=== PATIENT | female | born 1990 | race Caucasian/White ===

== ENCOUNTER 2020-05-25 17:09 | Emergency (ER) | payer OTHER, SELFPAY ==
[2020-05-25 17:20] VITALS: BP 118/81; PULSE 96; RESP 18; TEMP 36.8; O2SAT 98
--- NOTE | 2020-05-25 17:22 | ED.GENADULT ---
HPI - General Adult General Chief complaint: Upper Respiratory Infection Stated complaint: Sore throat Time Seen by Provider: 05/25/20 17:23 Source: patient Mode of arrival: ambulatory Limitations: no limitations History of Present Illness HPI narrative: 29-year-old female patient presents to the [facility] with complaints of a sore throat for the past 2 days. Patient states that late last week her daughter had some vaccinations and over the weekend started running some low-grade fevers and lethargic and states that she was not getting any better so she took her and to be tested for strep and COVID today. Patient states that her daughter did come back positive for strep. Patient states that she herself has had strep multiple times and actually had her tonsils and adenoids taken out last year for multiple bouts of strep. Patient states that because she was having some similar symptoms she wanted to come and get tested for strep today. Denies any fevers, body aches or chills. Denies any chest pain, shortness of breath, abdominal pain, nausea, vomiting or diarrhea. Related Data Home Medications Medication Instructions Recorded Confirmed bupropion HCl 150 mg PO QAM 10/24/19 10/24/19 estradiol 1 patch TRANSDERMAL WEEKLY 10/24/19 10/24/19 Allergies Allergy/AdvReac Type Severity Reaction Status Date / Time No Known Allergies Allergy Verified 10/24/19 16:36 Review of Systems Review of Systems: Narrative: CONSTITUTIONAL: Denies fever, chills, or sweats. EYES: Denies visual changes, redness, or discharge. ENT: Denies rhinorrhea, congestion, positive sore throat, denies otalgia. CARDIOVASCULAR: Denies chest pain, palpitations, or edema. RESPIRATORY: Denies cough or dyspnea. GASTROINTESTINAL: Denies abdominal pain, nausea, vomiting, or diarrhea. GENITOURINARY: Denies dysuria or hematuria. SKIN: Denies rash or itching. MUSCULOSKELETAL: Denies back pain, joint pain, or myalgia. NEUROLOGIC: Denies headache, numbness, or weakness. PSYCHIATRIC: Denies anxiety or depression. PMFSH Comments At the time of my signature I agree with nursing past medical history, surgical, social, and family history. There is no relevant family history pertinent to the presenting complaint. Exam Narrative: Exam Narrative: GENERAL: Well-appearing, well-nourished, and in no acute distress. HEAD: Normocephalic, atraumatic. EYES: PERRLA and EOMI. ENT: Nares clear, no rhinorrhea or epistaxis. Mucous membranes moist. Posterior pharynx with slight erythema. There is no tonsils present. No exudates or lesions present. NECK: Supple. No lymphadenopathy CHEST: Clear to auscultation. No respiratory distress. HEART: Regular rate and rhythm. No murmur heard. Normal peripheral pulses. ABDOMEN: Soft, nontender, nondistended, normal active bowel sounds. EXTREMITIES: Normal range of motion. No edema. SKIN: Warm, dry, no rash. NEURO: No focal deficits. Alert and oriented x3. Course Reevaluation(s) Reevaluation #1: Reevaluated patient. Discussed with her that her strep test today is negative for strep. Discussed with her that we will send the swab off to the lab for culture and if it does come back positive at that time we will call and place her on antibiotics. Offered to send patient for COVID testing however patient states that she had a cover test done last week for work and it was negative. Patient not wanting to cover the test at this time. Date: 05/25/20 Time: 17:29 Vital Signs Vital signs: Vital Signs Temperature 36.8 C 05/25/20 17:20 Pulse Rate 96 05/25/20 17:20 Respiratory Rate 18 05/25/20 17:20 Blood Pressure 118/81 05/25/20 17:20 Pulse Oximetry 98 05/25/20 17:20 Temperature 36.8 C 05/25/20 17:20 Pulse Rate 96 05/25/20 17:20 Respiratory Rate 18 05/25/20 17:20 Blood Pressure 118/81 05/25/20 17:20 Pulse Oximetry 98 05/25/20 17:20 Vital signs reviewed. Medical Decision Making Differential Diagnosis Differential
== END 2020-05-25 17:35 | disposition home or self-care (01) ==
PROVIDERS: Emergency Provider Nurse Practitioner Family
DX: J02.9 Acute pharyngitis, unspecified (principal); F41.9 Anxiety disorder, unspecified; F32.9 Major depressive disorder, single episode, unspecified
CPT/HCPCS: 87081; 87880; 99213; G0463

== ENCOUNTER 2021-02-12 10:30 | Emergency (ER) | payer OTHER, SELFPAY ==
--- NOTE | 2021-02-12 10:34 | ED.URI ---
HPI - URI/Sore Throat General Chief Complaint: Upper Respiratory Infection Stated Complaint: fatigue headache sore throat Time Seen by Provider: 02/12/21 10:35 Source: patient and RN notes reviewed History of Present Illness HPI Narrative: Patient is a 30-year-old female who presents the urgent care with complaints of fatigue, sore throat, body aches and headache since yesterday. Patient states she has been taking DayQuil and NyQuil with mild improvement. Denies of any other upper respiratory symptoms such as cough, runny nose, ear pain, fever. No other acute complaints. No acute distress noted. Patient aware of the plan of care. Some parts of this dictation were generated by voice recognition software and may contain typographical and/or grammatical inaccuracies. Related Data Home Medications Medication Instructions Recorded Confirmed No Home Medications 02/12/21 02/12/21 Allergies Allergy/AdvReac Type Severity Reaction Status Date / Time No Known Allergies Allergy Verified 10/24/19 16:36 Review of Systems Review of Systems: Narrative: CONSTITUTIONAL: Reports a fever EYES: Denies visual changes, redness, or discharge. ENT: Reports of sore throat CARDIOVASCULAR: Denies chest pain, palpitations, or edema. RESPIRATORY: Denies cough or dyspnea. GASTROINTESTINAL: Denies abdominal pain, nausea, vomiting, or diarrhea. GENITOURINARY: Denies dysuria or hematuria. SKIN: Denies rash or itching. MUSCULOSKELETAL: Denies back pain, joint pain. Reports of body aches NEUROLOGIC: Reports of headache without numbness or weakness All other systems reviewed are negative, except as documented in HPI. PMFSH Social History Social History Gender identity (if verbalized by the patient): Female Comments At the time of my signature, I reviewed and agree with the nursing past medical, surgical, social, and family history. There is no relevant family history pertinent to the patient complaint. Exam Narrative: Exam Narrative: GENERAL: This is a well-nourished, well-developed patient, in no apparent distress. HEAD: normocephalic, atraumatic. EYES: PERRL. Sclera clear/white. Vision is grossly intact. EARS: External ears normal, auditory canals clear and without drainage, TMs normal without perforation. Hearing grossly intact. NOSE: External nose normal with no obvious nasal discharge, nares without redness, no rhinorrhea. THROAT: Mucous membranes moist, posterior pharynx clear. Mild postnasal drainage NECK: Neck supple, non-tender without lymphadenopathy CARDIOVASCULAR: Regular rate and rhythm without murmurs, gallops, or rubs. RESPIRATORY: Clear to auscultation. Breath sounds equal bilaterally. No wheezes, rales, or rhonchi. SKIN: warm, intact with no suspicious lesions or rash, good texture and turgor. NEURO: awake, alert, and oriented to person, place and time. There were no obvious focal neurologic abnormalities. EXTREMITIES: No clubbing, cyanosis, or edema. Course Vital Signs Vital signs: Vital Signs Temperature 98.9 F 02/12/21 10:38 Pulse Rate 87 02/12/21 10:38 Respiratory Rate 24 H 02/12/21 10:38 Blood Pressure 140/79 02/12/21 10:38 Pulse Oximetry 99 02/12/21 10:38 Temperature 98.9 F 02/12/21 10:38 Pulse Rate 87 02/12/21 10:38 Respiratory Rate 24 H 02/12/21 10:38 Blood Pressure 140/79 02/12/21 10:38 Pulse Oximetry 99 02/12/21 10:38 Reviewed MDM - URI/Sore Throat MDM Narrative Medical decision making narrative: Reviewed lab results with the patient. She is aware that flu and strep swab were both negative. Educated patient on culture for strep and we will call within 72 hours if culture is positive and antibiotics are necessary. Advised the patient to increase her water intake use a humidifier at night. Treat body aches/fevers as needed with Tylenol/ibuprofen. May use a [id number] antihistamine for postnasal drainage relief. I
[2021-02-12 10:38] VITALS: BP 140/79; PULSE 87; RESP 24; TEMP 37.2; O2SAT 99
== END 2021-02-12 11:11 | disposition home or self-care (01) ==
PROVIDERS: Emergency Provider Nurse Practitioner Family; PCP Nurse Practitioner Adult Health
DX: J02.9 Acute pharyngitis, unspecified (principal)
CPT/HCPCS: 87081; 87804; 87880; 99213; G0463

== ENCOUNTER 2021-09-10 15:29 | Emergency (ER) | payer OTHER, SELFPAY ==
[2021-09-10 15:40] VITALS: BP 128/95; PULSE 98; RESP 18; TEMP 36.8; O2SAT 99
--- NOTE | 2021-09-10 16:03 | ED.FEMALEGU ---
HPI - Female Genitourinary General Chief complaint: Urogenital-Female Stated complaint: poss uti sore throat Time Seen by Provider: 09/10/21 15:40 Source: patient and RN notes reviewed Mode of arrival: ambulatory Limitations: no limitations History of Present Illness HPI Narrative: 31 year old female who presents to [facility] care with complaints of urinary frequency and burning and cramping lower abdomen and right back pain for the past week patient has past history of interstitial cystitis and has monthly instillations in her bladder. Patient also states that she has had sore throat tenderness to sides of throat and neck with headaches. Patient reports that she has been taking some DayQuil for her symptoms. Patient denies any Tylenol and Ibuprofen. Patient reports that she has had COVID and Flu vaccine. MD elicited complaint: UTI and other (ST, headache, neck pain) Related Data Home Medications Medication Instructions Recorded Confirmed No Home Medications 02/12/21 09/10/21 Allergies Allergy/AdvReac Type Severity Reaction Status Date / Time No Known Allergies Allergy Verified 09/10/21 16:14 Review of Systems Review of Systems: CONSTITUTIONAL: Denies fever, chills, or sweats. EYES: Denies visual changes, redness, or discharge. ENT: Denies rhinorrhea, congestion, positive sore throat, or otalgia. CARDIOVASCULAR: Denies chest pain, palpitations, or edema. RESPIRATORY: Denies cough or dyspnea GASTROINTESTINAL Denies abdominal pain, nausea, vomiting, or diarrhea. GENITOURINARY: Positive for dysuria or urinary frequency, some supra pubic abdomen pain SKIN: Denies rash or itching. MUSCULOSKELETAL:right back pain, joint pain, or myalgia. NEUROLOGIC: Positive for headache, no numbness, or weakness. PSYCHIATRIC: Positive for anxiety or depression. All systems reviewed & are unremarkable except as noted in HPI and below PMFSH Past Medical History Medical History (Updated 09/12/21 @ 15:47 by Jaja Barfield NP) Anxiety and depression Chronic headaches Interstitial cystitis Surgical History Surgical History (Updated 09/10/21 @ 16:20 by Jaja Barfield NP) History of tonsillectomy Hx of cholecystectomy Family History Family History (Updated 09/10/21 @ 16:45 by Jaja Barfield NP) Other No significant family history Social History Social History (Updated 09/10/21 @ 16:42 by PRASHANTH Antonio Smoking status: Never smoker Alcohol intake: unknown Substance use: never Living arrangements: with family Gender identity (if verbalized by the patient): Female Comments At time of signature, agree with nursing past medical, surgical, social and family history. There is no relevant family history pertinent to the presenting complaint Exam Narrative: GENERAL: Well-appearing, well-nourished, and in no acute distress. HEAD: Normocephalic, atraumatic. EYES: PERRLA and EOMI. ENT: Nares clear, no rhinorrhea or epistaxis. Mucous membranes moist.TM's normal with good light reflex, throat with some redness no lesions or exudates no tonsils present NECK: Supple.no lymphadenopathy CHEST: Clear to auscultation. No respiratory distress.SAO2 99% on room air HEART: Regular rate and rhythm. No murmur heard. Normal peripheral pulses. ABDOMEN: Soft, tender supra pubic area, nondistended, normal active bowel sounds. EXTREMITIES: Normal range of motion. No edema. SKIN: Warm, dry, no rash. NEURO: No focal deficits. Alert and oriented x3. Course Vital Signs Vital signs: Vital Signs Temperature 36.8 C 09/10/21 15:40 Pulse Rate 98 09/10/21 15:40 Respiratory Rate 18 09/10/21 15:40 Blood Pressure 128/95 H 09/10/21 15:40 Pulse Oximetry 99 09/10/21 15:40 Temperature 36.8 C 09/10/21 15:40 Pulse Rate 98 09/10/21 15:40 Respiratory Rate 18 09/10/21 15:40 Blood Pressure 128/95 H 09/10/21 15:40 Pulse Oximetry 99 09/10/21 15:40 MDM - Female Genitourinary Differential Diagnosi
== END 2021-09-10 15:40 | disposition home or self-care (01) ==
PROVIDERS: Emergency Provider Registered Nurse; PCP Nurse Practitioner Adult Health
DX: N30.90 Cystitis, unspecified without hematuria (principal); J06.9 Acute upper respiratory infection, unspecified
CPT/HCPCS: 81003; 87081; 87086; 87088; 87880; 99213; G0463

== ENCOUNTER 2022-01-13 08:40 | Emergency (ER) | payer OTHER, SELFPAY ==
--- NOTE | 2022-01-13 08:42 | ED.URI ---
HPI - URI/Sore Throat General Chief Complaint: Upper Respiratory Infection Stated Complaint: cough sore throat Time Seen by Provider: 01/13/22 08:42 Source: patient and RN notes reviewed History of Present Illness HPI Narrative: Patient is a 31-year-old female who presents the urgent care with complaints of a harsh cough and mild sore throat. Patient states that she had surgery for endometriosis approximately 2 weeks ago and developed a cold shortly after. Patient states that the cough is worsened since Monday with intermittent shortness of breath. Patient has taken DayQuil, NyQuil and Delsym without much relief. Denies any ill contacts. Denies of any fever, nausea or vomiting. No other acute complaints. No acute distress noted. Patient read the plan of care. Some parts of this dictation were generated by voice recognition software and may contain typographical and/or grammatical inaccuracies. Related Data Allergies Allergy/AdvReac Type Severity Reaction Status Date / Time No Known Allergies Allergy Verified 01/13/22 08:59 Review of Systems Review of Systems: CONSTITUTIONAL: Denies fever, chills, or sweats. EYES: Denies visual changes, redness, or discharge. ENT: Denies rhinorrhea, congestion, otalgia. Reports of sore throat CARDIOVASCULAR: Denies chest pain, palpitations, or edema. RESPIRATORY: Reports of persistent harsh nonproductive cough with intermittent dyspnea GASTROINTESTINAL: Denies abdominal pain, nausea, vomiting, or diarrhea. GENITOURINARY: Denies dysuria or hematuria. SKIN: Denies rash or itching. MUSCULOSKELETAL: Denies back pain, joint pain, or myalgia. NEUROLOGIC: Denies headache, numbness, or weakness. All other systems reviewed are negative, except as documented in HPI. [facility] Past Medical History Medical History (Updated 01/13/22 @ 09:05 by RITA Correia) Anxiety and depression Chronic headaches Interstitial cystitis Surgical History Surgical History (Updated 09/10/21 @ 16:20 by Jaja Barfield NP) History of tonsillectomy Hx of cholecystectomy Family History Family History (Updated 09/10/21 @ 16:45 by Jaja Barfield NP) Other No significant family history Social History Social History (Updated 09/10/21 @ 16:42 by Jaja Barfield NP) Smoking status: Never smoker Alcohol intake: unknown Substance use: never Gender identity (if verbalized by the patient): Female Comments At the time of my signature, I reviewed and agree with the nursing past medical, surgical, social, and family history. There is no relevant family history pertinent to the patient complaint. Exam Narrative: GENERAL: This is a well-nourished, well-developed patient, in no apparent distress. HEAD: normocephalic, atraumatic. EYES: PERRL. Sclera clear/white. Vision is grossly intact. EARS: External ears normal, auditory canals clear and without drainage, TMs normal without perforation. Hearing grossly intact. NOSE: External nose normal with no obvious nasal discharge, nares without redness, no rhinorrhea. THROAT: Mucous membranes moist, posterior pharynx clear. Absent tonsils NECK: Neck supple CARDIOVASCULAR: Regular rate and rhythm without murmurs, gallops, or rubs. RESPIRATORY: Moderate harsh cough throughout exam increased with deep breathing. Clear to auscultation. Breath sounds equal bilaterally. No wheezes, rales, or rhonchi. SKIN: warm, intact with no suspicious lesions or rash, good texture and turgor. NEURO: awake, alert, and oriented to person, place and time. There were no obvious focal neurologic abnormalities. EXTREMITIES: No clubbing, cyanosis, or edema. Course Course Level of Care: Express Care Visit Vital Signs Vital signs: Vital Signs Temperature 97.5 F L 01/13/22 08:45 Pulse Rate 96 01/13/22 08:45 Respiratory Rate 16 01/13/22 08:45 Blood Pressure 108/71 01/13/22 08:45 Pulse Oximetry 98 01/13/22 08:45 Temperature 97.5 F L 01/13/22 08:45 Pu
[2022-01-13 08:45] VITALS: BP 108/71; PULSE 96; RESP 16; TEMP 36.4; O2SAT 98
== END 2022-01-13 09:10 | disposition home or self-care (01) ==
PROVIDERS: Emergency Provider Nurse Practitioner Family; PCP Nurse Practitioner Adult Health
DX: J42 Unspecified chronic bronchitis (principal)
CPT/HCPCS: 99213; G0463

== ENCOUNTER 2022-01-24 12:49 | Emergency (ER) | payer OTHER, SELFPAY ==
[2022-01-24 12:54] VITALS: BP 142/63; PULSE 97; RESP 14; TEMP 36.4; O2SAT 100
--- NOTE | 2022-01-24 12:58 | ED.URI ---
HPI - URI/Sore Throat General Chief Complaint: Upper Respiratory Infection Stated Complaint: Cough Time Seen by Provider: 01/24/22 12:58 Source: patient Mode of arrival: ambulatory Limitations: no limitations History of Present Illness HPI Narrative: Ms. Morataya is a 31-year-old female patient presenting to the clinic today with complaints of cough. She reports MD elicited complaint: cough and sore throat Related Data Home Medications Medication Instructions Recorded Confirmed bupropion HCl 150 mg PO QAM 01/24/22 01/24/22 metoprolol succinate 50 mg PO DAILY 01/24/22 01/24/22 norethindrone (contraceptive) 0.35 mg PO DAILY 01/24/22 01/24/22 sertraline 150 mg PO DAILY 01/24/22 01/24/22 Allergies Allergy/AdvReac Type Severity Reaction Status Date / Time No Known Allergies Allergy Verified 01/24/22 13:03 Review of Systems Review of Systems: Pertinent positives per HPI. Patient denies any fever, chills, rash, headache, visual changes, dizziness, shortness of breath, chest pain, palpitations, nausea, vomiting, diarrhea, constipation, abdominal pain, or any urinary issues. PMFSH Past Medical History Medical History Anxiety and depression Chronic headaches Interstitial cystitis Surgical History Surgical History History of tonsillectomy Hx of cholecystectomy Family History Family History Other No significant family history Social History Social History Smoking status: Never smoker Alcohol intake: unknown Substance use: never Gender identity (if verbalized by the patient): Female Comments At the time of my signature, I reviewed and agree with the nursing past medical, surgical, social, and family history. There is no relevant family history pertinent to the patient complaint. Exam Narrative: General: Well-developed, well nourished, in no apparent distress Head: Normocephalic, atraumatic Eyes: Pupils equally round and reactive to light bilaterally, EOM intact, sclera and conjunctive clear, no discharge, lids normal Ears: TMs intact and clear, ear canals clear, no drainage, grossly hearing normal. Nose: Nares patent, no discharge, no inflammation, no sinus tenderness. Mouth: Oral pharynx without lesions or masses, good dentition, MMM. Neck: Supple, trachea midline, no enlargement of anterior or posterior cervical nodes, no thyroid masses or goiter palpable. Cardio: Regular rate and rhythm, s1 and s2 normal, no murmur appreciated. Resp: Clear to auscultation bilaterally, no rhonchi, rales, wheezing or rubs Course Course Emergency Course: Portions of this record may have been created with voice recognition software. Level of Care: Express Care Visit Vital Signs Vital signs: Vital signs reviewed MDM - URI/Sore Throat MDM Narrative Medical decision making narrative: At the time of assessment patient is resting comfortably on the exam table. Differential Diagnosis Differential diagnosis: Likely sinusitis, viral infection, influenza and pharyngitis Discharge Plan Discharge Clinical Impression: Bronchitis Patient Disposition: Home, Self-Care Condition: Stable Instructions: Acute Bronchitis (ED) Additional Instructions: Continue current medications and we will add Mucinex Take prescription medications only as prescribed Increase fluids and stay well hydrated Tylenol/motrin for pain/fever Flonase and OTC antihistamines as directed Vicks vapor rub to open sinuses Sinus rinses for congestion Cepacol spray, cough drops, throat lozenges, warm tea with honey/lemon, gargle salt water to soothe throat BRAT diet for diarrhea Clear liquids x 24 hours then advance as tolerated for nausea/vomiting May return to the clinic if sym
== END 2022-01-24 13:12 | disposition home or self-care (01) ==
PROVIDERS: Emergency Provider Nurse Practitioner Family
DX: J40 Bronchitis, not specified as acute or chronic (principal); F41.9 Anxiety disorder, unspecified; F32.A Depression, unspecified
CPT/HCPCS: 99213; G0463

== ENCOUNTER 2022-08-27 10:22 | Emergency (ER) | payer OTHER, SELFPAY ==
--- NOTE | ~2022-08-27 | XR_ITS ---
EXAMINATION: XR toe 1st LT min 2V DATE: 08/27/2022 10:54 INDICATION: Pain at the left great toe post injury TECHNIQUE: Dorsal plantar, lateral and 2 oblique views of the left great toe were obtained. COMPARISON: None FINDINGS: Small nondisplaced avulsion fracture at the dorsal base of the first distal phalanx which involves a minimal portion of the articular surface. Alignment remains essentially anatomic with no significant fracture gap or incongruity at the articular surface. No other fractures identified. Joint spaces are normal. IMPRESSION: Nondisplaced very small intra-articular fracture at the dorsal base of the first distal phalanx. Reviewed, dictated and finalized at location A. [employer]YABLE CLERK IMPRESSION: Nondisplaced very small intra-articular fracture at the dorsal base of the firs t distal phalanx.
[2022-08-27 10:28] VITALS: BP 120/67; PULSE 74; RESP 20; TEMP 36.6; O2SAT 99
--- NOTE | 2022-08-27 11:02 | ED.LOWEXIN ---
HPI - Extremity Injury (Lower) General Chief Complaint: Extremity Injury, Lower Stated Complaint: Left Toe Injury Time Seen by Provider: 08/27/22 11:04 History of Present Illness HPI Narrative: injured left toe last night no deformity slight swelling no bruising hurts to walk on toe Related Data Home Medications Medication Instructions Recorded Confirmed bupropion HCl 150 mg 24 hr tablet, 150 mg PO QAM 01/24/22 01/24/22 extended release metoprolol succinate 50 mg 50 mg PO DAILY 01/24/22 01/24/22 tablet,extended release 24 hr norethindrone (contraceptive) 0.35 0.35 mg PO DAILY 01/24/22 01/24/22 mg tablet sertraline 150 mg capsule 150 mg PO DAILY 01/24/22 01/24/22 Allergies Allergy/AdvReac Type Severity Reaction Status Date / Time No Known Allergies Allergy Verified 08/27/22 11:04 Review of Systems Review of Systems: CONSTITUTIONAL: Denies fever, chills, or sweats. EYES: Denies visual changes, redness, or discharge. ENT: Denies rhinorrhea, congestion, sore throat, or otalgia. CARDIOVASCULAR: Denies chest pain, palpitations, or edema. RESPIRATORY: Denies cough or dyspnea. GASTROINTESTINAL: Denies abdominal pain, nausea, vomiting, or diarrhea. GENITOURINARY: Denies dysuria or hematuria. SKIN: Denies rash or itching. MUSCULOSKELETAL: Denies back pain, joint pain, or myalgia. NEUROLOGIC: Denies headache, numbness, or weakness. PSYCHIATRIC: Denies anxiety or depression. [facility] Past Medical History Medical History Anxiety and depression Chronic headaches Interstitial cystitis Surgical History Surgical History History of tonsillectomy Hx of cholecystectomy Family History Family History Other No significant family history Social History Social History Smoking status: Never smoker Alcohol intake: unknown Substance use: never Gender identity (if verbalized by the patient): Female Comments At time of signature, agree with nursing past medical, surgical, social and family history. There is no relevant family history pertinent to the presenting complaint Exam Narrative: GENERAL: Well-appearing, well-nourished, and in no acute distress. HEAD: Normocephalic, atraumatic. EYES: PERRLA and EOMI. ENT: Nares clear, no rhinorrhea or epistaxis. Mucous membranes moist. NECK: Supple. CHEST: Clear to auscultation. No respiratory distress. HEART: Regular rate and rhythm. No murmur heard. Normal peripheral pulses. ABDOMEN: Soft, nontender, nondistended, normal active bowel sounds. EXTREMITIES: Normal range of motion. No edema. SKIN: Warm, dry, no rash. NEURO: No focal deficits. Alert and oriented x3. [place]well Coma Scale Eye Opening: Spontaneous 4 Rosamaria Coma Scale Motor: Obeys Commands 6 Rosamaria Coma Scale Verbal: Oriented 5 Rosamaria Coma Scale Total 15 left foot s KIN INTACT. NORMAL DP PULSE, NORMAL CAP REFILL. NORMAL SENSATION. Course Course Level of Care: Express Care Visit Vital Signs Vital signs: Vital Signs Temperature 36.6 C 08/27/22 10:28 Pulse Rate 74 08/27/22 10:28 Respiratory Rate 20 08/27/22 10:28 Blood Pressure 120/67 08/27/22 10:28 Pulse Oximetry 99 08/27/22 10:28 Oxygen Delivery Room Air 08/27/22 10:28 Temperature 36.6 C 08/27/22 10:28 Pulse Rate 74 08/27/22 10:28 Respiratory Rate 20 08/27/22 10:28 Blood Pressure 120/67 08/27/22 10:28 Pulse Oximetry 99 08/27/22 10:28 Oxygen Delivery Room Air 08/27/22 10:28 MDM - Extremity Injury (Lower) Imaging Data My impression: Nondisplaced very small intra-articular fracture at the dorsal base of the 1st distal phalanx Discharge Plan Discharge Patient Disposition: Home, Self-Care Condition: Stable Instructions: Antibiotic Form, To
== END 2022-08-27 11:19 | disposition home or self-care (01) ==
PROVIDERS: Emergency Provider Nurse Practitioner Family; PCP Nurse Practitioner Family
DX: S92.425A Nondisplaced fracture of distal phalanx of left great toe, initial encounter for closed fracture (principal); X58.XXXA Exposure to other specified factors, initial encounter; F41.9 Anxiety disorder, unspecified; F32.A Depression, unspecified
CPT/HCPCS: 73660; 99213; G0463

== ENCOUNTER 2022-12-13 08:17 | Emergency (ER) | payer OTHER, SELFPAY ==
--- NOTE | 2022-12-13 08:22 | ED.GENADULT ---
HPI - General Adult General Chief complaint: Upper Respiratory Infection Stated complaint: congestion/fatigue Source: patient and RN notes reviewed History of Present Illness HPI narrative: 32-year-old female presents to urgent care with complaints of worsening congestion, left ear pain, facial pressure, and sore throat. Patient reports low-grade fever at home. Patient states this has been going on since Monday. Patient denies any vomiting, diarrhea, chest pain or shortness of breath. Patient has been taking [id number] cold and medication with minimal relief. Some parts of this dictation were generated by voice recognition software and may contain typographical and/or grammatical inaccuracies. Related Data Home Medications Medication Instructions Recorded Confirmed bupropion HCl 150 mg 24 hr tablet, 150 mg PO QAM 01/24/22 12/13/22 extended release metoprolol succinate 50 mg 50 mg PO DAILY 01/24/22 12/13/22 tablet,extended release 24 hr norethindrone (contraceptive) 0.35 0.35 mg PO DAILY 01/24/22 12/13/22 mg tablet sertraline 150 mg capsule 150 mg PO DAILY 01/24/22 12/13/22 Allergies Allergy/AdvReac Type Severity Reaction Status Date / Time No Known Allergies Allergy Verified 12/13/22 08:32 Review of Systems Review of Systems: CONSTITUTIONAL: Low-grade fever at home EYES: Denies visual changes, redness, or discharge. ENT: Reports left otalgia and sore throat and congestion CARDIOVASCULAR: Denies chest pain, palpitations, or edema. RESPIRATORY: Denies cough or dyspnea. GASTROINTESTINAL: Denies abdominal pain, nausea, vomiting, or diarrhea. GENITOURINARY: Denies dysuria or hematuria. SKIN: Denies rash or itching. MUSCULOSKELETAL: Denies back pain, joint pain, or myalgia. NEUROLOGIC: Denies headache, numbness, or weakness. [facility] Past Medical History Medical History Anxiety and depression Chronic headaches Interstitial cystitis Surgical History Surgical History History of tonsillectomy Hx of cholecystectomy Family History Family History Other No significant family history Social History Social History Smoking status: Never smoker Alcohol intake: unknown Substance use: never Living arrangements: with family Gender identity (if verbalized by the patient): Female Comments At the time of my signature, I reviewed and agree with the nursing past medical, surgical, social, and family history. There is no relevant family history pertinent to the patient complaint. Exam Narrative: GENERAL: This is a well-nourished, well-developed patient, appears lethargic. HEAD: normocephalic, atraumatic. EYES: Sclera clear/white. Vision is grossly intact. EARS: External ears normal, auditory canals clear and without drainage, TMs normal without perforation. Hearing grossly intact. NOSE: Congestion. Nares erythemic and edematous. THROAT: Mucous membranes moist, posterior pharynx erythremic. NECK: Neck supple, non-tender, mild lymphadenopathy, masses or thyromegaly. CARDIOVASCULAR: Regular rate and rhythm without murmurs, gallops, or rubs. RESPIRATORY: Clear to auscultation. Breath sounds equal bilaterally. No wheezes, rales, or rhonchi. GASTROINTESTINAL: Abdomen soft, non-tender, nondistended. Bowel sounds are active. No hepato-splenomegaly, or palpable masses. No guarding. SKIN: warm, intact with no suspicious lesions or rash, good texture and turgor. NEURO: awake, alert, and oriented to person, place and time. There were no obvious focal neurologic abnormalities. EXTREMITIES: No clubbing, cyanosis, or edema. No joint tenderness, effusion, or edema noted. BACK: Nontender without deformity or crepitance. No flank tenderness. Course Course Level of Care:
[2022-12-13 08:28] VITALS: BP 118/78; PULSE 98; RESP 20; TEMP 36.6; O2SAT 98
== END 2022-12-13 08:51 | disposition home or self-care (01) ==
PROVIDERS: Emergency Provider Nurse Practitioner Family; PCP Nurse Practitioner Family
DX: H66.90 Otitis media, unspecified, unspecified ear (principal); J01.90 Acute sinusitis, unspecified; F41.9 Anxiety disorder, unspecified; F32.A Depression, unspecified
CPT/HCPCS: 99213; G0463

== ENCOUNTER 2022-12-28 11:57 | Emergency (ER) | payer OTHER, SELFPAY ==
[2022-12-28 12:01] VITALS: BP 123/57; PULSE 99; RESP 16; TEMP 36.4; O2SAT 98
--- NOTE | 2022-12-28 12:09 | ED.URI ---
HPI - URI/Sore Throat General Stated Complaint: ear pain Time Seen by Provider: 12/28/22 12:09 Source: patient and RN notes reviewed History of Present Illness HPI Narrative: Patient is a 32-year-old female who presents to urgent care with complaints of left ear pain for the last 5 days. Patient states that she was on antibiotics for left ear infection approximately 2 weeks ago and was on Augmentin. States that the pain seems to have came back as soon as she stopped the antibiotic. Patient states she also has chronic TMJ that causes similar pain. Patient has been taking ibuprofen. No other acute complaints. No acute distress noted. Patient aware of the plan of care. Some parts of this dictation were generated by voice recognition software and may contain typographical and/or grammatical inaccuracies. Related Data Home Medications Medication Instructions Recorded Confirmed bupropion HCl 150 mg 24 hr tablet, 150 mg PO QAM 01/24/22 12/13/22 extended release metoprolol succinate 50 mg 50 mg PO DAILY 01/24/22 12/13/22 tablet,extended release 24 hr norethindrone (contraceptive) 0.35 0.35 mg PO DAILY 01/24/22 12/13/22 mg tablet sertraline 150 mg capsule 150 mg PO DAILY 01/24/22 12/13/22 duloxetine 30 mg capsule,delayed 30 mg PO BID 12/28/22 12/28/22 release Allergies Allergy/AdvReac Type Severity Reaction Status Date / Time No Known Allergies Allergy Verified 12/28/22 12:25 Review of Systems Review of Systems: CONSTITUTIONAL: Denies fever, chills, or sweats. EYES: Denies visual changes, redness, or discharge. ENT: Denies rhinorrhea, congestion, sore throat. Reports of left otalgia CARDIOVASCULAR: Denies chest pain, palpitations, or edema. RESPIRATORY: Denies cough or dyspnea. GASTROINTESTINAL: Denies abdominal pain, nausea, vomiting, or diarrhea. GENITOURINARY: Denies dysuria or hematuria. SKIN: Denies rash or itching. MUSCULOSKELETAL: Denies back pain, joint pain, or myalgia. NEUROLOGIC: Denies headache, numbness, or weakness. All other systems reviewed are negative, except as documented in HPI. [facility] Past Medical History Medical History Anxiety and depression Chronic headaches Interstitial cystitis Surgical History Surgical History History of tonsillectomy Hx of cholecystectomy Family History Family History Other No significant family history Social History Social History Smoking status: Never smoker Alcohol intake: unknown Substance use: never Living arrangements: with family Gender identity (if verbalized by the patient): Female Comments At the time of my signature, I reviewed and agree with the nursing past medical, surgical, social, and family history. There is no relevant family history pertinent to the patient complaint. Exam Narrative: GENERAL: This is a well-nourished, well-developed patient, in no apparent distress. HEAD: normocephalic, atraumatic. EYES: PERRL. Sclera clear/white. Vision is grossly intact. EARS: External ears normal, auditory canals clear and without drainage, mild bilateral eustachian tube dysfunction without otitis. TMs normal without perforation. Hearing grossly intact. NOSE: External nose normal with no obvious nasal discharge, nares without redness, no rhinorrhea. THROAT: Mucous membranes moist, posterior pharynx clear. NECK: Neck supple RESPIRATORY: Clear to auscultation. Breath sounds equal bilaterally. No wheezes, rales, or rhonchi. SKIN: warm, intact with no suspicious lesions or rash, good texture and turgor. NEURO: awake, alert, and oriented to person, place and time. There were no obvious focal neurologic abnormalities. EXTREMITIES: No clubbing, cyanosis, or edema. Course Course Level of Car
== END 2022-12-28 12:30 | disposition home or self-care (01) ==
PROVIDERS: Emergency Provider Nurse Practitioner Family; PCP Nurse Practitioner Family
DX: H92.02 Otalgia, left ear (principal); F41.9 Anxiety disorder, unspecified; F32.A Depression, unspecified
CPT/HCPCS: 99211; G0463

== ENCOUNTER 2023-02-06 16:32 | Emergency (ER) | payer OTHER, SELFPAY ==
[2023-02-06 16:35] VITALS: BP 128/67; PULSE 80; RESP 20; TEMP 37.2; O2SAT 99
--- NOTE | 2023-02-06 16:37 | ED.NAVMDI ---
HPI - Nausea/Vomiting/Diarrhea General Chief complaint: Nausea/Vomiting/Diarrhea Stated complaint: Vomiting Time Seen by Provider: 02/06/23 16:45 Source: patient and RN notes reviewed History of Present Illness HPI Narrative: Patient is a 32-year-old female who presents to urgent care with complaints of postnasal drainage, congestion, nausea and 1 episode of vomiting. Patient states that she feels like the episode of vomiting was mainly postnasal drainage and mucus. Patient states that happened at work and they are not requiring a work note in order for her to return. Patient also reports of some fatigue. States symptoms started a couple days ago and she has taking Tylenol. Denies any abdominal pain at this time. Denies any urinary symptoms or fever. No other acute complaints. No acute distress noted. Patient aware of the plan of care. Some parts of this dictation were generated by voice recognition software and may contain typographical and/or grammatical inaccuracies. Related Data Home Medications Medication Instructions Recorded Confirmed bupropion HCl 150 mg 24 hr tablet, 150 mg PO QAM 01/24/22 02/06/23 extended release metoprolol succinate 50 mg 50 mg PO DAILY 01/24/22 02/06/23 tablet,extended release 24 hr norethindrone (contraceptive) 0.35 0.35 mg PO DAILY 01/24/22 02/06/23 mg tablet sertraline 150 mg capsule 150 mg PO DAILY 01/24/22 02/06/23 duloxetine 30 mg capsule,delayed 30 mg PO BID 12/28/22 02/06/23 release Allergies Allergy/AdvReac Type Severity Reaction Status Date / Time No Known Allergies Allergy Verified 02/06/23 16:43 Review of Systems Review of Systems: CONSTITUTIONAL: Denies fever, chills, or sweats. EYES: Denies visual changes, redness, or discharge. ENT: Reports of congestion, postnasal drainage, rhinorrhea CARDIOVASCULAR: Denies chest pain, palpitations, or edema. RESPIRATORY: Denies cough or dyspnea. GASTROINTESTINAL: Reports of nausea and 1 episode vomiting GENITOURINARY: Denies dysuria or hematuria. SKIN: Denies rash or itching. MUSCULOSKELETAL: Denies back pain, joint pain, or myalgia. NEUROLOGIC: Denies headache, numbness, or weakness. All other systems reviewed are negative, except as documented in HPI. [facility] Past Medical History Medical History Anxiety and depression Chronic headaches Interstitial cystitis Surgical History Surgical History History of tonsillectomy Hx of cholecystectomy Family History Family History Other No significant family history Social History Social History Smoking status: Never smoker Alcohol intake: unknown Substance use: never Living arrangements: with family Gender identity (if verbalized by the patient): Female Comments At the time of my signature, I reviewed and agree with the nursing past medical, surgical, social, and family history. There is no relevant family history pertinent to the patient complaint. Exam Narrative: GENERAL: This is a well-nourished, well-developed patient, in no apparent distress. HEAD: normocephalic, atraumatic. EYES: PERRL. Sclera clear/white. Vision is grossly intact. EARS: External ears normal, auditory canals clear and without drainage, TMs normal without perforation. Hearing grossly intact. NOSE: External nose normal with no obvious nasal discharge, nares without redness, no rhinorrhea. THROAT: Mucous membranes moist, posterior pharynx clear. Mild postnasal drainage NECK: Neck supple, non-tender without lymphadenopathy CARDIOVASCULAR: Regular rate and rhythm RESPIRATORY: Clear to auscultation. Breath sounds equal bilaterally. No wheezes, rales, or rhonchi. GASTROINTESTINAL: Abdomen soft, non-tender, nondistended. Bowel sounds are a
[2023-02-06 16:49] VITALS: BP 128/67; PULSE 80; RESP 20; TEMP 37.2; O2SAT 99
== END 2023-02-06 17:04 | disposition home or self-care (01) ==
PROVIDERS: Emergency Provider Nurse Practitioner Family
DX: R11.2 Nausea with vomiting, unspecified (principal); F41.9 Anxiety disorder, unspecified; F32.A Depression, unspecified
CPT/HCPCS: 99211; G0463

== ENCOUNTER 2023-03-11 11:06 | Emergency (ER) | payer OTHER, SELFPAY ==
[2023-03-11 11:13] VITALS: BP 134/68; PULSE 113; RESP 18; TEMP 36.9; O2SAT 98
--- NOTE | 2023-03-11 11:17 | ED.URI ---
HPI - URI/Sore Throat General Chief Complaint: Upper Respiratory Infection Stated Complaint: sore throat Time Seen by Provider: 03/11/23 11:20 History of Present Illness HPI Narrative: 32-year-old female presented for complaint of sore throat for about 2 days. Endorses associated nausea.She states her daughter is currently being treated for strep. Patient denies cough, sob, wheezing, vomiting, diarrhea, fevers or chills. Not taking anything for symptoms. Post gastric sleeve about weeks ago. LMP 03/02/23. Related Data Home Medications Medication Instructions Recorded Confirmed bupropion HCl 150 mg 24 hr tablet, 150 mg PO QAM 01/24/22 03/11/23 extended release metoprolol succinate 50 mg 50 mg PO DAILY 01/24/22 03/11/23 tablet,extended release 24 hr norethindrone (contraceptive) 0.35 0.35 mg PO DAILY 01/24/22 03/11/23 mg tablet sertraline 150 mg capsule 150 mg PO DAILY 01/24/22 03/11/23 duloxetine 30 mg capsule,delayed 30 mg PO BID 12/28/22 03/11/23 release Allergies Allergy/AdvReac Type Severity Reaction Status Date / Time No Known Allergies Allergy Verified 02/06/23 16:43 Review of Systems Review of Systems: CONSTITUTIONAL: Denies body aches, fever, chills, or sweats. EYES: Denies visual changes, redness, or discharge. ENT: Reports sore throat Denies rhinorrhea, congestion, or otalgia. CARDIOVASCULAR: Denies chest pain, palpitations, or edema. RESPIRATORY: Denies dyspnea. GASTROINTESTINAL: Denies abdominal pain, vomiting, or diarrhea. SKIN: Denies rash, itching, or wounds. MUSCULOSKELETAL: Denies back pain, joint pain, or myalgia. NEUROLOGIC: Denies headache PMFSH Past Medical History Medical History (Updated 03/11/23 @ 11:30 by Carmita Aguirre APRN) Anxiety and depression Chronic headaches Interstitial cystitis Surgical History Surgical History (Updated 03/11/23 @ 11:26 by Carmita Aguirre APRN) H/O gastric sleeve History of tonsillectomy Hx of cholecystectomy Family History Family History Other No significant family history Social History Social History Smoking status: Never smoker Alcohol intake: unknown Substance use: never Living arrangements: with family Gender identity (if verbalized by the patient): Female Exam Narrative: GENERAL: mildly Ill-appearing, no acute distress. EYES: conjunctivae clear ENT: Mucous membranes moist. TMs pearly gonzalez with normal light reflex bilaterally; no tragal tenderness. Oropharynx erythematous without lesions. Tonsils absent. No drooling, no hoarseness, no trismus, uvula midline. No tripod positioning, hot potato voice, or soft palate swelling. NECK: Supple. No lymphadenopathy CHEST: Clear to auscultation HEART: Regular rate and rhythm. SKIN: Warm, dry, no rash. NEURO: Alert and oriented x3. Course Course Emergency Course: Patient is aware of diagnosis, understands and agrees to treatment plan. Anticipatory guidance given. Patient agrees to follow-up as directed and is aware of reasons to seek care at the emergency department. Portions of this record may have been created with voice recognition software Level of Care: Express Care Visit MDM - URI/Sore Throat MDM Narrative Medical decision making narrative: strep result reviewed with pt. Advise supportive treatments. Patient is appropriate for outpatient treatment and follow-up. Differential Diagnosis Differential diagnosis: Likely upper respiratory infection, viral infection and pharyngitis Discharge Plan Discharge Clinical Impression: Pharyngitis Qualifiers: Pharyngitis/tonsillitis etiology: unspecified etiology Qualified Code(s): J02.9 - Acute pharyngitis, unspecified Patient Disposition: Home, Self-Care Condition: Stable Instructions: Antibiotic Form, Pharyngitis (ED) Additional Instructions: Rapid strep swab w
== END 2023-03-11 11:31 | disposition home or self-care (01) ==
PROVIDERS: Emergency Provider Nurse Practitioner Family
DX: J02.9 Acute pharyngitis, unspecified (principal); F41.9 Anxiety disorder, unspecified; F32.A Depression, unspecified; Z98.84 Bariatric surgery status
CPT/HCPCS: 87081; 87880; 99213; G0463

== ENCOUNTER 2023-05-31 10:04 | Emergency (ER) | payer OTHER, SELFPAY ==
[2023-05-31 10:08] VITALS: BP 122/72; PULSE 80; RESP 16; TEMP 36.5; O2SAT 99
[2023-05-31 10:21] VITALS: BP 122/72; PULSE 80; RESP 16; TEMP 36.5; O2SAT 99
--- NOTE | 2023-05-31 10:27 | ED.BACK ---
HPI - Back Pain/Injury General Chief Complaint: Back Pain/Injury Stated Complaint: Back Pain Time Seen by Provider: 05/31/23 10:25 Source: patient, RN notes reviewed and old records reviewed Mode of arrival: ambulatory Limitations: no limitations History of Present Illness HPI Narrative: 32 year old female who presents to [facility] care with complaints of mid thoracic back discomfort that she describes as being spasms which has been occurring since Monday. Patient reports that she has had this same back pain in the past related to physical exertion from work. 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 Patient states that she has used heat, taken Ibuprofen and also has used tens unit for her discomfort without resolution. Patient denies any tingling or numbness to her extremities. MD elicited complaint: back pain Pertinent past history: prior back pain Onset (ago): day(s) (4) Pain scale (0-10): 4 Similar Symptoms Previously: Yes Quality: spasming Location: thoracic spine Associated symptoms: other (muscle spasms) Treatments prior to arrival: heat therapy, NSAIDS and other (TENS unit) Related Data Home Medications Medication Instructions Recorded Confirmed norethindrone (contraceptive) 0.35 0.35 mg PO DAILY 01/24/22 05/31/23 mg tablet bupropion HCl 150 mg 24 hr tablet, 150 mg PO DAILY 05/31/23 05/31/23 extended release sertraline 50 mg tablet 50 mg PO BID 05/31/23 05/31/23 Allergies Allergy/AdvReac Type Severity Reaction Status Date / Time No Known Allergies Allergy Verified 02/06/23 16:43 Review of Systems Review of Systems: CONSTITUTIONAL: Denies fever, chills, or sweats. CARDIOVASCULAR: Denies chest pain, palpitations, or edema. RESPIRATORY: Denies cough or dyspnea. GASTROINTESTINAL: Denies abdominal pain, nausea, vomiting, or diarrhea. GENITOURINARY: Denies dysuria or hematuria. SKIN: Denies rash or itching. MUSCULOSKELETAL: Reports thoracic back pain/ spasms NEUROLOGIC: Denies headache, numbness, or weakness. All systems reviewed & are unremarkable except as noted in HPI and below PMFSH Past Medical History Medical History (Updated 05/31/23 @ 10:38 by Jaja Barfeild NP) Anxiety and depression Chronic headaches Interstitial cystitis Surgical History Surgical History H/O gastric sleeve History of tonsillectomy Hx of cholecystectomy Family History Family History Other No significant family history Social History Social History Smoking status: Never smoker Alcohol intake: unknown Substance use: never Living arrangements: with family Gender identity (if verbalized by the patient): Female Comments At time of signature, agree with nursing past medical, surgical, social and family history. There is no relevant family history pertinent to the presenting complaint Exam Narrative: GENERAL: Well-appearing, well-nourished, and in no acute distress. HEAD: Normocephalic, atraumatic. EYES: PERRLA and EOMI. NECK: Supple. No lymphadenopathy. CHEST: Clear to auscultation. No respiratory distress. SAO2 99% on room air HEART: Regular rate and rhythm. Distal pulses palpable and equal, cap refill <3 seconds ABDOMEN: Soft, nontender, nondistended, normal active bowel sounds, no palpable or pulsatile masses. No CVA tenderness MUSCULOSKELETAL: Normal range of motion and strength in all extremities; 5/5 strength with hip flexion and extension, dorsiflexion and extension, knee flexion and extension, plantar flexion and extension. Normal sensation in dermatomal distributions with sensitivity to light touch and pain. Some midline back tenderness to palpation reports tightness and spasms. No paraspinal tenderness. Transfers from lying to sitting to standing. SKIN: Warm,
== END 2023-05-31 10:40 | disposition home or self-care (01) ==
PROVIDERS: Emergency Provider Registered Nurse
DX: M62.830 Muscle spasm of back (principal); M54.6 Pain in thoracic spine; F41.9 Anxiety disorder, unspecified; F32.A Depression, unspecified; Z98.84 Bariatric surgery status
CPT/HCPCS: 99213; G0463

== ENCOUNTER 2023-06-14 15:41 | Emergency (ER) | payer OTHER, SELFPAY ==
[2023-06-14 15:46] VITALS: BP 113/66; PULSE 92; RESP 20; TEMP 37; O2SAT 98
[2023-06-14 15:52] VITALS: BP 113/66; PULSE 92; RESP 20; TEMP 37; O2SAT 98
--- NOTE | 2023-06-14 15:54 | ED.FEMALEGU ---
HPI - Female Genitourinary General Chief complaint: Urogenital-Female Stated complaint: Poss uti Time Seen by Provider: 06/14/23 15:50 Source: patient Mode of arrival: ambulatory Limitations: no limitations History of Present Illness HPI Narrative: Areli is a 32-year-old female patient presenting to clinic today with complaints possible urinary tract infection x2 days. She reports that she did take some azo for her symptoms. History of interstitial cystitis. She denies any fever chills but does have some bladder pain and some back pain. Related Data Home Medications Medication Instructions Recorded Confirmed norethindrone (contraceptive) 0.35 0.35 mg PO DAILY 01/24/22 06/14/23 mg tablet bupropion HCl 150 mg 24 hr tablet, 150 mg PO DAILY 05/31/23 06/14/23 extended release sertraline 50 mg tablet 50 mg PO BID 05/31/23 06/14/23 Allergies Allergy/AdvReac Type Severity Reaction Status Date / Time No Known Allergies Allergy Verified 06/14/23 15:51 Review of Systems Review of Systems: Pertinent positives per HPI. Patient denies any fever, chills, rash, headache, visual changes, dizziness, cough, shortness of breath, chest pain, palpitations, nausea, vomiting, diarrhea, constipation, PMFSH Past Medical History Medical History Anxiety and depression Chronic headaches Interstitial cystitis Surgical History Surgical History H/O gastric sleeve History of tonsillectomy Hx of cholecystectomy Family History Family History Other No significant family history Social History Social History Smoking status: Never smoker Alcohol intake: unknown Substance use: never Living arrangements: with family Gender identity (if verbalized by the patient): Female Comments At the time of my signature, I reviewed and agree with the nursing past medical, surgical, social, and family history. There is no relevant family history pertinent to the patient complaint. Exam Narrative: General: Well-developed, well nourished, in no apparent distress. Head: Normocephalic, atraumatic. Cardio: Regular rate and rhythm, s1 and s2 normal, no murmur appreciated. Resp: Clear to auscultation bilaterally, no rhonchi, rales, wheezing or rubs. Abdomen: Soft, pliable, bowel sounds present in all quadrants, suprapubic area tender to palpation, no organomegly, bilateral CVAT tenderness. Course Course Emergency Course: Portions of this record may have been created with voice recognition software. Level of Care: Express Care Visit Vital Signs Vital signs: Vital Signs Temperature 37.0 C 06/14/23 15:46 Pulse Rate 92 06/14/23 15:46 Respiratory Rate 20 06/14/23 15:46 Blood Pressure 113/66 06/14/23 15:46 Pulse Oximetry 98 06/14/23 15:46 Oxygen Delivery Room Air 06/14/23 15:46 Temperature 37.0 C 06/14/23 15:52 Pulse Rate 92 06/14/23 15:52 Respiratory Rate 20 06/14/23 15:52 Blood Pressure 113/66 06/14/23 15:52 Pulse Oximetry 98 06/14/23 15:52 Oxygen Delivery Room Air 06/14/23 15:52 Vital signs reviewed MDM - Female Genitourinary MDM Narrative Medical decision making narrative: At the time of visit patient is resting comfortably on exam table. Urinalysis is skewed due to azo. Patient took azo yesterday. Will send patient in prescription for Macrobid and have her urine sent for culture. Supportive measures were discussed with the patient she voiced understanding discharge instructions and agrees to treatment plan. Differential Diagnosis Differential diagnosis: Likely urinary tract infection and cystitis Discharge Plan Discharge Clinical Impression: Urinary tract infection Qualifiers: Urinary tract infection type: acute cystitis H
== END 2023-06-14 16:05 | disposition home or self-care (01) ==
PROVIDERS: Emergency Provider Nurse Practitioner Family
DX: N30.00 Acute cystitis without hematuria (principal); F41.9 Anxiety disorder, unspecified; F32.A Depression, unspecified
CPT/HCPCS: 81003; 87086; 99213; G0463

== ENCOUNTER 2023-08-09 17:52 | Emergency (ER) | payer OTHER, SELFPAY ==
[2023-08-09 18:01] VITALS: BP 122/68; PULSE 84; RESP 18; TEMP 36.9; O2SAT 97
--- NOTE | 2023-08-09 18:31 | ED.URI ---
HPI - URI/Sore Throat General Chief Complaint: Upper Respiratory Infection Stated Complaint: Sore Throat/Cough/Headache Time Seen by Provider: 08/09/23 18:19 Source: patient and RN notes reviewed Mode of arrival: ambulatory Limitations: no limitations History of Present Illness HPI Narrative: Patient presents today with a 2 week history of congestion, postnasal drip, sore throat, headache, bilateral ear pain, cough. Denies shortness of breath. She has been taking Sudafed without relief and currently rates her pain 4/10. Denies any history of asthma. She is a nonsmoker. Related Data Home Medications Medication Instructions Recorded Confirmed norethindrone (contraceptive) 0.35 0.35 mg PO DAILY 01/24/22 06/14/23 mg tablet bupropion HCl 150 mg 24 hr tablet, 150 mg PO DAILY 05/31/23 06/14/23 extended release sertraline 50 mg tablet 50 mg PO BID 05/31/23 06/14/23 Allergies Allergy/AdvReac Type Severity Reaction Status Date / Time No Known Allergies Allergy Verified 08/09/23 18:23 Review of Systems Review of Systems: CONSTITUTIONAL: Denies body aches, fever, chills, or sweats. EYES: Denies visual changes, redness, or discharge. ENT: Denies rhinorrhea. + sore throat, congestion, postnasal drip, bilateral ear pain CARDIOVASCULAR: Denies chest pain, palpitations, or edema. RESPIRATORY: Denies dyspnea.+ cough GASTROINTESTINAL: Denies abdominal pain, nausea, vomiting, or diarrhea. GENITOURINARY: Denies dysuria or hematuria. SKIN: Denies rash, itching, or wounds. MUSCULOSKELETAL: Denies back pain, joint pain, or myalgia. NEUROLOGIC: Denies numbness, tingling, or weakness.+ headache PSYCH: Denies depression or anxiety. [facility] Past Medical History Medical History Anxiety and depression Chronic headaches Interstitial cystitis Surgical History Surgical History H/O gastric sleeve History of tonsillectomy Hx of cholecystectomy Family History Family History Other No significant family history Social History Social History Smoking status: Never smoker Alcohol intake: unknown Substance use: never Living arrangements: with family Gender identity (if verbalized by the patient): Female Comments At time of signature, I have reviewed and agree with nursing past medical, surgical, social and family history unless otherwise noted. Please see nursing chart for further information. There is no relevant family history pertinent to the presenting complaint Exam Narrative: GENERAL: Mildly ill-appearing, well-nourished, and in no acute distress. HEAD: Normocephalic, atraumatic. EYES: EOMI. No redness or drainage. Conjunctivae normal. ENT: Mucous membranes pink and moist. Nares congested. No rhinorrhea. TMs normal bilaterally. Throat normal. Uvula midline. NECK: Normal AROM. Supple. No lymphadenopathy. CHEST: No respiratory distress. Clear to auscultation. HEART: Regular rate and rhythm. No murmur appreciated. Normal peripheral pulses. EXTREMITIES: Normal range of motion. No edema. SKIN: Warm, dry, no rash. Capillary refill normal. Normal skin turgor. NEURO: No focal deficits. Alert and oriented x3. Gait steady. PSYCH: Normal affect. No signs of depression or anxiety. Course Course Level of Care: Express Care Visit Vital Signs Vital signs: Vital Signs Temperature 98.5 F 08/09/23 18:01 Pulse Rate 84 08/09/23 18:01 Respiratory Rate 18 08/09/23 18:01 Blood Pressure 122/68 08/09/23 18:01 Pulse Oximetry 97 08/09/23 18:01 Oxygen Delivery Room Air 08/09/23 18:01 Temperature 98.5 F 08/09/23 18:01 Pulse Rate 84 08/09/23 18:01 Respiratory Rate 18 08/09/23 18:01 Blood Pressure 122/68 08/09/23 18:01 Pulse Oximet
== END 2023-08-09 18:52 | disposition home or self-care (01) ==
PROVIDERS: Emergency Provider Nurse Practitioner
DX: J40 Bronchitis, not specified as acute or chronic (principal); J01.90 Acute sinusitis, unspecified; F41.9 Anxiety disorder, unspecified; F32.A Depression, unspecified; Z98.84 Bariatric surgery status
CPT/HCPCS: 99213; G0463

== ENCOUNTER 2023-08-23 15:45 | Outpatient (RCR) | payer OTHER, SELFPAY ==
--- NOTE | 2023-06-08 13:20 | OPREHPOC ---
Outpatient Therapy Plan of Care This is a Multidisciplinary Plan of Care that may contain components documented by all disciplines (PT, OT, and ST.) PT Problem 1 PT Problem #1 Knowledge Deficit PT Goal 1 Goal 1. Patient will perform independent HEP Target Visit 5 PT Goal 2 Goal 2. Patient will verbalize urge suppression strategies Target Visit 5 PT Problem 2 PT Problem #2 Pain PT Goal 1 Goal 1. Pt will report pain no higher than 1/10 with pelvic floor palpation Target Visit 5 PT Goal 2 Goal 2. Patient able to do normal work activities with pain no higher than 2/10 PT Problem 3 PT Problem #3 Impaired Strength PT Goal 1 Goal 1. Improve pelvic floor strength to 3/5 to decrease incontinence Target Visit 5 PT Goal 2 Goal 2. Improve pelvic floor endurance to 10 seconds to decrease incontinence Target Visit 5
--- NOTE | 2023-06-08 13:20 | PTOPEVAL1 ---
Assessment and note entered by Minerva Stratton DPT Evaluation Information Assessment Status Evaluation Subjective Information Pt reports she has been diagnosed with IC and endo . States she has been getting pelvic floor spasms. 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 Highest pain recently 6/ 10 and lowest 2/10. Pain with urination daily, especially recently. Urinates way more than 10 times a day and constant urge. Voids 0-2 times at night. Can hold urge 5 minutes. 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 BM maybe 1 time a week, discomfort and reports a lot of constipation issues. Pelvic pain with pap smear, tampon use, intercourse, etc. Unable to use tampons any more. Pain affects her ability to do her job at times, has had to switch jobs 3 times in 3 years due to missing work due to not feeling well. Unable to do yard work due to pain. Pt has been 2 times, 1 vaginal delivery without complications 2015. 2 laparoscopic surgeries for endo/scar tissue management. Bariatric surgery in February 2023. Patient goal: decrease incontinence and not have to wear a pad every day to prevent it. Minimize pain Reported Pain Level Pain Score 3: Self Report Assessment PT Clinical Summary The patient is presenting to skilled therapy with a history of pelvic pain and urinary incontinence as well as diagnoses of endometriosis and IC. She presents with pain with pelvic floor palpation, decreased pelvic floor strength and endurance, and decreased core strength which are contributing to her pain and incontinence and difficulty perform normal activities at home and work. She will highly benefit from therapy to address these impairments in order to safely reduce pain and dysfunction. Plan of Care Interventions Electrical Stimulation,Hot Pack/Cold Pack,Manual Therapy,Neuro Re-education,Patient/Caregiver Education,Therapeutic Activities,Therapeutic Exercise PT Services Indicated Yes Treatment Frequency and 1 visit a week for 4 visits Duration These treatments will address the objective and functional deficits as defined above. The patient will be advanced safely and appropriately in order for th
--- NOTE | 2023-07-12 16:18 | OPREHPOC ---
Outpatient Therapy Plan of Care This is a Multidisciplinary Plan of Care that may contain components documented by all disciplines (PT, OT, and ST.) PT Problem 1 PT Problem #1 Knowledge Deficit PT Goal 1 Goal 1. Patient will perform independent HEP Target Visit 5 Progress Met PT Goal 2 Goal 2. Patient will verbalize urge suppression strategies Target Visit 5 Progress Not Met PT Problem 2 PT Problem #2 Pain PT Goal 1 Goal 1. Pt will report pain no higher than 1/10 with pelvic floor palpation Target Visit 5 Progress Not Met PT Goal 2 Goal 2. Patient able to do normal work activities with pain no higher than 2/10 Target Visit 9 Progress Partially Met PT Problem 3 PT Problem #3 Impaired Strength PT Goal 1 Goal 1. Improve pelvic floor strength to 3/5 to decrease incontinence Target Visit 9 Progress Not Met PT Goal 2 Goal 2. Improve pelvic floor endurance to 10 seconds to decrease incontinence Target Visit 9 Progress Partially Met
--- NOTE | 2023-07-12 16:18 | PTOPPROG ---
Assessment and note entered by Minerva Srtatton DPT Evaluation Information Assessment Status Progress Subjective Information Highest pain 5/10 and lowest 2/10. Reports improvements with therapy in that her pain intensity and frequency has decreased and she is not incontinent as often. Thinks incontinence is occurring 1-2 times a week, still has pain daily. Assessment PT Clinical Summary The patient has made good progress so far in therapy and reports decreased frequency and intensity of pain, and decreased incontinence. She continues to have pain daily. She demonstrates improved core strength and pelvic floor endurance and will benefit from further therapy to address pain and incontinence to return to full function. Plan of Care Interventions Electrical Stimulation,Hot Pack/Cold Pack,Manual Therapy,Neuro Re-education,Patient/Caregiver Education,Therapeutic Activities,Therapeutic Exercise PT Services Indicated Yes Treatment Frequency and 1 time a week for 4 visits Duration These treatments will address the objective and functional deficits as defined above. The patient will be advanced safely and appropriately in order for the patient to progress towards his/her prior level of function. Additional exercises will be introduced and as well as a comprehensive home exercise program upon discharge, if needed, ?to ensure carryover of functional gains achieved in the clinic. This treatment plan has been reviewed and agreement upon by the patient.
--- NOTE | 2023-07-27 12:01 | PCPTNOTE ---
Patient called to cancel appointment on 07/27/23 and was unable to reschedule.
--- NOTE | 2023-08-03 08:47 | PCPTNOTE ---
Patient called to cancel appointment on 07/24/23 due to illness
--- NOTE | 2023-08-23 16:14 | OPREHPOC ---
Outpatient Therapy Plan of Care This is a Multidisciplinary Plan of Care that may contain components documented by all disciplines (PT, OT, and ST.) PT Problem 1 PT Problem #1 Knowledge Deficit PT Goal 1 Goal 1. Patient will perform independent HEP Target Visit 9 Progress Met PT Goal 2 Goal 2. Patient will verbalize urge suppression strategies Target Visit 9 Progress Not Met PT Problem 2 PT Problem #2 Pain PT Goal 1 Goal 1. Pt will report pain no higher than 1/10 with pelvic floor palpation Target Visit 9 Progress Partially Met PT Goal 2 Goal 2. Patient able to do normal work activities with pain no higher than 2/10 Target Visit 9 Progress Partially Met PT Problem 3 PT Problem #3 Impaired Strength PT Goal 1 Goal 1. Improve pelvic floor strength to 3/5 to decrease incontinence Target Visit 9 Progress Partially Met PT Goal 2 Goal 2. Improve pelvic floor endurance to 10 seconds to decrease incontinence Target Visit 9 Progress Partially Met
--- NOTE | 2023-08-23 16:14 | PTOPPROG ---
Assessment and note entered by Minerva Stratton DPT Evaluation Information Assessment Status Progress Subjective Information Pt is resuming therapy after needing to cancel appointments due to her and her daughter's illnesses. Had Botox for her pelvic floor muscles 2 weeks ago. Reports she had 1 instance of urinary incontinence in the last month. Feels that therapy is helping because she is not having incontinence as often and not wearing pads as often. Pain has decreased overall as well. Highest recent pain 10/10 and lowest 1/10. Assessment PT Clinical Summary The patient is resuming therapy after cancellations due to family illness and her pelvic floor Botox injections. She reports continued improvements with therapy overall in that her pain has decreased and her incontinence has significantly decreased. She demonstrates improved pelvic floor muscle tone and improved pelvic floor strength. She will benefit from further therapy to address strength and pain in order to reduce incontinence and improve function. Plan of Care Interventions Electrical Stimulation,Hot Pack/Cold Pack,Manual Therapy,Neuro Re-education,Patient/Caregiver Education,Therapeutic Activities,Therapeutic Exercise PT Services Indicated Yes Treatment Frequency and 1 time a week for 4 visits Duration These treatments will address the objective and functional deficits as defined above. The patient will be advanced safely and appropriately in order for the patient to progress towards his/her prior level of function. Additional exercises will be introduced and as well as a comprehensive home exercise program upon discharge, if needed, ?to ensure carryover of functional gains achieved in the clinic. This treatment plan has been reviewed and agreement upon by the patient.
--- NOTE | 2023-09-01 10:42 | PCPTNOTE ---
This treatment is being continued on visit number [id number]. Please see documentation on both accounts to view progress. Completed interventions, outcomes, and problems have been marked as Inactive to facilitate the copying of the Care plan routine for recurring accounts.
--- NOTE | 2024-03-15 11:50 | PCPTNOTE ---
Patient's case has been discharged.
== END 2023-09-01 07:35 | disposition home or self-care (01) ==
LOC: ANHPT 15:45
DX: R19.8 Other specified symptoms and signs involving the digestive system and abdomen (principal)
CPT/HCPCS: 97110; 97112; 97140; 97162; 97530

== ENCOUNTER 2023-12-05 15:15 | Outpatient (RCR) | payer OTHER, SELFPAY ==
--- NOTE | 2023-09-01 10:43 | PCPTNOTE ---
The treatment documented on this account is a continuation of the treatment documented on visit number [id number]. Please see documentation on both accounts to view progress. The Plan of Care has been transitioned and updated within the new V#. I have addressed and agree with the discipline specific Problems, Interventions, and Goals for the current certification period. Completed interventions, outcomes, and problems have been marked as Inactive to facilitate the copying of the Care plan routine for recurring accounts.
--- NOTE | 2023-09-12 13:34 | PCPTNOTE ---
Patient called to cancel appointment due to illness.
--- NOTE | 2023-09-27 16:14 | OPREHPOC ---
Outpatient Therapy Plan of Care This is a Multidisciplinary Plan of Care that may contain components documented by all disciplines (PT, OT, and ST.) PT Problem 1 PT Problem #1 Knowledge Deficit PT Goal 1 Goal 1. Patient will perform independent HEP Target Visit 9 Progress Met PT Goal 2 Goal 2. Patient will verbalize urge suppression strategies Target Visit 13 Progress Partially Met PT Problem 2 PT Problem #2 Pain PT Goal 1 Goal 1. Pt will report pain no higher than 1/10 with pelvic floor palpation Target Visit 3 Progress Partially Met PT Goal 2 Goal 2. Patient able to do normal work activities with pain no higher than 2/10 Target Visit 13 Progress Partially Met PT Problem 3 PT Problem #3 Impaired Strength PT Goal 1 Goal 1. Improve pelvic floor strength to 3/5 to decrease incontinence Target Visit 13 Progress Partially Met PT Goal 2 Goal 2. Improve pelvic floor endurance to 10 seconds to decrease incontinence Target Visit 9 Progress Met
--- NOTE | 2023-09-27 16:14 | PTOPPROG ---
Assessment and note entered by Minerva Stratton DPT Evaluation Information Assessment Status Progress Subjective Information Highest pain in last week 5/10 and lowest 2/10. Finished her antibiotic for a kidney infection over the weekend. Reports no incontinence recently and has not even needed to wear pads. Assessment PT Clinical Summary The patient has demonstrated improvements in her pelvic pain and reports highest pain 5/10 in the last week. Also reports she has had no incontinence in the last few weeks and has not been needing to wear pads. She demonstrates improved pelvic floor endurance. Due to her progress, plan to continue with therapy to further address pelvic and abdominal pain and incontinence in order to fully function without limitation. Plan of Care Interventions Electrical Stimulation,Hot Pack/Cold Pack,Manual Therapy,Neuro Re-education,Patient/Caregiver Education,Therapeutic Activities,Therapeutic Exercise PT Services Indicated Yes Treatment Frequency and 1 time a week for 4 visits Duration These treatments will address the objective and functional deficits as defined above. The patient will be advanced safely and appropriately in order for the patient to progress towards his/her prior level of function. Additional exercises will be introduced and as well as a comprehensive home exercise program upon discharge, if needed, ?to ensure carryover of functional gains achieved in the clinic. This treatment plan has been reviewed and agreement upon by the patient.
--- NOTE | 2023-10-06 09:55 | PCPTNOTE ---
Patient called to cancel appointment 10/06/23 due to car troubles.
--- NOTE | 2023-10-19 12:34 | PCPTNOTE ---
Patient called to cancel appointment 10/19/23 due to illness.
--- NOTE | 2023-10-26 16:21 | OPREHPOC ---
Outpatient Therapy Plan of Care This is a Multidisciplinary Plan of Care that may contain components documented by all disciplines (PT, OT, and ST.) PT Problem 1 PT Problem #1 Knowledge Deficit PT Goal 1 Goal 1. Patient will perform independent HEP Target Visit 9 Progress Met PT Goal 2 Goal 2. Patient will verbalize urge suppression strategies Target Visit 13 Progress Partially Met PT Problem 2 PT Problem #2 Pain PT Goal 1 Goal 1. Pt will report pain no higher than 1/10 with pelvic floor palpation New Goal 2. Pt able to ambulate at work with foot pain no higher than 3/10 Target Visit 23 Progress Partially Met Comment improved to 4/10 PT Goal 2 Goal 2. Patient able to do normal work activities with pelvic pain no higher than 2/10 Target Visit 13 Progress Partially Met PT Problem 3 PT Problem #3 Impaired Strength PT Goal 1 Goal 1. Improve pelvic floor strength to 3/5 to decrease incontinence New Goal 2. Ankle MMT 5/5 and pain free in all planes to allow for pain free gait and stair navigation Target Visit 23 Progress Partially Met PT Goal 2 Goal 2. Improve pelvic floor endurance to 10 seconds to decrease incontinence Target Visit 9 Progress Met PT Problem 4 PT Problem #4 Impaired Functional ADLs PT Goal 1 Goal 1. Patient able to navigate stairs at work without falls or near falls Target Visit 23
--- NOTE | 2023-10-26 16:21 | PTOPREEVAL ---
Assessment and note entered by Minerva Stratton DPT Evaluation Information Assessment Status Re-evaluation Subjective Information Pt reports current pelvic pain is 2-3/10. Just had an installation for her bladder and goes for injections again next week. Continues to report therapy is helping with pain overall. Pt also arrives with order for foot pain. Pain on dorsum of her right foot, pain for 5 years but has significantly progressed over the last 6 months. Highest pain recently 8-9/10 and lowest 2-3/10. Difficulty sleeping due to pain. Difficulty walking and standing at work, navigating stairs and reports she has almost fallen several times. Pt was given a walking boot today to wear for approximately 4 weeks, returns to MD in 6. Patient goal: get rid of foot pain. Reported Pain Level Pain Score 3,6: Self Report Assessment PT Clinical Summary The patient has continued to make progress with pelvic floor therapy and reports decreased pain overall. She reports decreased pain with palpation of pelvic floor. Due to her progress, she will benefit from continued therapy to further improve pain and dysfunction. Patient arrives with script for R foot pain which has been progressing over the past few months. 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 She also reports several near falls. She will highly benefit from therapy to address these impairments in order to decrease pain and improve function at home and work. Plan of Care Interventions Electrical Stimulation,Gait Training,Hot Pack/Cold Pack,Manual Therapy,Neuro Re-education,Patient/ Caregiver Education,Therapeutic Activities, Therapeutic Exercise PT Services Indicated Yes Treatment Frequency and 2 times a week for 10 visits Duration These treatments will address the objective and functional deficits as defined above. The patient will be advanced safely and appropriately in order for the patient to progress towards his/her prior level of function. Additional exercises will be introduced and as well as a comprehensive home exercise program upon discharge, if needed, ?to ensure carryover of functional gains achieved in the clinic. This treatment plan has been reviewed and agreement upon by the patient.
--- NOTE | 2023-11-21 10:52 | PCPTNOTE ---
Patient cancelled, unable to make it today.
--- NOTE | 2023-12-05 15:59 | OPREHPOC ---
Outpatient Therapy Plan of Care This is a Multidisciplinary Plan of Care that may contain components documented by all disciplines (PT, OT, and ST.) PT Problem 1 PT Problem #1 Knowledge Deficit PT Goal 1 Goal 1. Patient will perform independent HEP Target Visit 9 Progress Met PT Goal 2 Goal 2. Patient will verbalize urge suppression strategies Target Visit 13 Progress Met PT Problem 2 PT Problem #2 Pain PT Goal 1 Goal 1. Pt will report pain no higher than 1/10 with pelvic floor palpation New Goal 2. Pt able to ambulate at work with foot pain no higher than 3/10 Target Visit 23 Progress Partially Met Comment improved to 4/10 PT Goal 2 Goal 2. Patient able to do normal work activities with pelvic pain no higher than 2/10 Target Visit 23 Progress Partially Met PT Problem 3 PT Problem #3 Impaired Strength PT Goal 1 Goal 1. Improve pelvic floor strength to 3/5 to decrease incontinence New Goal 2. Ankle MMT 5/5 and pain free in all planes to allow for pain free gait and stair navigation Target Visit 23 Progress Partially Met Comment 2. not met PT Goal 2 Goal 2. Improve pelvic floor endurance to 10 seconds to decrease incontinence Target Visit 9 Progress Met PT Problem 4 PT Problem #4 Impaired Functional ADLs PT Goal 1 Goal 1. Patient able to navigate stairs at work without falls or near falls Target Visit 23 Progress Not Met
--- NOTE | 2023-12-05 15:59 | PTOPPROG ---
Assessment and note entered by Minerva Stratton DPT Evaluation Information Assessment Status Progress Subjective Information Highest pain in last week 02/15 but is modifying how she walks. No longer using the walking boot and states it did not help. Will be getting an MRI later this week. Has still had near falls when her pain gets sharp. Highest pelvic pain 01/16 and lowest 11/18. States she is having trouble relaxing to urinate but has also been under a lot of stress. Incontinence a few times a week with cough or sneeze, very small volume. Assessment PT Clinical Summary The patient has made some progress in therapy and reports decreased foot pain overall. She continues to display ankle weakness and pain, pain with palpation, and gait impairments which are contributing to continued difficulty with work and home activities. She continues to report near falls when her pain increases. The patient's attendance in therapy has been limited due to insurance approval. Her insurance will be changing this week and plan to continue 2 times a week as allowed by insurance/copay. Plan to continue focusing on foot pain following her MRI and MD visit later this week, hold pelvic floor therapy for now. Plan of Care Interventions Electrical Stimulation,Gait Training,Hot Pack/Cold Pack,Manual Therapy,Neuro Re-education,Patient/ Caregiver Education,Therapeutic Activities, Therapeutic Exercise PT Services Indicated Yes Treatment Frequency and 2 times a week for 10 visits (as allowed by Duration insurance/copay) These treatments will address the objective and functional deficits as defined above. The patient will be advanced safely and appropriately in order for the patient to progress towards his/her prior level of function. Additional exercises will be introduced and as well as a comprehensive home exercise program upon discharge, if needed, ?to ensure carryover of functional gains achieved in the clinic. This treatment plan has been reviewed and agreement upon by the patient.
== END 2023-12-05 23:59 | disposition home or self-care (01) ==
LOC: ANHPT 15:15
DX: R19.8 Other specified symptoms and signs involving the digestive system and abdomen (principal)
CPT/HCPCS: 97110; 97140; 97530

== ENCOUNTER 2024-02-20 08:39 | Emergency (ER) | payer OTHER, MEDICAID, SELFPAY ==
[2024-02-20 08:44] VITALS: BP 115/65; PULSE 75; RESP 20; TEMP 36.9; O2SAT 100
--- NOTE | 2024-02-20 08:45 | ED.EYEPROB ---
HPI - Eye Problem General Chief complaint: Eye Problems Stated complaint: left eye swollen Time Seen by Provider: 02/20/24 08:45 Source: patient, RN notes reviewed and old records reviewed Mode of arrival: ambulatory Limitations: no limitations History of Present Illness HPI Narrative: 33-year-old female to [facility] with complaint left upper eyelid swelling for 2 days. Patient denies visual changes, pertinent medical history, fever, recent illness, known exposure to anyone with conjunctivitis. Patient also denies allergies. Patient has not attempted to treat at home. Patient in no acute distress in exam room. Related Data Home Medications Medication Instructions Recorded Confirmed norethindrone (contraceptive) 0.35 0.35 mg PO DAILY 01/24/22 02/20/24 mg tablet bupropion HCl 150 mg 24 hr tablet, 150 mg PO DAILY 05/31/23 02/20/24 extended release sertraline 50 mg tablet 50 mg PO BID 05/31/23 02/20/24 pregabalin 100 mg capsule 100 mg PO TID 02/20/24 02/20/24 Allergies Allergy/AdvReac Type Severity Reaction Status Date / Time No Known Allergies Allergy Verified 02/20/24 09:08 Review of Systems Review of Systems: All systems reviewed & are unremarkable except as noted in HPI and below Constitutional: Constitutional: Reports no additional constitutional complaints Eyes: Eyes: Reports as per HPI, Denies change in vision, Denies eye discharge, Denies floaters, Reports irritation ( Left upper eyelid), Denies photophobia and Reports other ( swelling left upper eyelid) ENT: Reports system reviewed and no additional complaints, except as documented Cardiovascular: Cardiovascular: Reports no additional cardiovascular complaints, Denies chest pain and Denies dyspnea Respiratory: Respiratory: Reports no additional respiratory complaints, Denies cough and Denies dyspnea Musculoskeletal: Musculoskeletal: Reports no additional musculoskeletal complaints Neurologic: Reports system reviewed and no additional complaints, except as documented Psychiatric: Psychiatric: Reports no additional psychiatric complaints PMFSH Past Medical History Medical History Anxiety and depression Chronic headaches Interstitial cystitis Surgical History Surgical History H/O gastric sleeve History of tonsillectomy Hx of cholecystectomy Family History Family History Other No significant family history Social History Social History Smoking status: Never smoker Alcohol intake: unknown Substance use: never Living arrangements: with family Gender identity (if verbalized by the patient): Female Comments At the time of my signature, I reviewed and agree with the nursing past medical, surgical, social, and family history. There is no relevant family history pertinent to the patient complaint. Exam Const: General: cooperative, healthy appearing, no acute distress, alert, uncomfortable and well nourished Nutritional Appearance: well nourished Orientation/consciousness: patient oriented x3 Limitations: no limitations HENMT: Head: normal to inspection Ears: external ears normal Face/Nose/Sinus: Normal external nose present, Normal nares present, normal facial exam, No erythema and No edema Face and sinus: normal facial exam, no erythema and no edema Mouth: Yes Normal oral and palatal mucosa present Eyes: Visual Gee: normal visual gee by confrontation Alignment and Position: alignment normal and position normal Eyelids: eyelid abnormality left upper eyelid erythema and swelling Conjunctivae: conjunctival abnormality left Sclera: sclerae normal Pupils: Equal, round and reactive pupils present Neck: Neck: normal visual inspection, full ROM and no meningeal signs Lymphatic:
== END 2024-02-20 09:30 | disposition home or self-care (01) ==
PROVIDERS: Emergency Provider Nurse Practitioner Family
DX: H00.014 Hordeolum externum left upper eyelid (principal); F41.9 Anxiety disorder, unspecified; F32.A Depression, unspecified; Z98.84 Bariatric surgery status
CPT/HCPCS: 99212; G0463

== ENCOUNTER 2024-06-04 08:12 | Emergency (ER) | payer OTHER, MEDICAID, SELFPAY ==
[2024-06-04 08:25] VITALS: BP 127/80; PULSE 116; RESP 20; TEMP 36.9; O2SAT 99
--- NOTE | 2024-06-04 08:37 | ED.URI ---
HPI - URI/Sore Throat General Chief Complaint: Upper Respiratory Infection Stated Complaint: Fever/Chills/Congestion/Cough History of Present Illness HPI Narrative: Pt is a 33 y/o female, presents to with 6 day hx of sore throat, rhinorrhea, sinus pressure and dry cough. She has felt feverish for 4 days. She denies associated CP, SOB, abdominal pain, NVDC or urinary symptoms. She is taking OTC medications for symptom relief. She denies any additional associated symptoms or modifying factors. She is not . Related Data Home Medications Medication Instructions Recorded Confirmed norethindrone (contraceptive) 0.35 0.35 mg PO DAILY 01/24/22 06/04/24 mg tablet bupropion HCl 150 mg 24 hr tablet, 150 mg PO DAILY 05/31/23 06/04/24 extended release sertraline 50 mg tablet 50 mg PO BID 05/31/23 06/04/24 pregabalin 100 mg capsule 100 mg PO TID 02/20/24 06/04/24 Allergies Allergy/AdvReac Type Severity Reaction Status Date / Time No Known Allergies Allergy Verified 06/04/24 08:25 Review of Systems Constitutional: Comments: refer to HPI ENT: Comments: refer to HPI Respiratory: Comments: refer to HPI [facility] Past Medical History Medical History Anxiety and depression Chronic headaches Interstitial cystitis Surgical History Surgical History H/O gastric sleeve History of tonsillectomy Hx of cholecystectomy Family History Family History Other No significant family history Social History Social History Smoking status: Never smoker Alcohol intake: unknown Substance use: never Living arrangements: with family Gender identity (if verbalized by the patient): Female Exam Const: General: healthy appearing and no acute distress Nutritional Appearance: well nourished Orientation/consciousness: patient oriented x3 Limitations: no limitations Other: pt sounds nasally congested when speaking HENMT: Head: normal to inspection Ears: external ears normal and TM's normal bilaterally Face/Nose/Sinus: Normal external nose present Face and sinus: normal facial exam Mouth: Yes Normal oral and palatal mucosa present Teeth and gingiva: dentition normal Throat: posterior oropharynx normal Eyes: Conjunctivae: conjunctivae normal Neck: Neck: normal visual inspection, no lymphadenopathy and no meningeal signs Resp: Effort & Inspection: normal respiratory effort Auscultation: clear to auscultation bilaterally Cardio: Rate: regular rate Rhythm: regular rhythm Other: rate is 98 at PMI Skin: General skin exam: normal color Rashes: no rashes Neuro: General: patient oriented x3, moves all extremities, no meningeal signs, no focal motor deficits and CN's II-XI intact bilaterally Extrem: General: normal to inspection Course Course Emergency Course: covid positive. Pt is on the tail end of one week viral syndrome. Symptoms are starting to improve. Will treat supportively, Rest, Pushing fluids, OTC Zyrtec Flonase, Delsym Level of Care: [facility] Care Visit ([id number]) Vital Signs Vital signs: Vital Signs Temperature 36.9 C 06/04/24 08:25 Pulse Rate 116 H 06/04/24 08:25 Respiratory Rate 20 06/04/24 08:25 Blood Pressure 127/80 06/04/24 08:25 Pulse Oximetry 99 06/04/24 08:25 Oxygen Delivery Room Air 06/04/24 08:25 Temperature 36.9 C 06/04/24 08:25 Pulse Rate 116 H 06/04/24 08:25 Respiratory Rate 20 06/04/24 08:25 Blood Pressure 127/80 06/04/24 08:25 Pulse Oximetry 99 06/04/24 08:25 Oxygen Delivery Room Air 06/04/24 08:25 MDM - URI/Sore Throat MDM Narrative Medical decision making narrative: Positive COV, nearing the end of her prodrome, symptoms are now starting to improve, respir
== END 2024-06-04 08:45 | disposition home or self-care (01) ==
PROVIDERS: Emergency Provider Nurse Practitioner Family
DX: U07.1 COVID-19 (principal); Z20.822 Contact with and (suspected) exposure to COVID-19; F41.9 Anxiety disorder, unspecified; F32.A Depression, unspecified
CPT/HCPCS: 87426; 99212; G0463

== ENCOUNTER 2024-06-11 15:35 | Emergency (ER) | payer OTHER, MEDICAID, SELFPAY ==
[2024-06-11 15:53] VITALS: BP 103/60; PULSE 93; RESP 20; TEMP 37.3; O2SAT 99
--- NOTE | 2024-06-11 16:17 | ED.URI ---
HPI - URI/Sore Throat General Chief Complaint: Upper Respiratory Infection Stated Complaint: migraine/congestion/cough Time Seen by Provider: 06/11/24 16:17 Source: patient, RN notes reviewed and old records reviewed Mode of arrival: ambulatory Limitations: no limitations History of Present Illness HPI Narrative: 33-year-old female presents to the [facility] with cough, congestion and a headache. 1 week ago positive for COVID-19 Reports a getting full relief with [id number] products. Related Data Home Medications Medication Instructions Recorded Confirmed norethindrone (contraceptive) 0.35 0.35 mg PO DAILY 01/24/22 06/11/24 mg tablet bupropion HCl 150 mg 24 hr tablet, 150 mg PO DAILY 05/31/23 06/11/24 extended release sertraline 50 mg tablet 50 mg PO BID 05/31/23 06/11/24 pregabalin 100 mg capsule 100 mg PO TID 02/20/24 06/11/24 Allergies Allergy/AdvReac Type Severity Reaction Status Date / Time No Known Allergies Allergy Verified 06/11/24 16:01 Review of Systems Review of Systems: All systems reviewed & are unremarkable except as noted in HPI and below Constitutional: Constitutional: Reports as per HPI, Reports fatigue and Reports headache(s) Eyes: Eyes: Reports no additional eye complaints ENT: Reports as per HPI and Reports nasal congestion Cardiovascular: Cardiovascular: Reports no additional cardiovascular complaints, Denies chest pain and Denies dyspnea Respiratory: Respiratory: Reports as per HPI, Denies chest congestion, Reports cough and Denies dyspnea Gastrointestinal: Gastrointestinal: Reports no additional gastrointestinal complaints, Denies abdominal pain, Denies nausea and Denies vomiting Musculoskeletal: Musculoskeletal: Reports no additional musculoskeletal complaints Integumentary/Breasts: Skin/Breast: Reports system reviewed and no additional complaints, except as docu Neurologic: Reports system reviewed and no additional complaints, except as documented Psychiatric: Psychiatric: Reports no additional psychiatric complaints Allergic/Immunologic: Allergic/Immunologic: Reports no additional allergic/immunologic complaints PMFSH Past Medical History Medical History Anxiety and depression Chronic headaches Interstitial cystitis Surgical History Surgical History H/O gastric sleeve History of tonsillectomy Hx of cholecystectomy Family History Family History Other No significant family history Social History Social History Smoking status: Never smoker Alcohol intake: unknown Substance use: never Living arrangements: with family Gender identity (if verbalized by the patient): Female Comments At the time of my signature, I reviewed and agree with the nursing past medical, surgical, social, and family history. There is no relevant family history pertinent to the patient complaint. Exam Const: General: cooperative, healthy appearing, comfortable, no acute distress, well developed, alert and well nourished Nutritional Appearance: well nourished Orientation/consciousness: patient oriented x3 Limitations: no limitations HENMT: Head: normal to inspection Ears: hearing grossly normal bilaterally and external ears normal Face/Nose/Sinus: Normal external nose present, Normal nares present, Normal nasal mucous membranes and turbinates present, Nasal discharge present clear bilateral, normal facial exam and face symmetric Face and sinus: normal facial exam and face symmetric Mouth: Yes Normal oral and palatal mucosa present, Yes lip normal and Yes tongue normal Throat: uvula midline, postnasal drainage and no uvular edema Eyes: General: appearance normal, both eyes and all related structures Alignment and Position: alignme
== END 2024-06-11 16:37 | disposition home or self-care (01) ==
PROVIDERS: Emergency Provider Nurse Practitioner
DX: U07.1 COVID-19 (principal); J34.89 Other specified disorders of nose and nasal sinuses; F41.9 Anxiety disorder, unspecified; F32.A Depression, unspecified
CPT/HCPCS: 99213; G0463

== ENCOUNTER 2024-09-12 15:57 | Emergency (ER) | payer OTHER, MEDICAID, SELFPAY ==
--- NOTE | ~2024-09-12 | XR_ITS ---
EXAMINATION: XR wrist LT min 3V DATE: 09/12/2024 16:27 INDICATION: Left wrist injury. TECHNIQUE: 4 views of left wrist were obtained. COMPARISON: None. FINDINGS: Alignment is normal. No fracture. Joint spaces are normal. IMPRESSION: 1. Normal left wrist. Reviewed, dictated and finalized at location A. [employer] IMPRESSION: 1. Normal left wrist.
[2024-09-12 16:00] VITALS: BP 105/60; PULSE 77; RESP 18; TEMP 36.7; O2SAT 100
--- NOTE | 2024-09-12 16:28 | ED_ITS ---
HPI - Extremity Injury (Upper) General Chief Complaint: Extremity Injury, Upper Stated Complaint: left wrist injury Time Seen by Provider: 09/12/24 16:28 Source: patient, RN notes reviewed and old records reviewed Mode of arrival: ambulatory Limitations: no limitations History of Present Illness HPI narrative: 34 year old female presents to [facility] care with complaints of left wrist injury 2 days ago. Patient reports that she reached out with her left arm to assist 6 year old and child hit her hand causing her to end up onto floor causing her wrist to hyperextend. Patient does have bruise noted to the left inner wrist with some pain with movement of her wrist. Patient reports that she has used ice and has taken Ibuprofen for her discomfort. MD complaint: injury to: left and wrist Onset (ago): day(s) (2) Handedness: right Place: work Severity scale (1-10): 6 Treatments prior to arrival: cold therapy and NSAIDS Related Data Home Medications Medication Instructions Recorded Confirmed norethindrone (contraceptive) 0.35 0.35 mg PO DAILY 01/24/22 06/11/24 mg tablet bupropion HCl 150 mg 24 hr tablet, 150 mg PO DAILY 05/31/23 06/11/24 extended release sertraline 50 mg tablet 50 mg PO BID 05/31/23 06/11/24 pregabalin 100 mg capsule 100 mg PO TID 02/20/24 06/11/24 Allergies Allergy/AdvReac Type Severity Reaction Status Date / Time No Known Allergies Allergy Verified 06/11/24 16:01 Review of Systems Review of Systems: CONSTITUTIONAL: Denies fever, chills, or sweats. EYES: Denies visual changes, redness, or discharge. ENT: Denies rhinorrhea, congestion, sore throat, or otalgia. CARDIOVASCULAR: Denies chest pain, palpitations, or edema. RESPIRATORY: Denies cough or dyspnea. GASTROINTESTINAL: Denies abdominal pain, nausea, vomiting, or diarrhea. GENITOURINARY: Denies dysuria or hematuria. SKIN: Denies rash or itching. MUSCULOSKELETAL: Denies back pain, positive for left inner wrist pain with bruising, or myalgia. NEUROLOGIC: Denies headache, numbness, or weakness. PSYCHIATRIC: positive for history of anxiety or depression. All systems reviewed & are unremarkable except as noted in HPI and below PMFSH Past Medical History Medical History Anxiety and depression Chronic headaches Interstitial cystitis Surgical History Surgical History H/O gastric sleeve History of tonsillectomy Hx of cholecystectomy Family History Family History Other No significant family history Social History Social History Smoking status: Never smoker Alcohol intake: unknown Substance use: never Living arrangements: with family Gender identity (if verbalized by the patient): Female Comments At time of signature, agree with nursing past medical, surgical, social and family history. There is no relevant family history pertinent to the presenting complaint Exam Narrative: GENERAL: Well-appearing, well-nourished, and in no acute distress. HEAD: Normocephalic, atraumatic. EYES: PERRLA and EOMI. ENT: Nares clear, no rhinorrhea or epistaxis. Mucous membranes moist. NECK: Supple. no lymphadenopathy CHEST: Clear to auscultation. No respiratory distress.SAO2 100% on room air HEART: Regular rate and rhythm. No murmur heard. Normal peripheral pulses. ABDOMEN: Soft, nontender, nondistended, normal active bowel sounds. EXTREMITIES: Normal range of motion. No edema.Exception noted to pain to left wrist with some bruising to the inner wrist noted, mobility intact but with pain, sensation and circulation intact. SKIN: Warm, dry, no rash. NEURO: No focal deficits. Alert and oriented x3. Course Course Emergency Course: Patient is aware of diagnosis, understands and agrees to treatment plan.? Anticipatory guidance given.? Patient agrees to follow-up as directed and is aware of reasons to seek care at the emergency department. Portions of this record may have been created with voice recognition software Level of Care: Express Care Visit Vital Signs Vital signs: Vital Signs Temperature 36.7 C 09/12/24 16:00 Pulse Rate 77 09/12/24 16:00 Respiratory Rate 18 09/12/24 16:00 Blood Pressure 105/60 09/12/24 16:00 Pulse Oximetry 100 09/12/24 16:00 Oxygen Delivery Room Air 09/12/24 16:00 Temperature 36.7 C 09/12/24 16:00 Pulse Rate 77 09/12/24 16:00 Respiratory Rate 18 09/12/24 16:00 Blood Pressure 105/60 09/12/24 16:00 Pulse Oximetry 100 09/12/24 16:00 Oxygen Delivery Room Air 09/12/24 16:00 Reviewed MDM - Extremity Injury (Upper) Differential Diagnosis Differential diagnosis: Likely sprain and strain of wrist, fracture of wrist and other (contusion left wrist) Medical Records Attestation: I reviewed the patient's medical records. Imaging Data Attestation: I personally reviewed and interpreted this imaging study as follows: My impression: Normal wrist x-ray Radiologist's impression: [place] [id number] XRay Report Signed Patient: Alyse Morataya : 1990 MR#: [id number] Age: 34 Acct:[id number] Loc: [facility] ADM Date: 09/12/24Attending Dr: Ordering Physician: Jaja Barfield APRN Date of Service: 09/12/24 Procedure(s): XR wrist LT min 3V Accession Number(s): [id number] cc: Jaja Barfield APRN~ EXAMINATION: XR wrist LT min 3V DATE: 09/12/2024 16:27 INDICATION: Left wrist injury. TECHNIQUE: 4 views of left wrist were obtained. COMPARISON: None. FINDINGS: Alignment is normal. No fracture. Joint spaces are normal. IMPRESSION: 1. Normal left wrist. Reviewed, dictated and finalized at location A. [facility] Dictated By: Guanakito Ahn MD 09/12/24 3211 Signed By: <Electronically signed by Guanakito Ahn MD in [place]> Critical Care Time Critical Care Time Critical Care Time: No Discharge Plan Discharge Clinical Impression: Sprain and strain of wrist Patient Disposition: Home, Self-Care Condition: Stable Instructions: Antibiotic Form, Wrist Injury (ED) Additional Instructions: Elastic wrap or orthopedic splint as directed for comfort for the next 5-7 days Tylenol for lesser pain Ibuprofen regularly for the next 2-3 days for the inflammation Follow-up with orthopedic surgeon if any further problems Follow-up with PCP if further problems or concerns Ice to the area 20-30 minutes 4-6 times a day Elevate above heart If your symptoms persist, change or worsen significantly before you can contact your personal physician then please, without delay, go to the emergency department for further evaluation. Follow-up with PCP in 7-10 days or sooner if needed Follow up with PCP soon in regards to your blood pressure which is elevated above threshold for referral. Blood pressure above 120/80 may indicate pre- hypertension. Prescriptions: No Action methylprednisolone [Medrol (Theron)] 4 mg tablets,dose pack See Rx Instructions PO .COMPLEX Qty: 21 0RF Rx Instructions: orally per package directions norethindrone (contraceptive) 0.35 mg Tablet 0.35 mg PO DAILY sertraline 50 mg tablet 50 mg PO BID bupropion HCl 150 mg tablet extended release 24 hr 150 mg PO DAILY pregabalin 100 mg capsule 100 mg PO TID Follow-up/Referrals: PHYSICIAN NOT ON STAFF,NONSTAFF [Primary Care Provider] - Time of Disposition: 16:40 Quality [place] Coma Scale Eyes: Open Verbal: Oriented and Alert Motor: Follows Commands [place] Coma Total Score: 15
== END 2024-09-12 16:52 | disposition home or self-care (01) ==
PROVIDERS: Emergency Provider Registered Nurse
DX: S63.502A Unspecified sprain of left wrist, initial encounter (principal); S66.912A Strain of unspecified muscle, fascia and tendon at wrist and hand level, left hand, initial encounter; W03.XXXA Other fall on same level due to collision with another person, initial encounter; F41.9 Anxiety disorder, unspecified; F32.9 Major depressive disorder, single episode, unspecified; Z98.84 Bariatric surgery status
CPT/HCPCS: 73110; 99213; G0463

== ENCOUNTER 2024-11-15 08:26 | Emergency (ER) | payer OTHER, MEDICAID, SELFPAY ==
[2024-11-15 08:31] VITALS: BP 123/57; PULSE 83; RESP 16; TEMP 36.9; O2SAT 99
--- OUTSIDE RECORDS SUMMARY | 2024-11-15 08:34 | XMS_ITS | Referral Summary ---
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 LESLIE ab eval w/reflex (11/07/2024 9:55 AM INDEPENDENT CROP CONSULTANT) LESLIE ab Negative Negative Comment: Interpretive Data Positive Screens will be reflexed to specific testing for Antibodies against the following antigens: Aviva-1 Ab, [employer] Ab, Scl-70 Ab, Alexander Ab, SS-A/Ro Ab, and SS- B/La Ab. Further testing for dsDNA, Centromere, or Ribosomal P antibodies is suggested in patient with a positive screen and negative specific antibodies. Current interpretive data was last revised on 2023. Blood 11/07/2024 9:55 AM INDEPENDENT CROP CONSULTANT 11/07/2024 10:15 AM INDEPENDENT CROP CONSULTANT Jacque John NP LAB BLOOD ORDERABLES Final Result Performing Organization Address City/[facility]/ZIP Co de Phone Number [facility] [place] [address] * CBC with auto differential (11/07/2024 9:55 AM INDEPENDENT CROP CONSULTANT) WBC 8.8 3.8 - 9.9 K/cumm Hgb 13.4 11.9 - 15.5 g/dL [facility] Hct 40.5 35.6 - 45.5 % [facility] Plt 273 150 - 400 K/cumm [facility] MPV 10.9 9.1 - 12.3 fL [facility] RBC 4.50 3.90 - 5.20 M/cumm [facility] MCV 90.0 81.3 - 96.4 fL [facility] MCH 29.8 27.1 - 33.3 pg [facility] MCHC 33.1 32.3 - 35.7 g/dL [facility] RDW CV 13.2 11.1 - 14.9 % [facility] RDW SD 43.0 35.7 - 48.1 fL [facility] NRBC abs 0.00 0.00 - 0.01 K/cumm [facility] Blood 11/07/2024 9:55 AM INDEPENDENT CROP CONSULTANT 11/07/2024 10:10 AM INDEPENDENT CROP CONSULTANT Jacque John NP LAB BLOOD ORDERABLES Final Result Performing Organization Address City/[facility]/ZIP Co de Phone Number [facility] [place] [address] * Erythrocyte sedimentation rate (11/07/2024 9:55 AM INDEPENDENT CROP CONSULTANT) Pathologist [facility] [place] Erythrocyte sedimentation rate 10 1 - 20 mm/hr Blood 11/07/2024 9:55 AM INDEPENDENT CROP CONSULTANT 11/07/2024 10:10 AM INDEPENDENT CROP CONSULTANT Jacque John BILLING CLINICIAN LAB BLOOD ORDERABLES Final Result Performing Organization Address [facility] Co de Phone Number [facility] [place] [address] * CRP (acute phase) (11/07/2024 9:55 AM INDEPENDENT CROP CONSULTANT) CRP 1.5 <=10.0 mg/L Blood 11/07/2024 9:55 AM INDEPENDENT CROP CONSULTANT 11/07/2024 10:10 AM INDEPENDENT CROP CONSULTANT us Jacque John BILLING CLINICIAN LAB BLOOD ORDERABLES Final Result Performing Organization Address [facility] de Phone Number [facility] Department [place] [address] * TSH (11/07/2024 9:55 AM INDEPENDENT CROP CONSULTANT) Thyroid Stimulating Hormone 1.30 0.30 - 4.20 mcIUnit/mL Blood 11/07/2024 9:55 AM INDEPENDENT CROP CONSULTANT 11/07/2024 10:10 AM INDEPENDENT CROP CONSULTANT Jacque John BILLING CLINICIAN LAB BLOOD ORDERABLES Final Result Performing Organization Address [facility] de Phone Number [facility] [place] [address] * Creatine kinase (CK), total (11/07/2024 9:55 AM INDEPENDENT CROP CONSULTANT) CK 102 30 - 200 Units/L Blood 11/07/2024 9:55 AM INDEPENDENT CROP CONSULTANT 11/07/2024 10:10 AM INDEPENDENT CROP CONSULTANT Jacque John BILLING CLINICIAN LAB BLOOD ORDERABLES Final Result [facility] Department [place] [address] * (ABNORMAL) Comprehensive metabolic panel (11/07/2024 9:55 AM INDEPENDENT CROP CONSULTANT) Sodium 142 135 - 145 mmol/L Potassium, pl 4.2 3.3 - 4.9 mmol/L [facility] Chloride 112(H) 97 - 110 mmol/L [facility] CO2 23 22 - 32 mmol/L [facility] Anion gap 7 2 - 15 mmol/L [facility] BUN 19 6 - 25 mg/dL [facility] Creatinine 1.03 0.60 - 1.10 mg/dL [facility] Glucose 99 70 - 199 mg/dL [facility] Comment: Interpretive Data Fasting glucose >/= 126 mg/dl is diagnostic for diabetes. Fasting is defined as no caloric intake for at least 8 hours. Fasting glucose between 100 mg/dl to 125 mg/dl is diagnostic of prediabetes. In a patient with classic symptoms of hyperglycemia or hyperglycemic crisis, a random glucose >/= 200 mg/dl is diagnostic for diabetes. In the absence of unequivocal hyperglycemia, results should be confirmed by repeat testing. The classification and Diagnosis of Diabetes Diabetes Care 202; 46: S19-S40. Current interpretive data was last revised 2022. Calcium 9.0 8.5 - 10.3 mg/dL [facility] Bilirubin, total 0.3 0.1 - 1.2 mg/dL [facility] Protein, pl 7.3 6.5 - 8.5 g/dL [facility] Albumin 4.3 3.5 - 5.0 g/dL [facility] Alk phos 77 40 - 130 Units/L [facility] ALT 31 7 - 45 Units/L [facility] AST 17 10 - 45 Units/L [facility] Blood 11/07/2024 9:55 AM INDEPENDENT CROP CONSULTANT 11/07/2024 10:10 AM INDEPENDENT CROP CONSULTANT Jacque John NP LAB BLOOD ORDERABLES Final Result [facility] Department [place] [address] from Last 3 Months Insurance [facility] Address: [address] [address] [place] [address] [employer] Advance Directives For more information, please contact: [phone] * Full Code (Latest Code Status on File) Date Activated Date Inactivated Comments 03/01/2023 11:21 AM 03/02/2023 7:06 PM * Full Code Date Activated Date Inactivated Comments 11/15/2022 1:26 PM 11/15/2022 7:27 PM Care Teams Electronic Tester Relationship Specialty Start Date End Date Cleo Edouard MD [address] [place] [id number] PCP - General Family Medicine 02/17/23 Dayday Carolina NP [address] [place] [address] DR EUGENIE BRAXTON [address] [place] [id number] 12/03/20 Deneen Gil NP [address] [place] [address] [place] [address] Nurse Practitioner Psychiatry 07/06/22 Sung Luque MD [address] [place] [address] [place] [address] Clerk Obstetrics and Gynecology 07/06/22 Kiera Beard MD [address] [place] [address] Rheumatology 07/06/22 Ze Duffy MD [address] [facility] [address] [place] [id number] Neurology 07/06/22
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
--- OUTSIDE RECORDS SUMMARY | 2024-11-15 08:34 | XMS_ITS | Clinical Summary ---
Author Organization [facility] - NEUROLOGY [facility] Address [address] [place] [address] Phone Care Team Providers Care Senior Application Software Engineer Name Role Phone Neel Evans MD Primary Care Provider [phone] Neel Evans MD Unavailable [phone] Amalia Li HOUSING MANAGEMENT OFFICER, ROOM WORKER Unavailable + [phone] Allergies Active Allergy Reactions Criticality Noted Date Comments Iodinated Contrast Media Unknown 07/22/2024 Medications Drospirenone-Et hinyl Estradiol 3-0.02 MG Tablet TK 1 T PO QD 0 9 Active buPROPion (WELLBUTRIN) 150 MG XL tablet Take 150 mg by mouth every morning. Active Calcium Carbonate (CALCIUM 500 PO) Take by mouth. Activ e ibuprofen (MOTRIN) 400 MG Tablet Take 400 mg by mouth every 6 hours as needed. Active Multiple Vitamin (MULTIVITAMIN PO) Take by mouth. Activ e norethindrone-e thinyl estradiol (ORTHO-NOVUM 1-35 TAB, NORTREL 1-35 TAB) 1-35 MG-MCG Tablet Take 1 Tablet by mouth daily. Active pregabalin (LYRICA) 100 MG Capsule Take 100 mg by mouth 2 times daily. Active sertraline (ZOLOFT) 100 MG Tablet Take 100 mg by mouth daily. Active SUMAtriptan (IMITREX) 100 MG Tablet Take 100 mg by mouth daily as needed. Use as directed. May repeat dose in 2 hours if headache recurs. Active tiZANidine (ZANAFLEX) 2 MG Capsule Take 2 mg by mouth 3 times daily. Active topiramate (TOPAMAX) 25 MG Tablet Take 25 mg by mouth daily. Active traZODone (DESYREL) 100 MG Tablet Take 100 mg by mouth nightly. Active Atogepant (Qulipta) 60 MG TabletIndicatio ns:Chronic migraine with aura without status migrainosus, not intractable Take 1 Tablet by mouth nightly. 30 Tablet 2 5 Active divalproex (DEPAKOTE) 250 MG Tablet Delayed Response 8 025 Discontin ued(Med List Clean Up) FLUoxetine (PROZAC) 40 MG Capsule TK ONE C PO QD 0 9 025 Discontin ued(Med List Clean Up) ziprasidone (GEODON) 20 MG Capsule TK ONE C PO BID. MUST KEEP APPOINTMENT 0 9 025 Discontin ued(Med List Clean Up) cyclobenzaprine (FLEXERIL) 10 MG TabletIndicatio ns:Acute midline low back pain without sciatica Take 1 Tab by mouth 3 times daily as needed for Muscle spasms. 30 Tab 9 025 Discontin ued(Med List Clean Up) traZODone (DESYREL) 100 MG Tablet Take 100 mg by mouth nightly. 025 Discontin ued(Dupli errol Order) buPROPion (WELLBUTRIN) 150 MG XL tablet Take 150 mg by mouth every morning. 4 025 Discontin ued(Dupli errol Order) ibuprofen (MOTRIN) 400 MG Tablet TAKE 1 TABLET BY MOUTH EVERY 4 TO 6 HOURS FOR 14 DAYS NEEDED 4 025 Discontin ued(Dupli errol Order) pregabalin (LYRICA) 100 MG Capsule TAKE 1 CAPSULE BY MOUTH THREE TIMES DAILY FOR 30 DAYS 4 025 Discontin ued(Dupli errol Order) sertraline (ZOLOFT) 100 MG Tablet Take 100 mg by mouth daily. 4 025 Discontin ued(Dupli errol Order) SUMAtriptan (IMITREX) 100 MG Tablet TAKE 1 TABLET BY MOUTH NEEDED DIRECTED FOR 30 DAYS 4 025 Discontin ued(Dupli errol Order) SUMAtriptan (IMITREX) 50 MG Tablet 4 025 Discontin ued(Dupli errol Order) tiZANidine (ZANAFLEX) 2 MG Tablet take 1 tablet by mouth every 8 hours as needed for muscle spasms 4 025 Discontin ued(Dupli errol Order) topiramate (TOPAMAX) 25 MG Tablet take 1 tablet by mouth every day at bedtime 4 025 Discontin ued(Dupli errol Order) triamcinolone (KENALOG) 0.1 % Ointment APPLY THIN LAYER TOPICALLY TO THE AFFECTED AREA TWICE DAILY 4 025 Discontin ued(Med List Clean Up) Active Problems Problem Noted Date Diagnosed Date Elevated partial thromboplastin time (PTT) 01/11 Abnormal laboratory test 01/09/2019 Chronic joint pain 12/31/2018 Hyperglycemia 12/31/2018 Obesity (BMI 30-39.9) 12/31/2018 Impaired fasting glucose 11/05/2018 Vitamin D insufficiency 11/05/2018 ADHD 11/02/2018 Bipolar disorder 11/02/2018 MDD (major depressive disorder) 11/02/2018 MARIA R (generalized anxiety disorder) 11/02/2018 Resolved Problems Problem Noted Date Diagnosed Date Resolved Date Recurrent streptococcal tonsillitis 01/03/2019 03/05/2019 Tonsil stone 01/03/2019 03/05/2019 Tonsillar and adenoid hypertrophy 01/03/2019 03/05/2019 Encounters Date Type Department Care Team Description 10/31/2024 3:30 PM OUTSIDE SALES ENGINEER Office Visit [facility] - Neurology [facility] [address] [place] [address] Amalia Li, HOUSING MANAGEMENT OFFICER, ROOM WORKER Chronic migraine with aura without status migrainosus, not intractable (Primary Dx) Discharge Disposition: Discharged to home or Selfcare 10/29/2024 Travel from Last 3 Months Immunizations Immunization Administration Dates Next Due Influenza Vaccine 07/09/2018 Influenza Vaccine, Quadrivalent, PF 08/07/2019 TDAP Vaccine 11/02/2018 Family History Medical History Relation Name Comments No Known Problems Father No Known Problems Mother Breast Cancer Paternal Aunt Relation Name Status Comments Father Alive Mother Alive Paternal Aunt Social History Tobacco Use Types Packs/Day Years Used Date Smoking Tobacco: Never Smokeless Tobacco: Never Tobacco Cessation:Counseling Given: Not Answered Alcohol Use Standard Drinks/Week Comments Yes 0 (1 standard drink = 0.6 oz pur e alcohol) occasional PHQ-2 Answer Date Recorded PHQ-2 Score 0 06/25/2019 Sexually Active Control Partners Comments Yes Male Comments No Sex and Gender Information Value Date Recorded Sex Assigned at Female 10/29/2024 1:03 PM OUTSIDE SALES ENGINEER Legal Sex Female 11:50 PM CDT Gender Identity Female 10/29/2024 1:03 PM OUTSIDE SALES ENGINEER Sexual Orientation Straight 10/29/2024 1: 03 PM OUTSIDE SALES ENGINEER Last Filed Vital Signs Vital Sign Reading Time Taken Comments Blood Pressure 124/82 10/31/2024 3:21 PM OUTSIDE SALES ENGINEER Pulse 95 10/31/2024 3:21 PM OUTSIDE SALES ENGINEER Temperature 36.7 C (98.1 F) 10/31/2024 3:21 PM OUTSIDE SALES ENGINEER Respiratory Rate 16 10/31/2024 3:21 PM OUTSIDE SALES ENGINEER Oxygen Saturation 100% 10/31/2024 3:21 PM OUTSIDE SALES ENGINEER Inhaled Oxygen Concentration - - Weight 96.9 kg (213 lb 9.6 oz) 10/31/2024 3:21 P M OUTSIDE SALES ENGINEER Height 162.6 cm (5' 4 ) 10/31/2024 3:21 PM OUTSIDE SALES ENGINEER Body Mass Index 36.66 10/31/2024 3:21 PM OUTSIDE SALES ENGINEER Plan of Treatment Upcoming Encounters Date Type Department Care Team (Late st Contact Info) Description 11/29/2024 11:00 AM OUTSIDE SALES ENGINEER Telemedicine [facility] [place] [address] [facility] [address] [place] [address] Bekah [place], HOUSING MANAGEMENT OFFICER, WINDOW TRIMMER [address] [facility] [address] [place] [address] 12/11/2024 7:20 AM OUTSIDE SALES ENGINEER Lab [facility] Services [address] [place] [address] Amalia Li APRN, ROOM WORKER [address] [place] [address] Discharge Disposition: Discharged to home or Selfcare 12/11/2024 8:00 AM OUTSIDE SALES ENGINEER [facility]ointment [facility] [address] [place] [address] Amalia Li, HOUSING MANAGEMENT OFFICER, ROOM WORKER [address] [place] [address] Discharge Disposition: Discharged to home or Selfcare 12/27/2024 3:00 PM CDT Office Visit [facility] Medical [facility] - Cardiology - [place] [address] [place] [address] Jordi Grimm MD [address] [address] 02/04/2025 3:30 PM CDT Office Visit [facility] - Neurology - [place] [address] [place] [address] Amalia Li, HOUSING MANAGEMENT OFFICER, ROOM WORKER [address] [place] [address] Health Maintenance Due Date Last Done Comments Pap Smear 2012 Cervical Cancer Screening (CCS) 2021 HPV/Cotest 2021 Influenza Immunization (#1) 2024 11/0 10/2020, 08/05/2020, 08/07/2019, Additional history exists SARS-COV-2 Immunization ( season) 2024 12/04/2021, 11/03/2021, 02/19/2021, Additional history exists Td Immunization Every 10 Years (Adults With 1 Tdap) 11/02/2028 11/02/2018, 05/01/2006 Respiratory Syncytial Virus (RSV) Immunization (Adult) (1 - 1-dose 75+ series) 2066 Hepatitis B Immunization Completed 002, 10/12/2001, 09/14/2001 DTaP/Tdap/Td Immunization Discontinued 2018, 05/01/2006, 05/01/2006, Additional history exists Hepatitis C Virus (HCV) Screening Completed 01/07/2022 Meningococcal Immunization (ACWY) Aged Out No longer eligible based on patient's age to complete this topic Pneumococcal Immunization Combined Aged Out No longer eligible based on patient's age to complete this topic Rotavirus Immunization Aged Out No lo nger eligible based on patient's age to complete this topic Insurance [facility] [place]ICA[place] [facility] [place] Care Teams Senior Application Software Engineer Relationship Specialty Start Date End Date Neel Evans MD [address] [facility] [address] PCP - General Family Medicine 08/16/24 Neel Evans MD [address] [address] Family Medicine 08/16/24 Amalia Li, HOUSING MANAGEMENT OFFICER, ROOM WORKER [address] [place] [address] Nurse Practitioner Advanced Practice Nurse 10/31/24
--- OUTSIDE RECORDS SUMMARY | 2024-11-15 08:34 | XMS_ITS | Encounter Summary ---
Author Organization [facility] Address [address] [place] [address] Care Team Providers Care General Merchandise Manager Name Role Phone Irene, Debi LOPEZ-RICKEY Primary Care Provider Cleo Edouard Primary Care Provider [phone] Reason for Visit * Reason Onset Date Comments Rx Drug Information Question 04/27/2023 Encounter Details Date Type Department Care Team (Late st Contact Info) Description 04/27/2023 Telephone [facility] - [place] HAND [address] [place] [address] Sandie Moreno MD [address] [address] Rx Drug Information Question Social History Tobacco Use Types Packs/Day Years Used Date Smoking Tobacco: Never Passive Smoke Exposure: Past Smokeless Tobacco: Never Alcohol Use Standard Drinks/Week Comments Not Currently 0 (1 standard drink = 0.6 oz pur e alcohol) once a month or less- rare Sex and Gender Information Value Date Recorded Sex Assigned at Female 10/12/2020 2:52 PM FACILITY ENGINEER Gender Identity Female 10/12/2020 2:52 PM FACILITY ENGINEER Sexual Orientation Not on file COVID-19 Exposure Response Date Recorded In the last 10 days, have yo u been in contact with someone who was confirmed or suspected to have Coronavirus/COVID-19? No / Unsure 04/10/2023 12:09 PM CDT documented as of this encounter Miscellaneous Notes * Telephone Encounter - Agnes Burrell RN - 05/03/2023 8:28 AM CDT Letter of necessity printed along with NADIR notes and botox article. Pt insurance requires pt to complete form for our office to appeal on her behalf. RN sent that to her in a mychart to complete and fax back. Once received appeal can be faxed * Telephone Encounter - Agnes Burrell RN - 04/28/2023 4:29 PM CDT Prior auth for Botox denied. Will move to appeal. Will send to Dr. Moreno for letter of necessity. * Telephone Encounter - Agnes Burrell RN - 04/27/2023 10:43 AM CDT RN called [facility]. Local [facility] called already this morning and [facility] just wanted to let us know a PA was required. Prior auth initiated on covermymeds [place]: [id number] - PA * Telephone Encounter - Nayely Garza - 04/27/2023 9:35 AM CDT Pharmacy called and asked about pt's Botox rx. Stated that it's a Rx that has to be injected in office in order for pt's insurance to cover it. documented in this encounter Plan of Treatment Upcoming Encounters Date Type Department Care Team (Late st Contact Info) Description 12/09/2024 10:00 AM FACILITY ENGINEER Office Visit [facility] Pain Care [address] [place] [address] Karmen Lopez, TELEVISION INSPECTOR-TEN PIN BOWLING CENTRE MANAGER [address] [facility] [address] 12/09/2024 11:00 AM FACILITY ENGINEER Office Visit [facility] Medical Group - [address] [facility] [address] [place] [address] Serjio Hendricks, TELEVISION INSPECTOR-TEN PIN BOWLING CENTRE MANAGER [address] [facility] [address] [place] [phone] 12/11/2024 3:30 PM FACILITY ENGINEER Office Visit [facility] - [place]ICK HAND [address] [facility] [address] [place] [phone] Sandie Moreno MD [address] [facility] [address] [place] [address] 04/28/2025 9:45 AM CDT Office Visit [facility] Group - DERRICK HAND [address] [facility] [place] [address] [place] [address] [place], [place] [address] [address] [place] [address] documented as of this encounter Goals Goal Patient Goal Type Associated Problems Recent Progress Patient-Stated? Author Medication Management General On track( 023 2:58 PM CDT) Jahaira Hadley, RN Note: Expected end date: Ongoing Interventions: Take all medications as prescribed Let your doctor know right away about any changes in your medications Make sure to request a refill of your medication at least one week prior to your last dose documented as of this encounter Visit Diagnoses Not on filedocumented in this encounter Care Teams General Merchandise Manager Relationship Specialty Start Date End Date Debi Bonilla APNP-RICKEY [address] [place] [address] PCP - General 01/16/23 08/09/23 Cleo Edouard [address] [facility] [address] [place] [address] PCP - General 08/10/23 documented as of this encounter
--- OUTSIDE RECORDS SUMMARY | 2024-11-15 08:34 | XMS_ITS | Encounter Summary ---
Author Organization [facility] Address [address] [facility] [address] Care Team Providers Care Frequency Checker Name Role Phone Cleo Edouard Primary Care Provider [phone] Reason for Visit * Reason Onset Date Comments Reschedule Appointment 10/18/2023 Encounter Details Date Type Department Care Team (Late st Contact Info) Description 10/18/2023 Telephone [facility] - CROTCH BREAKER [address] [place] [address] Sandie Moreno MD [address] [address] Reschedule Appointment Social History Tobacco Use Types Packs/Day Years Used Date Smoking Tobacco: Never Passive Smoke Exposure: Past Smokeless Tobacco: Never Alcohol Use Standard Drinks/Week Comments Not Currently 0 (1 standard drink = 0.6 oz pur e alcohol) once a month or less- rare PHQ-2 Answer Date Recorded Patient Health Questionnaire-2 Score 6 08/10/2023 Sex and Gender Information Value Date Recorded Sex Assigned at Female 10/12/2020 2:52 PM GREEN CHAIN PULLER Gender Identity Female 10/12/2020 2:52 PM GREEN CHAIN PULLER Sexual Orientation Not on file documented as of this encounter Miscellaneous Notes * Telephone Encounter - Agnes Burrell RN - 10/18/2023 12:20 PM GREEN CHAIN PULLER RN called pt, no answer. RN sent Upgrade, Inchart. If pt returns call please offer 11/22@1pm. Ok to dbl book N CHAIN PULLER * Telephone Encounter - Shoaib Garzai - 10/18/2023 11:40 AM CST Pt called and said her post-op has been canceled. Call Center told her they could not fit her in for the proper time frame she would need a post-op. Please advise. N CHAIN PULLER documented in this encounter Plan of Treatment Upcoming Encounters Date Type Department Care Team (Late st Contact Info) Description 12/09/2024 10:00 AM GREEN CHAIN PULLER Office Visit [facility] Pain Care [address] [place] [address] [address] [place] [address] Karmen Lopez, CARBON DIOXIDE OPERATOR-POTTERY MACHINE OPERATOR [address] [facility] [place] [address] 12/09/2024 11:00 AM GREEN CHAIN PULLER Office Visit [facility] Medical Group - [address] [facility] [address] [place] [address] Serjio Hendricks, CARBON DIOXIDE OPERATOR-POTTERY MACHINE OPERATOR [address] [facility] [address] [place] [phone] 12/11/2024 3:30 PM GREEN CHAIN PULLER Office Visit [facility] Group - CROTCH BREAKER [address] [place] [address] [address] [place] [address] Sandie Moreno MD [address] [facility] [address] [place] [address] 04/28/2025 9:45 AM CDT Office Visit [facility] - CROTCH BREAKER [address] [place] [address], [address] [place] [phone] Rina Brooks MD [address] [facility] [address] [place] [address] documented as of this encounter Goals Goal Patient Goal Type Associated Problems Recent Progress Patient-Stated? Author Medication Management General On track( 023 2:58 PM CDT) Jahaira Hadley RN Note: Expected end date: Ongoing Interventions: Take all medications as prescribed Let your doctor know right away about any changes in your medications Make sure to request a refill of your medication at least one week prior to your last dose documented as of this encounter Visit Diagnoses Not on filedocumented in this encounter Care Teams Frequency Checker Relationship Specialty Start Date End Date Cleo Edouard [address] [place] [address] Dr [address] [place] [phone] PCP - General 08/10/23 documented as of this encounter
--- OUTSIDE RECORDS SUMMARY | 2024-11-15 08:34 | XMS_ITS | Encounter Summary ---
Author Organization [facility] Address [address] [place] [address] Care Team Providers Care Corporate Safety Coordinator Name Role Phone Debi Bonilla Ryan SMITH Primary Care Provider Cleo Edouard Primary Care Provider [phone] Reason for Visit * Reason Onset Date Comments Encounter Opened In Error 06/19/2023 Encounter Details Date Type Department Care Team (Late Contact Info) Description 06/19/2023 Telephone [facility] - GOVERNMENT AFFAIRS MANAGER [address] [facility] [address] [place] [address] Sandie Moreno MD [address] [facility] [address] [place] [address] Encounter Opened In Error Social History Tobacco Use Types Packs/Day Years Used Date Smoking Tobacco: Never Passive Smoke Exposure: Past Smokeless Tobacco: Never Alcohol Use Standard Drinks/Week Comments Not Currently 0 (1 standard drink = 0.6 oz pur e alcohol) once a month or less- rare Sex and Gender Information Value Date Recorded Sex Assigned at Female 10/12/2020 2:52 PM RANGE FEEDER Gender Identity Female 10/12/2020 2:52 PM RANGE FEEDER Sexual Orientation Not on file documented as of this encounter Plan of Treatment Upcoming Encounters Date Type Department Care Team (Late Contact Info) Description 12/09/2024 10:00 AM RANGE FEEDER Office Visit [facility] Health Pain Care [address] [facility] [address] [place] [address] Karmen Lopez, STANDPIPE TENDER-MOBILE HOMES REPAIRER [address] [facility] [address] 12/09/2024 11:00 AM RANGE FEEDER Office Visit [facility] - [address] [facility] [address] [place] [address] Serjio Hendricks, STANDPIPE TENDER-MOBILE HOMES REPAIRER [address] [facility] [address] [place] [phone] 12/11/2024 3:30 PM RANGE FEEDER Office Visit [facility]ician Group - GOVERNMENT AFFAIRS MANAGER [address] [place] [address] [address] [place] [address] Sandie Moreno MD [address] [facility] [address] [place] [address] 04/28/2025 9:45 AM CDT Office Visit [facility]ician Group - GOVERNMENT AFFAIRS MANAGER [address] [facility] [place] [address] [place] [address] [place] [address] [address] [place] [address] documented as of this encounter [...] on filedocumented in this encounter Care Teams Corporate Safety Coordinator Relationship Specialty Start Date End Date Debi Bonilla APNP-RICKEY [address] [place] [address] PCP - General 01/16/23 08/09/23 Cleo Edouard [address] [facility] [place] [address] PCP - General 08/10/23 documented as of this encounter
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
--- OUTSIDE RECORDS SUMMARY | 2024-11-15 08:35 | XMS_ITS | Patient Health Summary ---
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 Fibroscan (e.g., 8-15 kPa) can be improved by also calculating the FIB-4 score (Thomas et al. Hepatology Communications 2019;3:6291-0231) or NAFLD Fibrosis score (Dorantes et al. Clinical Gastroenterology and Hepatology 2019;17:8090-0136 using routine clinical data. Note: 1. Fibroscan cannot reliably identify earlier stages of fibrosis (ie distinguish F0 from F1 and F2) and thus a histologic stage cannot be predicted from the Fibroscan reading. 2. Liver stiffness can be increased by factors other than fibrosis including passive congestion, infiltrative processes, active alcoholism, recent moderate alcohol consumption in the 2 weeks before the exam, biliary obstruction and marked inflammation. The interpretation of the Fibroscan result provided above may not have taken such clinical factors into account. Disease etiology also influences Fibroscan cutoff values for fibrosis stages and the following cutoffs have been proposed (Lani et al, Clin Gastro Hepatol 2015; 13:27-36): Cutoffs for Stage 3 and Stage 4 fibrosis respectively: Hepatitis B: >9 and >11.7 kPa Hepatitis C: >9.5 and >12.5 kPa HCV-HIV: >11 and >14 kPa Cholestatic liver diseases: >10 and >17.9 kPa MASLD/MASH: >10 and >14 kPa CAP estimates of steatosis: normal <200 dB/m mild 200 to 250 dB/m moderate 250-290 dB/m substantial > 290 dB/m (Note that Fibroscan is not a quantitative measure of liver fat.) These criteria are estimates and may change as additional supporting data becomes available. (This additional interpretive data was last updated 02/11/23.) [email or web address] Licha Lowery MANAGER ASSURANCE-QUALITY TECHNICIAN PROCEDURE/M INOR SURGICAL ORDERABLES * CARDIAC RHYTHM STRIP ORDER (03/12/2024 4:12 PM CDT) Only the most recent of6 resultswithin the time period is included. Narrative 03/12/2024 4:12 PM CDT Ordered by an unspecified provider. Scanned Document CARDIAC SERVICES ORD ERABLES * HCG URINE QUAL POCT NOTIFICATION (03/07/2024 11:31 AM CDT) Only the most recent of7 resultswithin the time period is included. Comment Notification Label Only - See Separate Report 03/07/2024 11:31 AM CDT [facility] Urine URINE / Unknown 10:30 AM CDT Sandie Moreno MD LAB - URINALYSIS ORD ERABLES Performing Organization Address [facility] Co de Phone Number [facility] [address] [place] [address] * HCG URINE QUALITATIVE - POCT (IP) INTERFACED (03/07/2024 10:50 AM CDT) Only the most recent of7 resultswithin the time period is included. HCG Qual Urine Negative Negative 03/07/2024 10:55 AM CDT [facility] Urine URINE / Unknown 03/07/2024 1 0:50 AM CDT 03/07/2024 10:55 AM CDT Sandie Moreno MD LAB - POINT OF CARE ORDERABLES Performing Organization Address [facility] Co de Phone Number [facility] [address] [place] [phone] * XR LUMBAR SPINE COMPL 6VWS (01/05/2024 9:48 AM CDT) Anatomical Region Laterality Modality Spine Radiographic Radha ging 01/05/2024 11:1 2 AM CDT Impressions 01/05/2024 11:17 AM CDT IMPRESSION: 1. Normal examination of the thoracic and lumbar spine. 2. 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 . > Interpreting Provider: Omar De MD on 01/05/2024 11:17 AM Narrative 01/05/2024 11:17 AM CDT PROCEDURE: XR THORACIC SPINE 3VW, XR LUMBAR SPINE COMPL 6VWS DATE/TIME OF EXAM: 01/05/2024 9:49 AM CLINICAL INFORMATION: None relevant/not provided if blank. Indication: M54.6: Pain in thoracic spine EXAMINATIONS: THORACIC SPINE, AP, LATERAL AND SWIMMER'S VIEWS LUMBAR SPINE, AP, LATERAL, FLEXION, EXTENSION, BILATERAL OBLIQUE AND CONED-DOWN LATERAL L5-S1 VIEWS HISTORY: M54.6: Pain in thoracic and lumbar spine COMPARISON: None. FINDINGS: There are 12 pairs of ribs and five lumbar vertebrae. All of the thoracic and lumbar vertebral bodies are normal in heights without evidence of fracture. All the intervertebral disc spaces in thoracic and lumbar spine are normal and there is no endplate osteophytosis to indicate degenerative disc disease, throughout. Kyphosis of thoracic spine and lordosis of lumbar spine are normal. There is no scoliosis. There is however, minimal dextrocurvature of the upper thoracic spine centered at T5 and minimal levocurvature of the lumbar spine centered at L3-L4 with negligible angle of Heck's. There is no spondylolisthesis in the thoracic or the lumbar spine. In the lumbar spine. No spondylolisthesis with flexion and extension is identified to indicate abnormal weight of the lumbar spine. No fracture, spondylolisthesis, spondylosis or suspicious intrinsic bony lesion is identified in the thoracic and lumbar spine. The bony central canal and the bony neuroforamina are normal in size as visualized on the lateral view, in the thoracic and lumbar spine. The pedicles in the thoracic and lumbar spine and costovertebral articulations in the thoracic spine are within normal limits as visualized on the frontal views. In bilateral oblique views, no spondylolysis or facet osteoarthritis is identified, throughout the lumbar spine. The sacroiliac joints appear symmetric and demonstrate mild osteoarthritic changes with partial fusion. The imaged lungs are clear. Procedure Note Omar De MD - 01/05/2024 PROCEDURE: XR THORACIC SPINE 3VW, XR LUMBAR SPINE COMPL 6VWS DATE/TIME OF EXAM: 01/05/2024 9:49 AM CLINICAL INFORMATION: None relevant/not provided if blank. Indication: M54.6: Pain in thoracic spine EXAMINATIONS: THORACIC SPINE, AP, LATERAL AND SWIMMER'S VIEWS LUMBAR SPINE, AP, LATERAL, FLEXION, EXTENSION, BILATERAL OBLIQUE AND CONED-DOWN LATERAL L5-S1 VIEWS HISTORY: M54.6: Pain in thoracic and lumbar spine COMPARISON: None. FINDINGS: There are 12 pairs of ribs and five lumbar vertebrae. All of thethoracic and lumbar vertebral bodies are normal in heights without evidence of fracture. All the intervertebral disc spaces in thoracic and lumbarspine are normal and there is no endplate osteophytosis to indicatedegenerative disc disease, throughout. Kyphosis of thoracic spine and lordosis of lumbar spine are normal.There is no scoliosis. There is however, minimal dextrocurvature of the upper thoracic spine centered at T5 and minimal levocurvature of the lumbarspine centered at L3-L4 with negligible angle of Heck's. There is no spondylolisthesis in the thoracic or the lumbar spine. Inthe lumbar spine. No spondylolisthesis with flexion and extension isidentified to indicate abnormal weight of the lumbar spine. No fracture, spondylolisthesis, spondylosis or suspicious intrinsic bony lesion is identified in the thoracic and lumbar spine. The bony central canal and the bony neuroforamina are normal in size as visualized on the lateral view, in the thoracic and lumbar spine. The pedicles in the thoracic and lumbar spine and costovertebral articulations in the thoracic spine are within normal limits asvisualized on the frontal views. In bilateral oblique views, no spondylolysis orfacet osteoarthritis is identified, throughout the lumbar spine. The sacroiliac joints appear symmetric and demonstrate mildosteoarthritic changes with partial fusion. The imaged lungs are clear. IMPRESSION: 1. Normal examination of the thoracic and lumbar spine. 2. 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 . > Interpreting Provider: Omar De MD on 01/05/2024 11:17 AM Otilio Lay MD DIAGNOSTIC IMAGIN G ORDERABLES * XR THORACIC SPINE 3VW (01/05/2024 9:48 AM CDT) Anatomical Region Laterality Modality Spine Radiographic Radha ging 01/05/2024 11:1 2 AM CDT Impressions 01/05/2024 11:17 AM CDT IMPRESSION: 1. Normal examination of the thoracic and lumbar spine. 2. 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 . > Interpreting Provider: Omar De MD on 01/05/2024 11:17 AM Narrative 01/05/2024 11:17 AM CDT PROCEDURE: XR THORACIC SPINE 3VW, XR LUMBAR SPINE COMPL 6VWS DATE/TIME OF EXAM: 01/05/2024 9:49 AM CLINICAL INFORMATION: None relevant/not provided if blank. Indication: M54.6: Pain in thoracic spine EXAMINATIONS: THORACIC SPINE, AP, LATERAL AND SWIMMER'S VIEWS LUMBAR SPINE, AP, LATERAL, FLEXION, EXTENSION, BILATERAL OBLIQUE AND CONED-DOWN LATERAL L5-S1 VIEWS HISTORY: M54.6: Pain in thoracic and lumbar spine COMPARISON: None. FINDINGS: There are 12 pairs of ribs and five lumbar vertebrae. All of the thoracic and lumbar vertebral bodies are normal in heights without evidence of fracture. All the intervertebral disc spaces in thoracic and lumbar spine are normal and there is no endplate osteophytosis to indicate degenerative disc disease, throughout. Kyphosis of thoracic spine and lordosis of lumbar spine are normal. There is no scoliosis. There is however, minimal dextrocurvature of the upper thoracic spine centered at T5 and minimal levocurvature of the lumbar spine centered at L3-L4 with negligible angle of Heck's. There is no spondylolisthesis in the thoracic or the lumbar spine. In the lumbar spine. No spondylolisthesis with flexion and extension is identified to indicate abnormal weight of the lumbar spine. No fracture, spondylolisthesis, spondylosis or suspicious intrinsic bony lesion is identified in the thoracic and lumbar spine. The bony central canal and the bony neuroforamina are normal in size as visualized on the lateral view, in the thoracic and lumbar spine. The pedicles in the thoracic and lumbar spine and costovertebral articulations in the thoracic spine are within normal limits as visualized on the frontal views. In bilateral oblique views, no spondylolysis or facet osteoarthritis is identified, throughout the lumbar spine. The sacroiliac joints appear symmetric and demonstrate mild osteoarthritic changes with partial fusion. The imaged lungs are clear. Procedure Note Omar De MD - 01/05/2024 PROCEDURE: XR THORACIC SPINE 3VW, XR LUMBAR SPINE COMPL 6VWS DATE/TIME OF EXAM: 01/05/2024 9:49 AM CLINICAL INFORMATION: None relevant/not provided if blank. Indication: M54.6: Pain in thoracic spine EXAMINATIONS: THORACIC SPINE, AP, LATERAL AND SWIMMER'S VIEWS LUMBAR SPINE, AP, LATERAL, FLEXION, EXTENSION, BILATERAL OBLIQUE AND CONED-DOWN LATERAL L5-S1 VIEWS HISTORY: M54.6: Pain in thoracic and lumbar spine COMPARISON: None. FINDINGS: There are 12 pairs of ribs and five lumbar vertebrae. All of thethoracic and lumbar vertebral bodies are normal in heights without evidence of fracture. All the intervertebral disc spaces in thoracic and lumbarspine are normal and there is no endplate osteophytosis to indicatedegenerative disc disease, throughout. Kyphosis of thoracic spine and lordosis of lumbar spine are normal.There is no scoliosis. There is however, minimal dextrocurvature of the upper thoracic spine centered at T5 and minimal levocurvature of the lumbarspine centered at L3-L4 with negligible angle of Heck's. There is no spondylolisthesis in the thoracic or the lumbar spine. Inthe lumbar spine. No spondylolisthesis with flexion and extension isidentified to indicate abnormal weight of the lumbar spine. No fracture, spondylolisthesis, spondylosis or suspicious intrinsic bony lesion is identified in the thoracic and lumbar spine. The bony central canal and the bony neuroforamina are normal in size as visualized on the lateral view, in the thoracic and lumbar spine. The pedicles in the thoracic and lumbar spine and costovertebral articulations in the thoracic spine are within normal limits asvisualized on the frontal views. In bilateral oblique views, no spondylolysis orfacet osteoarthritis is identified, throughout the lumbar spine. The sacroiliac joints appear symmetric and demonstrate mildosteoarthritic changes with partial fusion. The imaged lungs are clear. IMPRESSION: 1. Normal examination of the thoracic and lumbar spine. 2. 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 . > Interpreting Provider: Omar De MD on 01/05/2024 11:17 AM Otilio Lay MD DIAGNOSTIC IMAGIN G ORDERABLES * [place] IRRIGATION OF BLADDER (10/23/2023 5:11 PM BOAT MOTOR MECHANIC) Narrative Rina Brooks MD - 10/23/2023 5:11 PM BOAT MOTOR MECHANIC Rina Brooks MD 10/23/2023 5:19 PM See separate procedure note. Rina Brooks MD PROCEDURE/MINOR ALINA GICAL ORDERABLES * NH SONO EXAM, TRANSVAGINAL (09/29/2023 2:04 PM BOAT MOTOR MECHANIC) Narrative Rajwinder Agnes M - 09/29/2023 2:04 PM BOAT MOTOR MECHANIC Agnes Purdy Ricki 09/29/2023 2:04 PM Documentation in digisonics. Sandie Moreno MD PROCEDURE/MINOR SURG ICAL ORDERABLES * IMAGING RADIOLOGY XRAY RESULTS ORDER (09/29/2023) Only the most recent of3 resultswithin the time period is included. Anatomical Region Laterality Modality Other Narrative 09/29/2023 Ordered by an unspecified provider. Scanned Document IMAGING * TYPE + SCREEN PANEL (05/16/2023 1:24 PM CDT) Only the most recent of4 resultswithin the time period is included. ABO Rh O POS 05/16/2023 2:29 PM CDT [facility] Comment:History checked. Antibody Screen NEG 2:29 PM CDT [facility] Blood Bank BLOOD SPECIMEN / Unknown Venipuncture / Unknown 05/16/2023 1:24 PM CDT 05/16/2023 1:33 PM CDT Carlin Fisher DO LAB - BLOOD BANK ORD ERABLES Performing Organization Address City/State/[facility] Co de Phone Number [facility] [address] [phone] * [place] IRRIGATION OF BLADDER (04/03/2023 10:28 AM CDT) Narrative Rina Brooks MD - 04/03/2023 10:28 AM CDT Rina Brooks MD 04/03/2023 12:44 PM Bladder Rescue Instillation Procedure Note: Indication: Interstitial cystitis, painful bladder syndrome, urinary frequency. CPT: 43972 Procedure: The procedure was discussed with the patient and verbal consent was obtained. The patient was placed in a dorsal lithotomy position. Her urethra was visualized and prepped with Betadine (unless she was allergic in which case Hibiclens was used). A 10 F catheter was introduced under aseptic conditions. The bladder was then instilled slowly with a solution containin cc 0.5% Bupivacaine ([facility] 27420-057-64) 10,000 units Heparin ([facility] 30771-929-21) The catheter was then removed, and the patient was instructed to retain the solution for at least 30 minutes. She tolerated the procedure well. Rina Brooks MD PROCEDURE/MINOR ALINA GICAL ORDERABLES * PROC FIBROSCAN (01/16/2023 2:47 PM CDT) Narrative Shade Yoo MD - 01/16/2023 2:47 PM CDT Shade Yoo MD 01/16/2023 5:52 PM Diagnosis: NAFLD RN verified patient not , no implanted devices and NPO for prior 3 hours. Date of Exam: 01/16/2023 Liver Stiffness: (LSM, kPa) median: 5.4 IQR (interquartile range): 0.5 IQR/Median% (ideally < 30%): 9% CAP (controlled attenuation parameter): 352 Technical Difficulty: None Ordering Provider: Dr. Huerta Phone Fax Fibroscan interpretation: I have personally reviewed the Fibroscan report and associated tracings. The calculated Liver Stiffness Measurement (LSM, kPa) indicates that: The probability of advanced liver fibrosis is: low. The loss of ultrasound signal, (controlled attenuation parameter, CAP [dB/m]), indicates that the probability of hepatic steatosis is: high. Shade Yoo MD The following criteria are used to indicate the probability of advanced (stage 3-4) fibrosis: < 7.0 kPa: low 7.0-8.9 kPa: low to moderate 9.0-14.9 kPa: moderate 15-20 kPa: high > 20 kPa: very high Liver stiffness > 20 kPa is also associated with a high probability of complications of portal hypertension including varices and ascites. Liver stiffness > 50 kPa is associated with a high risk of variceal bleeding. These interpretations are based on the following published data: Taylor MOORE, Sid M, Lisandra M, et al. Accuracy of FibroScan controlled attenuation parameter and liver stiffness measurement in assessing steatosis and fibrosis in patients with nonalcoholic fatty liver disease. Gastroenterology 2019;156:5895-4387. Bates MS, Dang R, Van Mariusz ML, et al. Vibration-controlled transient elastography to assess fibrosis and steatosis in patients with nonalcoholic fatty liver disease. Clin Gastroenterol Hepatol 2019;17:156-163. Note: 1. Fibroscan cannot reliably identify earlier stages of fibrosis (ie distinguish F0 from F1 and F2) and thus a histologic stage cannot be predicted from the Fibroscan reading. 2. Assessing the likelihood of advanced fibrosis in patients with indeterminate liver stiffness measurement (LSM) by Fibroscan (e.g., 8-15 kPa) can be improved by also calculating the FIB4 score (Thomas et al. Hepatology Communications 2019;3:6060-6014) or NAFLD Fibrosis score (Dorantes et al. Clinical Gastroenterology and Hepatology 2019;17:3630-1418. from routine clinical data. 3. Liver stiffness can be increased by factors other than fibrosis including passive congestion, infiltrative processes, active alcoholism, biliary obstruction and marked inflammation. The interpretation of the Fibroscan result provided above may not have taken such clinical factors into account. Disease etiology also influences Fibroscan cutoff values for fibrosis stages and the following cutoffs have been proposed (Lani et al, Clin Gastro Hepatol 2015; 13:27-36): Cutoffs for Stage 3 and Stage 4 fibrosis respectively: Hepatitis B: >9 and >11.7 kPa Hepatitis C: >9.5 and >12.5 kPa HCV-HIV: >11 and >14 kPa Cholestatic liver diseases: >10 and >17.9 kPa NAFLD/MARTINEZ: >10 and >14 kPa CAP estimates of steatosis: normal <200 dB/m mild 200 to 250 dB/m moderate 250-290 dB/m substantial > 290 dB/m (Note that Fibroscan is not a quantitative measure of liver fat.) These criteria are estimates and may change as additional supporting data becomes available. [email or web address] Marvin Huerta MD PROCEDURE/MINOR SURG ICAL ORDERABLES * [place] IRRIGATION OF BLADDER (09/08/2022 5:10 PM BOAT MOTOR MECHANIC) Narrative Rina Brooks MD - 09/08/2022 5:10 PM BOAT MOTOR MECHANIC Rina Brooks MD 09/08/2022 5:15 PM Bladder Rescue Instillation Procedure Note: Indication: Interstitial cystitis, painful bladder syndrome, urinary frequency. CPT: 39211 Procedure: The procedure was discussed with the patient and verbal consent was obtained. The patient was placed in a dorsal lithotomy position. Her urethra was visualized and prepped with Betadine (unless she was allergic in which case Hibiclens was used). A 8 Fr urethral catheter was inserted without difficulty and the bladder was drained for 40 mL. The bladder was then instilled slowly with a solution containin cc 0.25% Bupivacaine ([facility] [id number] Batch [id number] exp April 2024) 10,000 units Heparin ([facility] 86587-396-13 lot [id number] exp Apr 2023) The catheter was then removed, and the patient was instructed to retain the solution for at least 30 minutes. She tolerated the procedure well. Rina Brooks MD PROCEDURE/MINOR ALINA GICAL ORDERABLES * (ABNORMAL) CULTURE URINE COMPREHENSIVE (02/21/2022) Only the most recent of5 resultswithin the time period is included. Pathologist [facility] Culture (A) [facility] Comment: CULTURE, URINE, SPECIAL Micro Number: [id number] Test Status: Final Specimen Source: Urine Specimen Quality: Adequate Result: Greater than 100,000 CFU/mL of Gram negative bacilli isolated Strain 1 50,000-100,000 CFU/mL of Gram negative bacilli isolated Strain 2 50,000-100,000 CFU/mL of Gram negative bacilli isolated Strain 3 10,000-49,000 CFU/mL of Gram positive cocci isolated COMMENT: May represent colonizers from external and internal genitalia. No further testing (including susceptibility) will be performed. Test Performed at: [facility] [address] ALTAGRACIA BOCANEGRA MD Microbiology URINE / Unknown 02/21/2022 022 1:01 AM CDT Laura Church MD LAB - MICROBIOLOGY O RDERABLES [address] [address] * MRI CERVICAL SPINE WWO CONT (01/21/2022 2:41 PM CDT) Anatomical Region Laterality Modality Spine Magnetic Resonan ce 01/21/2022 2:14 PM CDT Impressions 01/21/2022 2:35 PM CDT IMPRESSION: Brain: 1.Few foci of nonenhancing signal abnormality in the supratentorial white matter. The distribution of these lesions is not typical for multiple sclerosis. The findings could be seen with chronic migraine, sequela of prior trauma, vasculitis, infection or other vascular disease. 2.No acute intracranial abnormality. Cervical spine: 1.Normal MR appearance of the cervical spine. 2.No abnormality of the spinal cord. I, Dr. TAM MCKENNA M.D. have personally reviewed and interpreted this examination/study. This report was electronically signed by TAM MCKENNA M.D. on 01/21/2022 2:35 PM . Narrative 01/21/2022 2:35 PM CDT Contrast-enhanced MRI of brain Contrast-enhanced MRI of cervical spine INDICATION: R29.90: Neurological symptoms TECHNIQUE: MRI of the brain and cervical spine was performed with and without intravenous contrast. Demyelination protocol was utilized for imaging of the brain. 10 mL of Gadavist was administered intravenously. COMPARISON: No prior similar studies are available for comparison. FINDINGS: Brain: A few foci of nonenhancing signal abnormality are seen in the supratentorial white matter- in bilateral frontal deep white matter and right frontal subcortical white matter. There are no demonstrated lesions in the corpus callosum or posterior fossa. There are no lesions with restricted diffusion, enhancement or susceptibility artifact. The brain parenchymal volume is maintained. There is no infarction or intracranial hemorrhage. There is no hydrocephalus, extra axial fluid collection or midline shift. The sella is unremarkable. Flow voids and enhancement of major intracranial vessels are noted. The orbits are grossly unremarkable. The paranasal sinuses and tympanomastoid cavities are aerated. Cervical spine: The cervical spinal cord is unremarkable without signal abnormality, enhancement, or compression. The cervical lordosis is maintained. The vertebral bodies are normal in height without significant marrow signal abnormality. There is no epidural fluid collection or abnormal enhancement. The intervertebral discs are normal in height. There is no focal disc herniation, spinal canal or foraminal stenosis. The facets and uncovertebral joints are normal. There is no significant abnormality of the prevertebral or paraspinal soft tissues. Procedure Note Tam Mckenna MD - 01/21/2022 Contrast-enhanced MRI of brain Contrast-enhanced MRI of cervical spine INDICATION: R29.90: Neurological symptoms TECHNIQUE: MRI of the brain and cervical spine was performed with and without intravenous contrast. Demyelination protocol was utilized for imaging of the brain. 10 mL of Gadavist was administered intravenously. COMPARISON: No prior similar studies are available for comparison. FINDINGS: Brain: A few foci of nonenhancing signal abnormality are seen in the supratentorial white matter- in bilateral frontal deep white matter and right frontal subcortical white matter. There are no demonstratedlesions in the corpus callosum or posterior fossa. There are no lesions with restricted diffusion, enhancement or susceptibility artifact. The brain parenchymal volume is maintained. There is no infarction or intracranial hemorrhage. There is no hydrocephalus, extra axial fluid collection or midline shift. The sellais unremarkable. Flow voids and enhancement of major intracranial vesselsare noted. The orbits are grossly unremarkable. The paranasal sinuses and tympanomastoid cavities are aerated. Cervical spine: The cervical spinal cord is unremarkable without signal abnormality, enhancement, or compression. The cervical lordosis is maintained. The vertebral bodies are normal in height without significant marrow signal abnormality. There is noepidural fluid collection or abnormal enhancement. The intervertebral discs are normal in height. There is no focal disc herniation, spinal canal or foraminal stenosis. The facets and uncovertebral joints are normal. There is no significant abnormality of the prevertebral or paraspinalsoft tissues. IMPRESSION: Brain: 1.Few foci of nonenhancing signal abnormality in the supratentorialwhite matter. The distribution of these lesions is not typical for multiple sclerosis. The findings could be seen with chronic migraine, sequela of prior trauma, vasculitis, infection or other vascular disease. 2.No acute intracranial abnormality. Cervical spine: 1.Normal MR appearance of the cervical spine. 2.No abnormality of the spinal cord. I, Dr. TAM MCKENNA M.D. have personally reviewed and interpreted this examination/study. This report was electronically signed by TAM MCKENNA M.D. on 01/21/2022 2:35 PM . eZ Duffy MD MR ORDERABLES * MRI BRAIN WWO CONTRAST (01/21/2022 2:41 PM CDT) Anatomical Region Laterality Modality Head Magnetic Resonan ce 01/21/2022 2:14 PM CDT Impressions 01/21/2022 2:35 PM CDT IMPRESSION: Brain: 1.Few foci of nonenhancing signal abnormality in the supratentorial white matter. The distribution of these lesions is not typical for multiple sclerosis. The findings could be seen with chronic migraine, sequela of prior trauma, vasculitis, infection or other vascular disease. 2.No acute intracranial abnormality. Cervical spine: 1.Normal MR appearance of the cervical spine. 2.No abnormality of the spinal cord. I, Dr. TAM MCKENNA M.D. have personally reviewed and interpreted this examination/study. This report was electronically signed by TAM MCKENNA M.D. on 01/21/2022 2:35 PM . Narrative 01/21/2022 2:35 PM CDT Contrast-enhanced MRI of brain Contrast-enhanced MRI of cervical spine INDICATION: R29.90: Neurological symptoms TECHNIQUE: MRI of the brain and cervical spine was performed with and without intravenous contrast. Demyelination protocol was utilized for imaging of the brain. 10 mL of Gadavist was administered intravenously. COMPARISON: No prior similar studies are available for comparison. FINDINGS: Brain: A few foci of nonenhancing signal abnormality are seen in the supratentorial white matter- in bilateral frontal deep white matter and right frontal subcortical white matter. There are no demonstrated lesions in the corpus callosum or posterior fossa. There are no lesions with restricted diffusion, enhancement or susceptibility artifact. The brain parenchymal volume is maintained. There is no infarction or intracranial hemorrhage. There is no hydrocephalus, extra axial fluid collection or midline shift. The sella is unremarkable. Flow voids and enhancement of major intracranial vessels are noted. The orbits are grossly unremarkable. The paranasal sinuses and tympanomastoid cavities are aerated. Cervical spine: The cervical spinal cord is unremarkable without signal abnormality, enhancement, or compression. The cervical lordosis is maintained. The vertebral bodies are normal in height without significant marrow signal abnormality. There is no epidural fluid collection or abnormal enhancement. The intervertebral discs are normal in height. There is no focal disc herniation, spinal canal or foraminal stenosis. The facets and uncovertebral joints are normal. There is no significant abnormality of the prevertebral or paraspinal soft tissues. Procedure Note Tam Mckenna MD - 01/21/2022 Contrast-enhanced MRI of brain Contrast-enhanced MRI of cervical spine INDICATION: R29.90: Neurological symptoms TECHNIQUE: MRI of the brain and cervical spine was performed with and without intravenous contrast. Demyelination protocol was utilized for imaging of the brain. 10 mL of Gadavist was administered intravenously. COMPARISON: No prior similar studies are available for comparison. FINDINGS: Brain: A few foci of nonenhancing signal abnormality are seen in the supratentorial white matter- in bilateral frontal deep white matter and right frontal subcortical white matter. There are no demonstratedlesions in the corpus callosum or posterior fossa. There are no lesions with restricted diffusion, enhancement or susceptibility artifact. The brain parenchymal volume is maintained. There is no infarction or intracranial hemorrhage. There is no hydrocephalus, extra axial fluid collection or midline shift. The sellais unremarkable. Flow voids and enhancement of major intracranial vesselsare noted. The orbits are grossly unremarkable. The paranasal sinuses and tympanomastoid cavities are aerated. Cervical spine: The cervical spinal cord is unremarkable without signal abnormality, enhancement, or compression. The cervical lordosis is maintained. The vertebral bodies are normal in height without significant marrow signal abnormality. There is noepidural fluid collection or abnormal enhancement. The intervertebral discs are normal in height. There is no focal disc herniation, spinal canal or foraminal stenosis. The facets and uncovertebral joints are normal. There is no significant abnormality of the prevertebral or paraspinalsoft tissues. IMPRESSION: Brain: 1.Few foci of nonenhancing signal abnormality in the supratentorialwhite matter. The distribution of these lesions is not typical for multiple sclerosis. The findings could be seen with chronic migraine, sequela of prior trauma, vasculitis, infection or other vascular disease. 2.No acute intracranial abnormality. Cervical spine: 1.Normal MR appearance of the cervical spine. 2.No abnormality of the spinal cord. I, Dr. TAM MCKENNA M.D. have personally reviewed and interpreted this examination/study. This report was electronically signed by TAM MCKENNA M.D. on 01/21/2022 2:35 PM . Ze Duffy MD MR ORDERABLES * SMOOTH MUSCLE ANTIBODY W REFLEX TITER (01/07/2022 1:01 PM CDT) Smooth Muscle Antibody Screen NEGATIVE NEGATIVE [facility] Comment: Test Performed at: [facility] [place] [address] [place] [address] YOJANA HUIZAR MD Blood BLOOD SPECIMEN / Unknown 01/07/2022 1:01 PM CDT 01/07/2022 1:03 PM CDT Licha Judd Lowery MANAGER ASSURANCE-QUALITY TECHNICIAN LAB - SEROL OGY ORDERABLES [facility] [address] [place] [address] * HEZCE-7-IIQWZRJDTVD MUTATION ANALYSIS PANEL (01/07/2022 1:01 PM CDT) Pathologist [facility] Alpha-1 Antitrypsin Mutation See Below [facility] Comment: RESULT: NO MUTATION DETECTED Interpretation: DNA testing indicates that this individual is negative for the PI*Z and PI*S alleles in the ujbrg-3-avbktivglnu (PI) gene (genotype PI*M/PI*M). This negative result does not rule out the presence of other mutations within the PI gene or other causes of oyjuz-5-zlzaltexehg deficiency. Therefore, these results should be interpreted in the context of the individual's clinical presentation, and other laboratory tests such as measurement of serum mfcjj-5-zydlqcyqrme levels. Laboratory testing supervised and results monitored by Esther Esquivel, Ph.D., [facility], [facility], [facility]. Dtsno-3-igyxvbiafjf deficiency is a relatively common autosomal recessive condition. The two most common deficiency alleles in the cjiia-5-xxfxoklplrq gene (protease inhibitor locus, PI) are designated PI*Z and PI*S, and the normal allele is designated PI*M. The PI*Z/PI*Z, PI*S/PI*Z, and PI*S/PI*S genotypes associated with decreased serum PI levels that are equivalent to approximately 10-20%, 35-40%, and 50-60% of normal, respectively. The PI*Z/PI*Z and PI*S/PI*Z genotypes are reported to be associated with an increased risk of liver disease in childhood, and chronic obstructive pulmonary disease (COPD) and emphysema in adult life. The PI*M/PI*Z, and PI*M/PI*S genotypes are also associated with decreased serum PI levels but these levels, and the PI levels associated with the PI*S/PI*S genotype, are apparently adequate to protect the lungs in the vast majority of individuals. Individuals with the PI*M/PI*Z genotype may have decreased pulmonary function, and may be at increased risk for COPD, especially if they smoke. It should be noted that serum fvkcm-5-vehjtwxlauw levels can be induced by a wide variety of conditions that include , infection, numerous inflammatory conditions, cancer, and liver disease. Levels of gptxa-6-qecmtlacwci may be reduced by other conditions. Therefore, immunological and functional determinations of serum yrjsa-7-uwtayhefjmg levels may not correlate with the individual's PI genotype. The PI*Z, PI*S, and PI*M alleles are detected by multiplex polymerase chain reaction (PCR) amplification of specific regions of the PI gene, followed by restriction enzyme digestion and capillary electrophoresis. This assay does not test for the presence of other mutations within the mfvht-7-wgokbgelyml gene or non-genetic causes of ghtvx-3-jpmureetrjp deficiency. Although rare, false positive or false negative results may occur. All results should be interpreted in the context of clinical findings, relevant history, and other laboratory data. Health care providers may also contact your local [facility] genetic counselor or call [phone] ([phone]) for assistance with the interpretation of these results. This test was developed and its analytical performance characteristics have been determined by [facility]. It has not been cleared or approved by FDA. This assay has been validated pursuant to the CLIA regulations and is used for clinical purposes. Clinical Indication NG [employer] Referring Physician BARRERA VASQUEZ Comment: Test Performed at: [facility] [facility] [address] [place] [address] MATTY TATE MD,PHD,RADHA Blood BLOOD SPECIMEN / Unknown 01/07/2022 1:01 PM CDT 01/07/2022 1:03 PM CDT Licah Lowery MANAGER ASSURANCE-QUALITY TECHNICIAN LAB - CHEMI STRY ORDERABLES Performing Organization Address [facility] de Phone Number [facility] [address] [place] [address] * HEPATITIS C RNA QUANTITATIVE (01/07/2022 1:01 PM CDT) [facility] Hepatitis C Virus RNA, Quantitative Real [...] of this assay have been determined by [employer]. The modifications have not been cleared or approved by the FDA. This assay has been validated pursuant to the CLIA regulations and is used for clinical purposes. For more information on this test, go to: http://education.[employer]/faq/NNV93d7 (This link is being provided for informational/ educational purposes only.) Test Performed at: [facility] [address] [place] [address] JANET SEE DO,MPH Blood BLOOD SPECIMEN / Unknown 01/07/2022 1:01 PM CDT 01/07/2022 1:03 PM CDT Licha Judd Beverley MANAGER ASSURANCE-QUALITY TECHNICIAN LAB [employer] STRY ORDERABLES Performing Organization Address [facility] de Phone Number [facility] [address] [place] [address] * KATHERINE BLOOD SCREEN W/REFLEX TITER (01/07/2022 1:01 PM CDT) Only the most recent of2 resultswithin the time period is included. [facility] KATHERINE Screen NEGATIVE NEGATIVE [facility] Comment: KATHERINE IFA is a first line screen for detecting the presence of up to approximately 150 autoantibodies in various autoimmune diseases. A negative KATHERINE IFA result suggests an KATHERINE-associated autoimmune disease is not present at this time, but is not definitive. If there is high clinical suspicion for Sjogren's syndrome, testing for anti-SS-A/Ro antibody should be considered. Anti-Aviva-1 antibody should be considered for clinically suspected inflammatory myopathies. AC-0: Negative International Consensus on KATHERINE Patterns (https://doi.org/10.1515/rtvr-6996-7675) For additional information, please refer to http://education.[employer]/faq/VUZ569 (This link is being provided for informational/ educational purposes only.) Test Performed at: [place] [address] JANET SEE DO,MPH Blood BLOOD SPECIMEN / Unknown 01/07/2022 1:01 PM CDT 01/07/2022 1:03 PM CDT Licha Lowery MANAGER ASSURANCE-QUALITY TECHNICIAN LAB - CHEMI STRY ORDERABLES Performing Organization Address [facility] Co de Phone Number [place] [phone] * TRANSFERRIN (01/07/2022 1:01 PM CDT) Transferrin 324 188 - 341 mg/dL [facility] Comment: Test Performed at: [place] [address] JANET SEE DO,MPH Blood BLOOD SPECIMEN / Unknown 01/07/2022 1:01 PM CDT 01/07/2022 1:03 PM CDT Licha Lowery MANAGER ASSURANCE-[employer] LAB - CHEMI STRY ORDERABLES Performing Organization Address [facility] Co de Phone Number [address] [address] * CERULOPLASMIN (01/07/2022 1:01 PM CDT) Ceruloplasmin 41 18 - 53 mg/dL [facility] Comment: Test Performed at: [place] [address] JANET SEE DO,MPH Blood BLOOD SPECIMEN / Unknown 01/07/2022 1:01 PM CDT 01/07/2022 1:03 PM CDT Licha Lowery APRN-QUALITY TECHNICIAN LAB - CHEMI STRY ORDERABLES Performing Organization Address [facility] Co de Phone Number [place] [phone] * WQHCP-8-QSGWFVXCHSK BLOOD (01/07/2022 1:01 PM CDT) Buacr-1-Sygwwnew sin 141 83 - 199 mg/dL [facility] Comment: Test Performed at: [facility] [address] [employer] [facility] [address] JANET SEE DO,MPH Blood BLOOD SPECIMEN / Unknown 01/07/2022 1:01 PM CDT 01/07/2022 1:03 PM CDT Licha Lowery APRN-QUALITY TECHNICIAN LAB - CHEMI STRY ORDERABLES Performing Organization Address [facility] de Phone Number [place] [phone] * PT-INR (01/07/2022 1:01 PM CDT) INR 1.0 [facility] Comment: Reference Range 0.9-1.1 Moderate-intensity Warfarin Therapy 2.0-3.0 Higher-intensity Warfarin Therapy 3.0-4.0 PT 10.4 9.0 - 11.5 sec [facility] Comment: For additional information, please refer to http://education.[employer]/faq/OXU674 (This link is being provided for informational/ educational purposes only.) Test Performed at: [employer] [address] [place] [address] JANET SEE DO,MPH Blood BLOOD SPECIMEN / Unknown 01/07/2022 1:01 PM CDT 01/07/2022 1:03 PM CDT Licha Lowery APRN-QUALITY TECHNICIAN LAB - COAGU LATION ORDERABLES Performing Organization Address [facility] Co de Phone Number [address] [place] [address] * (ABNORMAL) CBC WITH DIFFERENTIAL (01/07/2022 1:01 PM CDT) Only the most recent of4 resultswithin the time period is included. [facility] White Blood Cell Count 15.2(H) 3.8 - 10.8 Thousand/ uL [facility] RBC 4.89 3.80 - 5.10 Million/u L [facility] Hemoglobin 13.6 11.7 - 15.5 g/dL [facility] Hematocrit 41.5 35.0 - 45.0 % [facility] MCV 84.9 80.0 - 100.0 fL [facility] MCH 27.8 27.0 - 33.0 pg [facility] MCHC 32.8 32.0 - 36.0 g/dL [facility] RDW 13.7 11.0 - 15.0 % [facility] Platelet Count 423(H) 140 - 400 Thousand/ uL [facility] MPV 10.9 7.5 - 12.5 fL [facility] Neutrophil Absolute 97403(H) 1500 - 7800 cells/uL [facility] Lymphocytes Absolute 3116 850 - 3900 cells/uL [facility] Absolute Monocytes 1125(H) 200 - 950 cells/uL [facility] Eosinophils Absolute 137 15 - 500 cells/uL [facility] Basophils Absolute 91 0 - 200 cells/uL [facility] Granulocytes % 70.6 % [facility] Lymphocytes % 20.5 % [facility] Monocytes % 7.4 % [facility] Eosinophils % 0.9 % [facility] Basophils % 0.6 % [facility] Comment: Test Performed at: [facility] [address] [place] [address] JANET SEE DO,MPH Blood BLOOD SPECIMEN / Unknown 01/07/2022 1:01 PM CDT 01/07/2022 1:03 PM CDT Licha Lowery MANAGER ASSURANCE-QUALITY TECHNICIAN LAB - HEMAT OLOGY ORDERABLES [facility] [address] [place] [address] * (ABNORMAL) COMPREHENSIVE METABOLIC PANEL (01/07/2022 1:01 PM CDT) Only the most recent of3 resultswithin the time period is included. [facility] Glucose 100(H) 65 - 99 mg/dL [facility] Comment: Fasting reference interval For someone without known diabetes, a glucose value between 100 and 125 mg/dL is consistent with prediabetes and should be confirmed with a follow-up test. BUN 11 7 - 25 mg/dL [facility] Creatinine 0.86 0.50 - 1.10 mg/dL [facility] eGFR by MDRD 91 > OR = 60 mL/min/1. 73m2 [facility] eGFR by MDRD 105 > OR = 60 mL/min/1. 73m2 [facility] BUN/Creatinine Ratio NOT APPLICABLE 6 - 22 (calc) [facility] Sodium 136 135 - 146 mmol/L [facility] Potassium 4.6 3.5 - 5.3 mmol/L [facility] Chloride 103 98 - 110 mmol/L [facility] CO2 24 20 - 32 mmol/L [facility] Calcium 9.6 8.6 - 10.2 mg/dL [facility] Protein Total 7.4 6.1 - 8.1 g/dL [facility] Albumin 4.4 3.6 - 5.1 g/dL [facility] Globulin Total 3.0 1.9 - 3.7 g/dL (calc) [facility] Albumin/Globuli n Ratio 1.5 1.0 - 2.5 (calc) [facility] Bilirubin Total 0.6 0.2 - 1.2 mg/dL [facility] Alkaline Phosphatase 95 31 - 125 U/L [facility] AST 19 10 - 30 U/L [facility] ALT 42(H) 6 - 29 U/L [facility] Comment: Test Performed at: [facility] [place] [address] AJNET SEE DO,MPH Blood BLOOD SPECIMEN / Unknown 01/07/2022 1:01 PM CDT 01/07/2022 1:03 PM CDT Licha Lowery MANAGER ASSURANCE-QUALITY TECHNICIAN LAB - CHEMI STRY ORDERABLES [facility] [address] [place] [address] * IRON BLOOD (01/07/2022 1:01 PM CDT) Pathologist [facility] Iron 99 40 - 190 mcg/dL [facility] Comment: Test Performed at: [facility] [address] [facility] [place] [address] JANET SEE DO,MPH Blood BLOOD SPECIMEN / Unknown 01/07/2022 1:01 PM CDT 01/07/2022 1:03 PM CDT Licha Lowery APRN-QUALITY TECHNICIAN LAB - CHEMI STRY ORDERABLES Performing Organization Address [facility] Co de Phone Number [facility] [phone] [place] [address] * (ABNORMAL) HEPATITIS B SURFACE ANTIBODY (01/07/2022 1:01 PM CDT) Hepatitis B Virus Surface Antibody BORDERLINE (A) NON-REACT NORM [facility] Comment: Test Performed at: [facility] [id number] [address] JANET SEE DO,MPH Blood BLOOD SPECIMEN / Unknown 01/07/2022 1:01 PM CDT 01/07/2022 1:03 PM CDT Licha Lowery APRN-QUALITY TECHNICIAN LAB - CHEMI STRY ORDERABLES Performing Organization Address [facility] de Phone Number [facility] [address] [place] [address] * HEPATITIS B CORE ANTIBODY (01/07/2022 1:01 PM CDT) Hepatitis B Core Virus Antibody Total NON-REACTI VE NON-REACT NORM [facility] Comment: Test Performed at: [facility] [address] [address] JANET SEE DO,MPH Blood BLOOD SPECIMEN / Unknown 01/07/2022 1:01 PM CDT 01/07/2022 1:03 PM CDT Licha Lowery APRN-QUALITY TECHNICIAN LAB - CHEMI STRY ORDERABLES Performing Organization Address [facility] Co de Phone Number [facility] [phone] [place] [address] * HEPATITIS B SURFACE ANTIGEN W RFLX CONFIRMATION (01/07/2022 1:01 PM CDT) Hepatitis B Virus Surface Antigen NON-REACTI VE NON-REACT NORM [facility] Comment: Test Performed at: [facility] [id number] [address] JANET SEE DO,MPH Blood BLOOD SPECIMEN / Unknown 01/07/2022 1:01 PM CDT 01/07/2022 1:03 PM CDT Licha Lowery JOANNA[employer] LAB - CHEMI STRY ORDERABLES Performing Organization Address [facility] Co de Phone Number [facility] [phone] [place] [address] * (ABNORMAL) GGT (01/07/2022 1:01 PM CDT) GGT 54(H) 3 - 50 U/L [facility] Comment: Test Performed at: [place], [place] [address] JANET SEE DO,MPH Blood BLOOD SPECIMEN / Unknown 01/07/2022 1:01 PM CDT 01/07/2022 1:03 PM CDT Lichalore Lowery JOANNAC3 Jian LAB - CHEMI STRY ORDERABLES Performing Organization Address [facility] Co de Phone Number [address] [address] * IGG BLOOD (01/07/2022 1:01 PM CDT) IgG 1253 600 - 1640 mg/dL [facility] Comment: Test Performed at: [place], [place] [address] JANET SEE DO,MPH Blood BLOOD SPECIMEN / Unknown 01/07/2022 1:01 PM CDT 01/07/2022 1:03 PM CDT Licha Lowery MANAGER ASSURANCEC3 Jian LAB - CHEMI STRY ORDERABLES Performing Organization Address [facility] Co de Phone Number [address] [address] * FERRITIN (01/07/2022 1:01 PM CDT) Ferritin 42 16 - 154 ng/mL [facility] Comment: Test Performed at: [facility] [address] [facility], [place] [address] JANET SEE DO,MPH Blood BLOOD SPECIMEN / Unknown 01/07/2022 1:01 PM CDT 01/07/2022 1:03 PM CDT Licha Binta Lowery [facility] LAB - CHEMI STRY ORDERABLES [facility] [address] [place] [address] * ETT LINE PERFORMABLE (12/30/2021 1:15 PM CDT) Narrative Nola Jackson APRN-CRNA - 12/30/2021 1:15 PM CDT Nola Jackson APRN-CRNA 12/30/2021 1:18 PM Endotracheal Tube Placement: Patient Location: OR. Intubation Event Date/Time: 12/30/2021 12:55 PM Procedure: intubation ([id number]). Procedure Section: Sedation: under general anesthesia. Indications for Airway Management: anesthesia Procedure pretreatments used? No Induction: standard IV Patient Position: sniffing Mask Ventilation: easy. Blade Type: Yates Blade Size: 2 Laryngoscopy View: grade 1 (full cords) Intubation Adjuncts: cricoid pressure and stylet Tube: endotracheal tube Placement: oral Tube type: cuff - inflated Tube Size (MM): 7 Depth of Insertion (CM): 22 Measured From: lips Cuff volume (mL): 4 Cuff Inflated With: air Number of Attempts: 1. Placement Verified By: direct visualization, bilateral breath sounds, chest auscultation and CO2 monitor Tube secured with: adhesive tape. Dentition unchanged? Yes Difficult Airway? No. Procedure Start Time: 12/30/2021 12:55 PM. Staff Section Anesthesia Provider: Nola Jackson APRN-CRNA, Performed the procedure Additional Comments: Smooth IV induction. DVOI. Positive ETCO2. Positive BBS. Tube secured. Oral cavity unchanged. . Lew Lujan DO GENERAL ANESTHESIA ORDERABLES * (ABNORMAL) BASIC METABOLIC PANEL (CALCIUM TOTAL) (12/30/2021 9:06 AM CDT) [facility] Glucose 109(H) 70 - 105 mg/dL 12/30/2021 9:51 AM CDT [facility] Sodium 138 136 - 145 mmol/L 12/30/2021 9:51 AM CDT [facility] Potassium 3.9 3.5 - 5.1 mmol/L 12/30/2021 9:51 AM CDT [facility] Chloride 106 98 - 107 mmol/L 12/30/2021 9:51 AM CDT [facility] CO2 21(L) 23 - 31 mmol/L 12/30/2021 9:51 AM CDT [facility] Calcium 8.8 8.4 - 10.4 mg/dL 12/30/2021 9:51 AM CDT [facility] Anion Gap 11 8 - 18 mmol/L 12/30/2021 9:51 AM CDT [facility] BUN 9 7 - 18.7 mg/dL 12/30/2021 9:51 AM CDT [facility] Creatinine 0.80 0.57 - 1.11 mg/dL 12/30/2021 9:51 AM CDT [facility] eGFR by CKD-EPI >90 >=90 mL/min/1.7 3 m2 12/30/2021 9:51 AM CDT [facility] Blood BLOOD SPECIMEN / Unknown Venipuncture / Unknown 12/30/2021 9:06 AM CDT 12/30/2021 9:21 AM CDT Narrative [facility] - 12/30/2021 9:51 AM CDT eGFR result was calculated using the updated CKD-EPI Creatinine Equations (2020). Prior to go live 2021 the eGFR was calculated using the MDRD calculation. Please note Reference Range change. Laura Church MD LAB - CHEMISTRY [facility] Organization Address City/State/ZIP Co de Phone Number [facility] [address] [place] [address] * CULTURE URINE REFLEXED I (12/23/2021 3:19 PM CDT) Reflexive Urine Culture See Below [facility] Comment: NO CULTURE INDICATED Test Performed at: [facility] [place] [address] [place] [address] JANET SEE DO,MPH 12/23/2021 3:19 PM CDT 12/23/2021 3:20 PM CDT Laura Church MD LAB - MICROBIOLOGY O RDERABLES Performing Organization Address [facility] Co de Phone Number [facility] [address] [place] [address] * URINALYSIS W/MICROSCOPIC REFLEX TO CULTURE (12/23/2021 3:19 PM CDT) Color UA YELLOW YELLOW [facility] Appearance CLEAR CLEAR [facility] Specific [place] UA 1.029 1.001 - 1.035 [facility] pH UA 5.5 5.0 - 8.0 [facility] Glucose UA NEGATIVE NEGATIVE [facility] Bilirubin UA NEGATIVE NEGATIVE [facility] Ketone UA NEGATIVE NEGATIVE [facility] Blood UA NEGATIVE NEGATIVE [facility] Protein UA NEGATIVE NEGATIVE [facility] Nitrite NEGATIVE NEGATIVE [facility] Leukocyte Esterase NEGATIVE NEGATIVE [facility] WBC UA NONE SEEN < OR = 5 /HPF [facility] RBC UA NONE SEEN < OR = 2 /HPF [facility] Epithelial Cell UA 0-5 < OR = 5 /HPF [facility] Bacteria UA NONE SEEN NONE SEEN /HPF [facility] Hyaline Casts NONE SEEN NONE SEEN /LPF [facility] Comment: Test Performed at: [facility] [address] [place] [address] JANET SEE DO,MPH Urine URINE SPECIMEN OBTAINED BY CLEAN CATCH PROCEDURE / Unknown 12/23/2021 3:19 PM CDT 12/23/2021 3:20 PM CDT Laura Church MD LAB - URINALYSIS ORD ERABLES Performing Organization Address [facility] Co de Phone Number [facility] [address] [place] [address] * [place] SONO EXAM, TRANSVAGINAL (12/20/2021 3:45 PM CDT) Narrative Dariusz Bravo RDMS - 12/20/2021 3:45 PM CDT Dariusz Bravo RDMS 12/20/2021 3:45 PM Documentation in digisonics. Edgardo Sosa MD PROCEDURE/MINOR HENNESSY RGICAL ORDERABLES * US RETROPERITONEAL COMPLETE (07/28/2021 10:58 AM CDT) Anatomical Region Laterality Modality Abdomen Ultrasound 07/28/2021 11:0 5 AM CDT Narrative 07/28/2021 11:10 AM CDT EXAM: Renal sonogram with color Doppler evaluation. HISTORY: Renal disease. FINDINGS: The right kidney measures 11.1 x 4.7 x 4.3 cm. The left kidney measures 10.3 x 4.5 x 5.2 cm. The renal echogenicity appears normal bilaterally. The liver is diffusely echogenic, likely representing steatosis. No hydronephrosis is seen. Limited evaluation of the urinary bladder is unremarkable. Edited by Ivis Newsome on 07/28/2021 11:08 AM *Reading Radiologist: Zheng Zavaleta on 07/28/2021 at 11:10 AM Procedure Note Zheng Zavaleta MD - 07/28/2021 EXAM: Renal sonogram with color Doppler evaluation. HISTORY: Renal disease. FINDINGS: The right kidney measures 11.1 x 4.7 x 4.3 cm. The left kidney measures 10.3 x 4.5 x 5.2 cm. The renal echogenicity appears normal bilaterally. The liver is diffusely echogenic, likely representing steatosis. No hydronephrosis is seen. Limited evaluation of the urinary bladder is unremarkable. Edited by Ivis Newsome on 07/28/2021 11:08 AM *Reading Radiologist: Zheng Zavaleta on 07/28/2021 at 11:10 AM Laura Church MD ORDERABLES * COMPLEMENT ACTIVITY TOTAL (CH50) (08/05/2020 5:19 PM CDT) Pathologist [facility] Complement Activity Total CH50 79.4 38.7 - 89.9 U/mL 08/07/2020 9:22 PM CDT [facility] ([facility]) Comment: REFERENCE INTERVAL: Complement Activity Total, (CH50) 38.6 U/mL or less ..........Low 38.7-89.9 U/mL .............Normal 90.0 U/mL or greater .......High Performed By: [facility] [address] [place] [id number] Psych Therapist: Julia Bassett MD Blood BLOOD SPECIMEN / Unknown Lab Venipuncture / Unknown 08/05/2020 5:19 PM CDT 08/05/2020 6:09 PM CDT Kiera Beard MD LAB - CHEMISTRY ORDERABLES Performing Organization Address City/[facility]/ZIP Co de Phone Number [facility] ([facility]) [address] * SS-A (SJOGREN'S) 52+60 ANTIBODIES (08/05/2020 5:19 PM CDT) SS-A 52 Antibody 3 0 - 40 AU/mL 08/08/2020 12:59 PM CDT [facility] ([facility]) Comment: INTERPRETIVE INFORMATION: SSA-52 (Ro52) (LESLIE) Antibody, IgG 29 AU/mL or Less ............. Negative 30 - 40 AU/mL ................ Equivocal 41 AU/mL or Greater .......... Positive SSA-52 (Ro52) and/or SSA-60 (Ro60) antibodies are associated with a diagnosis of Sjogren syndrome, systemic lupus erythematosus (SLE), and systemic sclerosis. SSA-52 antibody overlaps significantly with the major SSc-related antibodies. SSA-52 (Ro52) antibody occurs frequently in patients with inflammatory myopathies, often in the presence of interstitial lung disease. SS-A 60 Antibody 0 0 - 40 AU/mL 08/08/2020 12:59 PM CDT [facility] ([facility]) Comment: REFERENCE INTERVAL: SSA-60 (Ro60) (LESLIE) Antibody, IgG 29 AU/mL or Less ............. Negative 30 - 40 AU/mL ................ Equivocal 41 AU/mL or Greater .......... Positive Performed By: [facility] [address] [place] [address] Psych Therapist: Julia Bassett MD Blood BLOOD SPECIMEN / Unknown Lab Venipuncture / Unknown 08/05/2020 5:19 PM CDT 08/05/2020 6:10 PM CDT Kiera Beard MD LAB - CHEMISTRY ORDERABLES [facility] ([facility]) [address] [place] [address] * CHROMATIN ANTIBODY (08/05/2020 5:19 PM CDT) Chromatin Antibody 3 0 - 19 Units 08/10/2020 2:16 PM [employer] [facility] ([facility]) Comment: INTERPRETIVE INFORMATION: Chromatin Antibody, IgG 19 Units or less: Negative 20 - 60 Units: Moderate Positive 61 Units or greater: Strong Positive The presence of anti-chromatin antibodies may be useful in the diagnosis of systemic lupus erythematosus (SLE) or drug-induced lupus (DIL) and have been reported to be predictive of lupus nephritis, especially when antibody levels are high. Performed By: [facility] [address] [place] [address] Psych Therapist: Julia Bassett MD Blood BLOOD SPECIMEN / Unknown Lab Venipuncture / Unknown 08/05/2020 5:19 PM CDT 08/05/2020 6:10 PM CDT Kiera Beard MD LAB - SEROLOGY ORDERABLES Performing Organization Address [facility] de Phone Number [facility] ([facility]) [address] [place] [address] * CYCLIC CITRUL PEPTIDE ANTIBODY IGG/IGA (CCP) (08/05/2020 5:19 PM CDT) CCP Antibodies IgG/IgA 3 0 - 19 units 08/08/2020 12:06 AM CDT [facility] ([facility]) Comment: Negative <20 Weak positive 20 - 39 Moderate positive 40 - 59 Strong positive >59 Blood BLOOD SPECIMEN / Unknown Lab Venipuncture / Unknown 08/05/2020 5:19 PM CDT 08/05/2020 6:09 PM CDT Narrative [facility] ([facility]) - 08/08/2020 12:06 AM CDT Performed at: - [address] [id number] Supervisor [employer]: Liset Washburn MD, Phone: [phone] Kiera Beard MD LAB - SEROLOGY ORDERABLES Performing Organization Address [facility]/State/ZIP Co de Phone Number [facility] ([facility]) [address] [place] [address] * CARDIOLIPIN ANTIBODY IGA (08/05/2020 5:19 PM CDT) Cardiolipin Antibody IgA 2 0 - 11 APL 08/07/2020 10:22 PM CDT [facility] ([facility]) Comment: INTERPRETIVE INFORMATION: Cardiolipin Antibodies, IgA 0-11 APL: Negative 12-19 APL: Indeterminate 20-80 APL: Low to Moderately Positive 81 APL or above: High Positive Performed By: [facility] [address] [place] [address] Psych Therapist: Julia Bassett MD Blood BLOOD SPECIMEN / Unknown Lab Venipuncture / Unknown 08/05/2020 5:19 PM CDT 08/05/2020 6:09 PM CDT Kiera Beard MD LAB - SEROLOGY ORDERABLES Performing Organization Address [facility]/State/ZIP Co de Phone Number [facility] ([facility]) [address] * (ABNORMAL) CARDIOLIPIN ANTIBODY IGM (08/05/2020 5:19 PM CDT) Pathologist [facility] Cardiolipin Antibody IgM 17(H) 0 - 12 MPL 08/08/2020 9:14 AM CDT [facility] ([facility]) Comment: INTERPRETIVE INFORMATION: Anti-Cardiolipin IgM 0-12 MPL: Negative 13-19 MPL: Indeterminate 20-80 MPL: Low to Moderately Positive 81 MPL or above: High Positive The persistent presence of IgG and/or IgM cardiolipin (CL) antibodies in moderate or high levels (greater than 40 GPL and/or greater than 40 MPL units or greater than 99th percentile) is a laboratory criterion for the diagnosis of antiphospholipid syndrome (APS). Persistence is defined as moderate or high levels of IgG and/or IgM CL antibodies detected in two or more specimens drawn at least 12 weeks apart (J Throm Haemost. 2006;4:295-306). Lower positive levels of IgG and/or IgM CL antibodies (above cutoff but less than 40 GPL and/or less than 40 MPL units) may occur in patients with the clinical symptoms of APS; therefore, the actual significance of these levels is undefined. Results should not be used alone for diagnosis and must be interpreted in light of APS-specific clinical manifestations and/or other criteria phospholipid antibody tests. Performed By: [facility] [address] [place] [address] Psych Therapist: Julia Bassett MD Blood BLOOD SPECIMEN / Unknown Lab Venipuncture / Unknown 08/05/2020 5:19 PM CDT 08/05/2020 6:10 PM CDT Kiera Beard MD LAB - SEROLOGY ORDERABLES [facility]) [address] [place] [address], [facility] * CARDIOLIPIN ANTIBODY IGG (08/05/2020 5:19 PM CDT) Pathologist [facility] Cardiolipin Antibody IgG 0 0 - 14 GPL 08/08/2020 9:14 AM CDT [facility] ([facility]) Comment: INTERPRETIVE INFORMATION: Anti-Cardiolipin IgG Ab 0-14 GPL: Negative 15-19 GPL: Indeterminate 20-80 GPL: Low to Moderately Positive 81 GPL or above: High Positive The persistent presence of IgG and/or IgM cardiolipin (CL) antibodies in moderate or high levels (greater than 40 GPL and/or greater than 40 MPL units or greater than 99th percentile) is a laboratory criterion for the diagnosis of antiphospholipid syndrome (APS). Persistence is defined as moderate or high levels of IgG and/or IgM CL antibodies detected in two or more specimens drawn at least 12 weeks apart (J Throm Haemost. 2006;4:295-306). Lower positive levels of IgG and/or IgM CL antibodies (above cutoff but less than 40 GPL and/or less than 40 MPL units) may occur in patients with the clinical symptoms of APS; therefore, the actual significance of these levels is undefined. Results should not be used alone for diagnosis and must be interpreted in light of APS-specific clinical manifestations and/or other criteria phospholipid antibody tests. Performed By: [facility] [address] [place] [address] Psych Therapist: Julia Bassett MD Blood BLOOD SPECIMEN / Unknown Lab Venipuncture / Unknown 08/05/2020 5:19 PM CDT 08/05/2020 6:09 PM CDT Kiera Beard MD LAB - SEROLOGY ORDERABLES Performing Organization Address City/[facility]/ZIP Co de Phone Number [facility]) [address] * RHEUMATOID FACTOR BLOOD QUANTITATIVE (08/05/2020 5:19 PM CDT) Rheumatoid Factor <15 <30 IU/mL 08/05/2020 6:40 PM CDT [facility] Rheumatoid Factor Screen Negative Negative 08/05/2020 6:40 PM CDT [facility] Blood BLOOD SPECIMEN / Unknown Lab Venipuncture / Unknown 08/05/2020 5:19 PM CDT 08/05/2020 6:10 PM CDT Kiera Beard MD LAB - CHEMISTRY ORDERABLES Performing Organization Address City/[facility]/ZIP Co de Phone Number [address] [address], [facility] [phone] * C-REACTIVE PROTEIN (08/05/2020 5:19 PM CDT) C-Reactive Protein 0.5 <=0.5 mg/dL 08/05/2020 6:40 PM CDT [facility] Blood BLOOD SPECIMEN / Unknown Lab Venipuncture / Unknown 08/05/2020 5:19 PM CDT 08/05/2020 6:10 PM CDT Kiera Beard MD LAB - CHEMISTRY ORDERABLES Performing Organization Address City/[facility]/ZIP Co de Phone Number [address] [address], [place] [phone] * BETA-2 GLYCOPROTEIN 1 ANTIBODY IGA (08/05/2020 5:19 PM CDT) Beta-2 Glycoprotein Antibody IgA 2 0 - 20 ARABELLA 08/07/2020 11:13 PM CDT [facility] ([facility]) Comment: Performed By: [facility] [address] [place] [address] Psych Therapist: Julia Bassett MD Blood BLOOD SPECIMEN / Unknown Lab Venipuncture / Unknown 08/05/2020 5:19 PM CDT 08/05/2020 6:10 PM CDT Kiera Beard MD LAB - SEROLOGY ORDERABLES Performing Organization Address [facility] Co de Phone Number [facility]) [address] [place] [address] * HISTONE ANTIBODY (08/05/2020 5:19 PM CDT) Histone Antibody IgG 0.4 0.0 - 0.9 Units 08/08/2020 12:40 PM CDT [facility] ([facility]) Comment: INTERPRETIVE INFORMATION: Histone Ab, IgG 0.9 Units or less ............ Negative 1.0 - 1.5 Units .............. Weak Positive 1.6 - 2.5 Units .............. Moderate Positive 2.6 Units or greater ......... Strong Positive Performed By: [facility] [employer] [address] [place] [address] Psych Therapist: Julia Bassett MD Blood BLOOD SPECIMEN / Unknown Lab Venipuncture / Unknown 08/05/2020 5:19 PM CDT 08/05/2020 6:09 PM CDT Kiera Beard MD LAB - CHEMISTRY ORDERABLES Performing Organization Address City/[facility]/ZIP Co de Phone Number [facility] ([facility]) [address] [place] [address] * BETA-2 GLYCOPROTEIN 1 ANTIBODY IGG/IGM PANEL (08/05/2020 5:19 PM CDT) Beta-2 Glycoprotein Antibody IgG 7 0 - 20 SGU 08/08/2020 4:24 PM CDT [facility] ([facility]) Beta-2 Glycoprotein Antibody IgM 6 0 - 20 SMU 08/08/2020 4:24 PM CDT [facility] ([facility]) Comment: INTERPRETIVE INFORMATION: [id number] I, IgG and IgM Antibody The persistent presence of IgG and/or IgM beta 2 glycoprotein I (B2GPI) antibodies (greater than 99th percentile) is a laboratory criterion for the diagnosis of antiphospholipid syndrome (APS). Persistence is defined as moderate or high levels of IgG and/or IgM B2GPI antibodies detected in two or more specimens drawn at least 12 weeks apart (J Throm Haemost. 2006;4:295-306). B2GPI results greater than 20 SGU (IgG) and/or SMU (IgM) are considered positive based on the cutoff values established for this test. International reference materials and consensus units for anti-B2GPI antibodies have not been established (Clin Aggie Acta. 2012;413(1-2):358-60; Arthritis Rheum. 2012;64(1):1-10.). Strong clinical correlation is recommended for a diagnosis of APS. Low positive IgG and IgM B2GPI antibody levels should be interpreted in light of APS-specific clinical manifestations and/or other criteria phospholipid antibody tests. Performed By: [facility] [address] [place] [address] Psych Therapist: Julia Bassett MD Blood BLOOD SPECIMEN / Unknown Lab Venipuncture / Unknown 08/05/2020 5:19 PM CDT 08/05/2020 6:09 PM CDT Kiera Beard MD LAB - CHEMISTRY ORDERABLES [facility]) [address] [place] [address], [facility] * SS-B (SJOGREN'S) ANTIBODY (08/05/2020 5:19 PM CDT) SS-B Antibody 0 0 - 40 AU/mL 08/08/2020 12:59 PM CDT [facility] ([facility]) Comment: INTERPRETIVE INFORMATION: SSB (La) (LESLIE) Ab, IgG 29 AU/mL or Less ............. Negative 30 - 40 AU/mL ................ Equivocal 41 AU/mL or Greater .......... Positive SSB (La) antibody is seen in 50-60% of Sjogren syndrome cases and is specific if it is the only LESLIE antibody present. 15-25% of patients with systemic lupus erythematosus (SLE) and 5-10% of patients with progressive systemic sclerosis (PSS) also have this antibody. Performed By: [facility] [address] [place] [address] Psych Therapist: Julia Bassett MD Blood BLOOD SPECIMEN / Unknown Lab Venipuncture / Unknown 08/05/2020 5:19 PM CDT 08/05/2020 6:10 PM CDT Kiera Beard MD LAB - CHEMISTRY ORDERABLES Performing Organization Address [facility] Co de Phone Number [address] * VITAMIN D 25-HYDROXY (08/05/2020 5:19 PM CDT) Vitamin D, 25 Hydroxy 34.0 See comment: ng/mL 08/05/2020 6:53 PM CDT [facility] Comment: The recommendations for 25-Hydroxy Vitamin D clinical decision points are as follows: Deficient: <20.0 ng/mL Insufficient: 20.0 - 29.9 ng/mL Sufficient: > or =30.0 ng/mL If the 25-Hydroxy Vitamin D results are inconsitent with clinical evidence, it is recommended that follow-up testing using a method such as LC/MS/MS be performed to confirm the result. Reference: The Endocrine Society Clinical Practice Guidelines. 2011 Blood BLOOD SPECIMEN / Unknown Lab Venipuncture / Unknown 08/05/2020 5:19 PM CDT 08/05/2020 6:08 PM CDT Kiera Beard MD LAB - CHEMISTRY ORDERABLES [facility] [address] [place] [address], [place] [phone] * ALDOLASE (08/05/2020 5:19 PM CDT) Aldolase 7.9 1.5 - 8.1 U/L 08/08/2020 12:28 AM CDT [facility]) Comment: REFERENCE INTERVAL: Aldolase Access complete set of age- and/or gender-specific reference intervals for this test in the [facility] Test Directory ([employer]). Performed By: [facility] [address] [place] [address] Psych Therapist: Julia Bassett MD Blood BLOOD SPECIMEN / Unknown Lab Venipuncture / Unknown 08/05/2020 5:19 PM CDT 08/05/2020 6:09 PM CDT Kiera Beard MD LAB - CHEMISTRY ORDERABLES [facility] ([facility]) [address] [place] [address] * (ABNORMAL) ERYTHROCYTE SEDIMENTATION RATE (08/05/2020 5:19 PM CDT) Erythrocyte Sedimentation Rate Westergren 27(H) 0 - 20 MM/HR 08/05/2020 6:50 PM CDT [facility] Blood BLOOD SPECIMEN / Unknown Lab Venipuncture / Unknown 08/05/2020 5:19 PM CDT 08/05/2020 6:10 PM CDT Kiera Beard MD LAB - HEMATOLOG Y ORDERABLES Performing Organization Address City/[facility]/ZIP Co de Phone Number [address] [address], [place] [phone] * COMPLEMENT C4 (08/05/2020 5:19 PM CDT) Complement C4 28 15 - 57 mg/dL 08/05/2020 11:40 PM CDT [facility] Blood BLOOD SPECIMEN / Unknown Lab Venipuncture / Unknown 08/05/2020 5:19 PM CDT 08/05/2020 6:08 PM CDT Kiera Beard MD LAB - SEROLOGY ORDERABLES Performing Organization Address City/[facility]/ZIP Co de Phone Number [address] [address], [place] [phone] * LDH BLOOD (08/05/2020 5:19 PM CDT) LDH Total 198 125 - 243 Units/L 08/05/2020 6:38 PM CDT [facility] Blood BLOOD SPECIMEN / Unknown Lab Venipuncture / Unknown 08/05/2020 5:19 PM CDT 08/05/2020 6:08 PM CDT Kiera Beard MD LAB - CHEMISTRY ORDERABLES [address] [address], [place] [phone] * CK BLOOD (08/05/2020 5:19 PM CDT) [facility] CK Total 99 30 - 200 Units/L 08/05/2020 6:38 PM CDT [facility] Blood BLOOD SPECIMEN / Unknown Lab Venipuncture / Unknown 08/05/2020 5:19 PM CDT 08/05/2020 6:08 PM CDT Kiera Beard MD LAB - CHEMISTRY ORDERABLES Performing Organization Address City/[facility]/ZIP Co de Phone Number [address] [address], [place] [phone] * COMPLEMENT C3 (08/05/2020 5:19 PM CDT) [facility] Complement C3 180 82 - 193 mg/dL 08/05/2020 11:40 PM CDT [facility] Blood BLOOD SPECIMEN / Unknown Lab Venipuncture / Unknown 08/05/2020 5:19 PM CDT 08/05/2020 6:08 PM CDT Kiera Beard MD LAB - CHEMISTRY ORDERABLES Performing Organization Address City/[facility]/ZIP Co de Phone Number [address] [address], [place] [phone] * XR KNEE RIGHT 3VW (08/05/2020 4:57 PM CDT) Anatomical Region Laterality Modality Lower Extremity Radiographic Radha ging 08/06/2020 7:24 AM CDT Impressions 08/06/2020 7:27 AM CDT IMPRESSION: Normal. This report was electronically signed by ANEUDY DUNN MD on 08/06/2020 7:27 AM . Narrative 08/06/2020 7:27 AM CDT Exam: 1.XR HAND RIGHT 2VW 2.XR KNEE RIGHT 3VW 3.XR KNEE LEFT 3VW 4.XR FOOT LEFT 2VW 5. XR HAND LEFT 2VW History: M25.50: Arthralgia, unspecified joint M26.09: Micrognathia Comparison: None. Findings: Right hand: No fracture or dislocation is present. The joint spaces are normal. No erosions are seen. Bone density is normal. The soft tissues are normal. Left hand: No fracture or dislocation is present. The joint spaces are normal. No erosions are seen. Bone density is normal. The soft tissues are normal. Right knee: No acute fracture or dislocation is present. No erosions are seen. The joint spaces are normal. There is no effusion. Left knee: No acute fracture or dislocation is present. No erosions are seen. The joint spaces are normal. There is no effusion. Left foot: No fracture or dislocation is present. The joint spaces are normal. No erosions are seen. Bone density is normal. The soft tissues are normal. Procedure Note Aneudy Dunn MD - 08/06/2020 Exam: 1.XR HAND RIGHT 2VW 2.XR KNEE RIGHT 3VW 3.XR KNEE LEFT 3VW 4.XR FOOT LEFT 2VW 5. XR HAND LEFT 2VW History: M25.50: Arthralgia, unspecified joint M26.09: Micrognathia Comparison: None. Findings: Right hand: No fracture or dislocation is present. The joint spaces are normal. No erosions are seen. Bone density is normal. The soft tissues arenormal. Left hand: No fracture or dislocation is present. The joint spaces are normal. No erosions are seen. Bone density is normal. The soft tissues arenormal. Right knee: No acute fracture or dislocation is present. No erosions are seen. The joint spaces are normal. There is no effusion. Left knee: No acute fracture or dislocation is present. No erosions are seen. The joint spaces are normal. There is no effusion. Left foot: No fracture or dislocation is present. The joint spaces are normal. No erosions are seen. Bone density is normal. The soft tissues arenormal. IMPRESSION: Normal. This report was electronically signed by ANEUDY DUNN MD on 08/06/2020 7:27 AM . Kiera Beard MD DIAGNOSTIC IMAG ING ORDERABLES * XR FOOT LEFT 2VW (08/05/2020 4:57 PM CDT) Anatomical Region Laterality Modality Ankle / Foot Radiographic Radha ging 08/06/2020 7:24 AM CDT Impressions 08/06/2020 7:27 AM CDT IMPRESSION: Normal. This report was electronically signed by ANEUDY DUNN MD on 08/06/2020 7:27 AM . Narrative 08/06/2020 7:27 AM CDT Exam: 1.XR HAND RIGHT 2VW 2.XR KNEE RIGHT 3VW 3.XR KNEE LEFT 3VW 4.XR FOOT LEFT 2VW 5. XR HAND LEFT 2VW History: M25.50: Arthralgia, unspecified joint M26.09: Micrognathia Comparison: None. Findings: Right hand: No fracture or dislocation is present. The joint spaces are normal. No erosions are seen. Bone density is normal. The soft tissues are normal. Left hand: No fracture or dislocation is present. The joint spaces are normal. No erosions are seen. Bone density is normal. The soft tissues are normal. Right knee: No acute fracture or dislocation is present. No erosions are seen. The joint spaces are normal. There is no effusion. Left knee: No acute fracture or dislocation is present. No erosions are seen. The joint spaces are normal. There is no effusion. Left foot: No fracture or dislocation is present. The joint spaces are normal. No erosions are seen. Bone density is normal. The soft tissues are normal. Procedure Note Aneudy Dunn MD - 08/06/2020 Exam: 1.XR HAND RIGHT 2VW 2.XR KNEE RIGHT 3VW 3.XR KNEE LEFT 3VW 4.XR FOOT LEFT 2VW 5. XR HAND LEFT 2VW History: M25.50: Arthralgia, unspecified joint M26.09: Micrognathia Comparison: None. Findings: Right hand: No fracture or dislocation is present. The joint spaces are normal. No erosions are seen. Bone density is normal. The soft tissues arenormal. Left hand: No fracture or dislocation is present. The joint spaces are normal. No erosions are seen. Bone density is normal. The soft tissues arenormal. Right knee: No acute fracture or dislocation is present. No erosions are seen. The joint spaces are normal. There is no effusion. Left knee: No acute fracture or dislocation is present. No erosions are seen. The joint spaces are normal. There is no effusion. Left foot: No fracture or dislocation is present. The joint spaces are normal. No erosions are seen. Bone density is normal. The soft tissues arenormal. IMPRESSION: Normal. This report was electronically signed by ANEUDY DUNN MD on 08/06/2020 7:27 AM . Kiera Beard MD DIAGNOSTIC IMAG ING ORDERABLES * XR KNEE LEFT 3VW (08/05/2020 4:57 PM CDT) Anatomical Region Laterality Modality Lower Extremity Radiographic Radha ging 08/06/2020 7:24 AM CDT Impressions 08/06/2020 7:27 AM CDT IMPRESSION: Normal. This report was electronically signed by ANEUDY DUNN MD on 08/06/2020 7:27 AM . Narrative 08/06/2020 7:27 AM CDT Exam: 1.XR HAND RIGHT 2VW 2.XR KNEE RIGHT 3VW 3.XR KNEE LEFT 3VW 4.XR FOOT LEFT 2VW 5. XR HAND LEFT 2VW History: M25.50: Arthralgia, unspecified joint M26.09: Micrognathia Comparison: None. Findings: Right hand: No fracture or dislocation is present. The joint spaces are normal. No erosions are seen. Bone density is normal. The soft tissues are normal. Left hand: No fracture or dislocation is present. The joint spaces are normal. No erosions are seen. Bone density is normal. The soft tissues are normal. Right knee: No acute fracture or dislocation is present. No erosions are seen. The joint spaces are normal. There is no effusion. Left knee: No acute fracture or dislocation is present. No erosions are seen. The joint spaces are normal. There is no effusion. Left foot: No fracture or dislocation is present. The joint spaces are normal. No erosions are seen. Bone density is normal. The soft tissues are normal. Procedure Note Aneudy Dunn MD - 08/06/2020 Exam: 1.XR HAND RIGHT 2VW 2.XR KNEE RIGHT 3VW 3.XR KNEE LEFT 3VW 4.XR FOOT LEFT 2VW 5. XR HAND LEFT 2VW History: M25.50: Arthralgia, unspecified joint M26.09: Micrognathia Comparison: None. Findings: Right hand: No fracture or dislocation is present. The joint spaces are normal. No erosions are seen. Bone density is normal. The soft tissues arenormal. Left hand: No fracture or dislocation is present. The joint spaces are normal. No erosions are seen. Bone density is normal. The soft tissues arenormal. Right knee: No acute fracture or dislocation is present. No erosions are seen. The joint spaces are normal. There is no effusion. Left knee: No acute fracture or dislocation is present. No erosions are seen. The joint spaces are normal. There is no effusion. Left foot: No fracture or dislocation is present. The joint spaces are normal. No erosions are seen. Bone density is normal. The soft tissues arenormal. IMPRESSION: Normal. This report was electronically signed by ANEUDY DUNN MD on 08/06/2020 7:27 AM . Kiera Beard MD DIAGNOSTIC IMAG ING ORDERABLES * XR HAND RIGHT 2VW (08/05/2020 4:57 PM CDT) Anatomical Region Laterality Modality Wrist / Hand Radiographic Radha ging 08/06/2020 7:24 AM CDT Impressions 08/06/2020 7:27 AM CDT IMPRESSION: Normal. This report was electronically signed by ANEUDY DUNN MD on 08/06/2020 7:27 AM . Narrative 08/06/2020 7:27 AM CDT Exam: 1.XR HAND RIGHT 2VW 2.XR KNEE RIGHT 3VW 3.XR KNEE LEFT 3VW 4.XR FOOT LEFT 2VW 5. XR HAND LEFT 2VW History: M25.50: Arthralgia, unspecified joint M26.09: Micrognathia Comparison: None. Findings: Right hand: No fracture or dislocation is present. The joint spaces are normal. No erosions are seen. Bone density is normal. The soft tissues are normal. Left hand: No fracture or dislocation is present. The joint spaces are normal. No erosions are seen. Bone density is normal. The soft tissues are normal. Right knee: No acute fracture or dislocation is present. No erosions are seen. The joint spaces are normal. There is no effusion. Left knee: No acute fracture or dislocation is present. No erosions are seen. The joint spaces are normal. There is no effusion. Left foot: No fracture or dislocation is present. The joint spaces are normal. No erosions are seen. Bone density is normal. The soft tissues are normal. Procedure Note Aneudy Dunn MD - 08/06/2020 Exam: 1.XR HAND RIGHT 2VW 2.XR KNEE RIGHT 3VW 3.XR KNEE LEFT 3VW 4.XR FOOT LEFT 2VW 5. XR HAND LEFT 2VW History: M25.50: Arthralgia, unspecified joint M26.09: Micrognathia Comparison: None. Findings: Right hand: No fracture or dislocation is present. The joint spaces are normal. No erosions are seen. Bone density is normal. The soft tissues arenormal. Left hand: No fracture or dislocation is present. The joint spaces are normal. No erosions are seen. Bone density is normal. The soft tissues arenormal. Right knee: No acute fracture or dislocation is present. No erosions are seen. The joint spaces are normal. There is no effusion. Left knee: No acute fracture or dislocation is present. No erosions are seen. The joint spaces are normal. There is no effusion. Left foot: No fracture or dislocation is present. The joint spaces are normal. No erosions are seen. Bone density is normal. The soft tissues arenormal. IMPRESSION: Normal. This report was electronically signed by ANEDUY DUNN MD on 08/06/2020 7:27 AM . Kiera Beard MD DIAGNOSTIC IMAG ING ORDERABLES * XR HAND LEFT 2VW (08/05/2020 4:57 PM CDT) Anatomical Region Laterality Modality Wrist / Hand Radiographic Radha ging 08/06/2020 7:24 AM CDT Impressions 08/06/2020 7:27 AM CDT IMPRESSION: Normal. This report was electronically signed by ANEUDY DUNN MD on 08/06/2020 7:27 AM . Narrative 08/06/2020 7:27 AM CDT Exam: 1.XR HAND RIGHT 2VW 2.XR KNEE RIGHT 3VW 3.XR KNEE LEFT 3VW 4.XR FOOT LEFT 2VW 5. XR HAND LEFT 2VW History: M25.50: Arthralgia, unspecified joint M26.09: Micrognathia Comparison: None. Findings: Right hand: No fracture or dislocation is present. The joint spaces are normal. No erosions are seen. Bone density is normal. The soft tissues are normal. Left hand: No fracture or dislocation is present. The joint spaces are normal. No erosions are seen. Bone density is normal. The soft tissues are normal. Right knee: No acute fracture or dislocation is present. No erosions are seen. The joint spaces are normal. There is no effusion. Left knee: No acute fracture or dislocation is present. No erosions are seen. The joint spaces are normal. There is no effusion. Left foot: No fracture or dislocation is present. The joint spaces are normal. No erosions are seen. Bone density is normal. The soft tissues are normal. Procedure Note Aneudy Dunn MD - 08/06/2020 Exam: 1.XR HAND RIGHT 2VW 2.XR KNEE RIGHT 3VW 3.XR KNEE LEFT 3VW 4.XR FOOT LEFT 2VW 5. XR HAND LEFT 2VW History: M25.50: Arthralgia, unspecified joint M26.09: Micrognathia Comparison: None. Findings: Right hand: No fracture or dislocation is present. The joint spaces are normal. No erosions are seen. Bone density is normal. The soft tissues arenormal. Left hand: No fracture or dislocation is present. The joint spaces are normal. No erosions are seen. Bone density is normal. The soft tissues arenormal. Right knee: No acute fracture or dislocation is present. No erosions are seen. The joint spaces are normal. There is no effusion. Left knee: No acute fracture or dislocation is present. No erosions are seen. The joint spaces are normal. There is no effusion. Left foot: No fracture or dislocation is present. The joint spaces are normal. No erosions are seen. Bone density is normal. The soft tissues arenormal. IMPRESSION: Normal. This report was electronically signed by ANEUDY DUNN MD on 08/06/2020 7:27 AM . Kiera Beard MD DIAGNOSTIC IMAG ING ORDERABLES * XR PANOREX (08/05/2020 4:57 PM CDT) Anatomical Region Laterality Modality Head Radiographic Radha ging 08/06/2020 8:15 AM CDT Impressions 08/06/2020 8:16 AM CDT Findings/Impression: No comparisons are available. No large dental caries or mandibular periapical abscess. No displaced of the fracture. This report was electronically signed by ARNOL DOUGLAS on 08/06/2020 8:16 AM . Narrative 08/06/2020 8:16 AM CDT Examination: XR PANOREX History: M25.50: Arthralgia, unspecified joint M26.09: Micrognathia Procedure Note Arnol Douglas MD - 08/06/2020 Examination: XR PANOREX History: M25.50: Arthralgia, unspecified joint M26.09: Micrognathia Findings/Impression: No comparisons are available. No large dental caries or mandibular periapical abscess. No displaced of the fracture. This report was electronically signed by ARNOL DOUGLAS on 08/06/2020 8:16 AM . Kiera Beard MD DIAGNOSTIC IMAG ING ORDERABLES * URINALYSIS W/MICROSCOPIC NO CULTURE (08/05/2020 4:35 PM CDT) Color UA Yellow Straw, Yellow, Colorless 08/05/2020 6:29 PM [facility] Clarity UA Slt Cloudy Clear, Slt Cloudy 08/05/2020 6:29 PM [facility] Specific [place]k UA 1.018 1.005 - 1.030 08/05/2020 6:29 PM [facility] pH UA 7.0 5.0 - 8.0 pH 08/05/2020 6:29 PM [facility] Protein UA Negative Negative mg/dL 08/05/2020 6:29 PM [facility] Glucose UA Negative Negative mg/dL 08/05/2020 6:29 PM [facility] Ketone UA Negative Negative mg/dL 08/05/2020 6:29 PM [facility] Bilirubin UA Negative Negative mg/dL 08/05/2020 6:29 PM [facility] Blood UA Negative Negative 08/05/2020 6:29 PM [facility] Nitrite UA Negative Negative 08/05/2020 6:29 PM [facility] Leukocyte Esterase Negative Negative 08/05/2020 6:29 PM [facility] Urobilinogen UA Negative Negative mg/dL 08/05/2020 6:29 PM [facility] RBC UA 0-2 None Seen, 0-2, 3-5 /HPF 08/05/2020 6:29 PM [facility] WBC UA 0-5 None Seen, 0-5 /HPF 08/05/2020 6:29 PM [facility] Squamous Epithelial Cells UA None Seen None Seen, 0-2 /HPF 08/05/2020 6:29 PM [facility] Mucus UA 1+ None, 1+ /LPF 08/05/2020 6:29 PM [facility] Amorphous Crystals Few Rare, Occasional, Few, Moderate, None /HPF 08/05/2020 6:29 PM [facility] Urine URINE SPECIMEN OBTAINED BY CLEAN CATCH PROCEDURE / Unknown Collection / Unknown 08/05/2020 4:35 PM CDT 08/05/2020 6:08 PM [facility] - 08/05/2020 6:29 PM CDT Kiera Beard MD LAB - URINALYSI S ORDERABLES [facility] [address] [place] [address], [facility] [phone] * APHERESIS/TRANSFUSION ORDER (03/25/2020 6:44 PM CDT) Narrative 03/25/2020 6:44 PM CDT Ordered by an unspecified provider. Scanned Document NURSING - VITAL SIGN S AND ASSESSMENT * GROSS + MICRO EXAM (STL) (03/24/2020 5:49 PM CDT) Case Report Surgical Pathology Report Case: [id number] Authorizing Provider: Edgardo Sosa MD Collected: 03/24/2020 05:49 PM Ordering Location: [facility] Received: 03/25/2020 06:37 AM Pathologist: Aydee Magallanes MD Specimens: A) - Tissue, LEFT SIGMOID MESENTARY B) - Tissue, POSTERIOR CULDESAC BLEB C) - Tissue, LEFT PELVIC BRIM D) - Fossa, LEFT OVARIAN E) - Ligament, LEFT UTEROSACRAL F) - Tissue, left pararectal G) - Cul De Sac , left posterior H) - Cul De Sac , right posterior I) - Cul De Sac , middle posterior J) - Fossa, right OVARIAN K) - Tissue, right uteroovarian L) - Tissue, right parauterine M) - Ligament, right UTEROSACRAL N) - Cyst, right paratubal O) - Appendix 03/26/2020 3:29 PM CDT [facility] Final Diagnosis A. Left sigmoid mesentery, biopsy: - Unremarkable adipose tissue B. Posterior cul-de-sac bleb, biopsy: - Mesothelial-lined adhesions C. Left pelvic brim, biopsy: - Fibrofatty tissue D. Left ovarian fossa, biopsy: - Endometriosis E. Left uterosacral ligament, biopsy: - Endometriosis F. Left pararectal tissue, biopsy: - Endometriosis G. Left posterior cul-de-sac, biopsy: - Endometriosis H. Right posterior cul-de-sac, biopsy: - Fibrofatty tissue I. Middle posterior cul-de-sac, biopsy: - Mesothelial-lined fibrofatty tissue J. Right ovarian fossa, biopsy: - Fibrofatty tissue K. Right utero-ovarian tissue, biopsy: - Endometriosis L. Right parauterine tissue, biopsy: - Focus suspicious for endometriosis M. Right uterosacral ligament, biopsy: - Fibrofatty tissue N. Right paratubal tissue, biopsy: - Paratubal cyst O. Appendix, appendectomy: - No histopathologic abnormality 03/26/2020 3:29 PM [facility] Clinical History The patient is a 29-year-old woman who presents for diagnostic laparoscopy with excision of endometriosis. 03/26/2020 3:29 PM CDT [facility] Gross Description The specimens are received in fifteen formalin-filled containers, each labeled with the patient s name, Alyse Hagan. The first container is additionally labeled, left sigmoid mesentery, and contains a small fragment of fibrofatty tissue measuring in toto approximately 0.6 x 0.4 x 0.3 cm. Labeled A1. The second container is additionally labeled, posterior cul de sac, and holds a portion of peritonealized tissue, translucent and alford, measuring 2 x 2 x 0.2 cm. Labeled B. The third container is additionally labeled, left pelvic brim, and contains a small portion of fibrofatty tissue measuring 0.6 x 0.4 x 0.2 cm. Labeled C. The fourth container is additionally labeled, left ovarian fossa, and contains a portion of peritonealized fibrofatty tissue with several dark areas, measuring 2.4 x 1.9 x 0.3 cm. Labeled D. The fifth container is additionally labeled, left uterosacral ligament, and contains a portio of alford peritonealized tissue measuring 0.6 x 0.7 cm. This tissue appears to have been cauterized and/pinched. Labeled E. The sixth specimen is labeled, left perirectal tissue, and contains a portion of fibrofatty tissue measuring 1.5 x 1.2 x 0.6 cm. Labeled F. The seventh container is additionally labeled, left posterior cul de sac, and contains a portion of fibrofatty tissue measuring 2.4 x 0.5 x 0.6 cm. Labeled G. The eighth container is additionally labeled, right posterior cul de sac, and contains a portion of fibrofatty tissue measuring 1.4 x 0.6 x 0.2 cm. Labeled H. The ninth container is additionally labeled, middle posterior cul de sac, and contains a portion of alford-yellow peritonealized fibrofatty tissue measuring 2 x 0.4 x 0.2 cm. Labeled I The tenth container is additionally labeled, right ovarian fossa, and contains a small portion of fibrofatty tissue measuring 0.5 x 0.3 x 0.1 cm. Labeled J. The eleventh container is additionally labeled, right utero-ovarian tissue, and contains a small portion of fibrofatty peritonealized tissue measuring 0.6 x 0.6 x 0.2 cm. Labeled K. The twelfth container is additionally labeled, right parauterine tissue, and contains a portion of fibrofatty tissue measuring 0.6 x 0.2 x 0.4 cm. Labeled L. The thirteenth container is additionally labeled, right uterosacral ligament, and contains a portion of fibrofatty tissue measuring 0.7 x 0.3 x 0.4 cm. Labeled M. The fourteenth container is additionally labeled, right paratubal cyst, and contains a small cystic structure containing clear serous fluid, alford and translucent, with a diameter of approximately 0.6 cm. Labeled N. The fifteenth and final container is additionally labeled, appendix, and contains a vermiform appendix covered in alford, smooth, translucent serosa and measuring 7 x approximately 0.6 cm in diameter. The tip and patient registration representative sections are submitted in O. [place]/na 03/26/2020 3:29 PM [facility] Microscopic Description Microscopic examination substantiates the final diagnosis. 03/26/2020 3:29 PM [facility] Disclaimer All histochemical and/or immunohistochemical results are interpreted with controls that demonstrate appropriate staining reactions before reporting results. Note on use of immunocytochemistry reagents: This test was developed and its performance characteristic determined by [facility], Department of Laboratory Medicine. It has not been cleared or approved by the U.S. Food and Drug Administration (FDA). The FDA has determined that such clearance or approval is not necessary. The test is used for clinical purpose. It should not be regarded as investigational or for research. This laboratory is certified to perform high complexity testing. The performance characteristics of the IHC/CASSANDRA assays have been validated on formalin-fixed paraffin embedded tissues only. The assays have not been validated on decalcified tissues. Results should be interpreted with caution. 03/26/2020 3:29 PM CDT [facility] Embedded Images 03/26/2020 3:29 PM CDT [facility] Pathology/Cytology TISSUE SPECIMEN / Unknown 03/24/2020 5:49 PM CDT 03/25/2020 6:37 AM CDT Comment:Pre-op diagnosis: Diagnosis unknown [R69] Miscellaneous samples (specimen) TISSUE SPECIMEN / Unknown 03/24/2020 5:50 PM CDT 03/25/2020 6:37 AM CDT Comment:Pre-op diagnosis: Diagnosis unknown [R69] Miscellaneous samples (specimen) TISSUE SPECIMEN / Unknown 03/24/2020 5:55 PM CDT 03/25/2020 6:37 AM CDT Comment:Pre-op diagnosis: Diagnosis unknown [R69] Miscellaneous samples (specimen) MISCELLANEOUS SAMPLES / Unknown 03/24/2020 6:02 PM CDT 03/25/2020 6:37 AM CDT Comment:Pre-op diagnosis: Diagnosis unknown [R69] Miscellaneous samples (specimen) ENTIRE LIGAMENT / Unknown 03/24/2020 6:02 PM CDT 03/25/2020 6:37 AM CDT Comment:Pre-op diagnosis: Diagnosis unknown [R69] Miscellaneous samples (specimen) TISSUE SPECIMEN / Unknown 03/24/2020 6:15 PM CDT 03/25/2020 6:37 AM CDT Comment:Pre-op diagnosis: Diagnosis unknown [R69] Miscellaneous samples (specimen) ENTIRE RECTOUTERINE POUCH / Unknown 03/24/2020 6:16 PM CDT 03/25/2020 6:37 AM CDT Comment:Pre-op diagnosis: Diagnosis unknown [R69] Miscellaneous samples (specimen) ENTIRE RECTOUTERINE POUCH / Unknown 03/24/2020 6:16 PM CDT 03/25/2020 6:37 AM CDT Comment:Pre-op diagnosis: Diagnosis unknown [R69] Miscellaneous samples (specimen) ENTIRE RECTOUTERINE POUCH / Unknown 03/24/2020 6:16 PM CDT 03/25/2020 6:37 AM CDT Comment:Pre-op diagnosis: Diagnosis unknown [R69] Miscellaneous samples (specimen) MISCELLANEOUS SAMPLES / Unknown 03/24/2020 6:17 PM CDT 03/25/2020 6:37 AM CDT Comment:Pre-op diagnosis: Diagnosis unknown [R69] Miscellaneous samples (specimen) TISSUE SPECIMEN / Unknown 03/24/2020 6:17 PM CDT 03/25/2020 6:37 AM CDT Comment:Pre-op diagnosis: Diagnosis unknown [R69] Miscellaneous samples (specimen) TISSUE SPECIMEN / Unknown 03/24/2020 6:17 PM CDT 03/25/2020 6:37 AM CDT Comment:Pre-op diagnosis: Diagnosis unknown [R69] Miscellaneous samples (specimen) ENTIRE LIGAMENT / Unknown 03/24/2020 6:27 PM CDT 03/25/2020 6:37 AM CDT Comment:Pre-op diagnosis: Diagnosis unknown [R69] Miscellaneous samples (specimen) CYST TISSUE / Unknown 03/24/2020 6:43 PM CDT 03/25/2020 6:37 AM CDT Comment:Pre-op diagnosis: Diagnosis unknown [R69] Miscellaneous samples (specimen) ENTIRE APPENDIX / Unknown 03/24/2020 6:43 PM CDT 03/25/2020 6:37 AM CDT Comment:Pre-op diagnosis: Diagnosis unknown [R69] Edgardo Sosa MD LAB - PATHOLOGY/CY TOLOGY ORDERABLES Performing Organization Address City/State/[facility] Co de Phone Number [facility] [address] [place] [address] * ETT LINE PERFORMABLE (03/24/2020 5:09 PM CDT) Narrative Hubert Garvin APRN-CRNA - 03/24/2020 5:09 PM CDT Hubert Garvin APRN-CRNA 03/24/2020 5:09 PM Endotracheal Tube Placement: Patient Location: OR. Intubation Event Date/Time: 03/24/2020 4:48 PM Procedure: intubation ([id number]). Procedure Section: Sedation: under general anesthesia. Indications for Airway Management: anesthesia Induction: standard IV Patient Position: supine and sniffing Mask Ventilation: easy. Blade Type: Madi Blade Size: 3 Laryngoscopy View: grade 1 (full cords) Intubation Adjuncts: stylet Tube: endotracheal tube Placement: oral Tube type: cuff - inflated Depth of Insertion (CM): 21 Measured From: teeth Cuff volume (mL): 5 Cuff Inflated With: air Number of Attempts: 1. Placement Verified By: direct visualization, bilateral breath sounds, chest auscultation and CO2 monitor CXR Findings: ETT in proper place. Tube secured with: adhesive tape. Difficult Airway? No. Procedure Start Time: 03/24/2020 4:48 PM. Staff Section Anesthesia Provider: Hubert Garvin, JOANNA-JESSEE, Performed the procedure Eduardo Yates DO GENERAL ANESTHESIA O [facility] * BLOOD TYPE VERIFICATION (03/24/2020 11:34 AM CDT) ABO Rh O POS 03/24/2020 11:59 AM CDT [facility] Blood Bank BLOOD SPECIMEN / Unknown Venipuncture / Unknown 03/24/2020 11:34 AM CDT 03/24/2020 11:37 AM CDT Edgardo Sosa MD LAB - BLOOD BANK O SHAHEEN Performing Organization Address City/State/[facility] Co de Phone Number [facility] [address] [place] [address] * SARS-COV-2 (COVID-19) IN HOUSE (03/19/2020 1:50 PM CDT) COVID-19 PCR Not detected Not detected, Invalid 03/19/2020 11:46 PM CDT [facility] Microbiology SPECIMEN FROM NASOPHARYNGEAL STRUCTURE / Unknown Collection / Unknown 03/19/2020 1:50 PM CDT 03/19/2020 2:15 PM CDT Narrative [facility] - 03/19/2020 11:46 PM CDT This Real Time RT-PCR assay was developed and its performance characteristics determined by [facility]. This test has been authorized by the Food and Drug administration (FDA)under an Emergency Use Authorization (EUA). This test has been validated in accordance with the FDA's guidance document Policy for Diagnostic Testing in Laboratories Certified to perform High Complexity Testing under CLIA prior to Emergency Use Authorization for Coronavirus Disease-2019 during the Public Health Emergency issued on December 07, 2019. FDA independent review of this validation is pending. This test is only authorized for the duration of time the declaration that circumstances exist justifying the authorization of emergency use of in vitro diagnostic tests for detection of SARS-CoV-2 virus and/or diagnosis of COVID-19 infection under section 564(b)(1) of the Act, 21 U.S.C 360bbb-3 (b)(1), unless the authorization is terminated or revoked sooner. Edgardo Sosa MD LAB - MICROBIOLOGY ORDERABLES [facility] [address] [place] [address], [facility] [phone] * [place] US PELVIC NONOB REAL-TIME IMG COMPLETE, US TRANSVAGINAL NON OB (11/29/2019 2:25 PM [employer]) Anatomical Region Laterality Modality Abdomen Ultrasound Narrative 11/29/2019 2:25 PM [employer] Agnes Purdy 11/29/2019 2:25 PM Documentation in digisonics. Edgardo Sosa MD US ORDERABLES * C. TRACHOMATIS + N. GONORRHOEAE OSBALDO (10/21/2019 9:17 AM [employer]) Chlamydia Trachomatis OSBALDO Not Detected Not Detected 10/25/2019 9:23 AM [employer] [facility] Neisseria Gonorrhoeae OSBALDO Not Detected Not Detected 10/25/2019 9:23 AM [employer] [facility] Microbiology MISCELLANEOUS SAMPLES / Unknown 10/21/2019 9:17 AM [employer] 10/22/2019 12:14 PM [employer] Narrative [facility] - 10/25/2019 9:23 AM [employer] This analysis was performed using Gen-Probe Aptima Combo 2. This methodology is U.S. FDA approved for Chlamydia trachomatis and Neisseria gonorrhoeae testing for urine and urogenital swabs from men and women, and cervical cells submitted in ThinPrep vials. Performance characteristics for rectal and pharyngeal swabs were determined by the [facility] Laboratory at [facility]. Testing by Gen-Probe Aptima Combo 2 on these sample types has not been cleared or approved by the U.S. FDA. The FDA has determined that such clearance approval is not necessary. This test is used for clinical purposes and should not be regarded as investigational or for research. This laboratory is certified under the Clinical Laboratory Improvements Amendments of 1988 (CLIA 1988), as qualified to perform high complexity laboratory testing. Edgardo Sosa MD LAB - MICROBIOLOGY ORDERABLES [facility] [address] [place] [address], [facility] [phone] * (ABNORMAL) CULTURE STREP GROUP A (12/02/2017 11:45 AM [employer]) Pathologist [facility] Beta-Strep Culture, Group A Only (A) [facility] INSURANCE BILL Comment: Beta-hemolytic colonies, not group A Streptococcus isolated. Penicillin and ampicillin are drugs of choice for treatment of beta-hemolytic streptococcal infections. Susceptibility testing of penicillins and other beta-lactam agents approved by the FDA for treatment of beta-hemolytic streptococcal infections need not be performed routinely because nonsusceptible isolates are extremely rare in any beta-hemolytic streptococcus and have not been reported for Streptococcus pyogenes (group A). (CLSI 2011) Microbiology ENTIRE THROAT (SURFACE REGION OF NECK) / Unknown 12/02/2017 11:45 AM BOAT MOTOR MECHANIC 12/04/2017 Narrative Resulting Agency Comment [facility] [address] [facility] [phone] Sonal Abarca APRN-QUALITY TECHNICIAN LAB - MICROBI OLOGY ORDERABLES Performing Organization Address City/[facility]/ZIP Co de Phone Number [facility] INSURANCE BILL [address] [place] [address] * STREP A SCREEN - POINT OF CARE (AMB) STL (12/02/2017) Only the most recent of4 resultswithin the time period is included. Pathologist [facility] Strep A Rapid POCT Negative Negative Strep A Internal Control Present Lot # [id number] Expiration Date [id number] Throat ENTIRE THROAT (SURFACE REGION OF NECK) / Unknown 12/02/2017 Sonal Abarca MANAGER ASSURANCE-QUALITY TECHNICIAN LAB - POINT O F CARE ORDERABLES * MONONUCLEOSIS SCREEN - POINT OF CARE (AMB) STL (12/02/2017) Pathologist [facility] Mononucleosis Screen POCT negative NEGATIVE [facility] Internal Control present [facility] Test Lot# [id number] [facility] Test Exp Date [id number] Blood BLOOD SPECIMEN / Unknown 12/02/2017 Sonal Abarca APRN-QUALITY TECHNICIAN LAB - POINT O F CARE ORDERABLES * CULTURE THROAT (07/05/2017 12:23 PM CDT) Only the most recent of2 resultswithin the time period is included. [facility] Culture [facility] Comment: CULTURE, THROAT MICRO NUMBER: [id number] TEST STATUS: FINAL SPECIMEN SOURCE: THROAT SPECIMEN QUALITY: ADEQUATE RESULT: No oropharyngeal pathogens recovered. Test Performed at: [facility] [address] [place] [address] ALTAGRACIA BOCANEGRA MD Microbiology ENTIRE THROAT (SURFACE REGION OF NECK) / Unknown 07/05/2017 12:23 PM CDT 07/05/2017 10:51 PM CDT Sonal Abarca MANAGER ASSURANCE-QUALITY TECHNICIAN LAB - MICROBI OLOGY ORDERABLES [facility] [address] [place] [address] Care Teams Jet Handler Relationship Specialty Start Date End Date Cleo Edouard [address] [place] [address] [place] [address] PCP - General 08/10/23
--- OUTSIDE RECORDS SUMMARY | 2024-11-15 08:35 | XMS_ITS | Encounter Summary ---
Author Organization [facility] Address [address] [place] [address] Care Team Providers Care Usability Engineer Name Role Phone Dayday Carolina CLAY PRODUCTS GLAZER-STEEL BOX TOE INSERTER Primary Care Provider [phone] Debi Bonilla APNP-STEEL BOX TOE INSERTER Primary Care Provider Debi Bonilla APNP-STEEL BOX TOE INSERTER Primary Care Provider Cleo Edouard Primary Care Provider [phone] Reason for Visit * Reason Onset Date Comments Nurse Only 10/28/2021 Encounter Details Date Type Department Care Team (Late st Contact Info) Description 10/28/2021 Telephone [facility] [address] [facility] [address] [place] [address] Laura Church MD Need new address Nurse Only Social History Tobacco Use Types Packs/Day Years Used Date Smoking Tobacco: Never Smokeless Tobacco: Never Alcohol Use Standard Drinks/Week Comments Yes 0 (1 standard drink = 0.6 oz pur e alcohol) Sex and Gender Information Value Date Recorded Sex Assigned at Female 10/12/2020 2:52 PM LEAD C DEVELOPER Gender Identity Female 10/12/2020 2:52 PM LEAD C DEVELOPER Sexual Orientation Not on file documented as of this encounter Miscellaneous Notes * Telephone Encounter - Gerda Steiner LPN - 10/28/2021 10:58 AM LEAD C DEVELOPER I called the patient - informed her I can not give her an appt - I am just a nurse. I will however, get this message to the people that can give new patient appts. I will let them now she can have the first available URO / CONDUCTOR SLEEPING CAR new patient appt. They will contact her to set it up Patient is agreeable C DEVELOPER * Telephone Encounter - GreysonReshma - 10/28/2021 9:31 AM CST Pt returning call to nurse for referral of specialist C DEVELOPER documented in this encounter Plan of Treatment Upcoming Encounters Date Type Department Care Team (Late st Contact Info) Description 12/09/2024 10:00 AM LEAD C DEVELOPER Office Visit [facility] Pain Care [address] [facility] [address] [place] [address] Karmen Lopez, CLAY PRODUCTS GLAZER-STEEL BOX TOE INSERTER [address] [facility] [place] [address] 12/09/2024 11:00 AM LEAD C DEVELOPER Office Visit [facility] - [address] [facility] [address] [place] [address] Serjio Hendricks, CLAY PRODUCTS GLAZER-STEEL BOX TOE INSERTER [address] [facility] [address] [place] [address] 12/11/2024 3:30 PM LEAD C DEVELOPER Office Visit [facility] - GERMINATION TESTING MANAGER [address] [facility] [address] [place] [address] Sandie Moreno MD [address] [facility] [address] [place] [address] 04/28/2025 9:45 AM CDT Office Visit [facility] - GERMINATION TESTING MANAGER [address] [facility] [place] [phone] Rina Brooks MD [address] [place] [address] documented as of this encounter Visit Diagnoses Not on filedocumented in this encounter Care Teams Usability Engineer Relationship Specialty Start Date End Date Dayday Carolina APRN-RICKEY [address] EUGENIE Hannah [address] [place] [address] PCP - General 07/01/20 04/07/22 Debi Bonilla APNP-STEEL BOX TOE INSERTER [address] [place] [address] PCP - General 04/08/22 01/15/23 Debi Bonilla APNP-STEEL BOX TOE INSERTER [address] [place] [address] PCP - General 01/16/23 08/09/23 Cleo Edouard [address] [facility] [address] [place] [address] PCP - General 08/10/23 documented as of this encounter
--- OUTSIDE RECORDS SUMMARY | 2024-11-15 08:35 | XMS_ITS | Encounter Summary ---
Author Organization [facility] Address [address] [facility] [place] [address] Care Team Providers Care Devulcanizer Loader Name Role Phone Dayday Carolina TRAY SERVICE WORKER-TECHNICAL PROJECT COORDINATOR Primary Care Provider [phone] Debi Bonilla APNP-TECHNICAL PROJECT COORDINATOR Primary Care Provider Debi Bonilla APNP-TECHNICAL PROJECT COORDINATOR Primary Care Provider Cleo Edouard Primary Care Provider [phone] Reason for Visit * Reason Onset Date Comments Referral 11/23/2021 URO/WEB DATABASE DEVELOPER Encounter Details Date Type Department Care Team (Late st Contact [facility]) Description 11/23/2021 Telephone [facility] [address] [facility] [address] [place] [address] Laura Church MD Need new address Referral (URO/WEB DATABASE DEVELOPER) Social History Tobacco Use Types Packs/Day Years Used Date Smoking Tobacco: Never Smokeless Tobacco: Never Alcohol Use Standard Drinks/Week Comments Yes 0 (1 standard drink = 0.6 oz pur e alcohol) Sex and Gender Information Value Date Recorded Sex Assigned at Female 10/12/2020 2:52 PM BENCH MACHINE OPERATOR Gender Identity Female 10/12/2020 2:52 PM BENCH MACHINE OPERATOR Sexual Orientation Not on file documented as of this encounter Miscellaneous Notes * Telephone Encounter - Eduadro Bauer RN - 11/23/2021 1:[address] Church referring pt for incontinence/leakage. Reviewed w/ Uro/hospice nurse practitioner doctors. Would like her IC under control before treating for leakage. Dr Church to review chart. LM on her personal VM re: Dr Church wants to review your chart before going proceeding With seeing UroGyn doctors. Please cb if you have questions. H MACHINE OPERATOR * Telephone Encounter - MancillaLicha aleman - 11/23/2021 12:37 PM CST Pt is needing to speak with someone about being referred to URO/WEB DATABASE DEVELOPER. She states she returned a missed call about being scheduled and never heard anything back. CB# [phone] H MACHINE OPERATOR documented in this encounter Plan of Treatment Upcoming Encounters Date Type Department Care Team (Late st Contact Info) Description 12/09/2024 10:00 AM BENCH MACHINE OPERATOR Office Visit [facility] Pain Care [address] [place] [address] [address] [place] [address] Karmen Lopez, TRAY SERVICE WORKER-TECHNICAL PROJECT COORDINATOR [address] [facility] [place] [address] 12/09/2024 11:00 AM BENCH MACHINE OPERATOR Office Visit [facility] Group - [address] [facility] [address] [place] [address] Serjio Hendricks, TRAY SERVICE WORKER-TECHNICAL PROJECT COORDINATOR [address] [facility] [address] [place] [address] 12/11/2024 3:30 PM BENCH MACHINE OPERATOR Office Visit [facility] - CT SCAN SPECIAL PROCEDURES TECHNOLOGIST [address] [place] [address] [address] [place] [address] Sandie Moreno MD [address] [place] [address] [address] [place] [address] 04/28/2025 9:45 AM CDT Office Visit [facility] Group - CT SCAN SPECIAL PROCEDURES TECHNOLOGIST [address] [place] [address], [facility] [address] [place] [address] Rina Brooks MD [address] [facility] [address] [place] [address] documented as of this encounter Visit Diagnoses Not on filedocumented in this encounter Care Teams Devulcanizer Loader Relationship Specialty Start Date End Date Dayday Carolina APRN-TECHNICAL PROJECT COORDINATOR [address] [facility] [address] EUGENIE Hannah [address] [id number] PCP - General 07/01/20 04/07/22 Debi Bonilla APNP-TECHNICAL PROJECT COORDINATOR [address] [place] [address] PCP - General 04/08/22 01/15/23 Debi Bonilla APNP-TECHNICAL PROJECT COORDINATOR [address] [place] [address] PCP - General 01/16/23 08/09/23 Cleo Edouard [address] [place] [address] [address] PCP - General 08/10/23 documented as of this encounter
--- OUTSIDE RECORDS SUMMARY | 2024-11-15 08:35 | XMS_ITS | Encounter Summary ---
Author Organization [facility] Address [address] [place] [address] Care Team Providers Care Rn Team Leader Name Role Phone Dayday Carolina TRANSFORMER REPAIRER Primary Care Provider [phone] Dayday Carolina TRANSFORMER REPAIRER Unavailable [phone] Deneen Gil NP Unavailable [phone] Sung Luque MD Unavailable [phone] Jason Ring MD Primary Care Provid er Kiera Beard MD Unavailable [phone] Ze Duffy MD Unavailable [phone] Debi Bonilla NP Primary Care Provider [phone] Cleo Edouard MD Primary Care Provider + Encounter Details Date Type Department Care Team (Late st Contact Info) Description 01/14/2021 Documentation [facility] Physical Therapy [address] [place] [address] Isabel Murphy Social History Tobacco Use Types Packs/Day Years Used Date Smoking Tobacco: Never Smokeless Tobacco: Never Alcohol Use Standard Drinks/Week Comments Yes 0 (1 standard drink = 0.6 oz pur e alcohol) socially PHQ-2 Answer Date Recorded PHQ-2 Score 6 06/01/2019 Comments No Sex and Gender Information Value Date Recorded Sex Assigned at Not on file Legal Sex Female 4:01 AM TIRE RECAPPING MACHINE OPERATOR Gender Identity Female 11/12/2024 9:28 AM TIRE RECAPPING MACHINE OPERATOR Sexual Orientation Not on file documented as of this encounter Plan of Treatment Not on file documented as of this encounter Visit Diagnoses Not on filedocumented in this encounter Additional Health Concerns Infection Onset Date Last Indicated Resolved Time COVID: Recovered Comment:Added based on recent COVID infection. 09/22/2020 12/13/2020 01/20/2021 3:05 AM C DT COVID: Suspected 07/01/2021 07/01/2021 07/01/2021 11:44 AM CDT COVID: Suspected 07/30/2021 07/30/2021 07/30/2021 1:29 PM CDT COVID: Suspected 06/08/2022 06/08/2022 06/08/2022 11:02 AM CDT COVID: Suspected 06/10/2022 06/10/2022 06/10/2022 8:54 AM CDT documented as of this encounter Care Teams Rn Team Leader Relationship Specialty Start Date End Date Dayday Carolina NP [address] [facility] [address] EUGENIE Hannah [address] [address] PCP - General 12/03/20 07/05/22 Jason Ring MD [address] [facility] [address] PCP - General Obstetrics and Gynecology 07/06/22 Debi Bonilla NP [address] [address] PCP - General Family Medicine 08/25/22 02/16/23 Cleo Edouard MD [address] [address] PCP - General Family Medicine 02/17/23 Dayday Carolina NP [address] [facility] [address] [facility] [address] [place] [address] 12/03/20 Deneen Gil NP [address] [place] [address] [address] [place] [address] Nurse Practitioner Psychiatry 07/06/22 Sung Luque MD [address] [place] [address] [address] [place] [address] Horticulture Professor Obstetrics and Gynecology 07/06/22 Kiera Beard MD [address] [place] [address] Rheumatology 07/06/22 Ze Duffy MD [address] [facility] [address] [place] [address] Neurology 07/06/22 documented as of this encounter
--- NOTE | 2024-11-15 08:57 | ED_ITS ---
HPI - URI/Sore Throat General Chief Complaint: Upper Respiratory Infection Stated Complaint: throat/cough/fever/nausea Time Seen by Provider: 11/15/24 08:57 Source: patient Mode of arrival: ambulatory Limitations: no limitations History of Present Illness HPI Narrative: 34-year-old female presents with complaint of cough, nasal congestion, fatigue, body aches, fever for 3 days. No chest pain or shortness breath. Denies nausea vomiting diarrhea. Taking uara-auf-tqdynmh medications to treat symptoms. 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 All Systems reviewed and negative except as noted above. Related Data Home Medications ?Medication ?Instructions ?Recorded ?Confirmed ?Last Taken ?Type norethindrone (contraceptive) 0.35 0.35 mg PO DAILY 01/24/22 06/11/24 Unknown History mg tablet bupropion HCl 150 mg 24 hr tablet, 150 mg PO DAILY 05/31/23 06/11/24 Unknown History extended release sertraline 50 mg tablet 50 mg PO BID 05/31/23 06/11/24 Unknown History pregabalin 100 mg capsule 100 mg PO TID 02/20/24 06/11/24 Unknown History Allergies Allergy/AdvReac Type Severity Reaction Status Date / Time No Known Allergies Allergy Verified 11/15/24 08:53 Review of Systems Review of Systems: CONSTITUTIONAL: reports fever, chills, or sweats. EYES: Denies visual changes, redness, or discharge. ENT: reports rhinorrhea, congestion, sore throat. Denies otalgia. CARDIOVASCULAR: Denies chest pain, palpitations, or edema. RESPIRATORY: reports cough. Denies dyspnea. GASTROINTESTINAL: Denies abdominal pain, nausea, vomiting, or diarrhea. GENITOURINARY: Denies dysuria or hematuria. SKIN: Denies rash or itching. MUSCULOSKELETAL: Denies back pain, joint pain, or myalgia. NEUROLOGIC: Denies headache, numbness, or weakness. PSYCHIATRIC: Denies anxiety or depression. All other systems reviewed are negative, except as documented in HPI. [facility] Past Medical History Medical History Anxiety and depression Chronic headaches Interstitial cystitis Surgical History Surgical History H/O gastric sleeve History of tonsillectomy Hx of cholecystectomy Family History Family History Other No significant family history Social History Social History Smoking status: Never smoker Alcohol intake: unknown Substance use: never Living arrangements: with family Gender identity (if verbalized by the patient): Female Comments At time of signature, agree with nursing past medical, surgical, social and family history. There is no relevant family history pertinent to the presenting complaint. Exam Narrative: GENERAL: This is a well-nourished, well-developed patient, ill-appearing but no acute distress HEAD: normocephalic, atraumatic. EYES: PERRL. Sclera clear/white. Vision is grossly intact. EARS: External ears normal, auditory canals clear and without drainage, TMs normal without perforation. Hearing grossly intact. NOSE: External nose normal with clear nasal drainage THROAT: Mucous membranes moist, posterior pharynx clear. NECK: Neck supple, non-tender without lymphadenopathy, masses or thyromegaly. CARDIOVASCULAR: Regular rate and rhythm without murmurs, gallops, or rubs. RESPIRATORY: Clear to auscultation. Breath sounds equal bilaterally. No wheezes, rales, or rhonchi. SKIN: warm, Dry, intact with no suspicious lesions or rash, good texture and turgor. NEURO: awake, alert, and oriented to person, place and time. There were no obvious focal neurologic abnormalities. EXTREMITIES: No joint tenderness, effusion, or edema noted. Course Course Level of Care: Express Care Visit Vital Signs Vital signs: Vital Signs Temperature 36.9 C 11/15/24 08:31 Pulse Rate 83 11/15/24 08:31 Respiratory Rate 16 11/15/24 08:31 Blood Pressure 123/57 L 11/15/24 08:31 Pulse Oximetry 99 11/15/24 08:31 Oxygen Delivery Room Air 11/15/24 08:31 Temperature 36.9 C 11/15/24 08:31 Pulse Rate 83 11/15/24 08:31 Respiratory Rate 16 11/15/24 08:31 Blood Pressure 123/57 L 11/15/24 08:31 Pulse Oximetry 99 11/15/24 08:31 Oxygen Delivery Room Air 11/15/24 08:31 reviewed MDM - URI/Sore Throat MDM Narrative Medical decision making narrative: negative COVID, influenza and strep. Strep culture ordered. recommend patient continue bjpu-jim-dhnsbqi medications to treat viral symptoms. Please be advised this is a medical document. It is intended for yotl-th-cnrk communication. It is written in medical language and may contain unfamiliar abbreviations or verbiage. Medical documents are intended to carry relevant information, facts as evident, and the clinical opinion of the practitioner at the time of the encounter. This report may have been done utilizing a voice recognition system. Attempts have been made to correct errors. However, there may be uncorrected grammatical, spelling, and recognition errors present. The file time of this note does not necessarily represent the time of service. Differential Diagnosis Differential diagnosis: Likely upper respiratory infection, sinusitis, viral infection, influenza and pharyngitis Discharge Plan Discharge Clinical Impression: Viral upper respiratory tract infection with cough Patient Disposition: Home, Self-Care Condition: Stable Instructions: Upper Respiratory Infection (ED) Additional Instructions: your COVID, influenza and strep test was negative today. A strep culture was ordered and results will take 24-48 hours. If your strep culture is positive we will call you at that time and prescribed an antibiotic. Take medications as prescribed. Continue to taking ljdi-fhj-eufiqhi medication to treat your congestion such as pseudoephedrine. This medication was found behind the pharmacy Counter. Drink at least 64 oz of water a day. Place cool mist humidifier in bedroom where you sleep. Follow-up with your primary care physician if symptoms are not improving. Patient Language: Swedish Prescriptions: New benzonatate 200 mg capsule 200 mg PO TID PRN (Reason: cough) Qty: 20 0RF methylprednisolone [Medrol (Theron)] 4 mg tablets,dose pack See Rx Instructions PO .COMPLEX Qty: 21 0RF Rx Instructions: orally per package directions No Action norethindrone (contraceptive) 0.35 mg Tablet 0.35 mg PO DAILY sertraline 50 mg tablet 50 mg PO BID bupropion HCl 150 mg tablet extended release 24 hr 150 mg PO DAILY pregabalin 100 mg capsule 100 mg PO TID Follow-up/Referrals: PHYSICIAN NOT ON STAFF,NONSTAFF [Primary Care Provider] - Stand Alone Forms: Work/School Release IP Time of Disposition: 09:04
[2024-11-15 09:03] LABS: EDCOVIDSCREEN Negative (Negative); EDINFLUASCREEN Negative (Negative); EDINFLUBSCREEN Negative (Negative); EDSTREPNEGPOS1 Negative (Negative)
== END 2024-11-15 09:08 | disposition home or self-care (01) ==
PROVIDERS: Emergency Provider Nurse Practitioner Family
DX: J06.9 Acute upper respiratory infection, unspecified (principal); R05.9 Cough, unspecified; Z20.822 Contact with and (suspected) exposure to COVID-19; F41.9 Anxiety disorder, unspecified; F32.A Depression, unspecified; N30.10 Interstitial cystitis (chronic) without hematuria; Z98.84 Bariatric surgery status
CPT/HCPCS: 87081; 87426; 87804; 87880; 99213; G0463

== ENCOUNTER 2024-11-24 11:50 | Emergency (ER) | payer OTHER, MEDICAID, SELFPAY ==
--- OUTSIDE RECORDS SUMMARY | 2024-11-24 11:52 | XMS_ITS | Encounter Summary ---
Author Organization [facility] Address [address] [facility] [place] [address] Care Team Providers Care Marketing Support Specialist Name Role Phone Irene, Debi LOPEZ-RICKEY Primary Care Provider Cleo Edouard Primary Care Provider [phone] Reason for Visit * Reason Onset Date Comments Rx Drug Information Question 04/27/2023 Encounter Details Date Type Department Care Team (Late st Contact Info) Description 04/27/2023 Telephone [facility] - TALENT MANAGEMENT SPECIALIST [address] [place] [address] Sandie Moreno MD [address] [address] Rx Drug Information Question Social History Tobacco Use Types Packs/Day Years Used Date Smoking Tobacco: Never Passive Smoke Exposure: Past Smokeless Tobacco: Never Alcohol Use Standard Drinks/Week Comments Not Currently 0 (1 standard drink = 0.6 oz pur e alcohol) once a month or less- rare Sex and Gender Information Value Date Recorded Sex Assigned at Female 10/12/2020 2:52 PM PARTS DEPARTMENT MANAGER Gender Identity Female 10/12/2020 2:52 PM PARTS DEPARTMENT MANAGER Sexual Orientation Not on file COVID-19 Exposure [...] - 04/27/2023 10:43 AM CDT RN called [facility] Local [facility] called already this morning and [...] st Contact Info) Description 12/09/2024 10:00 AM PARTS DEPARTMENT MANAGER Office Visit [facility] Pain Care [address] [place] [address] Karmen Lopez, FISHERIES BIOLOGIST-INVENTORY MANAGER [address] [facility] [address] 12/09/2024 11:00 AM PARTS DEPARTMENT MANAGER Office Visit [facility] Group - [address] [facility] [address] [place] [address] Serjio Hendricks, FISHERIES BIOLOGIST-INVENTORY MANAGER [address] [facility] [address] [place] [address] 12/11/2024 3:30 PM PARTS DEPARTMENT MANAGER Office Visit [facility] Group - TALENT MANAGEMENT SPECIALIST [address] [facility] [address] [place] [address] Sandie Moreno MD [address] [facility] [address] [place] [address] 04/28/2025 9:45 AM CDT Office Visit [facility] - TALENT MANAGEMENT SPECIALIST [address] [facility] [place] [address] [place] [address] [place], [place] [address] [address] [place] [address] documented as of this encounter [...] on filedocumented in this encounter Care Teams Marketing Support Specialist Relationship Specialty Start Date End Date Debi Bonilla APNP-RICKEY [address] [place] [address] PCP - General 01/16/23 08/09/23 Cleo Edouard [address] [facility] [place] [address] PCP - General 08/10/23 documented as of this encounter
--- OUTSIDE RECORDS SUMMARY | 2024-11-24 11:52 | XMS_ITS | Encounter Summary ---
Author Organization [facility] Health Address [address] [facility] [address] Care Team Providers Care Christian Science Reader Name Role Phone Debi Bonilla Ryan LOPEZ-RICKEY Primary Care Provider Cleo Edouard Primary Care Provider [phone] Reason for Visit * Reason Onset Date Comments Encounter Opened In Error 06/19/2023 Encounter Details Date Type Department Care Team (Late Contact Info) Description 06/19/2023 Telephone [facility] - CUSTOMS CONSULTANT [address] [facility] [address] [place] [address] Sandie Moreno MD [address] [facility] [address] [place] [address] Encounter Opened In Error Social History Tobacco Use Types Packs/Day Years Used Date Smoking Tobacco: Never Passive Smoke Exposure: Past Smokeless Tobacco: Never Alcohol Use Standard Drinks/Week Comments Not Currently 0 (1 standard drink = 0.6 oz pur e alcohol) once a month or less- rare Sex and Gender Information Value Date Recorded Sex Assigned at Female 10/12/2020 2:52 PM LOCK STITCH CHANNELER Gender Identity Female 10/12/2020 2:52 PM LOCK STITCH CHANNELER Sexual Orientation Not on file documented as of this encounter Plan of Treatment Upcoming Encounters Date Type Department Care Team (Late Contact Info) Description 12/09/2024 10:00 AM LOCK STITCH CHANNELER Office Visit [facility] Health Pain Care [address] [facility] [address] [place] [address] Karmen Lopez, CATCH BASIN CLEANER-CLAY WASHER [address] [facility] [address] 12/09/2024 11:00 AM LOCK STITCH CHANNELER Office Visit [facility] - [address] [facility] [address] [place] [address] Serjio Hendricks, CATCH BASIN CLEANER-CLAY WASHER [address] [facility] [address] [place] [phone] 12/11/2024 3:30 PM LOCK STITCH CHANNELER Office Visit [facility] - CUSTOMS CONSULTANT [address] [place] [address] [address] [place] [address] Sandie Moreno MD [address] [facility] [address] [place] [address] 04/28/2025 9:45 AM CDT Office Visit [facility] - CUSTOMS CONSULTANT [address] [facility] [place] [address] [place] [address] [place] [address] [address] [place] [address] documented as of this encounter [...] on filedocumented in this encounter Care Teams Christian Science Reader Relationship Specialty Start Date End Date Debi Bonilla APNP-RICKEY [address] [place] [address] PCP - General 01/16/23 08/09/23 Cleo Edouard [address] [facility] [place] [address] PCP - General 08/10/23 documented as of this encounter
--- OUTSIDE RECORDS SUMMARY | 2024-11-24 11:53 | XMS_ITS | Encounter Summary ---
Author Organization [facility] Healthcare Address [address] [place] [address] Care Team Providers Care Photographic Equipment Assembler Name Role Phone Dayday Carolina FACILITIES MAINTENANCE MANAGER Primary Care Provider [phone] Dayday Carolina FACILITIES MAINTENANCE MANAGER Unavailable [phone] Deneen Gil NP Unavailable [phone] Sung Luque MD Unavailable [phone] Jason Ring MD Primary Care Provid er Kiera Beard MD Unavailable [phone] Ze Duffy MD Unavailable + [phone] Debi Bonilla NP Primary Care Provider + [phone] Cleo Edouard MD Primary Care Provider + Encounter Details Date Type Department Care Team (Late st Contact Info) Description 01/14/2021 Documentation [facility] Physical Therapy [address] [place] [id number] Isabel Murphy Social History Tobacco Use Types Packs/Day Years Used Date Smoking Tobacco: Never Smokeless Tobacco: Never Alcohol Use Standard Drinks/Week Comments Yes 0 (1 standard drink = 0.6 oz pur e alcohol) socially PHQ-2 Answer Date Recorded PHQ-2 Score 6 06/01/2019 Comments No Sex and Gender Information Value Date Recorded Sex Assigned at Not on file Legal Sex Female 4:01 AM 411 DIRECTORY ASSISTANCE OPERATOR Gender Identity Female 11/12/2024 9:28 AM 411 DIRECTORY ASSISTANCE OPERATOR Sexual Orientation Not on file documented [...] documented as of this encounter Care Teams Photographic Equipment Assembler Relationship Specialty Start Date End Date Dayday Carolina NP [address] [facility] [address] EUGENIE Hannah [address] [address] PCP - General 12/03/20 07/05/22 Jason Ring MD [address] [place] [address] PCP - General Obstetrics and Gynecology 07/06/22 Debi Bonilla NP [address] [address] PCP - General Family Medicine 08/25/22 02/16/23 Cleo Edouard MD [address] [address] PCP - General Family Medicine 02/17/23 Dayday Carolina NP [address] [facility] [address] [facility] [address] [place] [address] 12/03/20 Deneen Gil NP [address] [place] [address] [address] [place] [address] Nurse Practitioner Psychiatry 07/06/22 Sung Luque MD [address] [place] [address] [address] [place] [address] Extractor Puller Obstetrics and Gynecology 07/06/22 Kiera Beard MD [address] [place] [address] Rheumatology 07/06/22 Ze Duffy MD [address] [facility] [address] [place] [address] Neurology 07/06/22 documented as of this encounter
--- OUTSIDE RECORDS SUMMARY | 2024-11-24 11:53 | XMS_ITS | Encounter Summary ---
Author Organization [facility] Address [address] [place] [address] Care Team Providers Care System Support Specialist Name Role Phone Cleo Edouard Primary Care Provider [phone] Reason for Visit * Reason Onset Date Comments Reschedule Appointment 10/18/2023 Encounter Details Date Type Department Care Team (Late st Contact Info) Description 10/18/2023 Telephone [facility] - COMPRESSOR OPERATOR PORTABLE [address] [facility] [address] [place] [address] Sandie Moreno MD [address] [address] Reschedule Appointment Social History Tobacco [...] Sex Assigned at Female 10/12/2020 2:52 PM WATER METER INSTALLER Gender Identity Female 10/12/2020 2:52 PM WATER METER INSTALLER Sexual Orientation Not on file documented as of this encounter Miscellaneous Notes * Telephone Encounter - Agnes Burrell RN - 10/18/2023 12:20 PM WATER METER INSTALLER RN called pt, no answer. RN sent InnoCChart. If pt returns call please offer 11/22@1pm. Ok to dbl book R METER INSTALLER * Telephone Encounter - Shoaib Garzai - 10/18/2023 11:40 AM CST Pt called and said her post-op has been canceled. Call Center told her they could not fit her in for the proper time frame she would need a post-op. Please advise. R METER INSTALLER documented in this encounter Plan of Treatment Upcoming Encounters Date Type Department Care Team (Late st Contact Info) Description 12/09/2024 10:00 AM WATER METER INSTALLER Office Visit [facility] Pain Care [address] [place] [address] [address] [place] [address] Karmen Lopez, CPO-ASSEMBLER BILLIARD TABLE [address] [facility] [place] [address] 12/09/2024 11:00 AM WATER METER INSTALLER Office Visit [facility] - [address] [facility] [address] [place] [address] Serjio Hendricks, CPO-ASSEMBLER BILLIARD TABLE [address] [facility] [address] [place] [address] 12/11/2024 3:30 PM WATER METER INSTALLER Office Visit [facility] - COMPRESSOR OPERATOR PORTABLE [address] [place] [address] [address] [place] [address] Sandie Moreno MD [address] [facility] [address] [place] [address] 04/28/2025 9:45 AM CDT Office Visit [facility] - COMPRESSOR OPERATOR PORTABLE [address] [place] [address], [address] [place] [address] Rina Brooks MD [address] [facility] [address] [place] [address] documented as of this encounter [...] on filedocumented in this encounter Care Teams System Support Specialist Relationship Specialty Start Date End Date Cleo Edouard [address] [place] [address] Dr [address] [place] [phone] PCP - General 08/10/23 documented as of this encounter
--- OUTSIDE RECORDS SUMMARY | 2024-11-24 11:53 | XMS_ITS | Clinical Summary ---
Author Organization [facility] - NEUROLOGY [facility] Address [address] [place] [address] Phone Care Team Providers Care Joint Finisher Name Role Phone Neel Evans MD Primary Care Provider [phone] Neel Evans MD Unavailable [phone] Amalia Li SIGNAL MAINTAINER, ECHOCARDIOGRAPHER Unavailable + [phone] Allergies Active Allergy Reactions Criticality Noted Date [...] Department Care Team Description 10/31/2024 3:30 PM WATERSHED COORDINATOR Office Visit [facility] - Neurology [facility] [address] [place] [address] Amalia Li, SIGNAL MAINTAINER, ECHOCARDIOGRAPHER Chronic migraine with aura without status migrainosus, [...] Sex Assigned at Female 10/29/2024 1:03 PM WATERSHED COORDINATOR Legal Sex Female 11:50 PM CDT Gender Identity Female 10/29/2024 1:03 PM WATERSHED COORDINATOR Sexual Orientation Straight 10/29/2024 1: 03 PM WATERSHED COORDINATOR Last Filed Vital Signs Vital Sign Reading Time Taken Comments Blood Pressure 124/82 10/31/2024 3:21 PM WATERSHED COORDINATOR Pulse 95 10/31/2024 3:21 PM WATERSHED COORDINATOR Temperature 36.7 C (98.1 F) 10/31/2024 3:21 PM WATERSHED COORDINATOR Respiratory Rate 16 10/31/2024 3:21 PM WATERSHED COORDINATOR Oxygen Saturation 100% 10/31/2024 3:21 PM WATERSHED COORDINATOR Inhaled Oxygen Concentration - - Weight 96.9 kg (213 lb 9.6 oz) 10/31/2024 3:21 P M WATERSHED COORDINATOR Height 162.6 cm (5' 4 ) 10/31/2024 3:21 PM WATERSHED COORDINATOR Body Mass Index 36.66 10/31/2024 3:21 PM WATERSHED COORDINATOR Plan of Treatment Upcoming Encounters Date Type Department Care Team (Late st Contact Info) Description 11/29/2024 11:00 AM WATERSHED COORDINATOR Telemedicine [facility] PULMONOLOGY - [place] [address] [facility] [address] [place] [address] Bekah Hills, SIGNAL MAINTAINER, BOTTLE HOUSE QUALITY CONTROL TECHNICIAN [address] [facility] [address] [place] [address] 12/11/2024 7:20 AM WATERSHED COORDINATOR Lab [facility] Laboratory Services [address] [place] [address] Amalia Li APRN, ECHOCARDIOGRAPHER [address] [place] [address] Discharge Disposition: Discharged to home or Selfcare 12/11/2024 8:00 AM WATERSHED COORDINATOR [facility]ment [facility] 1 [place] [address] Amalia Li APRN, ECHOCARDIOGRAPHER [address] [place] [address] Discharge Disposition: Discharged to home or Selfcare 12/20/2024 3:00 PM CDT Office Visit [facility] Medical [facility] - Cardiology - [place] [address] [place] [address] Amalia Li SIGNAL MAINTAINER, ECHOCARDIOGRAPHER [address] [place] [address] Jordi Grimm MD [address] [address] 02/04/2025 3:30 PM CDT Office Visit [facility] Medical [facility] - Neurology - [place] [address] [place] [address] Amalia Li SIGNAL MAINTAINER, ECHOCARDIOGRAPHER [address] [place] [address] Health Maintenance Due Date Last Done Comments [...] patient's age to complete this topic Insurance [facility] [place]ICAID [place] [facility] [place] Care Teams Joint Finisher Relationship Specialty Start Date End Date Neel Evans MD [address] [facility] [place] [address] PCP - General Family Medicine 08/16/24 Neel Evans MD [address] [facility] [place] [address] Family Medicine 08/16/24 Amalia Li APRN, ECHOCARDIOGRAPHER [address] [place] [address] Nurse Practitioner Advanced Practice Nurse 10/31/24
--- OUTSIDE RECORDS SUMMARY | 2024-11-24 11:53 | XMS_ITS | Encounter Summary ---
Author Organization [facility] Address [address] [facility] [place] [address] Care Team Providers Care Forest Pathology Teacher Name Role Phone Cleo Edouard Primary Care Provider [phone] Reason for Visit * Reason Onset Date Comments MEDICATION REFILL 11/17/2024 Encounter Details Date Type Department Care Team (Late st Contact Info) Description 11/17/2024 Refill [facility] Pain Care [address] [facility] [address] [place] [address] Otilio Quach MD [address] [place] [phone] MEDICATION REFILL Social History Tobacco Use Types Packs/Day Years [...] Sex Assigned at Female 10/12/2020 2:52 PM HEALTH CARE MARKETING MANAGER Gender Identity Female 10/12/2020 2:52 PM HEALTH CARE MARKETING MANAGER Sexual Orientation Not on file documented as of this encounter Miscellaneous Notes * Telephone Encounter - Jo Briceño RN - 11/18/2024 11:43 AM CST Thank you TH CARE MARKETING MANAGER documented in this encounter Plan of Treatment Upcoming Encounters Date Type Department Care Team (Late st Contact Info) Description 12/09/2024 10:00 AM HEALTH CARE MARKETING MANAGER Office Visit [facility] Pain Care [address] [facility] [address] [place] [address] Karmen Lopez, BRINE PLANT OPERATOR-POWER WASHER [address] [facility].[place] [address] 12/09/2024 11:00 AM HEALTH CARE MARKETING MANAGER Office Visit [facility] Group - [address] [facility] [address] [place] [address] Serjio Hendricks, BRINE PLANT OPERATOR-POWER WASHER [address] [facility] [address] [place] [phone] 12/11/2024 3:30 PM HEALTH CARE MARKETING MANAGER Office Visit [facility] - GAS SYSTEM OPERATOR [address] [place] [address] [address] [place] [phone] Sandie Moreno MD [address] [facility] [address] [place] [address] 04/28/2025 9:45 AM CDT Office Visit [facility] - GAS SYSTEM OPERATOR [address] [place] [address], [facility] [address] [place] [address] Rina Brooks MD [address] [place] [address] [address] [place] [address] documented as of this encounter [...] on filedocumented in this encounter Care Teams Forest Pathology Teacher Relationship Specialty Start Date End Date Cleo Edouard [address] [facility] Dr Kennedy [address] [place] [address] PCP - General 08/10/23 documented as of this encounter
--- OUTSIDE RECORDS SUMMARY | 2024-11-24 11:53 | XMS_ITS | Clinical Summary ---
Author Organization [facility] Address [address] [place] [address] Care Team Providers Care Enforcement Officer Name Role Phone Cleo Edouard Primary Care Provider [phone] Source Comments [facility],non-owned Affiliates and Associated Physician Practices is amultiple site organization consisting of ambulatory clinics and hospital sitesin [place], [place], [place] and [place]. This disclosure is being madepursuant to the Care Everywhere program and may not contain all information available regarding this patient. Last updated 18.[facility] Allergies Active Allergy Reactions Criticality Noted Date [...] 2 2024 Active topiramate (Topamax) 50 MG tabletIndication s:Migraine Take 1 (one) tablet by mouth 2 times daily Reasons: Migraine Headache Active norethindrone (Aygestin) 5 MG tablet TAKE 1 AND 1/2 TABLETS BY MOUTH EVERY DAY 45 tablet 11 08/15/2024 Active ibuprofen (Motrin) 600 MG tablet Take 1 (one) tablet by mouth every 6 hours as needed pain 08/15/2024 Active norethindrone-et hinyl estradiol (Ortho-Novum ) 1-35 MG-MCG tablet Take 1 (one) tablet by mouth once daily Active methylPREDNISolo ne (Medrol Dosepak) 4 MG tablet FOLLOW PACKAGE DIRECTIONS 06/11/2024 Active Other Insert 1 suppository into the vagina every 12 hours as needed Valium/Baclofen 5/4 mg; place one suppository in the vagina as needed for pain, up to every 12 hours 5 Each 10/18/2024 Active pregabalin (Lyrica) 150 MG capsuleIndicatio ns:Fibromyalgia Syndrome,Neuropa thic Pain Take 1 (one) capsule by mouth 3 times daily for 60 days Reasons: Fibromyalgia Syndrome, Neuropathic Pain 90 capsule 1 11/18/2024 5 Active pregabalin (Lyrica) 150 MG capsuleIndicatio ns:Fibromyalgia Syndrome Take 1 (one) capsule by mouth 3 times daily for 60 days Reasons: Fibromyalgia Syndrome 90 capsule 1 11/11/2024 5 Discontinue d(Reorder) pregabalin (Lyrica) 150 MG capsuleIndicatio ns:Fibromyalgia Syndrome,Neuropa thic Pain Take 1 (one) capsule by mouth 3 times daily for 60 days Reasons: Fibromyalgia Syndrome, Neuropathic Pain 90 capsule 1 11/18/2024 Discontinue d(Reorder) Active Problems Problem Noted Date Diagnosed Date [...] (04/03/2023): Added automatically from request for surgery [id number] Autism 11/28/2022 04/03/2023 Heartburn 11/03/2022 04/03/2023 Overview (04/03/2023): Added automatically from request for surgery [id number] Body mass index 40.0-44.9, adult 06/28/2022 Overview [...] Encounters Date Type Department Care Team Description 11/19/2024 Telephone [facility] Pain Care [address] [place] [address] Margarette Villalta, RN Follow-up 11/18/[address] [place] [address] Margarette Villalta, INDUSTRIAL ECONOMIST REFILL 11/18/2024 Orders Only [facility] - Pain Mgmt [address] [place] [address], [facility] [address] [place] [address] Otilio Quach MD 11/17/[address] [place] [address] Otilio Quach MD MEDICATION REFILL 11/07/2024 10:30 AM VP CORPORATE DEVELOPMENT Office Visit [facility] - [address] [place] [address] Serjio Hendricks, LOOM SETTER-TUB OPERATOR Irritable bowel syndrome with constipation (Primary Dx); Generalized abdominal pain; Interstitial cystitis; Endometriosis determined by laparoscopy; NAFLD (nonalcoholic fatty liver disease) 10/18/2024 Orders Only [facility] - EXTRUDER TENDER [address] [place] [address] Sandie Moreno MD 10/11/2024 12:15 PM VP CORPORATE DEVELOPMENT Office Visit [facility]ician Group - EXTRUDER TENDER [address] [facility] [place] [address] Rina Brooks MD Bladder pain (Primary Dx); IC (interstitial cystitis) 10/11/2024 11:00 AM VP CORPORATE DEVELOPMENT Office Visit [facility] Health Pain Care [address] [facility] [address] [place] [address] Karmen Loepz LOOM SETTER-TUB OPERATOR Neuropathy (Primary Dx) 10/11/2024 Travel 10/10/2024 Travel 09/25/2024 Orders Only [facility]ician Group - EXTRUDER TENDER [address] [facility] [place] [address] Rina Brooks MD Acute cystitis without hematuria 09/14/2024 Orders Only [facility] Health Pain Care [address] [place] [address] Otilio Quach MD from Last 3 Months Immunizations Name Administration Dates Next Due [employer] primary monoval ent 12+ yr 0.3mL Purple [...] Sex Assigned at Female 10/12/2020 2:52 PM VP CORPORATE DEVELOPMENT Gender Identity Female 10/12/2020 2:52 PM VP CORPORATE DEVELOPMENT Sexual Orientation Not on file Last Filed Vital Signs Vital Sign Reading Time Taken Comments Blood Pressure 112/74 10/11/2024 12:07 PM VP CORPORATE DEVELOPMENT Pulse 78 08/13/2024 9:54 AM VP CORPORATE DEVELOPMENT Temperature 37.2 C (99 F) 10/11/2024 12:07 PM VP CORPORATE DEVELOPMENT Respiratory Rate 16 04/22/2024 10:29 AM CDT Oxygen Saturation 98% 04/16/2024 2:36 PM CDT Inhaled Oxygen Concentration - - Weight 85.3 kg (188 lb) 11/07/2024 11:08 AM VP CORPORATE DEVELOPMENT Height 162.6 cm (5' 4 ) 10/11/2024 12:07 PM VP CORPORATE DEVELOPMENT Body Mass Index 32.27 10/11/2024 12:07 PM VP CORPORATE DEVELOPMENT Plan of Treatment Upcoming Encounters Date Type Department Care Team (Late st Contact Info) Description 12/09/2024 10:00 AM VP CORPORATE DEVELOPMENT Office Visit [facility] Pain Care [address] [facility] [address] [place] [address] Karmen Lopez, LOOM SETTER-TUB OPERATOR [address] [facility] [place] [address] 12/09/2024 11:00 AM VP CORPORATE DEVELOPMENT Office Visit [facility] Medical Group - [address] [facility] [address] [place] [address] Serjio Hendricks, LOOM SETTER-TUB OPERATOR [address] [facility] [address] [place] [phone] 12/11/2024 3:30 PM VP CORPORATE DEVELOPMENT Office Visit [facility] - EXTRUDER TENDER [address] [place] [address] [address] [place] [phone] Sandie Moreno MD [address] [facility] [address] [place] [phone] 04/28/2025 9:45 AM CDT Office Visit [facility]ician Group - EXTRUDER TENDER [address] [place] [address], [address] [place] [address] Rina Brooks MD [address] [facility] [address] [place] [address] Health Maintenance Due Date Last [...] track( 023 2:58 PM CDT) No Jahaira Hairston RN Note: Expected end date: Ongoing Interventions: Take all medications as prescribed Let your doctor know right away about any changes in your medications Make sure to request a refill of your medication at least one week prior to your last dose Procedures Procedure Name Priority Date/Time Associated Diagnosis Comments AL IRRIGATION OF BLADDER Routine 10/11/2024 3:55 PM VP CORPORATE DEVELOPMENT Bladder pain IC (interstitial cystitis) URINALYSIS - POINT OF CARE (AMB) [facility] Routine 10/11/2024 12:43 PM VP CORPORATE DEVELOPMENT Bladder pain CULTURE URINE Routine 09/25/2024 11:16 AM VP CORPORATE DEVELOPMENT Acute cystitis without hematuria HEPATITIS C RNA QUANTITATIVE Routine 01/07/2022 1:01 PM CDT Elevated liver enzymes from Last 3 Months or Most Recently Relevant to Health Maintenance Results * AL IRRIGATION OF BLADDER (10/11/2024 3:55 PM VP CORPORATE DEVELOPMENT) Narrative Rina Brooks MD - 10/11/2024 3:55 PM VP CORPORATE DEVELOPMENT Rina Brooks MD 10/11/2024 4:40 PM See procedure note. Rina Brooks MD PROCEDURE/MINOR ALINA GICAL ORDERABLES * URINALYSIS - POINT OF CARE (AMB) [facility] (10/11/2024 12:43 PM VP CORPORATE DEVELOPMENT) Specific [place] UA 1.[address] [facility] [address] pH [...] URINE / Unknown 10/11/2024 1 2:43 PM VP CORPORATE DEVELOPMENT Rina Brooks MD LAB - POINT OF CARE ORDERABLES [facility] [address] [place] [address] [phone] * CULTURE URINE (09/25/2024 11:16 AM VP CORPORATE DEVELOPMENT) Pathologist [facility] Culture [facility] Comment: CULTURE, URINE, ROUTINE Micro Number: [id number] Test Status: Final Specimen Source: Urine, clean catch Specimen Quality: Adequate Result: No Growth Test Performed at: [facility] [address] ALTAGRACIA BOCANEGRA MD Urine URINE SPECIMEN OBTAINED BY CLEAN CATCH PROCEDURE / Unknown 09/25/2024 11:16 AM VP CORPORATE DEVELOPMENT 09/25/2024 11:17 AM VP CORPORATE DEVELOPMENT Rina Brooks MD LAB - MICROBIOLOGY ORDERABLES [address] [address] * HEPATITIS C RNA QUANTITATIVE (01/07/2022 1:01 PM CDT) Hepatitis C Virus RNA, Quantitative Real Time PCR <15 NOT DETECTED NOT DETECTED IU/mL [facility] Hepatitis C Virus RNA, Quantitative Real Time PCR <1.18 NOT DETECTED NOT DETECTED Log IU/mL [facility] Comment: This test was performed using Real-Time Polymerase Chain Reaction. Reportable Range: 15 IU/mL to 100,000,000 IU/mL (1.18 Log IU/mL to 8.00 Log IU/mL). The analytical performance characteristics of this assay have been determined by [employer]. The modifications have not been cleared or approved by the FDA. This assay has been validated pursuant to the CLIA regulations and is used for clinical purposes. For more information on this test, go to: http://education.M[employer]/faq/QQQ46x6 (This link is being provided for informational/ educational purposes only.) Test Performed at: [email or web address] [address] [place] [address] JANET SEE DO,MPH Blood BLOOD SPECIMEN / Unknown 01/07/2022 1:01 PM CDT 01/07/2022 1:03 PM CDT Licha Lowery LOOM SETTER-TUB OPERATOR LAB - CHEMI STRY ORDERABLES Performing Organization Address City/State/[facility] Co de Phone Number [facility] [address] [place] [address] from Last 3 Months or Most Recently Relevant to Health Maintenance Care Teams Enforcement Officer Relationship Specialty Start Date End Date Cleo Edouard [address] [place] [phone] PCP - General 08/10/23
--- OUTSIDE RECORDS SUMMARY | 2024-11-24 11:53 | XMS_ITS | Encounter Summary ---
Author Organization [facility] Address [address] [place] [address] Care Team Providers Care Western Felt Hat Blocker Name Role Phone [place] PHARMACY INFORMATICIST-HYDRAULIC ELEVATOR CONSTRUCTOR Primary Care Provider [phone] Debi Bonilla APNP-HYDRAULIC ELEVATOR CONSTRUCTOR Primary Care Provider Debi Bonilla APNP-HYDRAULIC ELEVATOR CONSTRUCTOR Primary Care Provider Cleo Edouard Primary Care Provider Reason for Visit * Reason Onset Date Comments Referral 11/23/2021 URO/POWER LINE INSTALLER Encounter Details Date Type Department Care Team (Late st Contact [facility]) Description 11/23/2021 Telephone [facility] [address] [facility] [address] [place] [address] Laura Church MD Need new address Referral (URO/POWER LINE INSTALLER) Social History Tobacco Use Types Packs/Day Years Used Date Smoking Tobacco: Never Smokeless Tobacco: Never Alcohol Use Standard Drinks/Week Comments Yes 0 (1 standard drink = 0.6 oz pur e alcohol) Sex and Gender Information Value Date Recorded Sex Assigned at Female 10/12/2020 2:52 PM UNIT REACTOR OPERATOR Gender Identity Female 10/12/2020 2:52 PM UNIT REACTOR OPERATOR Sexual Orientation Not on file documented as of this encounter Miscellaneous Notes * Telephone Encounter - Eduardo Bauer RN - 11/23/2021 1:[address] Church referring pt for incontinence/leakage. Reviewed w/ Uro/route aide doctors. Would like her IC under control before treating for leakage. Dr Church to review chart. LM on her personal VM re: Dr Church wants to review your chart before going proceeding With seeing UroGyn doctors. Please cb if you have questions. REACTOR OPERATOR * Telephone Encounter - MancillaLicha aleman - 11/23/2021 12:37 PM CST Pt is needing to speak with someone about being referred to URO/POWER LINE INSTALLER. She states she returned a missed call about being scheduled and never heard anything back. CB# [phone] REACTOR OPERATOR documented in this encounter Plan of Treatment Upcoming Encounters Date Type Department Care Team (Late st Contact Info) Description 12/09/2024 10:00 AM UNIT REACTOR OPERATOR Office Visit [facility] Pain Care [address] [place] [address] [address] [place] [address] Karmen Lopez, PHARMACY INFORMATICIST-HYDRAULIC ELEVATOR CONSTRUCTOR [address] [place] [address] 12/09/2024 11:00 AM UNIT REACTOR OPERATOR Office Visit [facility] - [address] [facility] [address] [place] [address] Serjio Hendricks, PHARMACY INFORMATICIST-HYDRAULIC ELEVATOR CONSTRUCTOR [address] [facility] [address] [place] [address] 12/11/2024 3:30 PM UNIT REACTOR OPERATOR Office Visit [facility] - SUPERVISOR WET ROOM [address] [place] [address] [address] [place] [address] Sandie Moreno MD [address] [place] [address] [address] [place] [phone] 04/28/2025 9:45 AM CDT Office Visit [facility]ician Group - SUPERVISOR WET ROOM [address] [place] [address], [facility] [address] [place] [address] Rina Brooks MD [address] [facility] [address] [place] [address] documented as of this encounter Visit Diagnoses Not on filedocumented in this encounter Care Teams Western Felt Hat Blocker Relationship Specialty Start Date End Date Dayday Carolina APRN-HYDRAULIC ELEVATOR CONSTRUCTOR [address] [facility] [address] EUGENIE Hannah [address] [id number] PCP - General 07/01/20 04/07/22 Debi Bonilla APNP-HYDRAULIC ELEVATOR CONSTRUCTOR [address] [place] [phone] PCP - General 04/08/22 01/15/23 Debi Bonilla APNP-HYDRAULIC ELEVATOR CONSTRUCTOR [address] [place] [phone] PCP - General 01/16/23 08/09/23 Cleo Edouard [address] [place] [address] [address] PCP - General 08/10/23 documented as of this encounter
--- OUTSIDE RECORDS SUMMARY | 2024-11-24 11:53 | XMS_ITS | Referral Summary ---
Author Organization [facility] Address [address] [facility] [place] [address] Care Team Providers Care Windows Phone Developer Name Role Phone Cleo Edouard Primary Care Provider [phone] Source Comments [facility],non-owned Affiliates and Associated Physician Practices is amultiple site organization consisting of ambulatory clinics and hospital sitesin [place], [place], [place] and [place]. This disclosure is being madepursuant to the Care Everywhere program and may not contain all information available regarding this patient. Last updated 18.[facility] Encounters Date Type Department Care Team Description 11/19/2024 Telephone [facility] Pain Care [address] [place] [address] [address] [place] [address] Margarette Villalta, RN Follow-up 11/18/2024 Refill [facility] Pain Care [address] [place] [address] Margarette Villalta, STUDIO ENGINEER REFILL 11/18/2024 Orders Only [facility] - Pain Mgmt [address] [facility] [place] [phone] Otilio Quach MD 11/17/2024 Refill [facility] Pain Care [address] [place], [place] [address] [address] [place] [address] Otilio Quach MD MEDICATION REFILL 11/07/2024 10:30 AM INSURANCE UNDERWRITER SALES Office Visit [facility] Medical Group - [address] [place] [address] Serjio Hendricks, MATERIALS PLANNER-MOTION PICTURE SET UP WORKER Irritable bowel syndrome with constipation (Primary Dx); Generalized abdominal pain; Interstitial cystitis; Endometriosis determined by laparoscopy; NAFLD (nonalcoholic fatty liver disease) 10/18/2024 Orders Only [facility] Group - CORRECTIONS CASEWORKER [address] [facility] [address] [place] [address] Sandie Moreno MD 10/11/2024 Travel 10/11/2024 12:15 PM INSURANCE UNDERWRITER SALES Office Visit [facility] - CORRECTIONS CASEWORKER [address] [facility] [place] [address] Rina Brooks MD Bladder pain (Primary Dx); IC (interstitial cystitis) 10/11/2024 11:00 AM INSURANCE UNDERWRITER SALES Office Visit [facility] Pain Care [address] [place], [place] [address] [address] [place] [address] Karmen Lopez APRN-MOTION PICTURE SET UP WORKER Neuropathy (Primary Dx) 10/10/2024 Travel 09/25/2024 Orders Only [facility] - CORRECTIONS CASEWORKER [address] [facility] [place] [address] Rina Brooks MD Acute cystitis without hematuria 09/14/2024 Orders Only [facility] Pain Care [address] [place] [address] [address] [place] [address] Otilio Quach MD from Last 3 Months Allergies Active Allergy [...] Neuropathic Pain 90 capsule 1 11/18/2024 5 Discontinue d(Reorder) Active Problems Problem Noted Date [...] (04/03/2023): Added automatically from request for surgery [id number] Autism 11/28/2022 04/03/2023 Heartburn 11/03/2022 04/03/2023 Overview (04/03/2023): Added automatically from request for surgery [id number] Body mass index 40.0-44.9, adult 06/28/2022 Overview [...] 11/06/2023 Immunizations Name Administration Dates Next Due [employer] primary monoval ent 12+ yr 0.3mL Purple [...] Sex Assigned at Female 10/12/2020 2:52 PM INSURANCE UNDERWRITER SALES Gender Identity Female 10/12/2020 2:52 PM INSURANCE UNDERWRITER SALES Sexual Orientation Not on file Last Filed Vital Signs Vital Sign Reading Time Taken Comments Blood Pressure 112/74 10/11/2024 12:07 PM INSURANCE UNDERWRITER SALES Pulse 78 08/13/2024 9:54 AM INSURANCE UNDERWRITER SALES Temperature 37.2 C (99 F) 10/11/2024 12:07 PM INSURANCE UNDERWRITER SALES Respiratory Rate 16 04/22/2024 10:29 AM CDT Oxygen Saturation 98% 04/16/2024 2:36 PM CDT Inhaled Oxygen Concentration - - Weight 85.3 kg (188 lb) 11/07/2024 11:08 AM INSURANCE UNDERWRITER SALES Height 162.6 cm (5' 4 ) 10/11/2024 12:07 PM INSURANCE UNDERWRITER SALES Body Mass Index 32.27 10/11/2024 12:07 PM INSURANCE UNDERWRITER SALES Plan of Treatment Upcoming Encounters Date Type Department Care Team (Late st Contact Info) Description 12/09/2024 10:00 AM INSURANCE UNDERWRITER SALES Office Visit [facility] Pain Care [address] [facility] [address] [place] [address] Karmen Lopez, MATERIALS PLANNER-MOTION PICTURE SET UP WORKER [address] [place] [address] 12/09/2024 11:00 AM INSURANCE UNDERWRITER SALES Office Visit [facility] Medical Group - GI [address] [facility] [address] [place] [address] Ruthie Serjio HairISHANN-MOTION PICTURE SET UP WORKER [address] [facility] [address] [place] [address] 12/11/2024 3:30 PM INSURANCE UNDERWRITER SALES Office Visit [facility] Group - CORRECTIONS CASEWORKER [address] [facility] [address] [place] [phone] Sandie Moreno MD [address] [facility] [address] [place] [address] 04/28/2025 9:45 AM CDT Office Visit [facility] Physician Group - CORRECTIONS CASEWORKER [address] [facility], [facility] [address] [place] [address] [place] [address] [place] [address] [address] [place] [address] Goals Goal Patient Goal Type [...] Procedure Name Priority Date/Time Associated Diagnosis Comments GA IRRIGATION OF BLADDER Routine 10/11/2024 3:55 PM INSURANCE UNDERWRITER SALES Bladder pain IC (interstitial cystitis) URINALYSIS - POINT OF CARE (AMB) [facility] Routine 10/11/2024 12:43 PM INSURANCE UNDERWRITER SALES Bladder pain CULTURE URINE Routine 09/25/2024 11:16 AM INSURANCE UNDERWRITER SALES Acute cystitis without hematuria HEPATITIS C RNA QUANTITATIVE Routine 01/07/2022 1:01 PM CDT Elevated liver enzymes from Last 3 Months or Most Recently Relevant to Health Maintenance Results * GA IRRIGATION OF BLADDER (10/11/2024 3:55 PM INSURANCE UNDERWRITER SALES) Narrative Rina Brooks MD - 10/11/2024 3:55 PM INSURANCE UNDERWRITER SALES Rina Brooks MD 10/11/2024 4:40 PM See procedure note. Rina Brooks MD PROCEDURE/MINOR ALINA GICAL ORDERABLES * URINALYSIS - POINT OF CARE (AMB) [facility] (10/11/2024 12:43 PM INSURANCE UNDERWRITER SALES) Pathologist [facility] Specific [place] UA 1.[address] [facility] [address] pH [...] URINE / Unknown 10/11/2024 1 2:43 PM INSURANCE UNDERWRITER SALES Rina Brooks MD LAB - POINT OF CARE ORDERABLES [facility] [address] [place] [address], [facility] [phone] * CULTURE URINE (09/25/2024 11:16 AM INSURANCE UNDERWRITER SALES) Pathologist [facility] Culture [facility] Comment: CULTURE, URINE, ROUTINE Micro Number: [id number] Test Status: Final Specimen Source: Urine, clean catch Specimen Quality: Adequate Result: No Growth Test Performed at: [facility] [address] ALTAGRACIA BOCANEGRA MD Urine URINE SPECIMEN OBTAINED BY CLEAN CATCH PROCEDURE / Unknown 09/25/2024 11:16 AM INSURANCE UNDERWRITER SALES 09/25/2024 11:17 AM INSURANCE UNDERWRITER SALES Rina Brooks MD LAB - MICROBIOLOGY ORDERABLES Performing Organization Address [facility] Co de Phone Number [address] [address] * HEPATITIS C RNA QUANTITATIVE (01/07/2022 1:01 PM CDT) [facility] Hepatitis C Virus RNA, Quantitative Real Time [...] of this assay have been determined by [employer]. The modifications have not been cleared or approved by the FDA. This assay has been validated pursuant to the CLIA regulations and is used for clinical purposes. For more information on this test, go to: http://education.[employer]/faq/NYM97k3 (This link is being provided for informational/ educational purposes only.) Test Performed at: [facility] [address] [place] [address] JANET SEE DO,MPH Blood BLOOD SPECIMEN / Unknown 01/07/2022 1:01 PM CDT 01/07/2022 1:03 PM CDT Licha Lowery MATERIALS PLANNER-MOTION PICTURE SET UP WORKER LAB - CHEMI STRY ORDERABLES Performing Organization Address [facility] Co de Phone Number [address] [address] from Last 3 Months or Most Recently Relevant to Health Maintenance Administered Medications Care Teams Windows Phone Developer Relationship Specialty Start Date End Date Cleo Edouard [address] [facility] [address] [place] [address] PCP - General 08/10/23
--- OUTSIDE RECORDS SUMMARY | 2024-11-24 11:53 | XMS_ITS | Encounter Summary ---
Author Organization [facility] Address [address] [place] [address] Care Team Providers Care Night Court Magistrate Name Role Phone Dayday Carolina CLAY THROWER-CABINETMAKER APPRENTICE Primary Care Provider [phone] Debi Bonilla APNP-CABINETMAKER APPRENTICE Primary Care Provider Debi Bonilla APNP-CABINETMAKER APPRENTICE Primary Care Provider Cleo Edouard Primary Care Provider [phone] Reason for Visit * Reason Onset Date Comments Nurse Only 10/28/2021 Encounter Details Date Type Department Care Team (Late st Contact Info) Description 10/28/2021 Telephone [facility] [address] [place] [address] Laura Church MD Need new address Nurse Only Social History Tobacco Use Types Packs/Day Years Used Date Smoking Tobacco: Never Smokeless Tobacco: Never Alcohol Use Standard Drinks/Week Comments Yes 0 (1 standard drink = 0.6 oz pur e alcohol) Sex and Gender Information Value Date Recorded Sex Assigned at Female 10/12/2020 2:52 PM LASER BEAM TRIM OPERATOR Gender Identity Female 10/12/2020 2:52 PM LASER BEAM TRIM OPERATOR Sexual Orientation Not on file documented as of this encounter Miscellaneous Notes * Telephone Encounter - Gerda Steiner LPN - 10/28/2021 10:58 AM LASER BEAM TRIM OPERATOR I called the patient - informed her I can not give her an appt - I am just a nurse. I will however, get this message to the people that can give new patient appts. I will let them now she can have the first available URO / IRONWORKER MACHINE OPERATOR new patient appt. They will contact her to set it up Patient is agreeable R BEAM TRIM OPERATOR * Telephone Encounter - GreysonReshma - 10/28/2021 9:31 AM CST Pt returning call to nurse for referral of specialist R BEAM TRIM OPERATOR documented in this encounter Plan of Treatment Upcoming Encounters Date Type Department Care Team (Late st Contact Info) Description 12/09/2024 10:00 AM LASER BEAM TRIM OPERATOR Office Visit [facility] [address] [place] [address] Karmen Lopez, CLAY THROWER-CABINETMAKER APPRENTICE [address] [place] [address] 12/09/2024 11:00 AM LASER BEAM TRIM OPERATOR Office Visit [facility] - [address] [place] [address] Serjio Hendricks, CLAY THROWER-CABINETMAKER APPRENTICE [address] [place] [phone] 12/11/2024 3:30 PM LASER BEAM TRIM OPERATOR Office Visit [facility] - DIRECTOR OF STRATEGY & MOBILE [address] [place] [phone] Sandie Moreno MD [address] [place] [address] 04/28/2025 9:45 AM CDT Office Visit [facility] - DIRECTOR OF STRATEGY & MOBILE [address] [place] [phone] Rina Brooks MD [address] [place] [address] documented as of this encounter Visit Diagnoses Not on filedocumented in this encounter Care Teams Night Court Magistrate Relationship Specialty Start Date End Date Dayday Carolina APRN-RICKEY [address] EUGNEIE [address] [place] [address] PCP - General 07/01/20 04/07/22 Debi Bonilla APNP-CABINETMAKER APPRENTICE [address] [place] [phone] PCP - General 04/08/22 01/15/23 Debi Bonilla APNP-CABINETMAKER APPRENTICE [address] [place] [address] PCP - General 01/16/23 08/09/23 Cleo Edouard [address] [place] [phone] PCP - General 08/10/23 documented as of this encounter
--- OUTSIDE RECORDS SUMMARY | 2024-11-24 11:53 | XMS_ITS | Clinical Summary ---
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 2018. Blood 11/07/2024 9:55 AM WAISTLINE JOINER 11/07/2024 10:10 AM WAISTLINE JOINER Jacque John NP LAB BLOOD ORDERABLES Final Result Performing Organization Address [facility] Phone Number [facility] [place] [address] * LESLIE ab eval w/reflex (11/07/2024 9:55 AM WAISTLINE JOINER) [facility] ab Negative Negative Comment: Interpretive Data Positive Screens will be reflexed to specific testing for Antibodies against the following antigens: Aviva-1 Ab, INDUSTRIAL TRUCK DRIVER Ab, Scl-70 Ab, Alexander Ab, SS-A/Ro Ab, and SS- B/La Ab. Further testing for dsDNA, Centromere, or Ribosomal P antibodies is suggested in patient with a positive screen and negative specific antibodies. Current interpretive data was last revised on 2023. Blood 11/07/2024 9:55 AM WAISTLINE JOINER 11/07/2024 10:15 AM WAISTLINE JOINER Jacque John NP LAB BLOOD ORDERABLES Final Result Performing Organization Address [facility] de Phone Number [facility] [place] [address] * CBC with auto differential (11/07/2024 9:55 AM WAISTLINE JOINER) WBC 8.8 3.8 - 9.9 K/cumm Hgb 13.4 11.9 - 15.5 g/dL [facility] Hct 40.5 35.6 - 45.5 % [facility] Plt 273 150 - 400 K/cumm [facility] MPV 10.9 9.1 - 12.3 fL [facility] RBC 4.50 3.90 - 5.20 M/cumm [facility] MCV 90.0 81.3 - 96.4 fL [facility] MCH 29.8 27.1 - 33.3 pg [facility] MCHC 33.1 32.3 - 35.7 g/dL [facility] RDW CV 13.2 11.1 - 14.9 % [facility] RDW SD 43.0 35.7 - 48.1 fL [facility] NRBC abs 0.00 0.00 - 0.01 K/cumm [facility] Blood 11/07/2024 9:55 AM WAISTLINE JOINER 11/07/2024 10:10 AM WAISTLINE JOINER Jacque John DIRECTOR CHILD ABUSE THERAPY LAB BLOOD ORDERABLES Final Result Performing Organization Address City/[facility]/ZIP Co de Phone Number [facility] [place] [address] * Erythrocyte sedimentation rate (11/07/2024 9:55 AM WAISTLINE JOINER) [facility] Erythrocyte sedimentation rate 10 1 - 20 mm/hr Blood 11/07/2024 9:55 AM WAISTLINE JOINER 11/07/2024 10:10 AM WAISTLINE JOINER Jacque John DIRECTOR CHILD ABUSE THERAPY LAB BLOOD ORDERABLES Final Result Performing Organization Address City/[facility]/ZIP Co de Phone Number [facility] [place] [address] * CRP (acute phase) (11/07/2024 9:55 AM WAISTLINE JOINER) [facility] CRP 1.5 <=10.0 mg/L Blood 11/07/2024 9:55 AM WAISTLINE JOINER 11/07/2024 10:10 AM WAISTLINE JOINER Jacque John DIRECTOR CHILD ABUSE THERAPY LAB BLOOD ORDERABLES Final Result Performing Organization Address [facility] de Phone Number [facility] [place] [address] * TSH (11/07/2024 9:55 AM WAISTLINE JOINER) Pathologist [facility] [place] Thyroid Stimulating Hormone 1.30 0.30 - 4.20 mcIUnit/mL Blood 11/07/2024 9:55 AM WAISTLINE JOINER 11/07/2024 10:10 AM WAISTLINE JOINER Jacque John NP LAB BLOOD ORDERABLES Final Result Performing Organization Address [facility] Phone Number [facility] [place] [address] * Creatine kinase (CK), total (11/07/2024 9:55 AM WAISTLINE JOINER) [facility] CK 102 30 - 200 Units/L Blood 11/07/2024 9:55 AM WAISTLINE JOINER 11/07/2024 10:10 AM WAISTLINE JOINER Jacque John NP LAB BLOOD ORDERABLES Final Result Performing Organization Address [facility] de Phone Number [facility] [place] [address] * (ABNORMAL) Comprehensive metabolic panel (11/07/2024 9:55 AM WAISTLINE JOINER) [facility] Sodium 142 135 - 145 mmol/L Potassium, pl 4.2 3.3 - 4.9 mmol/L [facility] Chloride 112(H) 97 - 110 mmol/L [facility] CO2 23 22 - 32 mmol/L [facility] Anion gap 7 2 - 15 mmol/L [facility] BUN 19 6 - 25 mg/dL [facility] Creatinine 1.03 0.60 - 1.10 mg/dL [facility] Glucose 99 70 - 199 mg/dL [facility] Comment: Interpretive Data Fasting glucose >/= [...] 2022. Calcium 9.0 8.5 - 10.3 mg/dL [facility] Bilirubin, total 0.3 0.1 - 1.2 mg/dL [facility] Protein, pl 7.3 6.5 - 8.5 g/dL [facility] Albumin 4.3 3.5 - 5.0 g/dL [facility] Alk phos 77 40 - 130 Units/L [facility] ALT 31 7 - 45 Units/L [facility] AST 17 10 - 45 Units/L [facility] Blood 11/07/2024 9:55 AM WAISTLINE JOINER 11/07/2024 10:10 AM WAISTLINE JOINER Jacque John NP LAB BLOOD ORDERABLES Final Result [facility] Department [place] [address] from Last 3 Months Insurance [facility] IDPA [facility] CHOICE PLUS [facility] HMO/PPO Address: [address] [address] [place] [address] IDPA Ron Castillo [facility] [place] [address] Advance Directives For more information, please contact: [phone] * Full Code (Latest Code Status on File) Date Activated Date Inactivated Comments 03/01/2023 11:21 AM 03/02/2023 7:06 PM * Full Code Date Activated Date Inactivated Comments 11/15/2022 1:26 PM 11/15/2022 7:27 PM Care Teams 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 Relationship Specialty Start Date End Date Cleo Edouard MD [address] [place] [address] PCP - General Family Medicine 02/17/23 Dayday Carolina NP [address] [place] [address] DR EUGENIE Hannah [address] [address] 12/03/20 Deneen Gil NP [address] [place] [address] DR BRAXTON [address] [place], [place] [id number] Nurse Practitioner Psychiatry 07/06/22 Sung Luque MD [address] [place] [address] DR BRA[address] [place] [address] Diesel Powerplant Mechanic Obstetrics and Gynecology 07/06/22 Kiera Beard MD [address] [place] [address] Rheumatology 07/06/22 Ze Duffy MD [address] [place] [address] Neurology 07/06/22
--- OUTSIDE RECORDS SUMMARY | 2024-11-24 11:53 | XMS_ITS | Patient Health Summary ---
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 [address] * (ABNORMAL) GGT (01/07/2022 1:01 PM CDT) Pathologist [facility] GGT 54(H) 3 - 50 U/L [facility] Comment: Test Performed at: [facility] [id number] JANET SEE DO,MPH Blood BLOOD SPECIMEN / Unknown 01/07/2022 1:01 PM CDT 01/07/2022 1:03 PM CDT Licha Lowery APRNBlume DistillationI STRNacuii ORDERABLES Performing Organization Address [facility] Co de Phone Number [address] [address] * IGG BLOOD (01/07/2022 1:01 PM CDT) Pathologist [facility] IgG 1253 600 - 1640 mg/dL [facility] Comment: Test Performed at: [facility] [id number] [employer] [id number] JANET SEE DO,MPH Blood BLOOD SPECIMEN / Unknown 01/07/2022 1:01 PM CDT 01/07/2022 1:03 PM CDT Licha Lowery ROTARY PUMP OPERATOR-[facility]LL[facility] DISTILLERY LAB - CHEMI STRY ORDERABLES Performing Organization Address [facility] Co de Phone Number [facility] [address] [place] [address] * FERRITIN (01/07/2022 1:01 PM CDT) Ferritin 42 16 - 154 ng/mL [facility] Comment: Test Performed at: [facility] [address] [address] JANET SEE DO,MPH Blood BLOOD SPECIMEN / Unknown 01/07/2022 1:01 PM CDT 01/07/2022 1:03 PM CDT Licha Lowery JOANNA-MILLER HELPER DISTILLERY LAB - CHEMI STRY ORDERABLES Performing Organization Address [facility] Co de Phone Number [facility] [address] [place] [address] * ETT LINE PERFORMABLE (12/30/2021 1:15 PM CDT) Narrative Nola Jackson APRN-CRNA - 12/30/2021 1:15 PM CDT Nola Jackson APRN-CRNA 12/30/2021 1:18 PM Endotracheal Tube Placement: Patient Location: OR. Intubation Event Date/Time: 12/30/2021 12:55 PM Procedure: intubation ([id number]). Procedure Section: Sedation: under general anesthesia. Indications [...] PANEL (CALCIUM TOTAL) (12/30/2021 9:06 AM CDT) Glucose 109(H) 70 - 105 mg/dL 12/30/2021 9:51 AM CDT [facility] Sodium 138 136 - 145 mmol/L 12/30/2021 9:51 AM CDT [facility] Potassium 3.9 3.5 - 5.1 mmol/L 12/30/2021 9:51 AM CDT [facility] Chloride 106 98 - 107 mmol/L 12/30/2021 9:51 AM CDT [facility] CO2 21(L) 23 - 31 mmol/L 12/30/2021 9:51 AM CDT [facility] Calcium 8.8 8.4 - 10.4 mg/dL 12/30/2021 9:51 AM CDT [facility] Anion Gap 11 8 - 18 mmol/L 12/30/2021 9:51 AM CDT [facility] BUN 9 7 - 18.7 mg/dL 12/30/2021 9:51 AM CDT [facility] Creatinine 0.80 0.57 - 1.11 mg/dL 12/30/2021 9:51 AM CDT [facility] eGFR by CKD-EPI >90 >=90 mL/min/1.7 3 m2 12/30/2021 9:51 AM CDT [facility] Blood BLOOD SPECIMEN / Unknown Venipuncture / Unknown 12/30/2021 9:06 AM CDT 12/30/2021 9:21 AM CDT Narrative [facility] - 12/30/2021 9:51 AM CDT eGFR result was calculated using the updated CKD-EPI Creatinine Equations (2020). Prior to go live 2021 the eGFR was calculated using the MDRD calculation. Please note Reference Range change. Laura Church MD LAB - CHEMISTRY [facility] Organization Address City/State/ZIP Co de Phone Number [facility] [address] [place] [address] * CULTURE URINE REFLEXED I (12/23/2021 3:19 PM CDT) Reflexive Urine Culture See Below [facility] Comment: NO CULTURE INDICATED Test Performed at: [email or web address] [place] [address] JANET SEE DO,MPH 12/23/2021 3:19 PM CDT 12/23/2021 3:20 PM CDT Laura Church MD LAB - MICROBIOLOGY O RDERABLES Performing Organization Address [facility] Co de Phone Number [facility] [address] [place] [address] * URINALYSIS W/MICROSCOPIC REFLEX TO CULTURE (12/23/2021 3:19 PM CDT) Color UA YELLOW YELLOW [facility] Appearance CLEAR CLEAR [facility] Specific [place] UA 1.029 1.001 - 1.035 [facility] pH [...] SEEN /LPF [facility] Comment: Test Performed at: [email or web address] [phone] JANET SEE DO,MPH Urine URINE SPECIMEN OBTAINED BY CLEAN CATCH PROCEDURE / Unknown 12/23/2021 3:19 PM CDT 12/23/2021 3:20 PM CDT Laura Church MD LAB - URINALYSIS ORD ERABLES Performing Organization Address [facility]/ZIP Co de Phone Number [facility] [address] [place] [address] * OK SONO EXAM, TRANSVAGINAL (12/20/2021 3:45 PM CDT) Narrative Dariusz Brvao RDMS - 12/20/2021 3:45 PM CDT Dariusz [...] 07/28/2021 at 11:10 AM Laura Church MD US ORDERABLES * COMPLEMENT ACTIVITY TOTAL (CH50) (08/05/2020 5:19 PM CDT) Complement Activity Total CH50 79.4 38.7 - 89.9 U/mL 08/07/2020 9:22 PM CDT [facility] ([facility]) Comment: REFERENCE INTERVAL: Complement Activity Total, (CH50) 38.6 U/mL or less ..........Low 38.7-89.9 U/mL .............Normal 90.0 U/mL or greater .......High Performed By: [facility] [address] [id number] Rigging Up Worker: Julia Bassett MD Blood BLOOD SPECIMEN / Unknown Lab Venipuncture / Unknown 08/05/2020 5:19 PM CDT 08/05/2020 6:09 PM CDT Kiera Beadr MD LAB - CHEMISTRY ORDERABLES [employer] [facility]) [address] [place] [address], [facility] * SS-A (SJOGREN'S) 52+60 ANTIBODIES (08/05/2020 5:19 PM CDT) SS-A 52 Antibody 3 0 - 40 AU/mL 08/08/2020 12:59 PM CDT [employer] ([facility]) Comment: INTERPRETIVE INFORMATION: SSA-52 (Ro52) (LESLIE) Antibody, [...] - 40 AU/mL 08/08/2020 12:59 PM CDT [employer] ([facility]) Comment: REFERENCE INTERVAL: SSA-60 (Ro60) (LESLIE) Antibody, IgG 29 AU/mL or Less ............. Negative 30 - 40 AU/mL ................ Equivocal 41 AU/mL or Greater .......... Positive Performed By: [facility] [address] [place] [address] Rigging Up Worker: Julia Bassett MD Blood BLOOD SPECIMEN / Unknown Lab Venipuncture / Unknown 08/05/2020 5:19 PM CDT 08/05/2020 6:10 PM CDT Kiera Beard MD LAB - CHEMISTRY ORDERABLES Performing Organization Address [facility] de Phone Number [facility] ([facility]) [address] [place] [address] * CHROMATIN ANTIBODY (08/05/2020 5:19 PM CDT) Chromatin Antibody 3 0 - 19 Units 08/10/2020 2:16 PM MANAGER DOCUMENT CONTROL [facility] ([facility]) Comment: INTERPRETIVE INFORMATION: Chromatin Antibody, IgG 19 Units or less: Negative 20 - 60 Units: Moderate Positive 61 Units or greater: Strong Positive The presence of anti-chromatin antibodies may be useful in the diagnosis of systemic lupus erythematosus (SLE) or drug-induced lupus (DIL) and have been reported to be predictive of lupus nephritis, especially when antibody levels are high. Performed By: [facility] [address] [place] [address] Rigging Up Worker: Julia Bassett MD Blood BLOOD SPECIMEN / Unknown Lab Venipuncture / Unknown 08/05/2020 5:19 PM CDT 08/05/2020 6:10 PM CDT Kiera Beard MD LAB - SEROLOGY ORDERABLES Performing Organization Address [facility] de Phone Number [facility] ([facility]) [address] * CYCLIC CITRUL PEPTIDE ANTIBODY IGG/IGA (CCP) (08/05/2020 5:19 PM CDT) CCP Antibodies IgG/IgA 3 0 - 19 units 08/08/2020 12:06 AM CDT [facility] ([facility]) Comment: Negative <20 Weak positive 20 - 39 Moderate positive 40 - 59 Strong positive >59 Blood BLOOD SPECIMEN / Unknown Lab Venipuncture / Unknown 08/05/2020 5:19 PM CDT 08/05/2020 6:09 PM CDT Narrative [facility] ([facility]) - 08/08/2020 12:06 AM CDT Performed at: [address] [place] [id number] Pelt Shearer: Liset Washburn MD, Phone: [phone] Kiera Beard MD LAB - SEROLOGY ORDERABLES Performing Organization Address City/[facility] Co de Phone Number [facility] ([facility]) [address] [place] [address] * CARDIOLIPIN ANTIBODY IGA (08/05/2020 5:19 PM CDT) [facility] Signature Cardiolipin Antibody IgA 2 0 - 11 APL 08/07/2020 10:22 PM CDT [facility] ([facility]) Comment: INTERPRETIVE INFORMATION: Cardiolipin Antibodies, IgA 0-11 APL: Negative 12-19 APL: Indeterminate 20-80 APL: Low to Moderately Positive 81 APL or above: High Positive Performed By: [facility] [address] [place] [address] Rigging Up Worker: Julia Bassett MD Blood BLOOD SPECIMEN / Unknown Lab Venipuncture / Unknown 08/05/2020 5:19 PM CDT 08/05/2020 6:09 PM CDT Kiera Beard MD LAB - SEROLOGY ORDERABLES Performing Organization Address [facility] de Phone Number [facility]) [address] [place] [address] * (ABNORMAL) CARDIOLIPIN ANTIBODY IGM (08/05/2020 5:19 PM CDT) Cardiolipin Antibody IgM 17(H) 0 - 12 MPL 08/08/2020 9:14 AM CDT [facility] ([facility]) Comment: INTERPRETIVE INFORMATION: Anti-Cardiolipin IgM 0-12 MPL: [...] other criteria phospholipid antibody tests. Performed By: [facility] [address] [place] [address] Rigging Up Worker: Julia Bassett MD Blood BLOOD SPECIMEN / Unknown Lab Venipuncture / Unknown 08/05/2020 5:19 PM CDT 08/05/2020 6:10 PM CDT Kiera Beard MD LAB - SEROLOGY ORDERABLES [facility] ([facility]) [address] [place] [address], [facility] * CARDIOLIPIN ANTIBODY IGG (08/05/2020 5:19 PM CDT) [facility] Cardiolipin Antibody IgG 0 0 - 14 GPL 08/08/2020 9:14 AM CDT [facility] ([facility]) Comment: INTERPRETIVE INFORMATION: Anti-Cardiolipin IgG Ab 0-14 [...] other criteria phospholipid antibody tests. Performed By: [employer] [address] [place] [address] Rigging Up Worker: Julia Bassett MD Blood BLOOD SPECIMEN / Unknown Lab Venipuncture / Unknown 08/05/2020 5:19 PM CDT 08/05/2020 6:09 PM CDT Kiera Beard MD LAB - SEROLOGY ORDERABLES Performing Organization Address [facility]/ZIP Co de Phone Number [facility] ([facility]) [address] [place] [address] * RHEUMATOID FACTOR BLOOD QUANTITATIVE (08/05/2020 5:19 PM CDT) Rheumatoid Factor <15 <30 IU/mL 08/05/2020 6:40 PM CDT [facility] Rheumatoid Factor Screen Negative Negative 08/05/2020 6:40 PM CDT [facility] Blood BLOOD SPECIMEN / Unknown Lab Venipuncture / Unknown 08/05/2020 5:19 PM CDT 08/05/2020 6:10 PM CDT Kiera Beard MD LAB - CHEMISTRY ORDERABLES Performing Organization Address City/[facility]/ZIP Co de Phone Number [address] [address], [facility] [phone] * C-REACTIVE PROTEIN (08/05/2020 5:19 PM CDT) C-Reactive Protein 0.5 <=0.5 mg/dL 08/05/2020 6:40 PM CDT [facility] Blood BLOOD SPECIMEN / Unknown Lab Venipuncture / Unknown 08/05/2020 5:19 PM CDT 08/05/2020 6:10 PM CDT Kiera Beard MD LAB - CHEMISTRY ORDERABLES [facility] [address] [place] [address], [facility] [phone] * BETA-2 GLYCOPROTEIN 1 ANTIBODY IGA (08/05/2020 5:19 PM CDT) Pathologist [facility] Beta-2 Glycoprotein Antibody IgA 2 0 - 20 ARABELLA 08/07/2020 11:13 PM CDT [employer] ([facility]) Comment: Performed By: [facility] [address] [place] [address] Rigging Up Worker: Julia Bassett MD Blood BLOOD SPECIMEN / Unknown Lab Venipuncture / Unknown 08/05/2020 5:19 PM CDT 08/05/2020 6:10 PM CDT Kiera Beard MD LAB - SEROLOGY ORDERABLES Performing Organization Address [facility] de Phone Number [facility]) [address] [place] [address] * HISTONE ANTIBODY (08/05/2020 5:19 PM CDT) Pathologist [facility] Histone Antibody IgG 0.4 0.0 - 0.9 Units 08/08/2020 12:40 PM CDT [facility] ([facility]) Comment: INTERPRETIVE INFORMATION: Histone Ab, IgG 0.9 Units or less ............ Negative 1.0 - 1.5 Units .............. Weak Positive 1.6 - 2.5 Units .............. Moderate Positive 2.6 Units or greater ......... Strong Positive Performed By: [facility] [address] [place] [address] Rigging Up Worker: Julia Bassett MD Blood BLOOD SPECIMEN / Unknown Lab Venipuncture / Unknown 08/05/2020 5:19 PM CDT 08/05/2020 6:09 PM CDT Kiera Beard MD LAB - CHEMISTRY ORDERABLES Performing Organization Address City/[facility]/ZIP Co de Phone Number [facility]) [address] * BETA-2 GLYCOPROTEIN 1 ANTIBODY IGG/IGM PANEL (08/05/2020 5:19 PM CDT) Pathologist [facility] Beta-2 Glycoprotein Antibody IgG 7 0 - 20 SGU 08/08/2020 4:24 PM CDT [facility] ([facility]) Beta-2 Glycoprotein Antibody IgM 6 0 - 20 SMU 08/08/2020 4:24 PM CDT [facility] ([facility]) Comment: INTERPRETIVE INFORMATION: [id number] I, IgG and IgM Antibody The persistent [...] other criteria phospholipid antibody tests. Performed By: [facility] [address] [place] [address] Rigging Up Worker: Julia Bassett MD Blood BLOOD SPECIMEN / Unknown Lab Venipuncture / Unknown 08/05/2020 5:19 PM CDT 08/05/2020 6:09 PM CDT Kiera Beard MD LAB - CHEMISTRY ORDERABLES [facility]) [address] * SS-B (SJOGREN'S) ANTIBODY (08/05/2020 5:19 PM CDT) SS-B Antibody 0 0 - 40 AU/mL 08/08/2020 12:59 PM CDT [facility] ([facility]) Comment: INTERPRETIVE INFORMATION: SSB (La) (LESLIE) Ab, [...] (PSS) also have this antibody. Performed By: [facility] [employer] [address] [place] [address] Rigging Up Worker: Julia Bassett MD Blood BLOOD SPECIMEN / Unknown Lab Venipuncture / Unknown 08/05/2020 5:19 PM CDT 08/05/2020 6:10 PM CDT Kiera Beard MD LAB - CHEMISTRY ORDERABLES [facility]) [address] [place] [address], [facility] * VITAMIN D 25-HYDROXY (08/05/2020 5:19 PM CDT) Vitamin D, 25 Hydroxy 34.0 See comment: ng/mL 08/05/2020 6:53 PM CDT [facility] Comment: The recommendations for 25-Hydroxy Vitamin D [...] Kiera Beard MD LAB - CHEMISTRY ORDERABLES [facility] [address] [address], [facility] [phone] * ALDOLASE (08/05/2020 5:19 PM CDT) Aldolase 7.9 1.5 - 8.1 U/L 08/08/2020 12:28 AM CDT [employer] [facility] ([facility]) Comment: REFERENCE INTERVAL: Aldolase Access complete set of age- and/or gender-specific reference intervals for this test in the [facility] Test Directory ([employer]). Performed By: [facility] [address] [place] [address] Rigging Up Worker: Julia Bassett MD Blood BLOOD SPECIMEN / Unknown Lab Venipuncture / Unknown 08/05/2020 5:19 PM CDT 08/05/2020 6:09 PM CDT Kiera Beard MD LAB - CHEMISTRY ORDERABLES Performing Organization Address [facility] Co de Phone Number [employer] [facility]) [address] [place] [address] * (ABNORMAL) ERYTHROCYTE SEDIMENTATION RATE (08/05/2020 5:19 PM CDT) [facility] Erythrocyte Sedimentation Rate Westergren 27(H) 0 - 20 MM/HR 08/05/2020 6:50 PM CDT [facility] Blood BLOOD SPECIMEN / Unknown Lab Venipuncture / Unknown 08/05/2020 5:19 PM CDT 08/05/2020 6:10 PM CDT Kiera Beard MD LAB - HEMATOLOG Y ORDERABLES [facility] [address] [place] [address], [facility] [phone] * COMPLEMENT C4 (08/05/2020 5:19 PM CDT) [facility] Complement C4 28 15 - 57 mg/dL 08/05/2020 11:40 PM CDT [facility] Blood BLOOD SPECIMEN / Unknown Lab Venipuncture / Unknown 08/05/2020 5:19 PM CDT 08/05/2020 6:08 PM CDT Kiera Beard MD LAB - SEROLOGY ORDERABLES [address] [address], [place] [phone] * LDH BLOOD (08/05/2020 5:19 PM CDT) LDH Total 198 125 - 243 Units/L 08/05/2020 6:38 PM CDT [facility] Blood BLOOD SPECIMEN / Unknown Lab Venipuncture / Unknown 08/05/2020 5:19 PM CDT 08/05/2020 6:08 PM CDT Kiera Beard MD LAB - CHEMISTRY ORDERABLES [address] [address], [place] [phone] * CK BLOOD (08/05/2020 5:19 PM CDT) Pathologist [facility] CK Total 99 30 - 200 Units/L 08/05/2020 6:38 PM CDT [facility] Blood BLOOD SPECIMEN / Unknown Lab Venipuncture / Unknown 08/05/2020 5:19 PM CDT 08/05/2020 6:08 PM CDT Kiera Beard MD LAB - CHEMISTRY ORDERABLES [address] [address], [place] [phone] * COMPLEMENT C3 (08/05/2020 5:19 PM CDT) Complement C3 180 82 - 193 mg/dL 08/05/2020 11:40 PM CDT [facility] Blood BLOOD SPECIMEN / Unknown Lab Venipuncture / Unknown 08/05/2020 5:19 PM CDT 08/05/2020 6:08 PM CDT Kiera Beard MD LAB - CHEMISTRY ORDERABLES [facility] [address] [place] [address], [facility] [phone] * XR KNEE RIGHT 3VW (08/05/2020 4:57 [...] URINALYSIS W/MICROSCOPIC NO CULTURE (08/05/2020 4:35 PM T) Color UA Yellow Straw, Yellow, Colorless 08/05/2020 6:29 PM [facility] Clarity UA Slt Cloudy Clear, t Cloudy 08/05/2020 6:29 PM [facility] Specific [place] UA 1.018 1.005 - 1.030 08/05/2020 6:29 PM [facility] pH UA 7.0 5.0 - 8.0 pH 08/05/2020 6:29 PM [facility] Protein UA Negative Negative mg/dL 08/05/2020 6:29 PM [facility] Glucose UA Negative Negative mg/dL 08/05/2020 6:29 PM [facility] Ketone UA Negative Negative mg/dL 08/05/2020 6:29 PM [facility] Bilirubin UA Negative Negative mg/dL 08/05/2020 6:29 PM [facility] Blood UA Negative Negative 08/05/2020 6:29 PM [facility] Nitrite UA Negative Negative 08/05/2020 6:29 PM [facility] Leukocyte Esterase Negative Negative 08/05/2020 6:29 PM [facility] Urobilinogen UA Negative Negative mg/dL 08/05/2020 6:29 PM [facility] RBC UA 0-2 None Seen, 0-2, 3-5 /HPF 08/05/2020 6:29 PM [facility] WBC UA 0-5 None Seen, 0-5 /HPF 08/05/2020 6:29 PM [facility] Squamous Epithelial Cells UA None Seen None Seen, 0-2 /HPF 08/05/2020 6:29 PM [facility] Mucus UA 1+ None, 1+ /LPF 08/05/2020 6:29 PM [facility] Amorphous Crystals Few Rare, Occasional, Few, Moderate, None /HPF 08/05/2020 6:29 PM CDT [facility] Urine URINE SPECIMEN OBTAINED BY CLEAN CATCH PROCEDURE / Unknown Collection / Unknown 08/05/2020 4:35 PM CDT 08/05/2020 6:08 PM CDT Narrative [facility] - 08/05/2020 6:29 PM CDT Kiera Beard MD LAB - URINALYSI S ORDERABLES [facility] [address] [place] [address], [facility] [phone] * APHERESIS/TRANSFUSION ORDER (03/25/2020 6:44 PM CDT) Narrative 03/25/2020 6:44 PM CDT Ordered by an unspecified provider. Scanned Document NURSING - VITAL SIGN S AND ASSESSMENT * GROSS + MICRO EXAM (STL) (03/24/2020 5:49 PM CDT) Case Report Surgical Pathology Report Case: [id number] Authorizing Provider: Edgardo Sosa MD Collected: 03/24/2020 05:49 PM Ordering Location: [facility] Received: 03/25/2020 06:37 AM Pathologist: Aydee Magallanes [...] O) - Appendix 03/26/2020 3:29 PM CDT [facility] Final Diagnosis A. Left sigmoid mesentery, [...] - No histopathologic abnormality 03/26/2020 3:29 PM [facility] Clinical History The patient is a 29-year-old woman who presents for diagnostic laparoscopy with excision of endometriosis. 03/26/2020 3:29 PM CDT [facility] Gross Description The specimens are received [...] 0.6 cm in diameter. The tip and jewelry sales representative sections are submitted in O. RUDOLPH/guillaume 03/26/2020 3:29 PM [facility] Microscopic Description Microscopic examination substantiates the final diagnosis. 03/26/2020 3:29 PM [facility] Disclaimer All histochemical and/or immunohistochemical results are interpreted with controls that demonstrate appropriate staining reactions before reporting results. Note on use of immunocytochemistry reagents: This test was developed and its performance characteristic determined by [facility], Department of Laboratory Medicine. It has not [...] interpreted with caution. 03/26/2020 3:29 PM CDT [facility] Embedded Images 03/26/2020 3:29 PM CDT [facility] Pathology/Cytology TISSUE SPECIMEN / Unknown 03/24/2020 [...] Sosa MD LAB - PATHOLOGY/CY TOLOGY ORDERABLES [facility] [address] [place] [address] * ETT LINE PERFORMABLE (03/24/2020 5:09 PM CDT) Narrative Hubert Gravin APRN-CRNA - 03/24/2020 5:09 PM CDT Hubert Garvin APRN-CRNA 03/24/2020 5:09 PM Endotracheal Tube Placement: Patient Location: OR. Intubation Event Date/Time: 03/24/2020 4:48 PM Procedure: intubation ([id number]). Procedure Section: Sedation: under general anesthesia. Indications [...] 4:48 PM. Staff Section Anesthesia Provider: Hubert Garvin APRN-CRNA, Performed the procedure Eduardo Yates DO GENERAL ANESTHESIA O SHAHEEN * BLOOD TYPE VERIFICATION (03/24/2020 11:34 AM CDT) ABO Rh O POS 03/24/2020 11:59 AM CDT [facility] Blood Bank BLOOD SPECIMEN / Unknown Venipuncture / Unknown 03/24/2020 11:34 AM CDT 03/24/2020 11:37 AM CDT Edgardo Sosa MD LAB - BLOOD BANK O [facility] BLOOD BANK LAB [address] [phone] * SARS-COV-2 (COVID-19) IN HOUSE (03/19/2020 1:50 PM CDT) COVID-19 PCR Not detected Not detected, Invalid 03/19/2020 11:[address] [facility] MICROBIOLOGY Microbiology SPECIMEN FROM NASOPHARYNGEAL STRUCTURE / Unknown Collection / Unknown 03/19/2020 1:50 PM CDT 03/19/2020 2:[address] [facility] MICROBIOLOGY - 03/19/2020 11:46 PM CDT This Real Time RT-PCR assay was developed and its performance characteristics determined by [facility] Microbiology Laboratory. This test has been [...] Edgardo Sosa MD LAB - MICROBIOLOGY ORDERABLES [facility] MICROBIOLOGY [address] [place] [address], [facility] [phone] * OK US PELVIC NONOB REAL-TIME IMG COMPLETE, US TRANSVAGINAL NON OB (11/29/2019 2:25 PM MANAGER DOCUMENT CONTROL) Anatomical Region Laterality Modality Abdomen Ultrasound Narrative 11/29/2019 2:25 PM MANAGER DOCUMENT CONTROL Agnes Purdy 11/29/2019 2:25 PM Documentation in digisonics. Edgardo Sosa MD US ORDERABLES * C. TRACHOMATIS + N. GONORRHOEAE OSBALDO (10/21/2019 9:17 AM MANAGER DOCUMENT CONTROL) Chlamydia Trachomatis OSBALDO Not Detected Not Detected 10/25/2019 9:23 AM MANAGER DOCUMENT CONTROL [facility] Neisseria Gonorrhoeae OSBALDO Not Detected Not Detected 10/25/2019 9:23 AM MANAGER DOCUMENT CONTROL [facility] Microbiology MISCELLANEOUS SAMPLES / Unknown 10/21/2019 9:17 AM MANAGER DOCUMENT CONTROL 10/22/2019 12:14 PM MANAGER DOCUMENT CONTROL Narrative [facility] PATHOLOGY LAB - 10/25/2019 9:23 AM MANAGER DOCUMENT CONTROL This analysis was performed using Clicks for a Cause Aptima Combo 2. This methodology is [place] FDA approved for Chlamydia trachomatis and Neisseria gonorrhoeae testing for urine and urogenital swabs from men and women, and cervical cells submitted in ThinPrep vials. Performance characteristics for rectal and pharyngeal swabs were determined by the Molecular Diagnostics Laboratory at [facility]. Testing by Gen-Probe Aptima Combo 2 on [...] Edgardo Sosa MD LAB - MICROBIOLOGY ORDERABLES [facility] PATHOLOGY LAB [address] [facility]. [address] [phone] * (ABNORMAL) CULTURE STREP GROUP A (12/02/2017 11:45 AM MANAGER DOCUMENT CONTROL) Beta-Strep Culture, Group A Only (A) [facility] [...] OF NECK) / Unknown 12/02/2017 11:45 AM MANAGER DOCUMENT CONTROL 12/04/2017 Narrative Resulting Agency Comment [facility] [address] [facility] [phone] Sonal ROBERT LAB - MICROBI OLOGY ORDERABLES [facility] INSURANCE BILL [address] [place] [address] * STREP A SCREEN - POINT OF CARE (AMB) STL (12/02/2017) Only the most recent of4 resultswithin the time period is included. Pathologist [facility] Strep A Rapid POCT Negative Negative Strep A Internal Control Present Lot # [id number] Expiration Date [id number] Throat ENTIRE THROAT (SURFACE REGION OF NECK) / Unknown 12/02/2017 Sonal Abarca [employer] - POINT O F CARE ORDERABLES * MONONUCLEOSIS SCREEN - POINT OF CARE (AMB) STL (12/02/2017) Pathologist [facility] Mononucleosis Screen POCT negative NEGATIVE Riley Test Internal Control present Riley Test Lot# [id number] Riley Test Exp Date [phone] Blood BLOOD SPECIMEN / Unknown 12/02/2017 Sonal Abarca [employer] [facility] - POINT O F CARE ORDERABLES * CULTURE THROAT (07/05/2017 12:23 PM CDT) Only the most recent of2 resultswithin the time period is included. [facility] Culture [facility] Comment: CULTURE, THROAT MICRO NUMBER: [id number] TEST STATUS: FINAL SPECIMEN SOURCE: THROAT SPECIMEN QUALITY: ADEQUATE RESULT: No oropharyngeal pathogens recovered. Test Performed at: [id number] [id number] ALTAGRACIA BOCANEGRA MD Microbiology ENTIRE THROAT (SURFACE REGION OF NECK) / Unknown 07/05/2017 12:23 PM CDT 07/05/2017 10:51 PM CDT Sonal Bonilla Rima [facility] - MICROBI OLOGY ORDERABLES [address] [address] Care Teams District Leader Relationship Specialty Start Date End Date Cleo Edouard [address] [place] [address] [place] [phone] PCP - General 08/10/23
--- OUTSIDE RECORDS SUMMARY | 2024-11-24 11:53 | XMS_ITS | Referral Summary ---
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 Department [place] [address] * (ABNORMAL) Comprehensive metabolic panel (11/07/2024 9:55 AM AUTOMATED CUTTING MACHINE OPERATOR) Sodium 142 135 - 145 mmol/L Potassium, pl 4.2 3.3 - 4.9 mmol/L [facility] Chloride 112(H) 97 - 110 mmol/L [facility] CO2 23 22 - 32 mmol/L [facility] Anion gap 7 2 - 15 mmol/L [facility] BUN 19 6 - 25 mg/dL [facility] Creatinine 1.03 0.60 - 1.10 mg/dL [facility] Glucose 99 70 - 199 mg/dL [facility] Comment: Interpretive Data Fasting glucose >/= [...] 2022. Calcium 9.0 8.5 - 10.3 mg/dL [facility] Bilirubin, total 0.3 0.1 - 1.2 mg/dL [facility] Protein, pl 7.3 6.5 - 8.5 g/dL [facility] Albumin 4.3 3.5 - 5.0 g/dL [facility] Alk phos 77 40 - 130 Units/L [facility] ALT 31 7 - 45 Units/L [facility] AST 17 10 - 45 Units/L [facility] Blood 11/07/2024 9:55 AM AUTOMATED CUTTING MACHINE OPERATOR 11/07/2024 10:10 AM AUTOMATED CUTTING MACHINE OPERATOR Jacque John NP LAB BLOOD ORDERABLES Final Result [facility] Department [place] [address] from Last 3 Months Insurance [facility] [employer] [facility] CHOICE PL[employer] [facility] HMO/PPO Address: [address] [address] [place] [address] ID[employer] Advance Directives For more information, please contact: [phone] * Full Code (Latest Code Status on File) Date Activated Date Inactivated Comments 03/01/2023 11:21 AM 03/02/2023 7:06 PM * Full Code Date Activated Date Inactivated Comments 11/15/2022 1:26 PM 11/15/2022 7:27 PM Care Teams Senior Design Engineer Relationship Specialty Start Date End Date Cleo Edouard MD [address] [facility] [address] [place] [address] PCP - General Family Medicine 02/17/23 Dayday Carolina NP [address] [place] [address] [address] [place] [address] 12/03/20 Deneen Gil NP [address] [place] [address] [address] [place] [address] Nurse Practitioner Psychiatry 07/06/22 Sung Luque MD [address] [place] [address] [address], [place] [address] Child Welfare Worker Obstetrics and Gynecology 07/06/22 Kiera Beard MD [address] [place] [address] Rheumatology 07/06/22 Ze Duffy MD [address] [facility] [address] [place] [address] Neurology 07/06/22
[2024-11-24 11:59] VITALS: BP 118/71; PULSE 91; RESP 16; TEMP 36.7; O2SAT 99
--- NOTE | 2024-11-24 13:30 | ED_ITS ---
HPI - General Adult General Chief complaint: Upper Respiratory Infection Stated complaint: Congestion/Cough/Fever Source: patient Mode of arrival: ambulatory Limitations: no limitations History of Present Illness HPI narrative: Patient presents for evaluation of sinus symptoms. Symptom onset about 1 week ago. She reports sinus congestion, mucopurulent discharge from the nares, fever, chills and pressure in her left ear. She has been taking OTC cough and cold medication. She states she was seen here and given a script for steroids. She indicates that symptoms improved while taking steroids but she had symptom recurrence thereafter. She does not smoke. Related Data Home Medications ?Medication ?Instructions ?Recorded ?Confirmed ?Last Taken ?Type norethindrone (contraceptive) 0.35 0.35 mg PO DAILY 01/24/22 11/24/24 Unknown History mg tablet bupropion HCl 150 mg 24 hr tablet, 150 mg PO DAILY 05/31/23 11/24/24 Unknown His tory extended release sertraline 50 mg tablet 50 mg PO BID 05/31/23 11/24/24 Unknown History atogepant 60 mg tablet (Qulipta) mg 11/24/24 Unknown History pregabalin 150 mg capsule mg 11/24/24 Unknown History sumatriptan succinate 100 mg tablet mg PO 11/24/24 Unknown History topiramate 50 mg tablet mg 11/24/24 Unknown History Allergies Allergy/AdvReac Type Severity Reaction Status Date / Time No Known Allergies Allergy Verified 11/24/24 11:59 Review of Systems Review of Systems: CONSTITUTIONAL: Reports fever and chills. EYES: Denies visual changes, redness, or discharge. ENT: Reports sinus congestion, mucopurulent discharge from the nares, and pressure in the left ear CARDIOVASCULAR: Denies chest pain, palpitations, or edema. RESPIRATORY: Denies cough or dyspnea. GASTROINTESTINAL: Denies abdominal pain, nausea, vomiting, or diarrhea. GENITOURINARY: Denies dysuria or hematuria. SKIN: Denies rash or itching. MUSCULOSKELETAL: Denies back pain, joint pain, or myalgia. NEUROLOGIC: Denies headache, numbness, dizziness, or weakness. PSYCHIATRIC: Denies anxiety or depression. [facility] Past Medical History Medical History Chronic headaches Interstitial cystitis Anxiety and depression Surgical History Surgical History H/O gastric sleeve History of tonsillectomy Hx of cholecystectomy Family History Family History Other No significant family history Social History Social History Smoking status: Never smoker Alcohol intake: unknown Substance use: never Living arrangements: with family Gender identity (if verbalized by the patient): Female Exam Narrative: GENERAL: Well-appearing, well-nourished, and in no acute distress. HEAD: Normocephalic, atraumatic. EYES: PERRLA and EOMI. ENT: frontal and bilaterally maxillary sinus tenderness. Nares without epistaxis. Mucous membranes moist. Oropharynx without tonsillar hypertrophy e xudate or other lesions. Bilateral TMs pearly gonzalez nonbulging NECK: Supple. No adenopathy or masses. No carotid bruits or JVD CHEST: Clear to auscultation. No respiratory distress. No wheezes rales or rhonchi HEART: Regular rate and rhythm. No murmur heard. Normal peripheral pulses. ABDOMEN: Soft, nontender, nondistended, normal active bowel sounds. EXTREMITIES: Normal range of motion. No edema. SKIN: Warm, dry, no rash. NEURO: No focal deficits. Alert and oriented x3. PSYCH: Normal mood and affect. Course Course Emergency Course: This is a 34-year-old female who presented for evaluation of sinus symptoms. She meets criteria for bacterial sinusitis based upon duration of time in which she has been symptomatic, mucopurulent nature for nasal discharge, and rebound symptoms. She will be discharged with augmentin. She should follow-up with her primary provider go to the ER for worsening symptoms. Patient in agreement with plan of care for Level of Care: Express Care Visit Vital Signs Vital signs: Vital Signs Temperature 36.7 C 11/24/24 11:59 Pulse Rate 91 11/24/24 11:59 Respiratory Rate 16 11/24/24 11:59 Blood Pressure 118/71 11/24/24 11:59 Pulse Oximetry 99 11/24/24 11:59 Oxygen Delivery Room Air 11/24/24 11:59 Temperature 36.7 C 11/24/24 11:59 Pulse Rate 91 11/24/24 11:59 Respiratory Rate 16 11/24/24 11:59 Blood Pressure 118/71 11/24/24 11:59 Pulse Oximetry 99 11/24/24 11:59 Oxygen Delivery Room Air 11/24/24 11:59 Medical Decision Making Vital Signs Vital Signs: Vital Signs Temperature 36.7 C 11/24/24 11:59 Pulse Rate 91 11/24/24 11:59 Respiratory Rate 16 11/24/24 11:59 Blood Pressure 118/71 11/24/24 11:59 Pulse Oximetry 99 11/24/24 11:59 Oxygen Delivery Room Air 11/24/24 11:59 Temperature 36.7 C 11/24/24 11:59 Pulse Rate 91 11/24/24 11:59 Respiratory Rate 16 11/24/24 11:59 Blood Pressure 118/71 11/24/24 11:59 Pulse Oximetry 99 11/24/24 11:59 Oxygen Delivery Room Air 11/24/24 11:59 Discharge Plan Discharge Clinical Impression: Sinusitis Patient Disposition: Home, Self-Care Condition: Stable Instructions: Antibiotic Form, Sinusitis (ED) Patient Language: Prydeinig Prescriptions: New amoxicillin-pot clavulanate 875-125 mg tablet 1 tablet PO Q12H Qty: 20 0RF No Action norethindrone (contraceptive) 0.35 mg Tablet 0.35 mg PO DAILY sertraline 50 mg tablet 50 mg PO BID bupropion HCl 150 mg tablet extended release 24 hr 150 mg PO DAILY sumatriptan succinate 100 mg tablet PO topiramate 50 mg tablet pregabalin 150 mg capsule Qulipta 60 mg tablet Follow-up/Referrals: Cleo Edouard [Other] Time of Disposition: 13:29
== END 2024-11-24 13:34 | disposition home or self-care (01) ==
PROVIDERS: Emergency Provider Nurse Practitioner
DX: J32.9 Chronic sinusitis, unspecified (principal); N30.10 Interstitial cystitis (chronic) without hematuria; F41.9 Anxiety disorder, unspecified; F32.A Depression, unspecified
CPT/HCPCS: 99213; G0463

== ENCOUNTER 2025-05-22 15:17 | Emergency (ER) | payer OTHER, SELFPAY ==
--- OUTSIDE RECORDS SUMMARY | 2025-05-22 15:19 | XMS_ITS | Encounter Summary ---
Author Organization [facility] Address [address] [place] [address] Care Team Providers Care Machine Packager Name Role Phone Clayton Bonillalanda Ryan LOPEZ-RICKEY Primary Care Provider Cleo Edouard Primary Care Provider [phone] Reason for Visit * Reason Onset Date Comments Encounter Opened In Error 06/19/2023 Encounter Details Date Type Department Care Team (Late Contact Info) Description 06/19/2023 Telephone [facility] - WOOD PRODUCTS MANUFACTURER [address] [place] [phone] Sandie Moreno MD [address] [place] [phone] Encounter Opened In Error Social History Tobacco Use Types Packs/Day Years Used Date Smoking Tobacco: Never Passive Smoke Exposure: Past Smokeless Tobacco: Never Alcohol Use Standard Drinks/Week Comments Not Currently 0 (1 standard drink = 0.6 oz pur e alcohol) once a month or less- rare Comments No Sex and Gender Information Value Date Recorded Sex Assigned at Female 10/12/2020 2:52 PM UI SOFTWARE ENGINEER Legal Sex Female 10:38 AM UI SOFTWARE ENGINEER Gender Identity Female 10/12/2020 2:52 PM UI SOFTWARE ENGINEER Sexual Orientation Not on file documented as of this encounter Plan of Treatment Upcoming Encounters Date Type Department Care Team (Late Contact Info) Description 06/19/2025 1:00 PM CDT Office Visit [facility] [address] [place] [phone] Karmen Lopez, GRAVITY MANAGER-FIRE PREVENTION RESEARCH ENGINEER [address] [facility] [place] [address] 11/28/2025 11:45 AM UI SOFTWARE ENGINEER Office Visit [facility] - WOOD PRODUCTS MANUFACTURER [address] [facility] [address] [place] [address] Rina Brooks MD [address] [facility] [address] [place] [phone] 12/09/2025 10:00 AM UI SOFTWARE ENGINEER Office Visit [facility] - [address] [facility] [address] [place], [place] [id number] Serjio Hendricks, GRAVITY MANAGER-FIRE PREVENTION RESEARCH ENGINEER [address] [facility] [address] [place] [address] documented as of this encounter Goals Goal [...] on filedocumented in this encounter Care Teams Machine Packager Relationship Specialty Start Date End Date Debi Bonilla APNP-RICKEY [address] [place] [address] PCP - General 01/16/23 08/09/23 Cleo Edouard [address] [place] [address] Dr [address] [place] [phone] PCP - General 08/10/23 documented as of this encounter
--- OUTSIDE RECORDS SUMMARY | 2025-05-22 15:19 | XMS_ITS | Encounter Summary ---
Author Organization [facility] Address [address] [facility] [place] [address] Care Team Providers Care Forest Fire Fighters Dispatcher Name Role Phone Irene, Debi SMITH Primary Care Provider Cleo Edouard Primary Care Provider [phone] Reason for Visit * Reason Onset Date Comments Rx Drug Information Question 04/27/2023 Encounter Details Date Type Department Care Team (Late st Contact Info) Description 04/27/2023 Telephone [facility] - SALES TEACHER [address] [place] [address] [place] [address] Sandie Moreno MD [address] [address] Rx Drug Information Question Social [...] Sex Assigned at Female 10/12/2020 2:52 PM LIFE SKILLS SPECIALIST Legal Sex Female 10:38 AM LIFE SKILLS SPECIALIST Gender Identity Female 10/12/2020 2:52 PM LIFE SKILLS SPECIALIST Sexual Orientation Not on file COVID-19 Exposure [...] - 04/27/2023 10:43 AM CDT RN called [facility] and med sent to [facility]. [facility] just wanted to let [...] Care Team (Late st Contact Info) Description 06/19/2025 1:00 PM CDT Office Visit [address] [phone] Karmen Lopez, PASSENGER REPRESENTATIVE-BATCH UNIT TREATER [address] [facility] [address] 11/28/2025 11:45 AM LIFE SKILLS SPECIALIST Office Visit [facility] - SALES TEACHER [address] [facility] [address] [place] [phone] Rina Brooks MD [address] [facility] [address] [place] [address] 12/09/2025 10:00 AM LIFE SKILLS SPECIALIST Office Visit [facility] - GI [address] [facility] [address] [place], [place] [phone] Serjio Hendricks, PASSENGER REPRESENTATIVE-BATCH UNIT TREATER [address] [facility] [address] [place] [address] documented as of this encounter [...] filedocumented in this encounter Care Teams Forest Fire Fighters Dispatcher Relationship Specialty Start Date End Date Debi Bonilla APNP-RICKEY [address] [place] [address] PCP - General 01/16/23 08/09/23 Cleo Edouard [address] [place] [address] Dr Kennedy [address] [place] [phone] PCP - General 08/10/23 documented as of this encounter
--- OUTSIDE RECORDS SUMMARY | 2025-05-22 15:20 | XMS_ITS | Encounter Summary ---
Author Organization [facility] Address [address] [facility] [place] [address] Care Team Providers Care Die Trouble Shooter Name Role Phone Dayday Carolina ROLL CARRIER-MOLDER FEEDER Primary Care Provider [phone] Debi Bonilla APNP-MOLDER FEEDER Primary Care Provider Debi Bonilla APNP-MOLDER FEEDER Primary Care Provider Cleo Edouard Primary Care Provider [phone] Reason for Visit * Reason Onset Date Comments Referral 11/23/2021 URO/DURABLE MEDICAL EQUIPMENT TECHNICIAN Encounter Details Date Type Department Care Team (Late st Contact Info) Description 11/23/2021 Telephone [facility] [address] [facility] [address] [place] [address] Laura Church MD Need new address Referral (URO/DURABLE MEDICAL EQUIPMENT TECHNICIAN) Social History Tobacco Use Types Packs/Day Years Used Date Smoking Tobacco: Never Smokeless Tobacco: Never Alcohol Use Standard Drinks/Week Comments Yes 0 (1 standard drink = 0.6 oz pur e alcohol) Comments No Sex and Gender Information Value Date Recorded Sex Assigned at Female 10/12/2020 2:52 PM STILL OPERATOR GIN Legal Sex Female 10:38 AM STILL OPERATOR GIN Gender Identity Female 10/12/2020 2:52 PM STILL OPERATOR GIN Sexual Orientation Not on file documented as of this encounter Miscellaneous Notes * Telephone Encounter - Eduardo Bauer RN - 11/23/2021 1:[address] Church referring pt for incontinence/leakage. Reviewed w/ Uro/shot core drill operator doctors. Would like her IC under control before treating for leakage. Dr Church to review chart. LM on her personal VM re: Dr Church wants to review your chart before going proceeding With seeing UroGyn doctors. Please cb if you have questions. L OPERATOR GIN L OPERATOR GIN L OPERATOR GIN * Telephone Encounter - Licha Mancilla - 11/23/2021 12:37 PM CST Pt is needing to speak with someone about being referred to URO/DURABLE MEDICAL EQUIPMENT TECHNICIAN. She states she returned a missed call about being scheduled and never heard anything back. CB# [phone] L OPERATOR GIN documented in this encounter Plan of Treatment Upcoming Encounters Date Type Department Care Team (Late st Contact Info) Description 06/19/2025 1:00 PM CDT Office Visit [facility] [address] [place] [address] Karmen Lopez, ROLL CARRIER-MOLDER FEEDER [address] [place] [address].First Floor [place], [place] [phone] 11/28/2025 11:45 AM STILL OPERATOR GIN Office Visit [facility] - SMALL ANIMAL VETERINARIAN [address] [facility], [facility] [address] [place] [address] Rina Brooks MD [address] [facility] [address] [place] [address] 12/09/2025 10:00 AM STILL OPERATOR GIN Office Visit [facility] - GI [address] [facility] [address] [place], [place] [phone] Serjio Hendricks, ROLL CARRIER-MOLDER FEEDER [address] [facility] [address] [place] [address] documented as of this encounter Visit Diagnoses Not on filedocumented in this encounter Care Teams Die Trouble Shooter Relationship Specialty Start Date End Date Dayday Carolina APRN-MOLDER FEEDER [address] [facility] [address] EUGEN[address] [place] [address] PCP - General 07/01/20 04/07/22 Debi Bonilla APNP-MOLDER FEEDER [address] [place] [phone] PCP - General 04/08/22 01/15/23 Debi Bonilla APNP-MOLDER FEEDER [address] [place] [phone] PCP - General 01/16/23 08/09/23 Cleo Edouard [address] [facility] [address] [place] [address] PCP - General 08/10/23 documented as of this encounter
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
--- OUTSIDE RECORDS SUMMARY | 2025-05-22 15:20 | XMS_ITS | Encounter Summary ---
Author Organization [facility] Address [address] [place] [address] Phone Care Team Providers Care Medart Operator Name Role Phone Neel Evans MD Primary Care Provider Neel Evans MD Unavailable [phone] Amalia Li DISPATCH SPECIALIST, PRINCIPAL ARCHITECT Unavailable [phone] Bekah Hills DISPATCH SPECIALIST, BACK TENDER FOURDRINIER Unavailable Reason for Visit * Reason Comments Medication Refill Encounter Details Date Type Department Care Team (Late st Contact Info) Description 04/21/[address] [facility] - Neurology [facility] [address] [place] [address] Amalia Li, DISPATCH SPECIALIST, PRINCIPAL ARCHITECT [address] [place] [address] Medication Refill Social History Tobacco Use Types Packs/Day Years Used Date Smoking Tobacco: Never Smokeless Tobacco: Never Alcohol Use Standard Drinks/Week Comments Yes 0 (1 standard drink = 0.6 oz pur e alcohol) occasional PHQ-2 Answer Date Recorded PHQ-2 Score 0 06/25/2019 Sexually Active Control Partners Comments Yes Male Comments No Sex and Gender Information Value Date Recorded Sex Assigned at Female 10/29/2024 1:03 PM QUICK PRINT OPERATOR Legal Sex Female 11:50 PM CDT Gender Identity Female 10/29/2024 1:03 PM QUICK PRINT OPERATOR Sexual Orientation Straight 10/29/2024 1: 03 PM QUICK PRINT OPERATOR documented as of this encounter Plan of Treatment Upcoming Encounters Date Type Department Care Team (Late st Contact Info) Description 06/02/2025 4:00 PM CDT Office Visit [facility] - Neurology - [place] [address] [place] [address] Amalia Li APRN, PRINCIPAL ARCHITECT [address] [place] [address] 06/04/2025 1:00 PM CDT [facility] [address] [place] [address] Jordi Grimm MD [address]2 [facility] [address] [place] [address] Discharge Disposition: Discharged to home or Selfcare 07/02/2025 2:00 PM CDT [facility] - [place] [address] [place] [address] Britt Rodriguez MD 2 [facility] [address] [place] [address] 10/13/2025 10:00 AM QUICK PRINT OPERATOR Office Visit [facility] - Pulmonology & Sleep Medicine - [place] [address] [place] [address] Bekah Hills APRN, BACK TENDER FOURDRINIER [address]2 [facility] [address] [place] [address] documented as of this encounter Visit Diagnoses Not on filedocumented in this encounter Additional Health Concerns Assessment Noted Time PHQ-9 Depression Total Score: 0 11/02/19 19 4:20 PM QUICK PRINT OPERATOR documented as of this encounter Care Teams Medart Operator Relationship Specialty Start Date End Date Neel Evans MD [address] [place] [address] PCP - General Family Medicine 08/16/24 Neel Evans MD [address] [place] [address] Family Medicine 08/16/24 Amalia Li APRN, PRINCIPAL ARCHITECT #[address] [place] [address] Nurse Practitioner Advanced Practice Nurse 10/31/24 Bekah Hills APRN, BACK TENDER FOURDRINIER #[address] [facility] [address] [address] Nurse Practitioner Advanced Practice Nurse 11/29/24 documented as of this encounter
--- OUTSIDE RECORDS SUMMARY | 2025-05-22 15:20 | XMS_ITS | Encounter Summary ---
Author Organization [facility] Address [address] [facility] [place] [address] Care Team Providers Care Ground Worker Name Role Phone Cleo Edouard Primary Care Provider [phone] Reason for Visit * Reason Onset Date Comments Reschedule Appointment 10/18/2023 Encounter Details Date Type Department Care Team (Late st Contact Info) Description 10/18/2023 Telephone [facility] - WRAPAROUND FACILITATOR [address] [facility] [address] [place] [address] Sandie Moreno MD [address] [address] Reschedule Appointment Social History Tobacco Use Types Packs/Day Years Used Date Smoking Tobacco: Never Passive Smoke Exposure: Past Smokeless Tobacco: Never Alcohol Use Standard Drinks/Week Comments Not Currently 0 (1 standard drink = 0.6 oz pur e alcohol) once a month or less- rare PHQ-2 Answer Date Recorded Patient Health Questionnaire-2 Score 6 08/10/2023 Comments No Sex and Gender Information Value Date Recorded Sex Assigned at Female 10/12/2020 2:52 PM ELECTRIC SYSTEM OPERATOR Legal Sex Female 10:38 AM ELECTRIC SYSTEM OPERATOR Gender Identity Female 10/12/2020 2:52 PM ELECTRIC SYSTEM OPERATOR Sexual Orientation Not on file documented as of this encounter Miscellaneous Notes * Telephone Encounter - Agnes Burrell RN - 10/18/2023 12:20 PM ELECTRIC SYSTEM OPERATOR RN called pt, no answer. RN sent mychart. If pt returns call please offer 11/22@1pm. Ok to dbl book TRIC SYSTEM OPERATOR * Telephone Encounter - Nayely Garza - 10/18/2023 11:40 AM CST Pt called and said her post-op has been canceled. Call Center told her they could not fit her in for the proper time frame she would need a post-op. Please advise. TRIC SYSTEM OPERATOR documented in this encounter Plan of Treatment Upcoming Encounters Date Type Department Care Team (Late st Contact Info) Description 06/19/2025 1:00 PM CDT Office Visit [facility] Care [address] [place] [phone] Karmen Lopez, CARE COORDINATION MANAGER-DISTANCE EDUCATION FACULTY LIAISON [address] [place] [address].[place] [address] 11/28/2025 11:45 AM ELECTRIC SYSTEM OPERATOR Office Visit [facility] - WRAPAROUND FACILITATOR [address] [facility] [address] [place] [phone] Rina Brooks MD [address] [facility] [address] [place] [address] 12/09/2025 10:00 AM ELECTRIC SYSTEM OPERATOR Office Visit [facility] - GI [address] [facility] [address] [place] [address] Serjio Hendricks, CARE COORDINATION MANAGER-DISTANCE EDUCATION FACULTY LIAISON [address] [facility] [address] [place] [address] documented as of this encounter [...] on filedocumented in this encounter Care Teams Ground Worker Relationship Specialty Start Date End Date Cleo Edouard [address] [place] [address] Dr [address] [place] [address] PCP - General 08/10/23 documented as of this encounter
--- OUTSIDE RECORDS SUMMARY | 2025-05-22 15:20 | XMS_ITS | Encounter Summary ---
Author Organization [facility] Address [address] [facility] [place] [address] Care Team Providers Care Active Directory Engineer Name Role Phone Dayday [place] COMMERCIAL FISHER-WASTEWATER TREATMENT PLANT SUPERVISOR Primary Care Provider [phone] Debi Bonilla APNP-WASTEWATER TREATMENT PLANT SUPERVISOR Primary Care Provider Debi Bonilla APNP-WASTEWATER TREATMENT PLANT SUPERVISOR Primary Care Provider Cleo Edouard Primary Care Provider [phone] Reason for Visit * Reason Onset Date Comments Nurse Only 10/28/2021 Encounter Details Date Type Department Care Team (Late st Contact Info) Description 10/28/2021 Telephone [facility] [address] [facility] [address] [place] [address] Laura Church MD Need new address Nurse Only Social History Tobacco Use Types Packs/Day Years Used Date Smoking Tobacco: Never Smokeless Tobacco: Never Alcohol Use Standard Drinks/Week Comments Yes 0 (1 standard drink = 0.6 oz pur e alcohol) Comments No Sex and Gender Information Value Date Recorded Sex Assigned at Female 10/12/2020 2:52 PM MOVIE EXTRA Legal Sex Female 10:38 AM MOVIE EXTRA Gender Identity Female 10/12/2020 2:52 PM MOVIE EXTRA Sexual Orientation Not on file documented as of this encounter Miscellaneous Notes * Telephone Encounter - Gerda Steiner LPN - 10/28/2021 10:58 AM MOVIE EXTRA I called the patient - informed her I can not give her an appt - I am just a nurse. I will however, get this message to the people that can give new patient appts. I will let them now she can have the first available URO / CDL TRUCK DRIVER new patient appt. They will contact her to set it up Patient is agreeable E EXTRA * Telephone Encounter - Reshma Rubi - 10/28/2021 9:31 AM CST Pt returning call to nurse for referral of specialist E EXTRA documented in this encounter Plan of Treatment Upcoming Encounters Date Type Department Care Team (Late st Contact Info) Description 06/19/2025 1:00 PM CDT Office Visit [facility] Care [address] [place] [phone] Karmen Lopez, COMMERCIAL FISHER-WASTEWATER TREATMENT PLANT SUPERVISOR [address] [place] [address].[place] [address] 11/28/2025 11:45 AM MOVIE EXTRA Office Visit [facility] - GOLD LEAF ROLLER [address] [facility] [address] [place] [address] Rina Brooks MD [address] [facility] [address] [place] [address] 12/09/2025 10:00 AM MOVIE EXTRA Office Visit [facility] - GI [address] [facility] [address] [place] [address] Serjio Hendricks, COMMERCIAL FISHER-WASTEWATER TREATMENT PLANT SUPERVISOR [address] [facility] [address] [place] [address] documented as of this encounter Visit Diagnoses Not on filedocumented in this encounter Care Teams Active Directory Engineer Relationship Specialty Start Date End Date Dayday [place], COMMERCIAL FISHER-WASTEWATER TREATMENT PLANT SUPERVISOR [address] [place] [address] [address] [facility] [address] [place] [id number] PCP - General 07/01/20 04/07/22 Debi Bonilla APNP-RICKEY [address] [place] [address] PCP - General 04/08/22 01/15/23 Debi Bonilla APNP-RICKEY [address] [place] [address] PCP - General 01/16/23 08/09/23 Cleo Edouard [address] [place] [address] [place] [address] PCP - General 08/10/23 documented as of this encounter
--- OUTSIDE RECORDS SUMMARY | 2025-05-22 15:20 | XMS_ITS | Encounter Summary ---
Author Organization [facility] Address [address] [facility] [place] [address] Care Team Providers Care General Car Supervisor Yard Name Role Phone Cleo Edouard Primary Care Provider [phone] Reason for Visit * Reason Onset Date Comments MEDICATION REFILL 11/17/2024 Encounter Details Date Type Department Care Team (Late st Contact Info) Description 11/17/2024 Refill [facility] Pain Care [address] [facility] [address] [place] [address] Otilio Quach MD [address] [place] [phone] MEDICATION REFILL Social History Tobacco Use Types [...] Sex Assigned at Female 10/12/2020 2:52 PM CORE ANALYST Legal Sex Female 10:38 AM CORE ANALYST Gender Identity Female 10/12/2020 2:52 PM CORE ANALYST Sexual Orientation Not on file documented as of this encounter Miscellaneous Notes * Telephone Encounter - Jo Briceño RN - 11/18/2024 11:43 AM CST Thank you ANALYST documented in this encounter Plan of Treatment Upcoming Encounters Date Type Department Care Team (Late st Contact Info) Description 06/19/2025 1:00 PM CDT Office Visit [facility] [address] [place] [phone] Karmen Lopez, MIDWIFE-GRAPHIC DESIGN PROFESSOR [address] [facility].[place] [address] 11/28/2025 11:45 AM CORE ANALYST Office Visit [facility] - DISPENSING OPERATOR [address] [facility] [address] [place] [address] Rina Brooks MD [address] [facility] [address] [place] [address] 12/09/2025 10:00 AM CORE ANALYST Office Visit [facility] - GI [address] [facility] [address] [place], [place] [phone] Serjio Hendricks, MIDWIFE-GRAPHIC DESIGN PROFESSOR [address] [facility] [address] [place] [address] documented as of this encounter [...] filedocumented in this encounter Care Teams General Car Supervisor Yard Relationship Specialty Start Date End Date Cleo Edouard [address] [place] [address] [address] [place] [address] PCP - General 08/10/23 documented as of this encounter
--- OUTSIDE RECORDS SUMMARY | 2025-05-22 15:20 | XMS_ITS | Clinical Summary ---
Author Organization [facility] Address [address] [place] [address] Care Team Providers Care Wellfield Technician Name Role Phone Cleo Edouard Primary Care Provider [phone] Source Comments [facility],non-owned Affiliates and Associated Physician Practices is amultiple site organization consisting of ambulatory clinics and hospital sitesin [place], [place], [place] and [place]. This disclosure is being madepursuant to the Care Everywhere program and may not contain all information available regarding this patient. Last updated 18.[facility] Allergies Active Allergy Reactions Criticality Noted Date Comments Contrast-Gadoliniu m Agents For Mri Nausea and/or Vomiting Medium 01/21/2022 Severe Nausea after Gadavist administration Contrast-Iodinated Agents For Ct/Other Unknown 10/04/2022 Medications * Be aware that medications may not be up to date on this document. Alwaysverify current medications with the patient. buPROPion XL 24hr (WELLBUTRIN-XL) 150 MG tablet Take 1 (one) tablet by mouth once daily 10/08/20 19 Active SUMAtriptan (IMITREX) 25 MG tablet Take [...] EVERY NIGHT AT BEDTIME 08/25/20 23 Active phenazopyridine (Pyridium) 200 MG tablet Take 1 (one) tablet by mouth every 8 hours as needed (bladder pain) 30 tablet 1 12/13/19 24 Active Additional Information Patient not taking.Reported on 05/12/2025 multivitamin daily tablet Take 1 (one) tablet by mouth once daily Active ondansetron, disintegrating, (Zofran ODT) 4 MG tablet Take 1 (one) tablet by mouth every 8 hours as needed 04/02/20 24 Active tiZANidine (Zanaflex) 2 MG tablet Take 1 (one) tablet by mouth every 8 hours as needed for Muscle Spasms 30 tablet 07/05/20 24 Active docusate sodium (Colace) 100 MG capsule Take 1 (one) capsule by mouth 2 times daily as needed for Constipation 60 capsule 2 07/12/20 24 Active Additional Information Patient not taking.Reported on 05/12/2025 topiramate (Topamax) 50 MG tabletIndication s:Migraine Take 1 (one) tablet by mouth 2 times daily Reasons: Migraine Headache Active ibuprofen (Motrin) 600 MG tablet Take 1 (one) tablet by mouth every 6 hours as needed pain 08/15/20 24 Active norethindrone-et hinyl estradiol (Ortho-Novum ) 1-35 MG-MCG tablet Take 1 (one) tablet by mouth once daily Active methylPREDNISolo ne (Medrol Dosepak) 4 MG tablet FOLLOW PACKAGE DIRECTIONS 06/11/20 24 Active Other Insert 1 suppository into the vagina every 12 hours as needed Valium/Baclofen 5/4 mg; place one suppository in the vagina as needed for pain, up to every 12 hours 5 Each 10/18/19 25 Active linaCLOtide (Linzess) 290 MCG capsuleIndicatio ns:Chronic Idiopathic Constipation Take 1 (one) capsule by mouth daily before breakfast Take on an empty stomach at least 30 minutes prior to first meal of the day. Reasons: Chronic Constipation of Unknown Cause 30 capsule 5 12/01/19 25 Active acetaminophen (Tylenol) 325 MG tablet Take 2 (two) tablets by mouth every 6 hours as needed for Fever or Pain Maximum allowable Acetaminophen amount = 4 Grams (4000 mg) / 24 hours. 50 tablet 02/28/20 25 Active ibuprofen (Motrin) 600 MG tablet Take 1 (one) tablet by mouth every 6 hours as needed for Pain 30 tablet 02/28/20 25 Active ondansetron, disintegrating, (Zofran ODT) 4 MG tablet Take 1 (one) tablet by mouth every 6 hours as needed for Nausea/Vomiting Allow tablet to dissolve on the tongue 15 tablet 02/28/20 25 Active Additional Information Patient not taking.Reported on 05/12/2025 pregabalin (Lyrica) 150 MG capsuleIndicatio ns:Fibromyalgia Syndrome,Neuropa thic Pain Take 1 (one) capsule by mouth 3 times daily for 60 days Reasons: Fibromyalgia Syndrome, Neuropathic Pain 90 capsule 2 03/20/20 25 Active phenazopyridine (Pyridium) 200 MG tablet Take 1 (one) tablet by mouth 3 times daily as needed 20 tablet 04/15/20 25 Active sulfamethoxazole -trimethoprim (Bactrim DS; Septra DS) 800-160 MG tabletIndication s:Burning with urination Take 1 (one) tablet by mouth 2 times daily 14 tablet 05/05/20 25 Active nitrofurantoin monohyd macro crystals (Macrobid) 100 MG capsule Take 1 (one) capsule by mouth 2 times daily with morning and evening meal 14 capsule 05/09/20 25 Active norethindrone (Aygestin) 5 MG tablet Take 1.5 (one and one-half) tablets by mouth once daily 45 tablet 11 05/12/20 25 Active Sunosi 75 MG tablet Take 1 tablet by mouth once daily 04/23/20 25 Active SUMAtriptan (Imitrex) 100 MG tablet TAKE 1 TABLET BY MOUTH NEEDED DIRECTED FOR 30 DAYS 12/04/19 25 Active topiramate (Topamax) 100 MG tablet Active nitrofurantoin monohyd macro crystals (Macrobid) 100 MG capsule Take 1 (one) capsule by mouth once daily 30 capsule 5 05/12/20 25 Active norethindrone (Aygestin) 5 MG tablet TAKE 1 AND 1/2 TABLETS BY MOUTH EVERY DAY 45 tablet 11 08/15/20 24 025 Discontin ued(Reord er) oxyCODONE, immediate release, (Roxicodone) 5 MG tabletIndication s:Post-operative state Take 1 (one) tablet by mouth every 4 hours as needed for Pain 12 tablet 02/28/20 25 025 Discontin ued(List Clean-Up) sulfamethoxazole -trimethoprim (Bactrim DS; Septra DS) 800-160 MG tablet Take 1 (one) tablet by mouth 2 times daily 14 tablet 04/21/20 25 025 Discontin ued(Reord er) nitrofurantoin monohyd macro crystals (Macrobid) 100 MG capsule Take 1 (one) capsule by mouth 2 times daily with morning and evening meal 14 capsule 04/18/20 025 Discontin ued(Tx Complete) Active Problems Problem Noted Date Diagnosed Date 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 Overview (05/12/2025): Diagnosed formally POTS (postural orthostatic tachycardia syndrome) 12/24/2024 Overview (05/12/2025): Formally diagnosed 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 04/03/2023 S/P [...] (04/03/2023): Added automatically from request for surgery [id number] Autism 11/28/2022 04/03/2023 Heartburn 11/03/2022 04/03/2023 Overview (04/03/2023): Added automatically from request for surgery [id number] Body mass index 40.0-44.9, adult 06/28/2022 Overview [...] Encounters Date Type Department Care Team Description 05/12/2025 11:45 AM CDT Office Visit [facility] - TRADE PROMOTION ANALYST [address] [place] [address] Rina Brooks MD Recurrent UTI (Primary Dx); IC (interstitial cystitis); Constipation, unspecified constipation type; Levator spasm 05/12/2025 Travel 05/12/2025 Orders Only [facility] - TRADE PROMOTION ANALYST [address] [place] [address] Verna Murillo RN 05/09/2025 Orders Only [facility] - TRADE PROMOTION ANALYST [address] [place] [address] [address] [place] [address] Sandie Moreno MD 05/08/2025 Results Follow-Up [facility] - TRADE PROMOTION ANALYST [address] [place] [address] Ave [address] [place] [address] Sandie Moreno MD 04/23/2025 11:30 AM CDT Office Visit [facility] - TRADE PROMOTION ANALYST [address] [place], [place] [address]e [address] [place] [address] Sandie Moreno MD Postop check (Primary Dx); Endometriosis; Spastic pelvic floor syndrome; Acute cystitis with hematuria 04/23/2025 Travel 04/17/2025 Orders Only [facility] - TRADE PROMOTION ANALYST [address] [place], [place] [address] [address] [place] [address] Cleo Medley MD 03/28/2025 Orders Only [facility] - TRADE PROMOTION ANALYST [address] [place], [place] [address] [address] [place] [phone] Sandie Moreno MD 03/28/2025 Telephone [facility] - TRADE PROMOTION ANALYST [address] [place] [address], [address] [place] [address] Rina Brooks MD Question 03/20/2025 1:00 PM CDT Office Visit [facility] [address] [place] [phone] Karmen Lopez APRN-RICKEY Fibromyalgia (Primary Dx) 03/20/2025 Orders Only [facility] [address] [place] [phone] Meliton Reilly MD Fibromyalgia 03/20/2025 Travel 03/17/2025 Travel 03/12/2025 11:30 AM CDT Office Visit [facility] - TRADE PROMOTION ANALYST [address] [facility] [address] [place] [phone] Sandie Moreno MD Postop check (Primary Dx); Endometriosis; Spastic pelvic floor syndrome 03/12/2025 Travel 02/27/2025 7:15 AM CDT - 02/27/2025 11:16 AM CDT Surgery [facility] [address] [place] [address] Sandie Moreno MD ROBOTIC ASSISTED DIAGNOSTIC LAPAROSCOPY, EXCISION OF ENDOMETRIOSIS, TOTAL LAPAROSCOPIC HYSTERECTOMY WITH SALPINGECTOMY - BILATERAL, CYSTOSCOPY, URETERAL LYSIS OF ADHESIONS 02/27/2025 7:15 AM CDT Anesthesia Event [facility] [address] [place] [address] Cruzito Ahn MD Levin, Vitaly F, MD 02/27/2025 5:39 AM CDT - 02/27/2025 3:55 PM CDT Hospital Encounter [facility] [address] [place] [address] Sandie Moreno MD Surgery General Discharge Disposition: Home or Self Care 02/27/2025 Travel from Last 3 Months Immunizations Immunization Administration Dates Next Due U[employer]care primary monoval ent 12+ yr 0.3mL Purple [...] alcohol) once a month or less- rare AUDIT-C Answer Date Recorded Q1: How often do you have a drink containing alcohol? Never 02/27/2025 Q2: How many drinks containi ng alcohol do you have on a typical day when you are drinking? Patient does not drink Q3: How often do you have si x or more drinks on one occasion? Never 02/27/2025 PHQ-2 Answer Date Recorded Patient Health Questionnaire-2 Score 0 05/12/2025 Comments No Sex and Gender Information Value Date Recorded Sex Assigned at Female 10/12/2020 2:52 PM [employer] Legal Sex Female 10:38 AM [employer]TERTAINER [employer]IC Gender Identity Female 10/12/2020 2:52 PM ENTERTAINER & COMIC Sexual Orientation Not on file Last Filed Vital Signs Vital Sign Reading Time Taken Comments Blood Pressure 110/72 05/12/2025 11:53 AM CDT Pulse 99 03/20/2025 1:08 PM CDT Temperature 36.7 C (98 F) 05/12/2025 11:53 AM CDT Respiratory Rate 16 03/20/2025 1:08 PM CDT Oxygen Saturation 96% 02/27/2025 3:13 PM CDT Inhaled Oxygen Concentration - - Weight 87.4 kg (192 lb 9.6 oz) 05/12/2025 11:53 AM CDT Height 162.6 cm (5' 4) 05/12/2025 11:53 AM CDT Body Mass Index 33.06 05/12/2025 11:53 AM CDT Plan of Treatment Upcoming Encounters Date Type Department Care Team (Late st Contact Info) Description 06/19/2025 1:00 PM CDT Office Visit [facility] [address] [place] [phone] Karmen Lopez, PAIN MANAGEMENT SPECIALIST-ELECTRIC TAPE SLITTER [address] Floor [place], [place] [phone] 11/28/2025 11:45 AM ENTERTAINER & COMIC Office Visit [facility] - TRADE PROMOTION ANALYST [address] [facility] [place] [address] Rina Brooks MD [address] [facility] [address] [place] [address] 12/09/2025 10:00 AM ENTERTAINER & COMIC Office Visit [facility] [address] [facility] [address] [place], [place] [phone] Serjio Hendricks, PAIN MANAGEMENT SPECIALIST-ELECTRIC TAPE SLITTER [address] [place] [address] Health Maintenance Due Date Last Done Comments HEPATITIS B VACCINE (3 of 3 - 3-dose series) 01/04/2002 10/12/2001, 09/14/2001 HIV SCREENING 2006 HPV VACCINE (1 - 3-dose SCDM series) 2018 COVID-19 VACCINE ( season) 2024 11/03/2021, 02/19/2021, 01/27/2021 INFLUENZA VACCINE (#1) 2025 , 08/05/2020, 08/07/2019, Additional history exists DTAP/TDAP/TD VACCINES (8 - Td or Tdap) 11/02/2028 11/02/2018, 05/01/2006, 02/11/1997, Additional history exists ZOSTER VACCINE (1 of 2) 2041 HIB VACCINE Aged Out 04/24/2002, 02/06, 1991, Additional history exists No longer eligible based on patient's age to complete this topic MENINGOCOCCAL GROUPS A/C/Y/W VACCINE Aged Out 05/01/2006 No longer eligible based on patient's age to complete this topic HEPATITIS C SCREENING Completed 01/07/2022 MENINGOCOCCAL (Group B) VACCINE SHARED DECISION-MAKING Aged Out No longer eligible based on [...] Procedure Name Priority Date/Time Associated Diagnosis Comments CULTURE URINE 05/06/2025 1:41 PM CDT CULTURE URINE Routine 04/15/2025 3:19 PM CDT Burning with urination CULTURE URINE Routine 03/29/2025 12:34 PM CDT Burning with urination CARDIAC RHYTHM STRIP ORDER 03/04/2025 8:33 PM CDT PATHOLOGY TISSUE EXAM (STL) Routine 02/27/2025 8:49 AM CDT Diagnosis unknown HCG URINE QUAL POCT NOTIFICATION STAT 02/27/2025 7:00 AM CDT Preop testing [place] [facility] W/T/O UTERUS OVER 250 G 02/27/2025 6:44 AM CDT Diagnosis unknown Special Needs NEEDS CHANDAN BENOIT- NO REP HCG URINE QUALITATIVE - POCT (IP) INTERFACED Routine 02/27/2025 6:26 AM CDT TYPE + SCREEN PANEL STAT 02/27/2025 6 :10 AM CDT CBC W AUTO DIFFERENTIAL STAT 02/27/2025 6:10 AM CDT Preop testing HEPATITIS C RNA QUANTITATIVE Routine 01/07/2022 1:01 PM CDT Elevated liver enzymes from Last 3 Months or Most Recently Relevant to Health Maintenance Results * (ABNORMAL) CULTURE URINE (05/06/2025 1:41 PM CDT) Only the most recent of3 resultswithin the time period is included. Culture (A) [facility] Comment: CULTURE, URINE, ROUTINE Micro Number: [id number] Test Status: Final Specimen Source: Urine, clean catch Specimen Quality: Adequate Result: 50,000-100,000 CFU/mL of Enterococcus species COMMENT: Additional non-predominating organism(s) isolated. These organisms, commonly found on external and internal genitalia, are considered colonizers. No further testing performed. Enterococcus sp. INT VAMSHI AMPICILLIN S <=2 NITROFURANTOIN S <=16 VANCOMYCIN S 1 S = Susceptible I = Intermediate R = Resistant NS = Not susceptible SDD = Susceptible Dose Dependent * = Not Tested NR = Not Reported NN = See Therapy Comments REPORT COMMENT: FASTING:NO Test Performed at: [facility] [address] ALTAGRACIA BOCANEGRA MD 05/06/2025 1:41 PM CDT 05/06/2025 1:42 PM CDT us Sandie Moreno MD LAB - MICROBIOLOGY ORDERABLES F inal Result [address] [address] * CARDIAC RHYTHM STRIP ORDER (03/04/2025 8:33 PM CDT) Narrative 03/04/2025 8:33 PM CDT Ordered by an unspecified provider. us Scanned Document CARDIAC SERVICES ORDERABLES Fin al Result * PATHOLOGY TISSUE EXAM (STL) (02/27/2025 8:49 AM CDT) Case Report Surgical Pathology Report Case: [id number] Authorizing Provider: Sandie Moreno MD Collected: 02/27/2025 08:49 AM Ordering Location: [facility] Received: 02/27/2025 10:39 AM Pathologist: Rina Stevens MD Specimens: A) - Tissue, RECTAL MESSENTARY LYSIS OF ADHESIONS B) - Uterus w Tubes, UTERUS, CERVIX, BILATERAL FALLOPIAN TUBES 03/04/2025 12:06 PM CDT [facility] Final Diagnosis Rectal mesentery lysis of adhesions, biopsy (A) - Pigment-laden macrophages - Extensive cautery artifact Uterus, hysterectomy (B) - Inactive endometrium - Myometrium with no histopathologic abnormality - Cervical chronic inflammation Fallopian tubes, bilateral, salpingectomy (B) - No histopathologic abnormality 03/04/2025 12:06 PM T [facility] at 1206 CDT Clinical History The patient is a 34-year-old woman with history of endometriosis and chronic pelvic pain. Operative procedure: hysterectomy, bilateral salpingectomy. 03/04/2025 12:06 PM CDT [facility] Gross Description The requisition and specimen(s) are identified with the patient's name, Alyse Morataya. Received in formalin, specimen A, rectal mesentery are two alford-brown, firm and cauterized segments of soft tissue measuring 0.1 and 0.3 cm, submitted in toto as cassette A1. Received in formalin, specimen B, uterus, cervix, bilateral fallopian tubes is a 60.5 g hysterectomy specimen, measuring 3.5 cm from cornu to cornu, 7.2 cm from fundus to cervix and 3.6 cm from anterior to posterior. The serosal aspect is smooth, dusky and glistening. Bilateral ovaries are not attached. Bilateral fallopian tubes are attached and measure 6.5 cm length x 0.3 cm diameter on the right and 7.5 cm length x 0.4 cm diameter on the left. The ectocervix is covered by alford-white and glistening mucosa with pinpoint areas of hemorrhage and measures 3.3 x 2.8 cm. It contains a circular cervical os that measures 1.3 cm in diameter. The endocervical canal measures 2.3 cm in length and 0.6 cm in average diameter and contains pink-alford, herringbone mucosa. The endometrial cavity measures 2.0 cm from cornu to cornu and 3.1 cm in length. The endometrium is 0.1 cm in thickness and appears pink-alford and focally hemorrhagic. Polyps are not identified. The myometrium is without masses, is 1.7 cm in thickness and unremarkable. The fallopian tube serosa is purple-red, glistening and unremarkable and the fimbria have a normal, villous appearance. Sectioning shows alford-white and unremarkable mucosa with pinpoint lumens. Prototype Carpenter sections are submitted as follows: B1, anterior cervix, endocervical canal and lower uterine segment; B2, posterior cervix, endocervical canal and lower uterine segment; B3, anterior endomyometrium, full-thickness; B4, posterior endomyometrium, full-thickness; B5, right fallopian tube fimbria, perpendicular, entirely; B6, right fallopian tube cross-sections; B7, left fallopian tube fimbria, perpendicular, entirely; B8, left fallopian tube cross-sections. AL 03/04/2025 12:06 PM [facility] Microscopic Description Microscopic examination substantiates the above diagnosis. 03/04/2025 12:06 PM [facility] Pathologist Location at [facility] 03/04/2025 12:06 PM [facility] Disclaimer All histochemical and/or immunohistochemical results are interpreted with controls that demonstrate appropriate staining reactions before reporting results. Note on use of immunocytochemistry reagents: This test was developed and its performance characteristic determined by [facility], Department of Laboratory Medicine. It [...] tissues. Results should be interpreted with caution. 03/04/2025 12:06 PM CDT [facility] Embedded Images 03/04/2025 12:06 PM CDT [facility] Pathology/Cytology TISSUE SPECIMEN / Unknown 02/27/2025 8:49 AM CDT 02/27/2025 10:39 AM CDT Comment:Pre-op diagnosis: Diagnosis unknown [R69] Miscellaneous samples (specimen) UTERUS AND FALLOPIAN TUBES, CS / Unknown 02/27/2025 9:25 AM CDT 02/27/2025 10:39 AM CDT Comment:Pre-op diagnosis: Diagnosis unknown [R69] us Sandie Moreno MD LAB - PATHOLOGY/CYTOLOGY ORDERA BLES Final Result Performing Organization Address City/[facility]/ZIP Co de Phone Number [facility] [address] [place] [address] * HCG URINE QUAL POCT NOTIFICATION (02/27/2025 7:00 AM CDT) Comment Notification Label Only - See Separate Report 02/27/2025 7:00 AM CDT [facility] Urine URINE / Unknown 5:47 AM CDT us Sandie Moreno MD LAB - URINALYSIS ORDERABLES Fin al Result Performing Organization Address [facility]/ZIP Co de Phone Number [facility] [address] [place] [address] * HCG URINE QUALITATIVE - POCT (IP) INTERFACED (02/27/2025 6:26 AM CDT) HCG Qual Urine Negative Negative 02/27/2025 6:32 AM CDT [facility] Urine URINE / Unknown 02/27/2025 6 :26 AM CDT 02/27/2025 6:32 AM CDT us Sandie Moreno MD LAB - POINT OF CARE ORDERABLES Final Result Performing Organization Address City/[facility]/ZIP Co de Phone Number [facility] [address] [place] [id number] * TYPE + SCREEN PANEL (02/27/2025 6:10 AM CDT) ABO Rh O POS 02/27/2025 7:14 AM CDT [facility] Comment:History checked. Antibody Screen NEG 7:14 AM CDT [facility] Blood Bank BLOOD SPECIMEN / Unknown Venipuncture / Unknown 02/27/2025 6:10 AM CDT 02/27/2025 6:33 AM CDT us Sandie Moreno MD LAB - BLOOD BANK ORDERABLES Fin al Result [facility] [address] [phone] * CBC W AUTO DIFFERENTIAL (02/27/2025 6:10 AM CDT) WBC 9.4 4.0 - 10.7 x10E9/L 02/27/2025 6:41 AM CDT [facility] RBC Count 5.05 3.90 - 5.20 x10E12/L 02/27/2025 6:41 AM CDT [facility] Hemoglobin 15.1 11.9 - 15.8 g/dL 02/27/2025 6:41 AM T [facility] Hematocrit 45.4 34.8 - 46.1 % 02/27/2025 6:41 AM T [facility] MCV 89.9 80.0 - 98.0 fL 02/27/2025 6:41 AM CDT [facility] MCH 29.9 26.7 - 33.6 pg 02/27/2025 6:41 AM CDT [facility] MCHC 33.3 31.7 - 36.3 g/dL 02/27/2025 6:41 AM CDT [facility] RDW-CV 12.6 11.3 - 14.8 % 02/27/2025 6:41 AM T [facility] Platelet Count 288 150 - 420 x10E9/L 02/27/2025 6:41 AM T [facility] MPV 10.4 7.8 - 11.4 fL 02/27/2025 6:41 AM CDT [facility] Neutrophil % 55.1 41.0 - 74.0 % 02/27/2025 6:41 AM CDT [facility] Lymphocyte % 36.0 17.0 - 47.0 % 02/27/2025 6:41 AM CDT [facility] Monocyte % 7.3 3.0 - 11.0 % 02/27/2025 6:41 AM CDT [facility] Eosinophil % 0.8 0.0 - 7.0 % 02/27/2025 6:41 AM CDT [facility] Basophil % 0.4 0.0 - 1.6 % 02/27/2025 6:41 AM CDT [facility] Immature Granulocytes % 0.4 0.0 - 1.0 % 02/27/2025 6:41 AM CDT [facility] Neutrophil Absolute 5.18 1.60 - 7.50 x10E9/L 02/27/2025 6:41 AM CDT [facility] Lymphocyte Absolute 3.39 1.00 - 4.40 x10E9/L 02/27/2025 6:41 AM CDT [facility] Monocyte Absolute 0.69 0.15 - 1.00 x10E9/L 02/27/2025 6:41 AM CDT [facility] Eosinophil Absolute 0.08 0.00 - 0.60 x10E9/L 02/27/2025 6:41 AM CDT [facility] Basophil Absolute 0.04 0.00 - 0.13 x10E9/L 02/27/2025 6:41 AM CDT [facility] Blood BLOOD SPECIMEN / Unknown Venipuncture / Unknown 02/27/2025 6:10 AM CDT 02/27/2025 6:33 AM CDT us Sandie Moreno MD LAB - HEMATOLOGY ORDERABLES Fin al Result [facility] [address] [place] [address] * HEPATITIS C RNA QUANTITATIVE (01/07/2022 1:01 [...] of this assay have been determined by [employer]. The modifications have not been cleared or approved by the FDA. This assay has been validated pursuant to the CLIA regulations and is used for clinical purposes. For more information on this test, go to: http://education.opinions.h/faq/BGA84v9 (This link is being provided for informational/ educational purposes only.) Test Performed at: [facility] [address] [place] [address] JANET SEE DO,MPH Blood BLOOD SPECIMEN / Unknown 01/07/2022 1:01 PM CDT 01/07/2022 1:03 PM CDT Licha Lowery PAIN MANAGEMENT SPECIALIST-ELECTRIC TAPE SLITTER LAB - CHEMISTRY ORD ERABLES Final Result [facility] [address] [place] [address] from Last 3 Months or Most Recently Relevant to Health Maintenance Insurance [facility] * Guarantor: ALYSE SAMPSON Account Type Relation to Patient Date of Phone Billing Address Personal/Family 1990 [address] [place] [address] [facility] Care Teams Wellfield Technician Relationship Specialty Start Date End Date Cleo Edouard [address] [facility] [address] [place] [phone] PCP - General 08/10/23
--- OUTSIDE RECORDS SUMMARY | 2025-05-22 15:20 | XMS_ITS | Encounter Summary ---
Author Organization [facility] Healthcare Address [address] [place] [address] Care Team Providers Care Chief Environmental Commitment Officer Name Role Phone Dayday Carolina PANCAKE PROFESSIONAL Primary Care Provider [phone] Dayday Carolina PANCAKE PROFESSIONAL Unavailable [phone] Deneen Gil NP Unavailable [phone] Sung Luque MD Unavailable + [phone] Jason Ring MD Primary Care Provid er Kiera Beard MD Unavailable [phone] Ze Duffy MD Unavailable + [phone] Debi Bonilla NP Primary Care Provider + [phone] Cleo Edouard MD Primary Care Provider + Encounter Details Date Type Department Care Team (Late st Contact Info) Description 01/14/2021 Documentation [facility] [address] [place] [id number] Isabel Murphy Social History Tobacco Use Types Packs/Day Years Used Date Smoking Tobacco: Never Smokeless Tobacco: Never Alcohol Use Standard Drinks/Week Comments Yes 0 (1 standard drink = 0.6 oz pur e alcohol) socially PHQ-2 Answer Date Recorded PHQ-2 Score 6 06/01/2019 Comments No Sex and Gender Information Value Date Recorded Sex Assigned at Not on file Legal Sex Female 4:01 AM FLAKEBOARD LINE TENDER Gender Identity Female 11/12/2024 9:28 AM FLAKEBOARD LINE TENDER Sexual Orientation Not on file documented as [...] documented as of this encounter Care Teams Chief Environmental Commitment Officer Relationship Specialty Start Date End Date Dayday Carolina NP [address] [facility] [address] EUGENIE Hannah [address] [address] PCP - General 12/03/20 07/05/22 [place] [address] [place] [address] [place] [address] PCP - General Obstetrics and Gynecology 07/06/22 Debi Bonilla NP [address] [address] PCP - General Family Medicine 08/25/22 02/16/23 Cleo Edouard MD [address] [address] PCP - General Family Medicine 02/17/23 Dayday Carolina NP [address] [facility] [address] [facility] [address] [place] [address] 12/03/20 Deneen Gil NP [address] [facility] [address] [place] [address] Nurse Practitioner Psychiatry 07/06/22 Sung Luque MD [address] [place] [address] [address] [place] [address] Perpetual Inventory Clerk Obstetrics and Gynecology 07/06/22 Kiera Beard MD [address] [place] [address] Rheumatology 07/06/22 Ze Duffy MD [address] [facility] [address] [place] [address] Neurology 07/06/22 documented as of this encounter
--- OUTSIDE RECORDS SUMMARY | 2025-05-22 15:20 | XMS_ITS | Clinical Summary ---
Author Organization [facility] Address [address] [place] [address] Phone Care Team Providers Care Milk Hauler Name Role Phone Neel Evans MD Primary Care Provider Neel Evans MD Unavailable [phone] Amalia Li APRN, MOSAIC TILE MAKER Unavailable [phone] Bekah Hills APRN, SMALL ANIMAL CARETAKER Unavailable Allergies Active Allergy Reactions Criticality Noted Date Comments Iodinated Contrast Media Unknown 07/22/2024 Medications buPROPion (WELLBUTRIN) 150 MG XL tablet Take 150 mg by mouth every morning. Active ibuprofen (MOTRIN) 400 MG Tablet Take 400 mg by mouth every 6 hours as needed. Active Multiple Vitamin (MULTIVITAMIN PO) Take by mouth. Active norethindrone-et hinyl estradiol (ORTHO-NOVUM 1-35 TAB, NORTREL 1-35 TAB) [...] mg by mouth 3 times daily. Active traZODone (DESYREL) 100 MG Tablet Take 100 mg by mouth nightly. Active ondansetron (Zofran) 4 MG TabletIndication s:Chronic migraine with aura without status migrainosus, not intractable Take 1 Tablet by mouth every 6 hours as needed for Nausea - 1st line. 15 Tablet 5 Active linaclotide (Linzess) 145 MCG Capsule Take by mouth every morning (before breakfast). Active Topiramate 50 MG Tablet Take 1 Tablet by mouth 2 times daily. 60 Tablet 2 5 Active Solriamfetol HCl (Sunosi) 75 MG TabletIndication s:Narcolepsy without cataplexy Take 75 mg by mouth daily. 30 Tablet 3 5 Active Active Problems Problem Noted Date Diagnosed Date Narcolepsy without cataplexy 04/08/2025 Elevated partial thromboplastin time (PTT) 01/11 Abnormal [...] Encounters Date Type Department Care Team Description 05/16/2025 Refill [facility] - Pulmonology & Sleep Medicine - [place] [address] [place] [address] Bekah Hills APRN, SMALL ANIMAL CARETAKER 04/21/2025 Refill [facility] - Neurology - [place] [address] [place] [address] Amalia Li APRN, MOSAIC TILE MAKER Medication Refill 04/08/2025 10:00 AM CDT Office Visit [facility] - Pulmonology & Sleep Medicine [facility] [address] [place] [address] Bekah Hills APRN, CNP Narcolepsy without cataplexy (Primary Dx) Discharge Disposition: Discharged to home or Selfcare 04/08/2025 Travel 03/12/2025 2:00 PM CDT Office Visit [facility] Cardiology [facility] [address] [place] [address] Britt Rodriguez MD Palpitations (Primary Dx) Discharge Disposition: Discharged to home or Selfcare 03/11/2025 Travel 03/04/2025 Telephone [facility] [address] [place] [address] Britt Rodriguez MD Advice Only 03/02/2025 Travel from Last 3 Months Immunizations Immunization [...] Never Smokeless Tobacco: Never Tobacco Cessation:Counseling Given: No Alcohol Use Standard Drinks/Week Comments Yes 0 (1 standard drink = 0.6 oz pur e alcohol) occasional PHQ-2 Answer Date Recorded PHQ-2 Score 0 06/25/2019 Sexually Active Control Partners Comments Yes Male Comments No Sex and Gender Information Value Date Recorded Sex Assigned at Female 10/29/2024 1:03 PM CLIENT SUPPORT COORDINATOR Legal Sex Female 11:50 PM CDT Gender Identity Female 10/29/2024 1:03 PM CLIENT SUPPORT COORDINATOR Sexual Orientation Straight 10/29/2024 1: 03 PM CLIENT SUPPORT COORDINATOR Last Filed Vital Signs Vital Sign Reading Time Taken Comments Blood Pressure 110/72 04/08/2025 10:07 AM CDT Pulse 85 04/08/2025 10:07 AM CDT Temperature 36.9 C (98.5 F) 04/08/2025 10:07 AM CDT Respiratory Rate 14 04/08/2025 10:0 7 AM CDT Oxygen Saturation 98% 04/08/2025 10: 07 AM CDT Inhaled Oxygen Concentration - - Weight 87.5 kg (192 lb 12.8 oz) 025 10:07 AM CDT Height 162.6 cm (5' 4) 04/08/2025 10:0 7 AM CDT Body Mass Index 33.09 04/08/2025 10:07 AM CDT Plan of Treatment Upcoming Encounters Date Type Department Care Team (Late st Contact Info) Description 06/02/2025 4:00 PM CDT [facility] [place] [address] [place] [address] Amalia Li APRN, MOSAIC TILE MAKER [address] [place] [address] 06/04/2025 1:00 PM CDT [facility] [address] [place] [address] Jordi Grimm MD [address] [address] Discharge Disposition: Discharged to home or Selfcare 07/02/2025 2:00 PM CDT Office Visit [facility] - Cardiology - [place] [address] [place] [address] Britt Rodriguez MD 2 [facility] [address] [place] [address] 10/13/2025 10:00 AM CLIENT SUPPORT COORDINATOR Office Visit [facility] - Pulmonology & Sleep Medicine - [place] [address] [place] [phone] Bekah Hills, INTERNET ASSESSOR, SMALL ANIMAL CARETAKER [address] [facility] [address] [place] [address] Health Maintenance Due Date Last Done Comments Hepatitis C Virus (HCV) Screening 1990 Human Papillomavirus (HPV) Immunization (1 - 3-dose SCDM series) 2018 SARS-COV-2 Immunization ( season) 2024 12/04/2021, 11/03/2021, 02/19/2021, Additional history exists Influenza Immunization (#1) 06/09/202508/10, 08/09/2021, 08/05/2020, Additional history exists Td Immunization Every 10 Years (Adults With 1 Tdap) 11/02/2028 11/02/2018, 05/01/2006 Respiratory Syncytial Virus (RSV) Immunization (Adult) (1 - 1-dose 75+ series) 2066 Hepatitis B Immunization Completed 002, 10/12/2001, 09/14/2001 DTaP/Tdap/Td Immunization Discontinued 2018, 05/01/2006, 05/01/2006, Additional history exists Meningococcal Immunization (ACWY) Aged Out No longer eligible based on patient's age to complete this topic Pneumococcal Immunization Combined Aged Out No longer eligible based on patient's age to complete this topic Rotavirus Immunization Aged Out No lo nger eligible based on patient's age to complete this topic Procedures Procedure Name Priority Date/Time Associated Diagnosis Comments ELECTROCARDIOGRAM, COMPLETE Today 03/12/2025 2:00 PM CDT Palpitations from Last 3 Months Results * ELECTROCARDIOGRAM, COMPLETE (03/12/2025 2:00 PM CDT) Narrative Estee Macias CNA - 03/12/2025 2:00 PM CDT Britt Rodriguez MD 03/12/2025 2:37 PM NSR, nl axis, nl intervals, no acute ST/T changes. Procedure Note Britt Rodriguez MD - 03/12/2025 2:00 PM CDT NSR, nl axis, nl intervals, no acute ST/T changes. Britt Rodriguez MD IMG ECG ORDERABLES Edited Result - Final from Last 3 Months Insurance [employer] Care Teams Milk Hauler Relationship Specialty Start Date End Date Neel Evans MD [address] [facility] [address] PCP - General Family Medicine 08/16/24 Neel Evans MD [address] [facility] [address] Family Medicine 08/16/24 Amalia Li APRN, MOSAIC TILE MAKER [address] [place] [address] Nurse Practitioner Advanced Practice Nurse 10/31/24 Bekah Hills APRN, SMALL ANIMAL CARETAKER [address] [address] Nurse Practitioner Advanced Practice Nurse 11/29/24
[2025-05-22 15:24] VITALS: BP 111/67; PULSE 79; RESP 16; TEMP 36.7; O2SAT 100
--- NOTE | 2025-05-22 15:39 | ED_ITS ---
HPI - Skin/Abscess/Foreign Bdy General Chief complaint: Skin/Abscess/Foreign Body Stated complaint: left leg infection Time Seen by Provider: 05/22/25 15:33 Source: patient and RN notes reviewed Mode of arrival: ambulatory Limitations: no limitations History of Present Illness HPI narrative: Patient presents today complaining of an infected tattoo on her left ibarra. Patient tattooed herself 1 week ago with new ink and believes that her skin does not like it. 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 She has been cleaning the tattoo daily and applying Aquaphor. Related Data Home Medications ?Medication ?Instructions ?Recorded ?Confirmed ?Last Taken ?Type norethindrone (contraceptive) 0.35 0.35 mg PO DAILY 01/24/22 11/24/24 Unknown History mg tablet bupropion HCl 150 mg 24 hr tablet, 150 mg PO DAILY 05/31/23 11/24/24 Unknown History extended release sertraline 50 mg tablet 50 mg PO BID 05/31/23 11/24/24 Unknown History atogepant 60 mg tablet (Qulipta) mg 11/24/24 Unknown History pregabalin 150 mg capsule mg 11/24/24 Unknown History sumatriptan succinate 100 mg tablet mg PO 11/24/24 Unknown History topiramate 50 mg tablet mg 11/24/24 Unknown History Allergies Allergy/AdvReac Type Severity Reaction Status Date / Time No Known Allergies Allergy Verified 11/24/24 11:59 [facility] Past Medical History Medical History Chronic headaches Interstitial cystitis Anxiety and depression Surgical History Surgical History H/O gastric sleeve History of tonsillectomy Hx of cholecystectomy Family History Family History Other No significant family history Social History Social History Smoking status: Never smoker Alcohol intake: unknown Substance use: never Living arrangements: with family Gender identity (if verbalized by the patient): Female Comments At time of signature, I have reviewed and agree with nursing past medical, surgical, social and family history unless otherwise noted. Please see nursing chart for further information. There is no relevant family history pertinent to the presenting complaint Exam Narrative: GENERAL: Well-appearing, well-nourished, and in no acute distress. HEAD: Normocephalic, atraumatic. EYES: EOMI. No redness or drainage. Conjunctivae normal. ENT: Mucous membranes pink and moist. NECK: Normal AROM. CHEST: No respiratory distress. EXTREMITIES: Normal range of motion. No edema. SKIN: Warm, dry, no rash. Capillary refill normal. Normal skin turgor. Tattoo to left ibarra that has some underlying erythema and small areas of crusting. Tender to palpation. No obvious drainage or induration. NEURO: No focal deficits. Alert and oriented x3. Gait steady. PSYCH: Normal affect. No signs of depression or anxiety. Course Course Level of Care: Express Care Visit Vital Signs Vital signs: Vital Signs Temperature 98.0 F 05/22/25 15:24 Pulse Rate 79 05/22/25 15:24 Respiratory Rate 16 05/22/25 15:24 Blood Pressure 111/67 05/22/25 15:24 Pulse Oximetry 100 05/22/25 15:24 Oxygen Delivery Room Air 05/22/25 15:24 Temperature 98.0 F 05/22/25 15:24 Pulse Rate 79 05/22/25 15:24 Respiratory Rate 16 05/22/25 15:24 Blood Pressure 111/67 05/22/25 15:24 Pulse Oximetry 100 05/22/25 15:24 Oxygen Delivery Room Air 05/22/25 15:24 Reviewed MDM - Skin/Abscess/Foreign Bdy MDM Narrative Medical decision making narrative: 34-year-old female patient presents today with possible infected tattoo. She applied the toe to 1 week ago herself the notice some redness and crusting some days later. Upon exam, patient does have a tattoo to the left ibarra that has some underlying redness with some areas of crusting and tenderness. She will be treated with some Keflex and mupirocin. Vital signs stable. Anticipatory guidance given. Differential Diagnosis Differential diagnosis: Likely abscess of skin or subcutaneous tissue, cellulitis and impetigo Critical Care Time Critical Care Time Critical Care Time: No Discharge Plan Discharge Clinical Impression: Cellulitis of left lower extremity Patient Disposition: Home Condition: Stable Instructions: Antibiotic Form, Cellulitis (ED) Additional Instructions: Please wash your tattoo daily and apply the mupirocin as prescribed. Take the Keflex until gone. Take Tylenol or ibuprofen if needed for pain. Follow-up with your PCP in 3 days if symptoms are not improving. Patient Language: Albanian Prescriptions: New cephalexin 500 mg capsule 500 mg PO Q6H 7 Days Qty: 28 0RF mupirocin 2 % ointment 1 applic topical BID 7 Days Qty: 22 0RF No Action norethindrone (contraceptive) 0.35 mg Tablet 0.35 mg PO DAILY sertraline 50 mg tablet 50 mg PO BID bupropion HCl 150 mg tablet extended release 24 hr 150 mg PO DAILY sumatriptan succinate 100 mg tablet PO topiramate 50 mg tablet pregabalin 150 mg capsule Qulipta 60 mg tablet amoxicillin-pot clavulanate 875-125 mg tablet 1 tablet PO Q12H Qty: 20 0RF Follow-up/Referrals: PHYSICIAN NOT ON STAFF,NONSTAFF [Primary Care Provider] - Time of Disposition: 15:45
== END 2025-05-22 15:50 | disposition home or self-care (01) ==
PROVIDERS: Emergency Provider Nurse Practitioner
DX: L03.116 Cellulitis of left lower limb (principal); N30.10 Interstitial cystitis (chronic) without hematuria; F41.9 Anxiety disorder, unspecified; F32.A Depression, unspecified; Z98.84 Bariatric surgery status
CPT/HCPCS: 99213; G0463

== ENCOUNTER 2025-08-28 10:55 | Emergency (ER) | payer OTHER, SELFPAY ==
[2025-08-28 11:02] VITALS: BP 128/70; PULSE 80; RESP 20; TEMP 37; O2SAT 98
--- NOTE | 2025-08-28 11:08 | ED.FEMALEGU ---
HPI - Female Genitourinary General Chief complaint: Back Pain/Injury Stated complaint: right flank pain Time Seen by Provider: 08/28/25 11:08 Source: patient, RN notes reviewed and old records reviewed Mode of arrival: ambulatory Limitations: no limitations History of Present Illness HPI Narrative: 35 year old female who presents to [facility] care with complaints of right flank pain and right lower back pain for over one week duration with no known injury. Patient reports that she has history of Interstitial cystitis and reports that she has never had this with IC flares. Patient reports that she doesn't have any burning or pain with her urination or any frequency or urgency with urination. Patient reports that she saw urology about 2 month ago and is taking medication to keep her urine more acidic to help prevent UTI's. Patient reports no radiation of her pain to the buttock or abdomen area. She states that she has been taking Ibuprofen and she taken muscle relaxer and Lyrica for history of fibromyalgia. Patient reports no history of kidney stones. MD elicited complaint: back pain and flank pain Pertinent past history: hysterectomy and other (interstitial cystitis, UTI) Onset (ago): week(s) (over 1 week) Location of symptoms: low back (right) and flank (right) Severity scale (1-10): 5 Quality of pain: aching Treatment prior to arrival: NSAIDs and other (Lyrica and muscle relaxer) Related Data Home Medications ?Medication ?Instructions ?Recorded ?Confirmed ?Last Taken ?Type norethindrone (contraceptive) 0.35 0.35 mg PO DAILY 01/24/22 11/24/24 Unknown History mg tablet bupropion HCl 150 mg 24 hr tablet, 150 mg PO DAILY 05/31/23 11/24/24 Unknown History extended release sertraline 50 mg tablet 50 mg PO BID 05/31/23 11/24/24 Unknown History atogepant 60 mg tablet (Qulipta) mg 11/24/24 Unknown History pregabalin 150 mg capsule mg 11/24/24 Unknown History sumatriptan succinate 100 mg tablet mg PO 11/24/24 Unknown History topiramate 50 mg tablet mg 11/24/24 Unknown History Allergies Allergy/AdvReac Type Severity Reaction Status Date / Time No Known Allergies Allergy Verified 11/24/24 11:59 Review of Systems Review of Systems: CONSTITUTIONAL: Denies fever, chills, or sweats. CARDIOVASCULAR: Denies chest pain, palpitations, or edema. RESPIRATORY: Denies cough or dyspnea. GASTROINTESTINAL: Denies abdominal pain, nausea, vomiting, or diarrhea. GENITOURINARY: Reports NO dysuria, frequency, urgency. +right flank pain no hematuria. SKIN: Denies rash or itching. MUSCULOSKELETAL: reports some right sided lower back pain or myalgia. reports right CVA tenderness NEUROLOGIC: Denies headache All systems reviewed & are unremarkable except as noted in HPI and below PMFSH Past Medical History Medical History (Updated 08/29/25 @ 09:35 by Jaja Barfield APRN) Narcolepsy Migraine Fibromyalgia Chronic headaches Interstitial cystitis Anxiety and depression Surgical History Surgical History (Updated 08/29/25 @ 09:19 by Jaja Barfield APRN) History of hysterectomy H/O gastric sleeve History of tonsillectomy Hx of cholecystectomy Family History Family History Other No significant family history Social History Social History Smoking status: Never smoker Alcohol intake: unknown Substance use: never Living arrangements: with family Gender identity (if verbalized by the patient): Female Comments At time of signature, agree with nursing past medical, surgical, social and family history. There is no relevant family history pertinent to the presenting complaint Exam Narrative: GENERAL: Well-appearing, well-nourished, and in no acute distress. HEAD: Normocephalic, atraumatic. NECK: Supple.no lymphadenopathy CHEST: Clear to auscultation. No respiratory distress. HEART: Regular rate and rhythm. No murmur heard. Normal peripheral pulses. ABDOMEN: Soft, nontender, nondistended, normal active bowel sounds. Right CVA tenderness with some right lower back pain EXTREMITIES: Normal range of motion. No edema noted. No radiation of her pain to buttock or legs or to abdomen.gait steady denies any difficulty with her bowel or bladder function or any saddle paraesthesia. SKIN: Warm, dry, no rash. NEURO: No focal deficits. Alert and oriented x3. Course Course Emergency Course: Patient is aware of diagnosis, understands and agrees to treatment plan.? Anticipatory guidance given.? Patient agrees to follow-up as directed and is aware of reasons to seek care at the emergency department. Portions of this record may have been created with voice recognition software Level of Care: Express Care Visit Vital Signs Vital signs: Vital Signs Temperature 37.0 C 08/28/25 11:02 Pulse Rate 80 08/28/25 11:02 Respiratory Rate 20 08/28/25 11:02 Blood Pressure 128/70 08/28/25 11:02 Pulse Oximetry 98 08/28/25 11:02 Oxygen Delivery Room Air 08/28/25 11:02 Temperature 37.0 C 08/28/25 11:02 Pulse Rate 80 08/28/25 11:02 Respiratory Rate 20 08/28/25 11:02 Blood Pressure 128/70 08/28/25 11:02 Pulse Oximetry 98 08/28/25 11:02 Oxygen Delivery Room Air 08/28/25 11:02 Reviewed MDM - Female Genitourinary MDM Narrative Medical decision making narrative: Exam findings and UA show no acute concerns or changes; patient is non-toxic appearing and is in no distress.? Patient is appropriate for outpatient treatment and follow-up. Differential Diagnosis Differential diagnosis: Likely urinary tract infection, cystitis and other (right flank pain, muscle strain right back) Medical Records Attestation: I reviewed the patient's medical records. Lab Data Attestation: I reviewed the patient's lab results. Lab results narrative: urine dip reviewed with no blood or leukocytes noted is cloudy, culture sent Labs: Lab Results 08/28/25 Range/Units 11:08 POC Urine Color Yellow POC Urine Clarity Cloudy POC Urine pH 7.0 POC Ur Specif [place] 1.020 POC Urine Protein Negative (Negative) POC Ur Glucose (UA) Negative (Negative) POC Urine Ketones Negative (Negative) POC Urine Blood Negative (Negative) POC Urine Nitrite Negative (Negative) POC Urine Bilirubin Negative (Negative) POC Urine Urobilinogen 0.2 POC U Leukocyte Esteras Negative (Negative) reviewed Critical Care Time Critical Care Time Critical Care Time: No Discharge Plan Discharge Clinical Impression: Flank pain, right side Strain of lumbar region Qualifiers: Encounter type: initial encounter Qualified Code(s): S39.012A - Strain of muscle, fascia and tendon of lower back, initial encounter Patient Disposition: Home Condition: Stable Instructions: Muscle Strain (ED), Flank Pain (ED) Additional Instructions: Ice and heat to the area for 20-30 minutes Gentle stretching exercises Gentle massage Caution with lifting, bending, stooping, twisting Avoid pushing, pulling take muscle relaxants as directed--caution drowsiness and no driving or alcohol patient has prescription from pain management Anti-inflammatory medicine as directed--take with food ibuprofen 600 mg up to 4 times daily no more than 2400 mg daily patient may take arthritis strength Tylenol in between doses ibuprofen He may take the muscle relaxant and anti-inflammatory at the same time Follow-up with your PCP if not improving in 5-7 days If your symptoms persist, change or worsen significantly before you can contact your personal physician then please, without delay, go to the emergency department for further evaluation. Follow-up with PCP in 7-10 days or sooner if needed Patient Language: Yakut Prescriptions: New prednisone 20 mg tablet 40 mg PO DAILY Qty: 10 0RF No Action cephalexin 500 mg capsule 500 mg PO Q6H 7 Days Qty: 28 0RF mupirocin 2 % ointment 1 applic topical BID 7 Days Qty: 22 0RF norethindrone (contraceptive) 0.35 mg Tablet 0.35 mg PO DAILY sertraline 50 mg tablet 50 mg PO BID bupropion HCl 150 mg tablet extended release 24 hr 150 mg PO DAILY sumatriptan succinate 100 mg tablet PO topiramate 50 mg tablet pregabalin 150 mg capsule Qulipta 60 mg tablet amoxicillin-pot clavulanate 875-125 mg tablet 1 tablet PO Q12H Qty: 20 0RF Follow-up/Referrals: PHYSICIAN NOT ON STAFF,NONSTAFF [Primary Care Provider] Time of Disposition: 11:34 Quality Rosamaria Coma Scale Eyes: Open Verbal: Oriented and Alert Motor: Follows Commands Rosamaria Coma Total Score: 15
[2025-08-28 11:17] LABS: EDUAAPPEAR Cloudy; EDUABILI Negative (Negative); EDUABLOOD Negative (Negative); EDUACOLOR1 Yellow; EDUAGLUCOSE Negative (Negative); EDUAKETONE Negative (Negative); EDUALEUKO Negative (Negative); EDUANITRATE Negative (Negative); EDUAPH 7.0; EDUAPROTEIN Negative (Negative); EDUASPGRAVITY 1.020; EDUAUROBILI 0.2
--- OUTSIDE RECORDS SUMMARY | 2025-08-28 13:27 | XMS_ITS | Clinical Summary ---
Author Organization [facility] - NEUROLOGY [facility] Address [address] [place] [address] Phone Care Team Providers Care Postal Sorting Officer Name Role Phone Neel Evans MD Primary Care Provider [phone] Neel Evans MD Unavailable [phone] Amalia Li APRN, BIRD TENDER Unavailable Bekah Hills APRN, ELECTRIC STOVE INSTALLER Unavailable Britt Rodriguez MD Unavailable Allergies Active Allergy Reactions Criticality Noted [...] Take 100 mg by mouth daily. Active tiZANidine (ZANAFLEX) 2 MG Capsule Take [...] by mouth every morning (before breakfast). Active topiramate (TOPAMAX) 50 MG TabletIndication s:Chronic migraine with aura without status migrainosus, not intractable Take 1 Tablet by mouth 2 times daily. 180 Tablet 1 5 Active SUMAtriptan (IMITREX) 100 MG TabletIndication s:Chronic migraine with aura without status migrainosus, not intractable Take 1 Tablet by mouth daily as needed for Migraine. Use as directed. May repeat dose in 2 hours if headache recurs. 9 Tablet 5 5 Active solriamfetol hcl (Sunosi) 150 MG Tablet Take by mouth daily. Active brexpiprazole (Rexulti) 1 MG Tablet Take by mouth daily. Active Active Problems Problem Noted Date Diagnosed [...] Encounters Date Type Department Care Team Description 07/23/2025 2:00 PM CDT Office Visit [facility] - [facility] [address] [place] [address] Britt Rodriguez MD Palpitations (Primary Dx) Discharge Disposition: Discharged to home or Selfcare 07/23/2025 Travel 06/25/2025 Telephone [facility] - Cardiology - [place] [address] [place] [phone] Britt Rodriguez MD 06/04/2025 12:51 PM CDT - 06/04/2025 11:59 PM CDT [facility] [address] [place] [id number] Jordi Grimm MD Discharge Disposition: Discharged to home or Selfcare 06/04/2025 Travel 06/02/2025 4:00 PM CDT [facility] [place] [address] [place] [address] Amalia Li, PROCESS CAMERA OPERATOR, BIRD TENDER Chronic migraine with aura without status migrainosus, not intractable (Primary Dx) Discharge Disposition: Discharged to home or Selfcare 05/31/2025 Travel from Last 3 Months Immunizations Immunization [...] Sex Assigned at Female 10/29/2024 1:03 PM SHOE PLANNER Legal Sex Female 11:50 PM CDT Gender Identity Female 10/29/2024 1:03 PM SHOE PLANNER Sexual Orientation Straight 10/29/2024 1: 03 PM SHOE PLANNER Last Filed Vital Signs Vital Sign Reading Time Taken Comments Blood Pressure 120/84 07/23/2025 2:35 PM CDT Pulse 94 07/23/2025 2:35 PM CDT Temperature 36.4 C (97.5 F) 07/23/2025 2:35 PM CDT Respiratory Rate 16 07/23/2025 2:35 PM CDT Oxygen Saturation 99% 07/23/2025 2:35 PM CDT Inhaled Oxygen Concentration - - Weight 89.8 kg (198 lb) 07/23/2025 2:35 PM CDT Height 162.6 cm (5' 4) 07/23/2025 2:35 PM CDT Body Mass Index 33.99 07/23/2025 2:35 PM CDT Plan of Treatment Upcoming Encounters Date Type Department Care Team (Late st Contact Info) Description 10/10/2025 9:30 AM SHOE PLANNER Telemedicine [facility] - Pulmonology & Sleep Medicine - [place] [address] [place] [address] Bekah Hills, PROCESS CAMERA OPERATOR, ELECTRIC STOVE INSTALLER [address] [facility] [address] [place] [address] 12/05/2025 10:00 AM SHOE PLANNER [facility] [place] [address] [place] [address] Amalia Li, PROCESS CAMERA OPERATOR, BIRD TENDER [address] [place] [address] 01/21/2026 1:30 PM CDT Office Visit [facility] - Cardiology - [place] [address] [place] [address] Britt Rodriguez MD [address] [address] Health Maintenance Due Date Last Done Comments Hepatitis C Virus (HCV) Screening 1990 Human Papillomavirus (HPV) Immunization (1 - Risk 3-dose SCDM series) 2018 Influenza Immunization (#1) 2025 11/2 04/2024, 08/09/2021, 08/05/2020, Additional history exists SARS-COV-2 Immunization ( season) 2025 12/04/2021, 11/03/2021, 02/19/2021, Additional history exists Td Immunization Every 10 Years (Adults With 1 Tdap) 11/02/2028 11/02/2018, 05/01/2006 Respiratory Syncytial Virus (RSV) Immunization (Adult) (1 - 1-dose 75+ series) 2066 Hepatitis B Immunization Completed 002, 10/12/2001, 09/14/2001 Varicella Immunization Completed 05/01/2006, 1994 DTaP/Tdap/Td Immunization Discontinued 2018, 05/01/2006, 05/01/2006, Additional [...] Date/Time Associated Diagnosis Comments ELECTROCARDIOGRAM, COMPLETE Today 07/23/2025 2:00 PM CDT Palpitations ADULT TRANS THORACIC ECHO 2D COMPLETE Routine 06/04/2025 1:30 PM CDT POTS (postural orthostatic tachycardia syndrome) from Last 3 Months Results * ELECTROCARDIOGRAM, COMPLETE (07/23/2025 2:00 PM CDT) Narrative Britt Rodriguez MD - 07/23/2025 2:00 PM CDT Britt Rodriguez MD 07/23/2025 4:21 PM NSR, nl axis, nl intervals, no acute ST/T changes. us Britt Rodriguez MD IMG ECG ORDERABLES Final Result * ADULT TRANS THORACIC ECHO 2D COMPLETE (06/04/2025 1:30 PM CDT) AV Peak Grad mmHg 5.29 mmHg RESULTING AGENCY Mean Aortic Valve Gradient (MAVG) 3 mmHg RESULTING AGENCY LV end jhony diam cm 4.7 cm RESULTING AGENCY LV end sys diam cm 3.1 cm RESULTING AGENCY Aortic Root Diam cm 2.6 cm RESULTING AGENCY LA vol index ml/m2 18 ml/m2 RESULTING AGENCY LVOT Peak Lukasz m/sec 0.966 m/sec RESULTING AGENCY AV Peak Lukasz m/sec 1.15 m/sec RESULTING AGENCY MV Mean Grad mmHg 2 mmHg RESULTING AGENCY MVA by PHT cm2 4.07 cm2 RESUL TING AGENCY E/A Ratio 1.23 RESULTING AGENCY TR Lukasz m/sec 1.75 m/sec RESULTI NG AGENCY E/E' 3.8 RESULTING AGENCY AV Area (VTI) cm2 2.56 cm2 RESULTING AGENCY SEPTUM DIASTOLIC CM 0.7 cm RESULTING AGENCY PW DIASTOLIC CM 0.8 cm RESU LTING AGENCY LA VOLUME 35.2 ml RESULTING AGENCY LV EF(estimated)% 53 RESULTING AGENCY Anatomical Region Laterality Modality CARDIO N/A Ultrasound Narrative 06/04/2025 3:01 PM CDT Transthoracic Echocardiography Report (TTE) Patient name MAGDALENA PLATT 1990 Patient ID (UPI) [id number] Indications: POTS ( postural orthostatic tachycardia syndrome) and Palpitations. Study Date06/04/2025 Technical quality: Good visualization Type of Study: TTE procedure: Adult Trans Thoracic Echo 2D Complete. Priority:RoutineHR: 79 bpmBP: 94/62 mmHg Conclusions Summary The left ventricle is normal in size. Wall thickness is normal. LV function is normal. There are no regional wall motion abnormalities. LV EF of 50-55%. Normal LV diastolic function. Findings Mitral Valve The mitral valve is normal. No evidence of mitral stenosis. No significant mitral regurgitation. Aortic Valve The aortic valve is trileaflet with normal leaflet excursion. There is no evidence of aortic valve stenosis. There is no significant aortic valve insufficiency. Tricuspid Valve The tricuspid valve is normal. There is no evidence of tricuspid stenosis. Trace tricuspid valve regurgitation. Insufficient TR jet to estimate PASP. Pulmonic Valve The pulmonic valve structure appears normal. There is no evidence of pulmonic stenosis. Trace pulmonic regurgitation. Left Atrium The left atrium size is normal. Left Ventricle The left ventricle is normal in size. Wall thickness is normal. LV function is normal. There are no regional wall motion abnormalities. LV EF of 50-55%. Normal LV diastolic function. Right Ventricle Normal right ventricular cavity size and normal systolic function. Pericardial Effusion The pericardium is normal. There is no pericardial effusion visualized. Miscellaneous Aortic root and proximal ascending aorta are normal in size. Atrial septum appears intact. IVC is normal in size and respiratory response. Aortic arch appears normal. Valves Mitral Valve Area (PHT): 4.07 cm^2 Area (continuity): 2.37 cm^2 Peak E-Wave: 0.73 m/s Mean Velocity: 0.6 m/s Peak A-Wave: 0.60 m/s Mean Gradient: 2 mmHg Peak Gradient: 2.18 mmHg Deceleration Time: 185 msec P1/2t: 54 msec Tissue Doppler E' Velocity: 0.09 m/s E/E':3.8 E/A Ratio: 1.23 E/Lat E': 3.8 E/Med E':7.5 Aortic Valve Area (continuity): 2.56 cm^2 Mean Velocity: 0.79 m/s Area (VTI):2.56 cm^2 Mean Gradient: 3 mmHg Peak Velocity: 1.15 m/s AV VTI: 21.8 cm Peak Gradient: 5.29 mmHg Tricuspid Valve Peak E-Wave: 0.68 m/s Peak Gradient: 1.86 mmHg TR Velocity: 1.75 m/s TR Gradient: 12.25 mmHg Pulmonic Valve Peak Velocity: 1.19 m/s Mean Velocity: 0.82 m/s Peak Gradient: 5.66 mmHg Mean Gradient: 3 mmHg LVOT Peak Velocity: 0.96 m/s Mean Velocity: 0.63 m/s Peak Gradient: 4 mmHg Mean Gradient: 2 mmHg LVOT Diameter: 2 cm LVOT VTI: 17.8 cm Stroke Volume: 56 ml Stroke Volume Index: 28.72 ml/m^2 Structures Left Ventricle Diastolic Dimension: 4.7 cm Systolic Dimension: 3.1 cm Septum Diastolic: 0.7 cm Septum Systolic: 1.1 cm PW Diastolic: 0.8 cm PW Systolic: 1.2 cm Diastolic Length: 24.4 cm Systolic Length: 14.6 cm EF Calculated: 54.12% CI: 2.27 l/min*m^2 CO: 4.42 l/min RWT: 0.34 LV EDV: 64.3 ml FS: 34.04 % LV EDV Index: 33 m^2 LV Length: 7.15 cm LV ESV: 29.5 ml LVOT Diameter: 2 cm LV ESV Index: 15 m^2 Global Longitudinal Strain:-18.9 Right Ventricle RVOT (PLAX) diameter:3.6 cm Tissue Doppler RV S': 14.8 TAPSE: 1.88 cm Left Atrium LA Systolic Pressure: 6.76 mmHg LA Area: 15.8 cm^2 LA Volume: 35.2 ml LA Index: 18ml/m^2 Right Atrium RA Area: 11.6 cm^2 Great Vessels Aorta Ascending Aorta: 2.4 cm Aorta Root:2.6 cm Ascending Aorta Index:1.23 cm/m^2 Demographics Age 34 Gender Female Race Height 64.02 in. Weight 197.4 lbs. BMI (BSA) 33.87 kg/m^2 (1.95 m^2) Pattern Changer Jordan Munoz Interpreting Davin Bacon Physician Manda Physician Procedure Note Manda Jin MD - 06/04/2025 Transthoracic Echocardiography Report (TTE) Patient name MAGDALENA PLATT Geraldo 1990 Patient ID (UPI) [id number] Indications: POTS ( postural orthostatic tachycardia syndrome) and Palpitations. Study Date06/04/2025 Technical quality: Good visualization Type of Study: TTE procedure: Adult Trans Thoracic Echo 2D Complete. Priority:RoutineHR: 79 bpmBP: 94/62 mmHg Conclusions Summary The left ventricle is normal in size. Wall thickness is normal. LV function is normal. There are no regional wall motion abnormalities. LV EF of 50-55%. Normal LV diastolic function. Findings Mitral Valve The mitral valve is normal. No evidence of mitral stenosis. No significant mitral regurgitation. Aortic Valve The aortic valve is trileaflet with normal leaflet excursion. There is no evidence of aortic valve stenosis. There is no significant aortic valve insufficiency. Tricuspid Valve The tricuspid valve is normal. There is no evidence of tricuspid stenosis. Trace tricuspid valve regurgitation. Insufficient TR jet to estimate PASP. Pulmonic Valve The pulmonic valve structure appears normal. There is no evidence of pulmonic stenosis. Trace pulmonic regurgitation. Left Atrium The left atrium size is normal. Left Ventricle The left ventricle is normal in size. Wall thickness is normal. LV function is normal. There are no regional wall motion abnormalities. LV EF of 50-55%. Normal LV diastolic function. Right Ventricle Normal right ventricular cavity size and normal systolic function. Pericardial Effusion The pericardium is normal. There is no pericardial effusion visualized. Miscellaneous Aortic root and proximal ascending aorta are normal in size. Atrial septum appears intact. IVC is normal in size and respiratory response. Aortic arch appears normal. Valves Mitral Valve Area (PHT): 4.07 cm^2 Area (continuity): 2.37 cm^2 Peak E-Wave: 0.73 m/s Mean Velocity: 0.6 m/s Peak A-Wave: 0.60 m/s Mean Gradient: 2 mmHg Peak Gradient: 2.18 mmHg Deceleration Time: 185 msec P1/2t: 54 msec Tissue Doppler E' Velocity: 0.09 m/s E/E':3.8 E/A Ratio: 1.23 E/Lat E': 3.8 E/Med E':7.5 Aortic Valve Area (continuity): 2.56 cm^2 Mean Velocity: 0.79 m/s Area (VTI):2.56 cm^2 Mean Gradient: 3 mmHg Peak Velocity: 1.15 m/s AV VTI: 21.8 cm Peak Gradient: 5.29 mmHg Tricuspid Valve Peak E-Wave: 0.68 m/s Peak Gradient: 1.86 mmHg TR Velocity: 1.75 m/s TR Gradient: 12.25 mmHg Pulmonic Valve Peak Velocity: 1.19 m/s Mean Velocity: 0.82 m/s Peak Gradient: 5.66 mmHg Mean Gradient: 3 mmHg LVOT Peak Velocity: 0.96 m/s Mean Velocity: 0.63 m/s Peak Gradient: 4 mmHg Mean Gradient: 2 mmHg LVOT Diameter: 2 cm LVOT VTI: 17.8 cm Stroke Volume: 56 ml Stroke Volume Index: 28.72 ml/m^2 Structures Left Ventricle Diastolic Dimension: 4.7 cm Systolic Dimension: 3.1 cm Septum Diastolic: 0.7 cm Septum Systolic: 1.1 cm PW Diastolic: 0.8 cm PW Systolic: 1.2 cm Diastolic Length: 24.4 cm Systolic Length: 14.6 cm EF Calculated: 54.12% CI: 2.27 l/min*m^2 CO: 4.42 l/min RWT: 0.34 LV EDV: 64.3 ml FS: 34.04 % LV EDV Index: 33 m^2 LV Length: 7.15 cm LV ESV: 29.5 ml LVOT Diameter: 2 cm LV ESV Index: 15 m^2 Global Longitudinal Strain:-18.9 Right Ventricle RVOT (PLAX) diameter:3.6 cm Tissue Doppler RV S': 14.8 TAPSE: 1.88 cm Left Atrium LA Systolic Pressure: 6.76 mmHg LA Area: 15.8 cm^2 LA Volume: 35.2 ml LA Index: 18ml/m^2 Right Atrium RA Area: 11.6 cm^2 Great Vessels Aorta Ascending Aorta: 2.4 cm Aorta Root:2.6 cm Ascending Aorta Index:1.23 cm/m^2 Demographics Age 34 Gender Female Race Height 64.02 in. Weight 197.4 lbs. BMI (BSA) 33.87 kg/m^2 (1.95 m^2) Pattern Changer Jordan Munoz Interpreting Jin Sophia Bacon Physician Manda Physician us Jordi Grimm MD IMG ECHO ORDERABLES Edited Resul t - Final from Last 3 Months Insurance [employer] Care Teams Postal Sorting Officer Relationship Specialty Start Date End Date Neel Evans MD [address] [place] [address] PCP - General Family Medicine 08/16/24 Neel Evans MD [address] [place] [address] Family Medicine 08/16/24 Amalia Li, PROCESS CAMERA OPERATOR, BIRD TENDER [address] [facility] [place] [address] Nurse Practitioner Advanced Practice Nurse 10/31/24 Bekah Hills APRN, ELECTRIC STOVE INSTALLER #2 [facility] [address] [place] [address] Nurse Practitioner Advanced Practice Nurse 11/29/24 Britt Rodriguez MD [address] [address] Consulting Physician Cardiovascular Disease - Cardiology 07/24/25
--- OUTSIDE RECORDS SUMMARY | 2025-08-28 13:27 | XMS_ITS | Encounter Summary ---
Author Organization [facility] Address [address] [place] [address] Phone Care Team Providers Care Soil Surveyor Name Role Phone Neel Evans MD Primary Care Provider [phone] Neel Evans MD Unavailable [phone] Amalia Li SEX WORKER OR ESCORT, DATA EXAMINATION CLERK Unavailable [phone] Bekah Hills APRN, SANITARY LANDFILL SUPERVISOR Unavailable [phone] Britt Rodriguez MD Unavailable Reason for Visit * Reason Comments Medication Refill Encounter Details Date Type Department Care Team (Late st Contact Info) Description 04/21/2025 Refill [facility] - [facility] [address] [place] [address] Amalia Li, SEX WORKER OR ESCORT, DATA EXAMINATION CLERK [address] [place] [address] Medication Refill Social History Tobacco Use Types [...] Sex Assigned at Female 10/29/2024 1:03 PM PROBATION MANAGER Legal Sex Female 11:50 PM CDT Gender Identity Female 10/29/2024 1:03 PM PROBATION MANAGER Sexual Orientation Straight 10/29/2024 1: 03 PM PROBATION MANAGER documented as of this encounter Plan of Treatment Upcoming Encounters Date Type Department Care Team (Late st Contact Info) Description 10/10/2025 9:30 AM PROBATION MANAGER Telemedicine [facility] - [facility] - [place] [address] [place] [address] Bekah Hills, SEX WORKER OR ESCORT, SANITARY LANDFILL SUPERVISOR #2 [facility] [address] [place] [address] 12/05/2025 10:00 AM PROBATION MANAGER Office [facility] - [facility]rology - [place] [address] [place] [address] Amalia Li, SEX WORKER OR ESCORT, DATA EXAMINATION CLERK [address] [place] [address] 01/21/2026 1:30 PM CDT Office Visit [facility] - Cardiology - [place] [address] [place] [id number] Britt Rodriguez MD [address] [address] documented as of this encounter Visit Diagnoses Not on filedocumented in this encounter Additional Health Concerns Assessment Noted Time PHQ-9 Depression Total Score: 0 11/02/19 19 4:20 PM PROBATION MANAGER documented as of this encounter Care Teams Soil Surveyor Relationship Specialty Start Date End Date Neel Evans MD [address] [facility] [place] [address] PCP - General Family Medicine 08/16/24 Neel Evans MD [address] [facility] [place] [address] Family Medicine 08/16/24 Amalia Li APRN, DATA EXAMINATION CLERK [address] [place] [address] Nurse Practitioner Advanced Practice Nurse 10/31/24 Bekah Hills APRN, SANITARY LANDFILL SUPERVISOR #[address] [address] Nurse Practitioner Advanced Practice Nurse 11/29/24 Britt Rodriguez MD 2 [facility] Y[address]JANAMel[address]ie [address] [address] Consulting Physician Cardiovascular Disease - Cardiology 07/24/25 documented as of this encounter
== END 2025-08-28 11:39 | disposition home or self-care (01) ==
PROVIDERS: Emergency Provider Registered Nurse
DX: R10.A1 Flank pain, right side (principal); S39.012A Strain of muscle, fascia and tendon of lower back, initial encounter; X58.XXXA Exposure to other specified factors, initial encounter; M79.7 Fibromyalgia; F41.9 Anxiety disorder, unspecified; F32.A Depression, unspecified; Z98.84 Bariatric surgery status
CPT/HCPCS: 81003; 87086; 99213; G0463

== ENCOUNTER → 2025-09-15 14:56 | Outpatient (CLI) | payer OTHER, SELFPAY ==
--- NOTE | ~2025-09-15 | XR_ITS ---
EXAM/PROCEDURE: XR sacroiliac joints min 3V HISTORY: LBP. COMPARISON: None available. TECHNIQUE: SI joint x-rays FINDINGS: No advanced degenerative changes, or erosive changes seen in the SI joints. No acute or aggressive bony or soft tissue process seen in the visualized portions of the pelvis/sacroiliac regions. IMPRESSION: No acute findings. Reviewed, dictated and finalized at location A. NTEER SERVICES COORDINATOR IMPRESSION: No acute findings.
--- NOTE | ~2025-09-15 | XR_ITS ---
XR lumbar spine min 4V Indication: LBP. Comparison: None Findings: The vertebral heights are intact, no fracture, no subluxation with flexion and extension The disc heights are intact. Soft tissues unremarkable Impression: No acute abnormality. Reviewed, dictated and finalized at location P. ER OVER Impression: No acute abnormality.
== END ==
DX: M54.50 Low back pain, unspecified (principal)
CPT/HCPCS: 72110; 72202